=== PATIENT | female | born 1955 | race Caucasian/White ===

== ENCOUNTER 2017-12-17 02:57 | Observation (INO) | payer OTHER, SELFPAY ==
[2017-12-17] VITALS (32 sets, daily range): BP systolic 85–148; BP diastolic 43–95; PULSE 63–86; RESP 9–24; TEMP 36.2–37.1; O2SAT 90–99; BMI 24.8; BMI 25.0; BMI 25.1
--- NOTE | 2017-12-17 02:59 | ED.RN ---
NO OLD EKG'S IN MUSE
--- NOTE | 2017-12-17 03:02 | CT_ITS ---
STUDY: CTA CHEST REASON FOR EXAM: Female, 62 years old. Chest pain and pressure. Shortness of breath. Rule out dissection. RADIATION DOSAGE (If Supplied By Facility): CTDIvol = ( 9.86 ) mGy, DLP = ( 607.34 ) mGycm TECHNIQUE: The examination was performed with the intravenous administration of 75ml ml of Isovue 370 contrast material. Post-processing of the angiographic images was performed, with multiplanar reformation and 3D reconstruction. Individualized dose optimization techniques were used for this CT. COMPARISON: CTA abdomen done today. FINDINGS: Normal enhancement of the main pulmonary artery and right and left pulmonary arteries. Normal enhancement of the bilateral peripheral pulmonary arteries. There is no demonstrated pulmonary embolism. There are atherosclerotic calcifications of the thoracic aorta and visualized great vessels. There is mild aneurysmal dilatation of the ascending thoracic aorta with maximal diameter of 4.3 cm. There is no demonstrated aortic dissection. Normal heart and pericardium. There are coronary artery calcifications. There are visualized mediastinal lymph nodes, which are within normal size limits, and with normal morphology. Normal hilar regions. Normal visualized trachea. There is mural thickening of bronchial bronchial branches within the posterior basilar segment of the right lower lobe. There is also opacification of some small bronchial branches in that segment. The lungs are generally well expanded. There is mild atelectasis or fibrosis in the lung bases. Normal pleura. Normal chest wall structures. There are degenerative changes of thoracic spine. Abdominal findings were discussed in CT abdomen report. CT/CTA Chest W/WO Contrast IMPRESSION: No demonstrated pulmonary embolism or arterial dissection. Atherosclerosis. Mild residual dilatation of the ascending thoracic aorta with maximal diameter of 4.3 cm. Mural thickening and partial opacification of bronchial branches in the posterior basilar segment of the right lower lobe. This may represent an infectious or inflammatory bronchitis with retained secretions or mucous plugs. Previous aspiration would also be consideration. Mild fibrosis or atelectasis in the lung bases bilaterally. No demonstrated pulmonary consolidations. Electronically Signed: Celso Carpenter MD at 4:08 EDT , Service support ,
--- NOTE | 2017-12-17 03:02 | EKG12_ITS ---
Test Reason : CP Blood Pressure : / mmHG Vent. Rate : 078 BPM Atrial Rate : 078 BPM P-R Int : 172 ms QRS Dur : 082 ms QT Int : 362 ms P-R-T Axes : 072 055 067 degrees QTc Int : 412 ms Sinus arrhythmia Normal ECG Confirmed by FAUSTINO MONTILLA, IRINA ([id number]), editorial manager LIANE BERGER ([id number]) on 12/18/2017 1:17:19 PM Referred By: KJ Confirmed By:IRINA HARMON MD
--- NOTE | 2017-12-17 03:03 | CT_ITS ---
STUDY: CTA OF THE ABDOMINAL AORTA AND ABDOMINAL ARTERIES REASON FOR EXAM: Female, 62 years old. Chest pain and pressure. Shortness of breath. Rule out dissection. RADIATION DOSAGE (If Supplied By Facility): CTDIvol = ( 9.86 ) mGy, DLP = ( 607.34 ) mGycm TECHNIQUE: Axial CT angiography multi-detector data acquisition was obtained from the to the following intravenous administration of 75ml ml of Isovue 370 contrast. Axial images and MIP images were reconstructed from the axial data set. Post-processing of the angiographic images was performed, with multiplanar reformation and 3D reconstruction. Individualized dose optimization techniques were used for this CT. TECHNICAL QUALITY: Good COMPARISON: CTA chest.w Descriptors of Narrowing: None (0%) Mild (< 50%) Moderate (50-70%) Severe (70-90%) Subtotal/Total Occlusion (90-100%) Non-Evaluable (technically non-diagnostic FINDINGS: Abdominal aorta: There is atherosclerotic calcification and tortuosity of the abdominal aorta with no demonstrated narrowing. No demonstrated aneurysm or dissection. Celiac and superior mesenteric arteries: No demonstrated narrowing. Inferior mesenteric artery: No demonstrated narrowing. Right renal artery(arteries): (2 arteries) No demonstrated narrowing. Left renal artery(arteries): (2 arteries) No demonstrated narrowing. Right common iliac artery: No demonstrated narrowing. Proximal Right external iliac artery: No demonstrated narrowing. Proximal Right internal iliac artery: No demonstrated narrowing. Left common iliac artery: No demonstrated narrowing. Proximal Left external iliac artery: No demonstrated narrowing. Proximal Left internal iliac artery: No demonstrated narrowing. ABDOMINAL FINDINGS: The lower lung field findings were discussed since CTA chest report. Normal liver. Normal gallbladder and extrahepatic biliary system. Normal spleen. Normal pancreas. Normal bilateral adrenal glands. Normal right kidney. Normal left kidney. There is apparent mural thickening of the fundus and proximal body of the stomach which may be artifact of nondistention or may represent gastritis. Normal small intestine. Normal colon. There is non-visualization of the appendix. Normal inferior vena cava. Normal retroperitoneum. Normal urinary bladder. Normal abdominal wall. There are diffuse degenerative changes of the visualized lumbar spine. There is grade 1 spondylolisthesis at the L4-5 level, bases. CT/CTA Abdomen W/WO Contrast IMPRESSION: No evidence for aortic aneurysm or dissection. No evidence for hemodynamically significant arterial stenosis. Apparent prominent mural thickening of the stomach may be an artifact of under distention. Gastritis or other gastric pathology is not excluded. Electronically Signed: Celso Carpenter MD at 3:56 EDT , Service support ,
--- NOTE | 2017-12-17 03:05 | RAD_ITS ---
STUDY: X-RAY CHEST REASON FOR EXAM: Female, 62 years old. Chest pain. TECHNIQUE: Single AP portable view of the chest. COMPARISON: None. FINDINGS: The lungs are clear and expanded. There is no demonstrated pleural abnormality. Normal size heart. Normal mediastinum and amber. Normal visualized pulmonary arteries. Normal visualized aortic arch and descending thoracic aorta. Normal visualized thoracic spine. Normal visualized ribs, clavicles, and shoulders. There is no demonstrated abnormality of the visualized soft tissue structures of the upper abdomen. RAD/Chest 1 View (Portable) IMPRESSION: Normal x-ray examination of the chest. Electronically Signed: Celso Carpenter MD at 3:33 EDT , Service support ,
--- NOTE | 2017-12-17 03:07 | ED.DCSUM_ITS ---
- ER Visit Summary Date of Service: 12/17/17 Chief Complaint: Chest pain, shortness of breath History of Present Illness: The patient is a 62 F presents to the emergency department chest pain shortness of breath. Patient states symptoms began about 9:00 tonight. She states that she took her dogs outside. She began to have some substernal chest heaviness that radiated into her back. Over the past 6 hours, the pain is worsened. She feels like she cannot take a deep breath. She cannot get comfortable. She has never had pain like this before. Patient does have a history of hypertension hypercholesterolemia. She also has a history of smoking. She does admit to a family history of coronary vascular disease. She is not on anticoagulants. Physical Examination: Vital signs reviewed General: Well-nourished, well-developed Head: Normocephalic, atraumatic Eyes: Pupils equal and reactive, extraocular muscles intact Neck, supple, no lymphadenopathy Heart: Regular rate and rhythm Respiratory: No distress, clear bilaterally Abdomen: Soft, nontender, nondistended, no peritoneal signs Back: Nontender Extremities: Nontender, no edema, no cords Skin: Normal color no rash Neuro: Alert and oriented, no focal or lateralizing deficits Test Results: [] Emergency Department Course and Treatment: EKG was obtained on patient arrival. There is no evidence of acute ischemic change. Patient did have rather significant pain and went to her back. I was concerned for aortic dissection. Patient was sent for CTA of the chest which are reviewed immediately. There was no evidence of dissection. She was given morphine and nitro. She had marked improvement of her pain. Her EKG was repeated and there was no acute abnormalities. Patient's cardiac enzymes were within normal limits. She has had pain for 6 hours with a normal cardiac enzymes, which makes me more comfortable that she is not experiencing an acute myocardial infarction. However, given the patient's age and risk factors I do feel that she will benefit from cardiac rule out. Her pain is markedly improved. She has had 2 unremarkable EKGs. I do for this patient can safely be admitted to telemetry. She is discussed with the hospitalist will be admitted. Treatment Plan: [] Disposition: Admission Impression: 1. Chest pain This note was generated with [employer] dictation software. It may contain incorrect words, spelling, and punctuation that were not noted in review of the chart prior to signing ED Disposition - Plan for ED Patient: Chief Complaint: Chest Pain Referrals: Roberto Pabon MD [Primary Care Provider] -
[2017-12-17] MEDS: 0.9% Normal Saline 1,000 ML 1000 ML IV (03:08)
[2017-12-17] MEDS: Aspirin 81 MG TAB.CHEW 324 MG PO (03:08)
[2017-12-17] MEDS: Ondansetron 4 MG/2 ML Vial IV (03:09)
[2017-12-17] MEDS: Morphine 4 MG/ML Syringe IV ×2 (03:10→06:06)
[2017-12-17 03:14] LABS: Absolute Lymphocyte Count 1.52 X10^3/ul (0.83-4.51); Absolute Neutrophil Count 6.3 X10^3/uL (2.0-7.7); Basophil# 0.03 X10^3/uL; Basophil% 0.3 % (0-1); Eosinophils% 2.2 % (0-5); Hematocrit 43.9 % (37-47); Hemoglobin 15.1 g/dl (12.0-15.0); Lymphocyte # 1.52 X10^3/ul (4.0); Mean Corp Hgb Conc 34.4 g/gl (32-36); Mean Corpuscular Volume 90.1 fL (81-99); Mean Platelet Vol. 8.4 fl (6.2-12.0); Monocyte# 0.89 X10^3/uL; Neutrophil # 6.28 X10^3/uL (2.7-7.7); Neutrophil % 70.4 % (47-70); POSITIVE COUNT NO; POSITIVE DIFFERENTIAL NO; POSITIVE MORPHOLOGY NO; Platelet Count 278 K/mm3 (150-450); RBC Distribution Width CV 13.4 % (11.6-14.6); Red Blood Count 4.87 M/mm3 (4.2-5.4); White Blood Count 8.9 K/mm3 (4.4-11.0)
[2017-12-17 03:21] LABS: International Normalized Ratio 0.8; Prothrombin Time (Protime)PT. 11.4 SECONDS (11.7-14.9)
[2017-12-17 03:28] LABS: Anion Gap 9 (5-15); BUN 20 mg/dL (7-18); BUN/Creat Ratio 24.3 RATIO (10-20); Calcium,Total 9.8 mg/dL (8.5-10.1); Chloride 102 mmol/L (98-107); Creatinine, Serum 0.82 mg/dL (0.55-1.02); EST Glomerular Filtration Rate 75 mL/min (>60); Est Glom Filt Rate - Afr Amer 90 mL/min (>60); Estimated Creatinine Clearance 64.01 ml/min; Glucose 106 mg/dL (74-106); Potassium 4.5 mmol/L (3.5-5.1); Sodium Level 141 mmol/L (136-145)
[2017-12-17] MEDS: fentaNYL 100 MCG/2 ML Ampul 50 MCG IV (03:36)
--- NOTE | 2017-12-17 03:36 | EKG12_ITS ---
Test Reason : REPEAT Blood Pressure : / mmHG Vent. Rate : 080 BPM Atrial Rate : 080 BPM P-R Int : 168 ms QRS Dur : 086 ms QT Int : 382 ms P-R-T Axes : 063 044 061 degrees QTc Int : 440 ms Normal sinus rhythm Normal ECG Confirmed by FAUSTINO MONTILLA, IRINA ([id number]), supervising film or videotape editor LIANE BERGER ([id number]) on 12/18/2017 1:17:35 PM Referred By: KJ Confirmed By:IRINA HARMON MD
--- NOTE | 2017-12-17 04:36 | PCM.HP.STD ---
Problem List (1) Chest pain Status: Acute (2) HTN (hypertension) Status: Chronic (3) Hypothyroid Status: Acute History of Present Illness Date of Admission: 12/17/17 Chief Complaint: Chest pain The patient is a 62 year old female w/ h/o HTN and lipidemia admitted for chest pain. She had chest pain around 9:00 PM. Pain was worse when she walked her dogs. Pain is substernal and pressure like. Pain is also pleuritic. She has a hard time breathing. Nothing appeared to make it better or worse. She had a stress test 10-15 yrs ago. Pain is severe and episodic. He lives an active lifestyle. She has family h/o CAD. Past Medical History Past Medical History (Chronic Problems): Chronic Problems HTN (hypertension) (Chronic) Allergies No Known Allergies Allergy (Verified 12/17/17 03:14) Home Medications: Ambulatory Orders Medication Instructions Recorded Gabapentin [Neurontin] 900 mg PO TID 12/17/17 Levothyroxine Sodium [Synthroid] 137 mcg PO DAILY 12/17/17 Lisinopril [Zestril] 5 mg PO DAILY 12/17/17 Omeprazole [Omeprazole] 20 mg PO DAILY 12/17/17 Triamterene/Hydrochlorothiazid 1 tab PO DAILY 12/17/17 [Triamterene-Hctz 75-50 mg Tab] Verapamil HCl [Verelan Pm] 100 mg PO DAILY 12/17/17 Surgical History: no surgical history Psychiatric History: No pertinent psych hx Lives: Spouse/ Significant Other Smoking Status: Current every day smoker Alcohol: None Drugs: None Review of Systems Constitutional: Denies: Chills, Fever, Weight Change HEENT: Denies: Head Aches, Sinus Congestion, Sinus Drainage Cardiovascular: Denies: Chest Pain, Palpitations Respiratory: Denies: Cough, Shortness of breath at rest, Sputum production Gastrointestinal: Denies: Abdominal Pain, Nausea, Vomiting Genitourinary: Denies: Dysuria Musculoskeletal: Denies: Joint Pain, Joint Tenderness Skin: Denies: Rash, Wounds Neurological: Denies: Numbness, Tingling, Focal weakness Psychiatric: Denies: Anxiety, Depression, Homicidal Ideations, Suicidal Ideations Hematologic/ Lymphatic: Denies: Easy Bruising, Easy Bleeding VTE Information - Inpt Only VTE Present on Admission: No VTE Mechan Device Prophylaxis: SCD's VTE Pharm Prophylaxis ordered?: Yes Patient Problems: Active and Suspected Problems Chest pain (Acute) Hypothyroid (Acute) - Physical Exam General: Alert, Oriented x3, Cooperative HEENT: Atraumatic, PERRLA, EOMI, Normocephalic Neck: Supple, No JVD, Negative Carotid Bruits Lungs: Clear to auscultation, Normal air movement Cardiovascular: Regular rate, No murmurs Abdomen: Bowel Sounds Present, Soft, Non Tender Extremities: No edema, Capillary Refill Less than 3 Seconds Skin: No rashes, No breakdown Musculoskeletal: No Tenderness to Palpation of Joints or Extremities Neurological: Cranial nerves II-XII grossly intact Psych/Mental Status: Normal Affect, Appropriate Vital Signs Temp Pulse Resp BP Pulse Ox 98.5 F 70 17 102/75 97 12/17/17 02:58 12/17/17 04:20 12/17/17 04:20 12/17/17 04:20 12/17/17 04:20 Oxygen Flow Rate (L/min) 2 Oxygen Delivery Method Nasal Cannula Weight: 67.8 kg Body Mass Index (BMI) 24.8 Laboratory Tests Past 24 Hrs 12/17/17 12/17/17 12/17/17 03:04 03:04 03:04 WBC 8.9 RBC 4.87 Hgb 15.1 H Hct 43.9 MCV 90.1 MCH 31.0 MCHC 34.4 RDW 13.4 RDW Differential 44.0 H Plt Count 278 MPV 8.4 Immature Gran % (Auto) 0.100 Neut % (Auto) 70.4 H Lymph % (Auto) 17.0 L [place] % (Auto) 10.0 Eos % (Auto) 2.2 Baso % (Auto) 0.3 Absolute Neuts (auto) 6.3 Absolute Lymphs (auto) 1.52 Total Counted Not Reportable PT 11.4 L INR 0.8 Sodium 141 Potassium 4.5 Chloride 102 Carbon Dioxide 30.0 Anion Gap 9 BUN 20 H Creatinine 0.82 Estim Creat Clear Calc 64.01 Est GFR (MDRD) Af Amer 90 Est GFR (MDRD) Non-Af 75 BUN/Creatinine Ratio 24.3 H Glucose 106 Calcium 9.8 Troponin I < 0.015 Assessment/Plan All Active Problems Chest pain (Acute) Hypothyroid (Acute) a 62 year old female w/ h/o HTN and lipidemia admitted for chest pain. 1) Chest pain: Heart score 5 EKG is nondiagnostic. CTA is negative for PE / dissection. Initial trop negative. Will get ECHO and stress test. Will start coreg and ASA. Resume home meds. 2) HTN: SBP 120s. Resume home meds. Monitor. 3) Bronchitis: No cough. Supportive care. 4) Prophylaxis: SCD / Heparin
--- NOTE | 2017-12-17 05:52 | EKG12_ITS ---
Test Reason : CHEST PAIN Blood Pressure : / mmHG Vent. Rate : 062 BPM Atrial Rate : 062 BPM P-R Int : 184 ms QRS Dur : 084 ms QT Int : 402 ms P-R-T Axes : 069 059 066 degrees QTc Int : 408 ms Normal sinus rhythm Normal ECG Confirmed by FAUSTINO MONTILLA, IRINA ([id number]), newspaper photo editor LIANE BERGER ([id number]) on 12/18/2017 2:31:14 PM Referred By: MARIA ELENA Confirmed By:IRINA HARMON MD
--- NOTE | 2017-12-17 05:55 | ECHOD_ITS ---
Reason For Study: Chest Pain Procedure This was a 2D Doppler, Color Flow transthoracic echocardiogram. Exam performed portable in patient room. Left Ventricle Normal size and thickness. The estimated ejection fraction is 65 %. Stage 1 diastolic dysfunction. No regional wall motion abnormalities noted. Right Ventricle Normal size and thickness. Normal systolic function. Atria Normal left atrium. Normal right atrium. Normal atrial septum. Mitral Valve The mitral valve is structurally normal. No prolapse or stenosis seen. Trivial mitral valve insufficiency. Tricuspid Valve Normal tricuspid valve. Trivial tricuspid valve insufficiency. Right ventricular systolic pressure estimated to be 28 mmHg. Aortic Valve Normal aortic valve. Trisinus/trileaflet aortic valve. Pulmonic Valve Normal pulmonic valve. Great Vessels Normal aortic root. Normal arch. Normal inferior vena cava. Inferior vena cava collapse with sniff. Pericardium/Pleural No pericardial effusion. MMode/2D Measurements & Calculations LVIDd: 4.3 cm IVSd: 1.0 cm Ao root diam: 3.3 cm LVIDs: 2.6 cm LVPWd: 1.0 cm RVDd: 3.5 cm FS: 39.2 % LAV(MOD-bp): 36.8 ml EDV(MOD-sp4): 64.3 ml SV(MOD-sp4): 44.0 ml LAV(MOD-bp) Indexed: 21.6 ml/m2 ESV(MOD-sp4): 20.3 ml LAV(MOD-sp2): 46.5 ml EF(MOD-sp4): 68.5 % LAV(MOD-sp4): 28.3 ml LA A4 area: 12.5 cm2 RA A4 area: 10.5 cm2 Doppler Measurements & Calculations MV E max segundo: 79.6 cm/sec Lat Peak E' Segundo: 8.3 cm/sec Med Peak E' Segundo: 10.0 cm/sec MV A max segundo: 66.8 cm/sec E/E' lat: 9.6 E/E' med: 8.0 MV E/A: 1.2 Ao V2 max: 165.8 cm/sec LV V1 max: 128.0 cm/sec PA V2 max: 95.3 cm/sec Ao max P.0 mmHg LV V1 max P.5 mmHg Ao V2 mean: 120.0 cm/sec Ao mean P.2 mmHg Ao V2 VTI: 34.6 cm TR max segundo: 243.1 cm/sec TR max P.6 mmHg Interpretation Summary The estimated ejection fraction is 65 %. Stage 1 diastolic dysfunction. Trivial mitral valve insufficiency. Trivial tricuspid valve insufficiency. Right ventricular systolic pressure estimated to be 28 mmHg. There is no comparison study available. Ordering Physician: Estuardo Mcintyre Referring Physician: MD Roberto Pabon Performed By: Tiffany Menezes, RDCS, RVT
[2017-12-17] MEDS: Gabapentin 300 MG Capsule 900 MG PO ×3 (06:08→21:58)
[2017-12-17] MEDS: Levothyroxine 137 MCG Tablet PO (06:09)
[2017-12-17 06:41] LABS: Hematocrit 41.6 % (37-47); Hemoglobin 13.8 g/dl (12.0-15.0); Mean Corp Hgb Conc 33.2 g/gl (32-36); Mean Corpuscular Hgb 30.5 pg (27.0-32.0); Mean Corpuscular Volume 91.8 fL (81-99); Mean Platelet Vol. 8.5 fl (6.2-12.0); Platelet Count 209 K/mm3 (150-450); RBC Distribution Width CV 13.3 % (11.6-14.6); RBC Distribution Width SD 44.2 fl (35.1-43.9); Red Blood Count 4.53 M/mm3 (4.2-5.4); White Blood Count 7.7 K/mm3 (4.4-11.0)
[2017-12-17 06:42] LABS: Scan Indicated on CBC? Y/N YES- FLAGS NOTED
[2017-12-17] MEDS: TICAGRELOR 90 MG TABLET 180 MG PO (06:53)
[2017-12-17 06:56] LABS: AST(SGOT) 22 U/L (15-37); Alanine Aminotransfer ALT/SGPT 26 U/L (13-56); Albumin, Serum 3.4 g/dL (3.2-5.0); Alkaline Phosphatase 54 U/L (45-117); Anion Gap 8 (5-15); BUN 17 mg/dL (7-18); Calcium,Total 8.5 mg/dL (8.5-10.1); Chloride 106 mmol/L (98-107); Cholesterol 186 mg/dL (200); Creatinine, Serum 0.74 mg/dL (0.55-1.02); EST Glomerular Filtration Rate 85 mL/min (>60); Est Glom Filt Rate - Afr Amer 102 mL/min (>60); Estimated Creatinine Clearance 70.93 ml/min; Globulin 3.4 g/dL (2.2-4.2); Glucose 98 mg/dL (74-106); High Density Lipoprotein 90 mg/dL; Potassium 4.1 mmol/L (3.5-5.1); Protein, Total 6.8 g/dL (6.4-8.2); Sodium Level 142 mmol/L (136-145); Thyroid Stim Hormone (TSH) 1.51 uIU/mL (0.358-3.74); Triglycerides 60 mg/dL; Very Low Density Lipoprotein 12 mg/dL (5-40)
--- NOTE | 2017-12-17 07:00 | NURSING ---
to cath lab nurse on monitor, PRESALES CONSULTANT in attendance
[2017-12-17 07:08] LABS: D-Dimer Quantitative (DVT/PE) 0.37 FEU/ug/m (0.27-0.49)
[2017-12-17 08:37] LABS: BNP,B-Type NATRIURETIC PEPTIDE 20.4 pg/mL (0-100)
--- NOTE | 2017-12-17 08:38 | CL.D_ITS ---
Patient Name: RIGO TEMPLE Study Date: 12/17/2017 Performing: Daniel Ontiveros MD Ht: 65 inches 165 cm : 1955 Wt: 150.1 lbs 68 kg Age: 62 Gender: female BSA: 1.75 PROCEDURE(S) PERFORMED [id number] CLINICAL PROFILE AND INDICATIONS Indications: ACS <= 24 hrs, Worsening Angina, Suspected CAD, Pericardial Disease Heart Failure: None Stress/Imaging Stress/Image Study Performed: No Angina Classification Anginal Classification w/in 2 Weeks: CCS IV CAD Presentations: Unstable angina. Comorbidities/Risk Factors: Current/Recent Smoker (< 1year) Hypertension CONCLUSIONS Non obstructive coronary arteries Normal LV size, wall motion,and systolic function RECOMMENDATIONS Eval for pericarditis, d/c brilinta DESCRIPTION OF PROCEDURE The patient arrived to the procedure lab. The risks and benefits of the procedure as well as a full d escription of our services here and current unavailability of surgical backup were fully explained to the patient and/or their significant other prior to the catheterization. The Timeout was completed, verifying the correct patient and procedure. The patient's procedural site was prepped and draped in the usual fashion. Local anesthetic was given subcutaneously to right groin region with Lidocaine 2%. Using a modified Seldinger technique, arterial access was obtained via the right femoral artery, a 4 Fr sheath was inserted Left Coronary Artery selective angiography was performed in multiple views us ing a 4 Fr. JL5 catheter. Right Coronary Artery selective angiography was then performed in multiple views using a 4 Fr. 3DRC catheter. Left Ventriculography was performed in HAN projection using a 4 Fr . Pigtail catheter. LV to AO pullback pressures were then recorded.The arterial sheath was pulled and manual compression applied until hemostasis is achieved. CORONARY ANGIOGRAPHY DOMINANCE: Right Dominant LEFT HEART ASSESSMENT Left Ventricular Ejection Fraction: by LV Gram 65 % Normal LV wall motion Normal Left Ventricular systolic function LEFT MAIN: Angiographically normal LEFT ANTERIOR DECENDING ARTERY: Non-obstructive CIRCUMFLEX ARTERY: Non-obstructive RIGHT CORONARY ARTERY: No significant disease noted COMPLICATIONS No Complications PROCEDURE MEDICATIONS Oxygen: 2 L/min via nasal cannula Nitro glycerin 25mg / 250ml D5W @ 10 mcg/min IV continued from ICU. 12/17/2017 07:32:46 SUMMARY OF HEMODYNAMIC DATA Time AIR REST ECG 07:24:11 AO 140/90 (111) SA 07:45:04 LV 149/-15, 17 07:51:25 LV 137/-13, 15 07:51:32 LVp 134/-15, 13 07:51:36 AOp 145/81 (110) 07:51:41 Signed By Daniel Ontiveros MD On 12/17/2017 08:37:50 Daniel Ontiveros MD
--- NOTE | 2017-12-17 08:44 | PCM.CONS.C ---
Problem List (1) Chest pain Status: Acute (2) HTN (hypertension) Status: Chronic Reason for Consult Date of Consultation: 12/17/17 Reason for Consultation: Chest pain, hypertension, possible pericarditis History of Present Illness: The patient is a 62 year old F, current smoker, with hypertension, unknown cholesterol, no previous known cardiac disease. Patient was in normal health up until about 9 PM last night when she developed 10 out of 10 substernal chest pressure. When her pain did not improve she sought medical attention at [facility] ER at around 3 AM. Initial EKG showed normal sinus rhythm with what appeared to be subtle diffuse J-point elevation with MA depression. Patient was treated with IV nitroglycerin, morphine, and a CT scan was performed which demonstrated no aortic dissection, mild dilatation of the ascending aorta 4.3 cm, but there is no mention of possible pulmonary embolism. Patient's chest pain worsened this morning, after initial improvement with nitroglycerin and morphine, and she was brought emergently to the [facility] to rule out acute coronary syndrome. Her catheterization demonstrated nonobstructive coronary disease of her LAD, left circumflex and RCA with normal LV function. Initial d-dimer was negative. Sed rate and at bedtime CRP are pending. On further history the patient's pain appears to worsen markedly with laying down flat, and minimal improvement with sitting forward. She denies any associated shortness of breath, radiation of her pain, or previous fever or chills, upper respiratory tract infection. [] Past Medical History Allergies/Adverse Reactions: Allergies No Known Allergies Allergy (Verified 12/17/17 03:14) Home Medications: Ambulatory Orders Medication Instructions Recorded Gabapentin [Neurontin] 900 mg PO TID 12/17/17 Levothyroxine Sodium [Synthroid] 137 mcg PO DAILY 12/17/17 Lisinopril [Zestril] 5 mg PO DAILY 12/17/17 Omeprazole [Omeprazole] 20 mg PO DAILY 12/17/17 Triamterene/Hydrochlorothiazid 1 tab PO DAILY 12/17/17 [Triamterene-Hctz 75-50 mg Tab] Verapamil HCl [Verelan Pm] 100 mg PO DAILY 12/17/17 Past Medical History (Chronic Problems): Chronic Problems HTN (hypertension) (Chronic) Surgical History: no surgical history Psychiatric History: No pertinent psych hx Lives: Spouse/ Significant Other Smoking Status: Current every day smoker Alcohol: None Drugs: None Review of Systems - Review of Systems General: Denies: Fever, Night Sweats, Fatigue Cardiovascular: Reports: Chest Discomfort, Chest Discomfort at Rest. Denies: Shortness of Breath, Orthopnea, PND, Peripheral Edema, Palpitations, Lightheadedness, Dizziness, Near Syncope, Syncope Respiratory: Denies: Cough, Sputum Production, Hemoptysis Gastrointestinal: Denies: Hematemesis, Hematochezia, Melena Genitourinary: Denies: Dysuria, Hematuria Skin: Denies: Rash Subjectve: Patient complaining of severe crushing chest pain laying down flat, otherwise heme and apically stable. Objective: Vital Signs Temp Pulse Resp BP Pulse Ox 98.7 F 82 24 H 121/91 H 96 12/17/17 06:00 12/17/17 07:00 12/17/17 07:00 12/17/17 07:00 12/17/17 07:00 Oxygen Flow Rate (L/min) 2 Oxygen Delivery Method Nasal Cannula Weight: 150 lb 9.211 oz Body Mass Index (BMI) 25.0 Intake and Output for Last 24 Hours 12/15/17 12/16/17 12/17/17 23:59 23:59 23:59 Intake Total 1020 / 1020 Balance 1020 / 1020 General: Awake, Alert, Oriented x 3 HEENT: PERRL, EOMI, Sclera Non Icteric Neck: Supple, Good ROM, No Lymph Node Enlargement Lungs: Clear to auscultation Cardiovascular: Regular Rhythm, Normal S1, Normal S2, No Murmurs, No Rubs, No Gallops Vascular: No Carotid Bruits, Normal Femoral Pulses, Normal Radial Pulses, Normal Dorsalis Pedal Pulse, Normal Posterior Tibial Pulses Abdomen: Bowel Sounds Present, Soft, Non Tender, No HSM, No Organomegaly Extremities: No Cyanosis, No Clubbing, No edema Neurological: No Focal Motor or Sensory Deficit 12/17/17 06:20: B-Natriuretic Peptide 20.4 12/17/17 06:20: WBC 7.7, RBC 4.53, Hgb 13.8, Hct 41.6, MCV 91.8, MCH 30.5, MCHC 33.2, RDW 13.3, RDW Differential 44.2 H, Plt Count 209, MPV 8.5 07/23/18 06:20: D-Dimer Quant (PE/DVT) 0.37 12/17/17 06:20: Sodium 142, Potassium 4.1, Chloride 106, Carbon Dioxide 28.0, Anion Gap 8, BUN 17, Creatinine 0.74, Est GFR (MDRD) Af Amer 102, Est GFR (MDRD) Non-Af 85, BUN/Creatinine Ratio 23.0 H, Glucose 98, Calcium 8.5, Total Bilirubin 0.40, Triglycerides 60, Cholesterol 186, LDL Cholesterol 84, VLDL Cholesterol 12, HDL Cholesterol 90 12/17/17 06:20: Troponin I < 0.015 Rhythm: EKG: Normal sinus rhythm with diffuse subtle J-point elevation inferiorly and laterally, with associated MA depression inferiorly. ECHO: Pending Stress Test: Cardiac Cath: Nonobstructive coronary disease, normal LV function. PCI: CT Surgery: Holter monitor: EPS: PPM: CXR: Chest CT Scan: Assessment/Plan 1. Chest pain: Patient underwent an urgent left her catheterization this morning which demonstrated minimal nonobstructive coronary disease and normal LV function. Her signs and symptoms appear to be acute pericarditis, the source of which is unknown at this time. Her d-dimer is negative so it is a low probability for pulmonary embolism. She is saturating fine on low-dose oxygen. I recommend discontinuation of her Brilinta, continue baby aspirin for her minimal nonobstructive disease, obtain a 2D echo with Doppler as well as a at bedtime CRP and a sed rate. Patient was given IV Toradol in the [facility], we will initiate ibuprofen 600 mg every 8 hours. Patient also has a history of reflux disease but this symptomatology appears to be different from her previous reflux. 2. Hyperlipidemia: Continue Lipitor therapy for her nonobstructive coronary disease. Her LDL should be less than 70. 3. Tobacco cessation: I had a long and thorough discussion regarding the patient's tobacco use and strongly recommended discontinuation of all tobacco products. 4. Discussed with Dr. Lay. Thank you very much for the opportunity to participate in the cardiac care of your patient. Consultation time took place between 730 and 8 AM. Code Visit Inpatient E&M: 02592 Init Hosp L2
--- NOTE | 2017-12-17 08:50 | CON.PCM_ITS ---
Problem List (1) Chest pain Status: Acute (2) HTN (hypertension) Status: Chronic Reason for Consult Date of Consultation: 12/17/17 Reason for Consultation: Chest pain, hypertension, possible pericarditis History of Present Illness: The patient is a 62 year old F, current smoker, with hypertension, unknown cholesterol, no previous known cardiac disease. Patient was in normal health up until about 9 PM last night when she developed 10 out of 10 substernal chest pressure. When her pain did not improve she sought medical attention at [facility] ER at around 3 AM. Initial EKG showed normal sinus rhythm with what appeared to be subtle diffuse J-point elevation with OK depression. Patient was treated with IV nitroglycerin, morphine, and a CT scan was performed which demonstrated no aortic dissection, mild dilatation of the ascending aorta 4.3 cm, but there is no mention of possible pulmonary embolism. Patient's chest pain worsened this morning, after initial improvement with nitroglycerin and morphine, and she was brought emergently to the [facility] to rule out acute coronary syndrome. Her catheterization demonstrated nonobstructive coronary disease of her LAD, left circumflex and RCA with normal LV function. Initial d-dimer was negative. Sed rate and at bedtime CRP are pending. On further history the patient's pain appears to worsen markedly with laying down flat, and minimal improvement with sitting forward. She denies any associated shortness of breath, radiation of her pain, or previous fever or chills, upper respiratory tract infection. [] Past Medical History Allergies/Adverse Reactions: Allergies No Known Allergies Allergy (Verified 12/17/17 03:14) Home Medications: Ambulatory Orders Medication Instructions Recorded Gabapentin [Neurontin] 900 mg PO TID 12/17/17 Levothyroxine Sodium [Synthroid] 137 mcg PO DAILY 12/17/17 Lisinopril [Zestril] 5 mg PO DAILY 12/17/17 Omeprazole [Omeprazole] 20 mg PO DAILY 12/17/17 Triamterene/Hydrochlorothiazid 1 tab PO DAILY 12/17/17 [Triamterene-Hctz 75-50 mg Tab] Verapamil HCl [Verelan Pm] 100 mg PO DAILY 12/17/17 Past Medical History (Chronic Problems): Chronic Problems HTN (hypertension) (Chronic) Surgical History: no surgical history Psychiatric History: No pertinent psych hx Lives: Spouse/ Significant Other Smoking Status: Current every day smoker Alcohol: None Drugs: None Review of Systems - Review of Systems General: Denies: Fever, Night Sweats, Fatigue Cardiovascular: Reports: Chest Discomfort, Chest Discomfort at Rest. Denies: Shortness of Breath, Orthopnea, PND, Peripheral Edema, Palpitations, Lightheadedness, Dizziness, Near Syncope, Syncope Respiratory: Denies: Cough, Sputum Production, Hemoptysis Gastrointestinal: Denies: Hematemesis, Hematochezia, Melena Genitourinary: Denies: Dysuria, Hematuria Skin: Denies: Rash Subjectve: Patient complaining of severe crushing chest pain laying down flat, otherwise heme and apically stable. Objective: Vital Signs Temp Pulse Resp BP Pulse Ox 98.7 F 82 24 H 121/91 H 96 12/17/17 06:00 12/17/17 07:00 12/17/17 07:00 12/17/17 07:00 12/17/17 07:00 Oxygen Flow Rate (L/min) 2 Oxygen Delivery Method Nasal Cannula Weight: 150 lb 9.211 oz Body Mass Index (BMI) 25.0 Intake and Output for Last 24 Hours 12/15/17 12/16/17 12/17/17 23:59 23:59 23:59 Intake Total 1020 / 1020 Balance 1020 / 1020 General: Awake, Alert, Oriented x 3 HEENT: PERRL, EOMI, Sclera Non Icteric Neck: Supple, Good ROM, No Lymph Node Enlargement Lungs: Clear to auscultation Cardiovascular: Regular Rhythm, Normal S1, Normal S2, No Murmurs, No Rubs, No Gallops Vascular: No Carotid Bruits, Normal Femoral Pulses, Normal Radial Pulses, Normal Dorsalis Pedal Pulse, Normal Posterior Tibial Pulses Abdomen: Bowel Sounds Present, Soft, Non Tender, No HSM, No Organomegaly Extremities: No Cyanosis, No Clubbing, No edema Neurological: No Focal Motor or Sensory Deficit 12/17/17 06:20: B-Natriuretic Peptide 20.4 12/17/17 06:20: WBC 7.7, RBC 4.53, Hgb 13.8, Hct 41.6, MCV 91.8, MCH 30.5, MCHC 33.2, RDW 13.3, RDW Differential 44.2 H, Plt Count 209, MPV 8.5 07/23/18 06:20: D-Dimer Quant (PE/DVT) 0.37 12/17/17 06:20: Sodium 142, Potassium 4.1, Chloride 106, Carbon Dioxide 28.0, Anion Gap 8, BUN 17, Creatinine 0.74, Est GFR (MDRD) Af Amer 102, Est GFR (MDRD ) Non-Af 85, BUN/Creatinine Ratio 23.0 H, Glucose 98, Calcium 8.5, Total Bilirubin 0.40, Triglycerides 60, Cholesterol 186, LDL Cholesterol 84, VLDL Cholesterol 12, HDL Cholesterol 90 12/17/17 06:20: Troponin I < 0.015 Rhythm: EKG: Normal sinus rhythm with diffuse subtle J-point elevation inferiorly and laterally, with associated OK depression inferiorly. ECHO: Pending Stress Test: Cardiac Cath: Nonobstructive coronary disease, normal LV function. PCI: CT Surgery: Holter monitor: EPS: PPM: CXR: Chest CT Scan: Assessment/Plan 1. Chest pain: Patient underwent an urgent left her catheterization this morning which demonstrated minimal nonobstructive coronary disease and normal LV function. Her signs and symptoms appear to be acute pericarditis, the source of which is unknown at this time. Her d-dimer is negative so it is a low probability for pulmonary embolism. She is saturating fine on low-dose oxygen. I recommend discontinuation of her Brilinta, continue baby aspirin for her minimal nonobstructive disease, obtain a 2D echo with Doppler as well as a at bedtime CRP and a sed rate. Patient was given IV Toradol in the [facility], we will initiate ibuprofen 600 mg every 8 hours. Patient also has a history of reflux disease but this symptomatology appears to be different from her previous reflux. 2. Hyperlipidemia: Continue Lipitor therapy for her nonobstructive coronary disease. Her LDL should be less than 70. 3. Tobacco cessation: I had a long and thorough discussion regarding the patient's tobacco use and strongly recommended discontinuation of all tobacco products. 4. Discussed with Dr. Lay. Thank you very much for the opportunity to participate in the cardiac care of your patient. Consultation time took place between 730 and 8 AM. Code Visit Inpatient E&M: 32169 Init Hosp L2
[2017-12-17] MEDS: Ketorolac 30 MG/ML Syringe IV (09:30)
[2017-12-17] MEDS: Ibuprofen 600 MG Tablet PO ×2 (11:07→21:57)
--- NOTE | 2017-12-17 13:24 | PCM.PN.HOSP ---
Patient Problems: Active and Suspected Problems Chest pain (Acute) Hypothyroid (Acute) Subjective: Patient was seen and examined post cardiac cath. She is drowsy. Denies any chest pain. Discussed with Dr. Ontiveros, findings showed clean coronaries. Vitals/I&O's: Vital Signs Temp Pulse Resp BP Pulse Ox 97.6 F L 75 16 96/43 L 95 12/17/17 12:00 12/17/17 12:00 12/17/17 12:00 12/17/17 12:00 12/17/17 12:00 Oxygen Flow Rate (L/min) 2 Oxygen Delivery Method Room Air Weight: 68.3 kg Body Mass Index (BMI) 25.0 Intake and Output for Last 24 Hours 12/15/17 12/16/17 12/17/17 23:59 23:59 23:59 Intake Total 1830 / 1830 Output Total 200 / 200 Balance 1630 / 1630 General: Alert, Oriented x3, Cooperative, No apparent distress HEENT: Atraumatic, PERRLA, EOMI, Normocephalic Oral: Moist Mucosa Neck: Supple Lungs: Clear to auscultation, Normal air movement Cardiovascular: Regular rate, Regular Rhythm, Normal S1, Normal S2, No murmurs Abdomen: Bowel Sounds Present, Soft, Non Tender, Non-Distended, No Hepato-splenomegaly Extremities: No edema Skin: No rashes Musculoskeletal: No Tenderness to Palpation of Joints or Extremities Lymphatic: No Cervical, Supraclavicular, or Inguinal Adenopathy Neurological: Cranial nerves II-XII grossly intact, Neuro grossly intact Psych/Mental Status: Normal Affect, Appropriate Laboratory Results 12/17/17 06:20: B-Natriuretic Peptide 20.4 12/17/17 06:20: WBC 7.7, RBC 4.53, Hgb 13.8, Hct 41.6, MCV 91.8, MCH 30.5, MCHC 33.2, RDW 13.3, RDW Differential 44.2 H, Plt Count 209, MPV 8.5 12/17/17 06:20: D-Dimer Quant (PE/DVT) 0.37 12/17/17 06:20: Sodium 142, Potassium 4.1, Chloride 106, Carbon Dioxide 28.0, Anion Gap 8, BUN 17, Creatinine 0.74, Estim Creat Clear Calc 70.93, Est GFR (MDRD) Af Amer 102, Est GFR (MDRD) Non-Af 85, BUN/Creatinine Ratio 23.0 H, Glucose 98, Calcium 8.5, Total Bilirubin 0.40, AST 22, ALT 26, Alkaline Phosphatase 54, Total Protein 6.8, Albumin 3.4, Globulin 3.4, Albumin/Globulin Ratio 1.0, Triglycerides 60, Cholesterol 186, LDL Cholesterol 84, VLDL Cholesterol 12, HDL Cholesterol 90, TSH 1.51 12/17/17 06:20: Troponin I < 0.015 Current Medications Aspirin (Ecotrin) 81 mg PO DAILY@0800 [facility] Atorvastatin Calcium (Lipitor) 20 mg PO QHS [facility] Carvedilol (Coreg) 3.125 mg PO BID [facility] Gabapentin (Neurontin) 900 mg PO TID [facility] Last Admin: 12/17/17 06:08 Dose: 900 mg Heparin Sodium (Beef Lung) (Heparin 500 Unit/5 Ml (100/Ml)) 500 unit IV UD PRN PRN Reason: HEPARIN FLUSH Ibuprofen (Motrin) 600 mg PO Q8 [facility] Last Admin: 12/17/17 11:07 Dose: 600 mg Labetalol HCl (Trandate) 5 mg IV X1 PRN PRN Reason: SBP > 160 prior to sheath pull Levothyroxine Sodium (Synthroid) 137 mcg PO DAILY@0600 [facility] Last Admin: 12/17/17 06:09 Dose: 137 mcg Lisinopril (Zestril) 5 mg PO DAILY [facility] Morphine Sulfate () 2 - 4 mg IV Q4H PRN PRN PRN Reason: SEVERE PAIN (6-10/10) Last Admin: 12/17/17 06:06 Dose: 4 mg Morphine Sulfate () 2 - 4 mg IV Q4H PRN PRN PRN Reason: SEVERE PAIN (6-10/10) Non-Formulary Medication (Verapamil Hcl [Verelan Pm]) 100 mg PO DAILY [facility] Pantoprazole Sodium (Protonix) 20 mg PO DAILY [facility] Sodium Chloride () 5 - 30 ml IV UD PRN PRN Reason: SALINE FLUSH Triamterene/HCTZ (Maxzide) 1 tablet PO DAILY [facility] Medical Necessity - Tobacco Use Smoking Status: Current every day smoker Assessment/Plan All Active Problems Chest pain (Acute) Hypothyroid (Acute) 1. Chest pain, atypical, status post left-sided cardiac cath, minimal nonobstructive coronary disease with normal LV function, cardiology consulted, thinks it could be acute pericarditis, started on ibuprofen, will continue to monitor, continue on baby aspirin, carvedilol, lisinopril, triamterene/HCTZ 2. GERD, on PPI 3. Hyperlipidemia, on statin 4. Nicotine dependence, patient encouraged to stop smoking 5. Hypothyroidism, on levothyroxine 6. Hypertension, slightly hypotensive, will monitor blood pressures, on carvedilol, lisinopril, triamterene/HCTZ, will start to wean off some of the blood pressure pills 7. DVT prophylaxis with heparin subcu when appropriate per cardiology Code Visit Inpatient E&M: 54255 Subs Hosp L2
--- NOTE | 2017-12-17 13:28 | PN_ITS ---
Patient Problems: Active and Suspected Problems Chest pain (Acute) Hypothyroid (Acute) Subjective: Patient was seen and examined post cardiac cath. She is drowsy. Denies any chest pain. Discussed with Dr. Ontiveros, findings showed clean coronaries. Vitals/I&O's: Vital Signs Temp Pulse Resp BP Pulse Ox 97.6 F L 75 16 96/43 L 95 12/17/17 12:00 12/17/17 12:00 12/17/17 12:00 12/17/17 12:00 12/17/17 12:00 Oxygen Flow Rate (L/min) 2 Oxygen Delivery Method Room Air Weight: 68.3 kg Body Mass Index (BMI) 25.0 Intake and Output for Last 24 Hours 12/15/17 12/16/17 12/17/17 23:59 23:59 23:59 Intake Total 1830 / 1830 Output Total 200 / 200 Balance 1630 / 1630 General: Alert, Oriented x3, Cooperative, No apparent distress HEENT: Atraumatic, PERRLA, EOMI, Normocephalic Oral: Moist Mucosa Neck: Supple Lungs: Clear to auscultation, Normal air movement Cardiovascular: Regular rate, Regular Rhythm, Normal S1, Normal S2, No murmurs Abdomen: Bowel Sounds Present, Soft, Non Tender, Non-Distended, No Hepato- splenomegaly Extremities: No edema Skin: No rashes Musculoskeletal: No Tenderness to Palpation of Joints or Extremities Lymphatic: No Cervical, Supraclavicular, or Inguinal Adenopathy Neurological: Cranial nerves II-XII grossly intact, Neuro grossly intact Psych/Mental Status: Normal Affect, Appropriate Laboratory Results 12/17/17 06:20: B-Natriuretic Peptide 20.4 12/17/17 06:20: WBC 7.7, RBC 4.53, Hgb 13.8, Hct 41.6, MCV 91.8, MCH 30.5, MCHC 33.2, RDW 13.3, RDW Differential 44.2 H, Plt Count 209, MPV 8.5 12/17/17 06:20: D-Dimer Quant (PE/DVT) 0.37 12/17/17 06:20: Sodium 142, Potassium 4.1, Chloride 106, Carbon Dioxide 28.0, Anion Gap 8, BUN 17, Creatinine 0.74, Estim Creat Clear Calc 70.93, Est GFR ( MDRD) Af Amer 102, Est GFR (MDRD) Non-Af 85, BUN/Creatinine Ratio 23.0 H, Glucose 98, Calcium 8.5, Total Bilirubin 0.40, AST 22, ALT 26, Alkaline Phosphatase 54, Total Protein 6.8, Albumin 3.4, Globulin 3.4, Albumin/Globulin Ratio 1.0, Triglycerides 60, Cholesterol 186, LDL Cholesterol 84, VLDL Cholesterol 12, HDL Cholesterol 90, TSH 1.51 12/17/17 06:20: Troponin I < 0.015 Current Medications Aspirin (Ecotrin) 81 mg PO DAILY@0800 [facility] Atorvastatin Calcium (Lipitor) 20 mg PO QHS [facility] Carvedilol (Coreg) 3.125 mg PO BID [facility] Gabapentin (Neurontin) 900 mg PO TID [facility] Last Admin: 12/17/17 06:08 Dose: 900 mg Heparin Sodium (Beef Lung) (Heparin 500 Unit/5 Ml (100/Ml)) 500 unit IV UD PRN PRN Reason: HEPARIN FLUSH Ibuprofen (Motrin) 600 mg PO Q8 [facility] Last Admin: 12/17/17 11:07 Dose: 600 mg Labetalol HCl (Trandate) 5 mg IV X1 PRN PRN Reason: SBP > 160 prior to sheath pull Levothyroxine Sodium (Synthroid) 137 mcg PO DAILY@0600 [facility] Last Admin: 12/17/17 06:09 Dose: 137 mcg Lisinopril (Zestril) 5 mg PO DAILY [facility] Morphine Sulfate () 2 - 4 mg IV Q4H PRN PRN PRN Reason: SEVERE PAIN (6-10/10) Last Admin: 12/17/17 06:06 Dose: 4 mg Morphine Sulfate () 2 - 4 mg IV Q4H PRN PRN PRN Reason: SEVERE PAIN (6-10/10) Non-Formulary Medication (Verapamil Hcl [Verelan Pm]) 100 mg PO DAILY [facility] Pantoprazole Sodium (Protonix) 20 mg PO DAILY [facility] Sodium Chloride () 5 - 30 ml IV UD PRN PRN Reason: SALINE FLUSH Triamterene/HCTZ (Maxzide) 1 tablet PO DAILY [facility] Medical Necessity - Tobacco Use Smoking Status: Current every day smoker Assessment/Plan All Active Problems Chest pain (Acute) Hypothyroid (Acute) 1. Chest pain, atypical, status post left-sided cardiac cath, minimal nonobstructive coronary disease with normal LV function, cardiology consulted, thinks it could be acute pericarditis, started on ibuprofen, will continue to monitor, continue on baby aspirin, carvedilol, lisinopril, triamterene/HCTZ 2. GERD, on PPI 3. Hyperlipidemia, on statin 4. Nicotine dependence, patient encouraged to stop smoking 5. Hypothyroidism, on levothyroxine 6. Hypertension, slightly hypotensive, will monitor blood pressures, on carvedilol, lisinopril, triamterene/HCTZ, will start to wean off some of the blood pressure pills 7. DVT prophylaxis with heparin subcu when appropriate per cardiology Code Visit Inpatient E&M: 74051 Subs Hosp L2
[2017-12-17] MEDS: Carvedilol 3.125 MG TABLET PO ×2 (14:59→21:59)
[2017-12-17] MEDS: Pantoprazole Sodium 20 MG Tablet PO (14:59)
[2017-12-17] MEDS: Triamterene 75MG/Hctz 50MG Tablet 1 TABLET PO (14:59)
[2017-12-17] MEDS: Aspirin E.C. 81 MG Tablet PO (14:59)
[2017-12-17] MEDS: Acetaminophen 500 MG Tablet 1000 MG PO (17:04)
[2017-12-17] MEDS: Atorvastatin Calcium 20 MG Tablet PO (21:58)
[2017-12-17] MEDS: 0.9% NaCl Peripheral Flush Adult/Peds IV (21:59)
[2017-12-18 03:00] VITALS: BP 115/66; PULSE 56; RESP 17; TEMP 36.7; O2SAT 96
[2017-12-18 03:31] VITALS: PULSE 62
[2017-12-18] MEDS: Gabapentin 300 MG Capsule 900 MG PO (05:11)
[2017-12-18] MEDS: Levothyroxine 137 MCG Tablet PO (05:11)
[2017-12-18] MEDS: Ibuprofen 600 MG Tablet PO (05:11)
--- NOTE | 2017-12-18 07:14 | PN_ITS ---
Patient Problems: Active and Suspected Problems Chest pain (Acute) Hypothyroid (Acute) Subjective: Child was seen and examined. Pain is improved. Had Tylenol alternating with ibuprofen. This has helped a lot with the pain and she did not require any further doses last night. No acute events overnight. Denies fever or chills or shortness of breath or palpitations or dizziness. Vitals/I&O's: Vital Signs Temp Pulse Resp BP Pulse Ox 98.1 F 62 17 115/66 96 12/18/17 03:00 12/18/17 03:31 12/18/17 03:00 12/18/17 03:00 12/18/17 03:00 Oxygen Flow Rate (L/min) 2 Oxygen Delivery Method Room Air Weight: 68.3 kg Body Mass Index (BMI) 25.0 Intake and Output for Last 24 Hours 12/16/17 12/17/17 12/18/17 23:59 23:59 23:59 Intake Total 2115 / 2115 Output Total 1725 / 1725 Balance 390 / 390 General: Alert, Oriented x3, Cooperative, No apparent distress HEENT: Atraumatic, PERRLA, EOMI, Normocephalic Oral: Moist Mucosa Neck: Supple Lungs: Clear to auscultation, Normal air movement Cardiovascular: Regular rate, Regular Rhythm, Normal S1, Normal S2, No murmurs, - - No pericardial rub. Abdomen: Bowel Sounds Present, Soft, Non Tender, Non-Distended, No Hepato- splenomegaly Extremities: No edema Skin: No rashes, No breakdown Musculoskeletal: No Tenderness to Palpation of Joints or Extremities Lymphatic: No Cervical, Supraclavicular, or Inguinal Adenopathy Neurological: Cranial nerves II-XII grossly intact Psych/Mental Status: Normal Affect, Appropriate Laboratory Results 12/17/17 06:20: B-Natriuretic Peptide 20.4 Current Medications Acetaminophen (Tylenol) 1,000 mg PO Q8H PRN PRN PRN Reason: PAIN Last Admin: 12/17/17 17:04 Dose: 1,000 mg Aspirin (Ecotrin) 81 mg PO DAILY@0800 [facility] Last Admin: 12/17/17 14:59 Dose: 81 mg Atorvastatin Calcium (Lipitor) 20 mg PO QHS [facility] Last Admin: 12/17/17 21:58 Dose: 20 mg Carvedilol (Coreg) 3.125 mg PO BID [facility] Last Admin: 12/17/17 21:59 Dose: 3.125 mg Gabapentin (Neurontin) 900 mg PO TID [facility] Last Admin: 12/18/17 05:11 Dose: 900 mg Heparin Sodium (Beef Lung) (Heparin 500 Unit/5 Ml (100/Ml)) 500 unit IV UD PRN PRN Reason: HEPARIN FLUSH Ibuprofen (Motrin) 600 mg PO Q8 [facility] Last Admin: 12/18/17 05:11 Dose: 600 mg Labetalol HCl (Trandate) 5 mg IV X1 PRN PRN Reason: SBP > 160 prior to sheath pull Levothyroxine Sodium (Synthroid) 137 mcg PO DAILY@0600 [facility] Last Admin: 12/18/17 05:11 Dose: 137 mcg Lisinopril (Zestril) 5 mg PO DAILY [facility] Last Admin: 12/17/17 15:00 Dose: Not Given Morphine Sulfate () 2 - 4 mg IV Q4H PRN PRN PRN Reason: SEVERE PAIN (6-10/10) Last Admin: 12/17/17 06:06 Dose: 4 mg Morphine Sulfate () 2 - 4 mg IV Q4H PRN PRN PRN Reason: SEVERE PAIN (6-10/10) Pantoprazole Sodium (Protonix) 20 mg PO DAILY [facility] Last Admin: 12/17/17 14:59 Dose: 20 mg Sodium Chloride () 5 - 30 ml IV UD PRN PRN Reason: SALINE FLUSH Last Admin: 12/17/17 21:59 Dose: 10 ml Triamterene/HCTZ (Maxzide) 1 tablet PO DAILY [facility] Last Admin: 12/17/17 14:59 Dose: 1 tablet Verapamil HCl (Verelan Pm) 100 mg PO DAILY [facility] Last Admin: 12/17/17 10:43 Dose: Not Given Medical Necessity - Tobacco Use Smoking Status: Current every day smoker Assessment/Plan All Active Problems Chest pain (Acute) Hypothyroid (Acute) 1. Chest pain, likely secondary to acute pericarditis, status post cardiac cath 12/17/2017 that was negative, will continue scheduled ibuprofen 600mg tid, add colchicine 0.6mg bid. CRP, BMP pending 2. GERD, on PPI 3. Hyperlipidemia, on statin 4. Nicotine dependence, patient encouraged to stop smoking 5. Hypothyroidism, on levothyroxine 6. Hypertension, on carvedilol, lisinopril, triamterene/HCTZ 7. DVT prophylaxis with heparin subcu when appropriate per cardiology Code Visit Inpatient E&M: 14449 Subs Hosp L2
[2017-12-18 07:22] VITALS: O2SAT 96
[2017-12-18 07:35] VITALS: PULSE 56
--- NOTE | 2017-12-18 07:49 | PCM.DC ---
- Discharge Diagnoses Current Active Problems: Current Active and Chronic Problems Chest pain (Acute) HTN (hypertension) (Chronic) Hypothyroid (Acute) Reason(s) for Visit for Discharge Instructions: Chest pain You will use the following diet at home:: Cardiac Your liquids should be the consistency of: Regular/Thin Discharge Activity: Return to Normal Activity Additional Instructions: Continue to take the scheduled ibuprofen for 2 weeks. Continue to eat a heart healthy diet. Avoid strenous activities. Your pantoprazole has been increased to twice a day whilst you are on the ibuprofen Allergies/Adverse Reactions: Allergies No Known Allergies Allergy (Verified 12/17/17 03:14) Medications to take at Discharge Gabapentin [Neurontin] 900 mg PO TID 12/17/17 Levothyroxine Sodium [Synthroid] 137 mcg PO DAILY 12/17/17 Lisinopril [Zestril] 5 mg PO DAILY 12/17/17 Omeprazole 20 mg PO DAILY 12/17/17 Triamterene/Hydrochlorothiazid [Triamterene-Hctz 75-50 mg Tab] 1 tab PO DAILY 12/17/17 Verapamil HCl [Verelan Pm] 100 mg PO DAILY 12/17/17 Aspirin E.C. [Ecotrin] 81 mg PO DAILY@0800 #30 tab 12/18/17 Atorvastatin Calcium [Lipitor] 20 mg PO QHS #30 tab 12/18/17 Carvedilol [Coreg (Beta Rambo)] 3.125 mg PO BID #60 tab 12/18/17 Ibuprofen 600 mg PO TID #60 tab 12/18/17 The following prescriptions were given: Aspirin E.C. [Ecotrin] 81 mg PO DAILY@0800 #30 tab Atorvastatin Calcium [Lipitor] 20 mg PO QHS #30 tab Carvedilol [Coreg (Beta Rambo)] 3.125 mg PO BID #60 tab Ibuprofen 600 mg PO TID #60 tab Primary Care Physician: Roberto Pabon MD [Primary Care Provider] - Please follow up with your Primary Care Physician in: within 1-2 weeks Test Results: Test results from this visit will be discussed in further detail at your follow-up appointment, if applicable. Please Follow Up With: Daniel Ontiveros MD When: within 2 weeks Proposed Discharge Date: 12/18/17
--- NOTE | 2017-12-18 07:50 | PCM.DC.SUM ---
Discharge Date and Diagnosis Date of Admission: 12/17/17 Date of Discharge: 12/18/17 - Primary Discharge Diagnosis Active and Suspected Problems Chest pain (Acute) Acute pericarditis - Secondary Discharge Diagnosis Chronic Problems HTN (hypertension) (Chronic) Hypothyroidism Hospital Course and Treatment Imaging Results: Clinical Impression(s) from Imaging Studies Chest CTA 12/17/17 03:02 IMPRESSION: No demonstrated pulmonary embolism or arterial dissection. Atherosclerosis. Mild residual dilatation of the ascending thoracic aorta with maximal diameter of 4.3 cm. Mural thickening and partial opacification of bronchial branches in the posterior basilar segment of the right lower lobe. This may represent an infectious or inflammatory bronchitis with retained secretions or mucous plugs. Previous aspiration would also be consideration. Mild fibrosis or atelectasis in the lung bases bilaterally. No demonstrated pulmonary consolidations. Electronically Signed: Celso Carpenter MD at 4:08 EDT , Service support , Abdomen CTA 12/17/17 03:03 IMPRESSION: No evidence for aortic aneurysm or dissection. No evidence for hemodynamically significant arterial stenosis. Apparent prominent mural thickening of the stomach may be an artifact of under distention. Gastritis or other gastric pathology is not excluded. Electronically Signed: Celso Carpenter MD at 3:56 EDT , Service support , Chest X-Ray 12/17/17 03:05 IMPRESSION: Normal x-ray examination of the chest. Electronically Signed: Celso Carpenter MD at 3:33 EDT , Service support , Cardiology - Dr. Ontiveros Operations: None Procedures: Cardiac catheterization, Transthoracic echo Summary of Care Provided: The patient is a 62 year old F, smoker, past medical history of hypertension, hypothyroidism, hyperlipidemia comes in with complaints of 6 hour long chest pain that happened the night of admission, worse with exertion, substernal, described also has pleuritic. Last stress test was 10-15 years ago. Patient's vitals in the ED was stable. She had a CT of the chest that showed no dissection. She had an EKG that showed no acute abnormalities. Patient's cardiac enzymes are within normal. She was admitted to telemetry. Cardiology was put on consult. Patient underwent cardiac cath that showed clean coronaries. She was subsequently managed as acute pericarditis with scheduled ibuprofen and Tylenol. She improved remarkably. She was discharged on 2 week scheduled ibuprofen per cardiology. She was asked advised to quit smoking. Will follow-up with cardiology in 2 weeks in the office. Discharge Diet: Low fat/ Low Cholesterol, 2000 mg Sodium Diet Discharge Activity: Return to Normal Activity Home Medications: Medications to take at Discharge Gabapentin [Neurontin] 900 mg PO TID 12/17/17 Levothyroxine Sodium [Synthroid] 137 mcg PO DAILY 12/17/17 Lisinopril [Zestril] 5 mg PO DAILY 12/17/17 Omeprazole 20 mg PO DAILY 12/17/17 Triamterene/Hydrochlorothiazid [Triamterene-Hctz 75-50 mg Tab] 1 tab PO DAILY 12/17/17 Verapamil HCl [Verelan Pm] 100 mg PO DAILY 12/17/17 Aspirin E.C. [Ecotrin] 81 mg PO DAILY@0800 #30 tab 12/18/17 Atorvastatin Calcium [Lipitor] 20 mg PO QHS #30 tab 12/18/17 Carvedilol [Coreg (Beta Rambo)] 3.125 mg PO BID #60 tab 12/18/17 Ibuprofen 600 mg PO TID #60 tab 12/18/17 Following Prescrptions Were Given to Patient: Aspirin E.C. [Ecotrin] 81 mg PO DAILY@0800 #30 tab Atorvastatin Calcium [Lipitor] 20 mg PO QHS #30 tab Carvedilol [Coreg (Beta Rambo)] 3.125 mg PO BID #60 tab Ibuprofen 600 mg PO TID #60 tab Primary Care Physician: Roberto Pabon MD [Primary Care Provider] - Please follow up with your Primary Care Physician in: within 2 weeks Please Follow Up With: Daniel Ontiveros MD When: within 2 weeks Disposition: Home Minutes spent on discharge:: 35 Patient Condition:: Stable Medical Necessity - Tobacco Use Smoking Status: Current every day smoker Tobacco Use: Cigarettes Meaningful Use Info Meaningful Use Diagnoses (Choose all that apply): None applicable Code Visit Inpatient E&M: 95552 Disch Hosp
[2017-12-18] MEDS: Pantoprazole Sodium 20 MG Tablet PO (08:20)
[2017-12-18] MEDS: Lisinopril 5 MG Tablet PO (08:20)
[2017-12-18] MEDS: Carvedilol 3.125 MG TABLET PO (08:21)
[2017-12-18] MEDS: Aspirin E.C. 81 MG Tablet PO (08:21)
[2017-12-18] MEDS: Triamterene 75MG/Hctz 50MG Tablet 1 TABLET PO (08:22)
[2017-12-18 08:51] LABS: Erythrocyte Sedimentation Rate 31 mm/hr (0-30)
[2017-12-18 08:53] LABS: Anion Gap 9 (5-15); BUN 15 mg/dL (7-18); BUN/Creat Ratio 18.3 RATIO (10-20); Calcium,Total 9.1 mg/dL (8.5-10.1); Chloride 108 mmol/L (98-107); Creatinine, Serum 0.82 mg/dL (0.55-1.02); EST Glomerular Filtration Rate 75 mL/min (>60); Est Glom Filt Rate - Afr Amer 91 mL/min (>60); Estimated Creatinine Clearance 64.01 ml/min; Glucose 140 mg/dL (74-106); Potassium 4.3 mmol/L (3.5-5.1); Sodium Level 142 mmol/L (136-145)
--- NOTE | 2017-12-18 09:31 | PN.CARD_ITS ---
Subjectve: Patient feeling much better this morning, no further chest pain except for mild pleuritic type chest pain with deep inspiration. Much improved with ibuprofen. Sed rate still pending. Telemetry negative. Objective: Vital Signs Temp Pulse Resp BP Pulse Ox 98.1 F 56 L 17 115/66 96 12/18/17 03:00 12/18/17 07:35 12/18/17 03:00 12/18/17 03:00 12/18/17 07:22 Oxygen Flow Rate (L/min) 2 Oxygen Delivery Method Room Air Weight: 150 lb 9.211 oz Body Mass Index (BMI) 25.0 Intake and Output for Last 24 Hours 12/16/17 12/17/17 12/18/17 23:59 23:59 23:59 Intake Total 2115 / 2115 Output Total 1725 / 1725 Balance 390 / 390 General: Awake, Alert, Oriented x 3 HEENT: PERRL, EOMI, Sclera Non Icteric Neck: Supple, Good ROM, No Lymph Node Enlargement Lungs: Clear to auscultation Cardiovascular: Regular Rhythm, Normal S1, Normal S2, No Murmurs, No Rubs, No Gallops Vascular: No Carotid Bruits, Normal Femoral Pulses, Normal Radial Pulses, Normal Dorsalis Pedal Pulse, Normal Posterior Tibial Pulses Abdomen: Bowel Sounds Present, Soft, Non Tender, No HSM, No Organomegaly Extremities: No Cyanosis, No Clubbing, No edema Neurological: No Focal Motor or Sensory Deficit 12/18/17 08:15: Sodium 142, Potassium 4.3, Chloride 108 H, Carbon Dioxide 25.0, Anion Gap 9, BUN 15, Creatinine 0.82, Est GFR (MDRD) Af Amer 91, Est GFR (MDRD) Non-Af 75, BUN/Creatinine Ratio 18.3, Glucose 140 H, Calcium 9.1 Rhythm: Telemetry negative. EKG: ECHO: Normal LV size and function. Stress Test: Cardiac Cath: Minimal nonobstructive coronary disease, normal LV function. PCI: CT Surgery: Holter monitor: EPS: PPM: CXR: Chest CT Scan: Medical Necessity - Tobacco Use Smoking Status: Current every day smoker Assessment/Plan 1. Chest pain: Patient underwent an urgent left her catheterization this morning which demonstrated minimal nonobstructive coronary disease and normal LV function. Her signs and symptoms appear to be acute pericarditis, the source of which is unknown at this time. Her d-dimer is negative so it is a low probability for pulmonary embolism. She is saturating fine on low-dose oxygen. Patient symptoms appear to be pleuritic in nature, and she is tolerating ibuprofen well. Rather than give her colchicine for for pericarditis pleuritis , which may cause diarrhea, she appeared to do well with ibuprofen. If this fails we can always switch to colchicine. Patient may be discharged home today, and follow-up with me going forward. Continue baby aspirin. 2. Hyperlipidemia: Continue Lipitor therapy for her nonobstructive coronary disease. Her LDL should be less than 70. 3. Tobacco cessation: I had a long and thorough discussion regarding the patient's tobacco use and strongly recommended discontinuation of all tobacco products. 4. Discussed with Dr. Lay. Thank you very much for the opportunity to participate in the cardiac care of your patient. Patient may be discharged home and follow-up with me going forward. Code Visit Inpatient E&M: 03812 Subs Hosp L2
[2017-12-18 10:28] VITALS: BP 108/66; PULSE 74; RESP 16; TEMP 36.9; O2SAT 94
== END 2017-12-18 10:30 | disposition home or self-care (01) ==
LOC: ED 03:15 → ICU 05:15
PROVIDERS: Internal Medicine Cardiovascular Disease; Admitting Provider Internal Medicine; Emergency Provider Emergency Medicine; Family Provider Family Medicine; PCP Family Medicine; Visit Provider Internal Medicine
DX: R07.89 Other chest pain (principal); I10 Essential (primary) hypertension; Z79.899 Other long term (current) drug therapy; E78.5 Hyperlipidemia, unspecified; E03.9 Hypothyroidism, unspecified; K21.9 Gastro-esophageal reflux disease without esophagitis; R06.02 Shortness of breath; I30.9 Acute pericarditis, unspecified; F17.210 Nicotine dependence, cigarettes, uncomplicated
CPT/HCPCS: 71045; 71275; 74175; 80048; 80053; 80061; 83880; 84443; 84484; 85025; 85027; 85379; 85610; 85652; 86140; 93005; 93306; 93458; 96361; 96365; 96366; 96375; 96376; 99218; 99283; 99406; J7030; J7040; Q9967; A4216; C1769; C1894; G0378; J2405; J2785

== ENCOUNTER → 2017-12-21 10:42 | Outpatient (CLI) | payer OTHER, SELFPAY ==
[2017-12-21 12:07] LABS: Anion Gap 9 (5-15); BUN 23 mg/dL (7-18); Calcium,Total 9.5 mg/dL (8.5-10.1); Chloride 104 mmol/L (98-107); EST Glomerular Filtration Rate 60 mL/min (>60); Est Glom Filt Rate - Afr Amer 72 mL/min (>60); Glucose 84 mg/dL (74-106); Potassium 4.4 mmol/L (3.5-5.1); Sodium Level 139 mmol/L (136-145)
== END ==
PROVIDERS: Family Provider Family Medicine; PCP Family Medicine; Visit Provider Internal Medicine
DX: I31.9 Disease of pericardium, unspecified (principal); Z95.5 Presence of coronary angioplasty implant and graft
CPT/HCPCS: 36415; 80048

== ENCOUNTER → 2018-01-14 20:00 | Outpatient (CLI) | payer OTHER, SELFPAY | PROVIDERS: Family Provider Family Medicine; PCP Family Medicine; Visit Provider Family Medicine | DX: G47.33 Obstructive sleep apnea (adult) (pediatric) (principal) | CPT/HCPCS: 95810 ==

== ENCOUNTER 2022-10-21 02:12 | Emergency (ER) | payer MEDICARE, OTHER, SELFPAY ==
[2022-10-21 02:13] VITALS: BP 148/85; PULSE 80; RESP 17; TEMP 35.9; O2SAT 97; BMI 23.4
--- NOTE | 2022-10-21 02:41 | EX.ED.DYSGE1 ---
HPI History of Present Illness Chief Complaint: Abscess Informant: patient and spouse/S.O. Narrative Narrative: Patient is a 67-year-old female with history of hypertension hyperlipidemia and CAD. She states she has been having some right upper dental pain for the past few days which has been mild in nature. She denies any recent trauma or fevers chills difficulty breathing or swallowing. She states she awoke this morning with increased pain and noticed right-sided facial swelling and secondary to his high concern for infection and therefore comes in for evaluation [facility] Medical History (Updated 10/22/22 @ 23:[address] Jimmy Foster, DO) Acute pericarditis Chest pain Essential hypertension Hypothyroid Pure hypercholesterolemia Home Medications levothyroxine 137 mcg tablet 137 mcg PO DAILY 12/17/17 [History Last Taken 12/16/17 06:00] lisinopril 5 mg tablet 5 mg PO DAILY hypertension 12/17/17 [History Last Taken 12/16/17 07:00] omeprazole 20 mg capsule,delayed release 20 mg PO DAILY GERD 12/17/17 [History Last Taken 12/16/17 07:00] triamterene 75 mg-hydrochlorothiazide 50 mg tablet 1 tab PO DAILY hypertension 12/17/17 [History Last Taken 12/16/17 07:00] verapamil 100 mg capsule 24hr pellet CT,ext.release 100 mg PO DAILY heart 12/17/17 [History Last Taken 12/16/17 18:00] aspirin 81 mg tablet,delayed release 81 mg PO DAILY@0800 #30 tabs 12/18/17 [Rx Last Taken Unknown] calcium carbonate 600 mg-vitamin D3 10 mcg (400 unit) chewable tablet (Calcium 600 with Vitamin D3) 1 tab PO QDAY 12/28/17 [History Last Taken Unknown] coenzyme D25-cvvnlla E 100 mg-100 unit capsule 1 cap PO QDAY 12/28/17 [History Last Taken Unknown] fluticasone propionate 50 mcg/actuation nasal spray,suspension (Allergy Relief (fluticasone)) 2 spray intranasal QDAY 12/28/17 [History Last Taken Unknown] inositol 500 mg tablet 500 mg PO QDAY 12/28/17 [History Last Taken Unknown] milk thistle 150 mg capsule 150 mg PO DAILY 07/12/18 [History Last Taken Unknown] clindamycin HCl 300 mg capsule (Cleocin HCl) 300 mg PO 4X/DAY 10 days #40 CAPSULES 10/21/22 [Rx Last Taken Unknown] oxycodone-acetaminophen 5 mg-325 mg tablet (Percocet) 1 tab PO Q6H PRN pain 3 days #12 tabs 10/21/22 [Rx Last Taken Unknown] Allergy/AdvReac Type Severity Reaction Status Date / Time atorvastatin [From Lipitor] AdvReac Severe Myalgias, Verified 10/21/22 02:16 balance problems, fatigue Surgical History History of section History of hand surgery History of left heart catheterization (12/17/17) Hx of appendectomy Social History (Updated 11/03/19 @ 16:10 by Yanet GONGORA, PA) Smoking Status: Current every day smoker tobacco type: cigarettes alcohol intake: current details: couple beers a day substance use type: does not use ROS ROS ED Constitutional Constitutional ED: Denies chills or fever(s) ENT ENT ED: Reports other Details: Positive dental pain ; Denies sore throat Cardiovascular Cardiovascular: Denies chest pain Respiratory/Chest Respiratory/Chest: Denies cough or dyspnea Gastrointestinal Gastrointestinal: Denies abdominal pain, diarrhea, nausea or vomiting Genitourinary Genitourinary ED: Denies dysuria Musculoskeletal Musculoskeletal: Denies myalgias or neck pain Integumentary Denies rash Neurologic Neurologic: Denies headache(s) Hematologic/Lymphatic Hematologic/Lymphatic: Denies easy bleeding or easy bruising EXAM Physical Exam Const Vital Signs: 10/21/22 02:13 Temperature 96.6 F L Temperature Source Temporal Pulse Rate 80 Respiratory Rate 17 Blood Pressure 148/85 H Blood Pressure Mean 106 Pulse Ox 97 Oxygen Delivery Method Room Air Positive well nourished and well developed General Appearance ED: well developed HEENT Reports moist mucous membranes HEENT Narrative: Patient has dental caries present with out obvious dental abscess noted. There is no oral lesions no airway edema or compromise no tongue or lip swelling. Patient does have soft tissue swelling along the anterior aspect of the right cheek tracking down from the zygomatic arch to the mandible. The area is soft and fluctuant without induration or overlying erythema warmth or streaking. Eyes PERRL and EOMs intact bilaterally Neck supple Neck Narrative: Positive anterior cervical lymphadenopathy present. No brawny edema in the submental space to suggest Al's angina Resp normal respiratory effort and clear to auscultation bilaterally Cardio regular rate and regular rhythm Extremity normal to inspection Neuro oriented x3 and CN's II-XII intact bilaterally Sensorium / Orientation: alert Psych mental status grossly normal Skin no rashes or lesions noted Skin Narrative: Soft tissue swelling to the right cheek as documented above otherwise normal MDM MDM MDM Narrative Medical decision making narrative: Patient presented to the ER afebrile and in no acute respiratory distress. She had no report of trauma or signs of injury. On exam she does have dental caries which could lead to a dental infection and there is diffuse soft tissue swelling consistent with this. I do not palpate an obvious abscess. She does not have gingival changes to suggest ANUG. There is no brawny edema in the submental space to suggest Al's angina. We discussed possible blood work and CT scan with IV contrast of the face to look for possible drainable abscess formation. Patient states that she does not want this obtained as she does not have difficulty breathing or swallowing or signs of systemic infection. We discussed a possible dental block for pain control; she also states she does not want an injection at this time. Therefore as patient has dental infection based on exam with developing abscess as well by exam she replaced on antibiotics and strongly encouraged to follow-up with a dentist to discuss need for incision and drainage. History & Record Review Discussion w/independent historian: Patient and Significant other Discharge Plan Triage Chief Complaint: Abscess ED Provider: Jimmy Foster Dx/Rx/DC Orders Clinical Impression: Dental abscess, Essential hypertension, Hypothyroid Instructions: Dental Abscess Prescriptions: New clindamycin HCl [Cleocin HCl] 300 mg capsule 300 mg PO 4X/DAY 10 Days Qty: 40 0RF oxycodone-acetaminophen [Percocet] 5-325 mg tablet 1 tab PO Q6H PRN (Reason: pain) 3 Days Qty: 12 0RF No Action coenzyme [id number] E 100 mg-100 unit capsule 100-100 mg-unit capsule 1 cap PO QDAY calcium carbonate-vitamin D3 [Calcium 600 with Vitamin D3] 600 mg(1,500mg) -400 unit tablet,chewable 1 tab PO QDAY fluticasone propionate [Allergy Relief (fluticasone)] 50 mcg/actuation spray,suspension 2 spray INTRANASAL QDAY inositol 500 mg tablet 500 mg PO QDAY milk thistle 150 mg capsule 150 mg PO DAILY levothyroxine 137 MCG tablet 137 mcg PO DAILY Label Comments: omeprazole 20 MG capsule,delayed release(DR/EC) 20 mg PO DAILY Label Comments: verapamil 100 MG capsule, [address] 100 mg PO DAILY lisinopril 5 MG tablet 5 mg PO DAILY Label Comments: triamterene-hydrochlorothiazid 75 MG-5 tablet 1 tab PO DAILY Label Comments: aspirin 81 MG tablet 81 mg PO DAILY@0800 Qty: 30 0RF Primary Care Provider: Roberto Pabon Referrals: Roberto Pabon MD [Primary Care Provider] - Activity Restrictions/Additional Instructions: Please follow-up with your dentist to discuss need for panoramic x-ray and possible incision and drainage of your dental infection. If you develop difficulty breathing or swallowing or swelling underneath the chin please return to the ER for repeat evaluation. Disposition Disposition: Home, Self Care Discharge Date/Time: 10/21/22 02:58
[2022-10-21] MEDS: oxyCODONE 5 MG Tablet 10 MG PO (02:53)
[2022-10-21] MEDS: Clindamycin HCl 150 MG Capsule 300 MG PO (02:53)
== END 2022-10-21 02:58 | disposition home or self-care (01) ==
PROVIDERS: Emergency Provider Emergency Medicine; PCP Family Medicine; Visit Provider Emergency Medicine
DX: K04.7 Periapical abscess without sinus (principal); F17.210 Nicotine dependence, cigarettes, uncomplicated; E03.9 Hypothyroidism, unspecified; I25.10 Atherosclerotic heart disease of native coronary artery without angina pectoris; I10 Essential (primary) hypertension; E78.00 Pure hypercholesterolemia, unspecified; Z79.82 Long term (current) use of aspirin; Z79.899 Other long term (current) drug therapy
CPT/HCPCS: 99283

== ENCOUNTER 2024-10-29 22:35 | Emergency (ER) | payer MEDICARE, OTHER, SELFPAY ==
[2024-10-29 22:36] VITALS: BP 173/122; PULSE 122; RESP 30; TEMP 36.1; O2SAT 100
--- NOTE | 2024-10-29 22:39 | EKG12_ITS ---
Test Reason : REPEAT Blood Pressure : */* mmHG Vent. Rate : 76 BPM Atrial Rate : 76 BPM P-R Int : 202 ms QRS Dur : 90 ms QT Int : 386 ms P-R-T Axes : 28 27 43 degrees QTcB Int : 434 ms Normal sinus rhythm Normal ECG Confirmed by DANIEL MONTILLA, KAROLYN ([id number]), associate editor MAGDA BILLINGS ([id number]) on 11/03/2024 6:24:15 AM Referred By: [place]A Confirmed By: KAROLYN SANCHEZ MD
[2024-10-29 22:43] VITALS: BP 146/94; PULSE 78; RESP 20; O2SAT 94
[2024-10-29 23:09] VITALS: BMI 24.8
--- NOTE | 2024-10-29 23:11 | RAD_ITS ---
PROCEDURE: CHEST 1 VIEW (PORTABLE) 10/29/2024 REASON FOR EXAM: CHEST PAIN TECHNIQUE: Frontal view of the chest. COMPARISON: None. FINDINGS: The heart is normal in size. The mediastinum is normal contour. The lungs are clear. No acute osseous abnormalities. RAD/Chest 1 View (Portable) IMPRESSION: No acute cardiopulmonary abnormalities. Reading Location: [place] [id number]
[2024-10-29 23:15] VITALS: BP 140/99; PULSE 77; RESP 20; O2SAT 98
[2024-10-29 23:30] VITALS: BP 136/119; PULSE 77; RESP 19; O2SAT 96
--- NOTE | 2024-10-29 23:34 | CT_ITS ---
PROCEDURE: CTA CHST, ABD, PEL W AND/OR WO 10/29/2024 REASON FOR EXAM: CHEST PAIN WITH KNOWN ANEURYSM / ? DISSECTION TECHNIQUE: CTA imaging of the chest, abdomen and pelvis with intravenous contrast. Multiplanar and multisequence images were obtained. CONTRAST: 100 mL Isovue 370 One or more dose reduction techniques were used (e.g., Automated exposure control, adjustment of the mA and/or kV according to patient size, use of iterative reconstruction technique). RADIATION DOSE SUMMARY: CTDlvol: 40.3 mGy DLP: 627 mGycm COMPARISON: CTA chest, abdomen, and pelvis 12/17/2017 FINDINGS: Heart: Normal size. Mild coronary calcification. Pulmonary Vessels: Unremarkable Arch Vessels: Unremarkable Thoracic Aorta: Atherosclerotic plaques. Ascending thoracic aorta measures up to 4.1 cm in diameter, unchanged. No dissection. Abdominal Aorta: Moderate mixed calcified and soft plaque. No abdominal aortic aneurysm. No dissection. Mesenteric Arteries: Unremarkable Renal Arteries: Incidental note of 2 renal arteries bilaterally. Iliac Arteries: Scattered atherosclerotic plaque. No aneurysm or significant stenosis. Other Findings: Trace mucous plugging in the distal airways of the right lower lobe. No focal consolidation or pleural effusion. A prominent duodenal diverticulum is unchanged. Otherwise the abdominal and pelvic contents are unremarkable. CT/CTA Chst, Abd, Pel W and/or WO IMPRESSION: 1. No evidence of aortic dissection. 2. Ascending thoracic aorta measures 4.1 cm in diameter, similar to the exam i n 2017. 3. Trace mucous plugging in the distal airways of the right lower lobe. 4. Prominent duodenal diverticulum, unchanged. Reading Location: [place]
[2024-10-29] MEDS: Morphine 4 MG/ML Syringe IV (23:43)
[2024-10-29] MEDS: Ondansetron 4 MG/2 ML Vial IV (23:43)
[2024-10-29] MEDS: 0.9% Normal Saline (1000mL) 1,000 ML 999 ML IV (23:43)
[2024-10-30] VITALS (10 sets, daily range): BP systolic 104–128; BP diastolic 70–82; PULSE 66–78; RESP 11–21; TEMP 36.9; O2SAT 94–100
[2024-10-30 00:09] LABS: International Normalized Ratio 0.9; Prothrombin Time (Protime)PT. 11.9 SECONDS (11.7-14.9)
[2024-10-30] MEDS: HYDROmorphone 1 MG/ML Syringe IV (00:44)
[2024-10-30 00:46] LABS: Anion Gap 12 (5-15); BUN 16 mg/dL (4-19); BUN/Creat Ratio 13.7 RATIO (10-20); Carbon Dioxide 20.9 mmol/L (21.0-32.0); Chloride 107 mmol/L (98-108); Creatinine, Serum 1.15 mg/dL (0.70-1.20); EST Glomerular Filtration Rate 52 (>60); Estimated Creatinine Clearance 41.55 ml/min (50-250); Glucose 90 mg/dL (70-99); Potassium 4.4 mmol/L (3.3-5.1); Sodium Level 139 mmol/L (133-145); Troponin T High Sensitivity 7 ng/L (<=14)
[2024-10-30] MEDS: Pantoprazole Sodium 40 MG in 0.9% Normal Saline (100mL MB+) 100 ML 330 MG IV (00:51)
[2024-10-30 00:57] LABS: Basophil# 0.05 X10^3/uL; Basophil% 0.5 % (0-1); Eosinophils% 1.1 % (0-5); Hemoglobin 12.2 g/dL (12.0-15.0); Lymphocyte % 14.3 % (19-41); Mean Corp Hgb Conc 33.9 g/dL (32-36); Mean Corpuscular Hgb 32.7 pg (27.0-32.0); Mean Corpuscular Volume 96.5 fL (81-99); Mean Platelet Vol. 8.5 fl (6.2-12.0); Monocyte# 0.64 X10^3/uL; NRBC Flagged by Analyzer 0 % (0-5); Neutrophil # 6.97 X10^3/uL (2.7-7.7); Neutrophil % 76.7 % (47-70); Platelet Count 201 K/mm3 (150-450); RBC Distribution Width CV 12.4 % (11.6-14.6); RBC Distribution Width SD 43.9 fl (35.1-43.9); Red Blood Count 3.73 M/mm3 (4.2-5.4); White Blood Count 9.1 K/mm3 (4.4-11.0)
[2024-10-30 00:59] LABS: AST(SGOT) 32 U/L (<=31); Alanine Aminotransfer ALT/SGPT 13 U/L (<=34); Albumin, Serum 3.5 g/dL (3.4-4.8); Alkaline Phosphatase 40 U/L (35-104); Bilirubin, Direct < 0.08 mg/dL (0.00-0.30); Globulin 2.1 g/dL (2.2-4.2); Lipase 51 U/L (13-75); Magnesium 1.4 mg/dL (1.5-2.2); Protein, Total 5.6 g/dL (5.9-8.4); Total Bilirubin < 0.15 mg/dL (0.00-1.30)
--- NOTE | 2024-10-30 01:06 | EKG12_ITS ---
Test Reason : CP Blood Pressure : */* mmHG Vent. Rate : 80 BPM Atrial Rate : * BPM P-R Int : * ms QRS Dur : 72 ms QT Int : 388 ms P-R-T Axes : * 63 69 degrees QTcB Int : 447 ms Accelerated Junctional rhythm Abnormal ECG Confirmed by DANIEL MONTILLA, KAROLYN ([id number]), legal editor MAGDA BILLINGS ([id number]) on 11/03/2024 6:24:50 AM Referred By: [place]ANTHA Confirmed By: KAROLYN SANCHEZ MD
--- OUTSIDE RECORDS SUMMARY | 2024-10-30 02:08 | XMS RPT_ITS | CCD ---
Author Organization [facility] CliniSyin Care Team Providers Care Staff Air Tactical Officer Name Role Phone Alda Pabon MD Primary Care Provider Alda Pabon Primary Care Unavailable Jimmy Foster Attending Unavailable Alda Pabon MD Primary Care Provider Alda Pabon MD Primary Care Provider Tannhof GLASSWARE SELECTOR.FLEET OPERATIONS MANAGER, Debi Unavailable Sudheer GLASSWARE SELECTOR.FLEET OPERATIONS MANAGER, Jerrell Unavailable Tannhof GLASSWARE SELECTOR.FLEET OPERATIONS MANAGER, Debi Unavailable Unavail able Lacie BUSINESS OPERATIONS DIRECTOR, Tiffany Unavailable Tannhof GLASSWARE SELECTOR.FLEET OPERATIONS MANAGER, Debi Unavailable Gama MONTILLA, Roxana Unavailable DEMETRIUS MOON Referring Unavailable ALDA PABON Primary Care Unavailable DEMETRIUS MOON Referring Unavailable ALDA PABON Primary Care Unavailable DEMETRIUS MOON Referring Unavailable ALDA PABON Primary Care Unavailable DEMETRIUS MOON Referring Unavailable ALDA PABON Primary Care Unavailable DEMETRIUS MOON Attending Unavailable ALDA PABON Primary Care Unavailable ARIEL FINE Attending Unavailable ALDA PABON Referring Unavailable ELDERPASQUALECKALDA Primary Care Unavailable JERRELL WEBSTER Attending Unavailable ALDA PABON Primary Care Unavailable KAYLEIGH DOMINGUEZ Attending Unavailable JERRELL WEBSTER Referring Unavailable ALDA PABON Primary Care Unavailable ELDERALDA AVILA Primary Care Unavailable ALDA PABON Attending Unavailable ALDA PABON Primary Care Unavailable KAYLEIGH DOMINGUEZ Referring Unavailable ALDA PABON Primary Care Unavailable DEMETRIUS MOON Attending Unavailable DEMETRIUS MOON Referring Unavailable ALDA PABON Primary Care Unavailable ALDA PABON Primary Care Unavailable ALDA PABON Referring Unavailable ALDA PABON Primary Care Unavailable ALDA PABON Attending Unavailable ALDA PABON Primary Care Unavailable ROXANA MALLOY Attending Unavailable DEMETRIUS OMON Referring Unavailable ALDA PABON Primary Care Unavailable ALDA PABON Primary Care Unavailable ROXANA MALLOY Attending Unavailable ALDA PABON Primary Care Unavailable ALDA PABON Referring Unavailable ALDA PABON Primary Care Unavailable Allergies Allergy Classification Reported Allergen(s) Allergy Type Date of Onset Reaction(s) Facility (20 sources) atorvastatin; Translations: [ATORVASTATIN] Drug Allergy 02-13-2019 Myalgia [facility] Work Phone: (1 source) atorvastatin Drug Allergy 10-21-2022 [facility] Repository Medications Current Medications Medication Drug Class(es) Dates Sig (Normalized) Sig (Original) acetaminophen 325 mg / oxyCODONE hydrochloride 5 mg oral tablet (1 source) Opioid Agonist Start: 10-21-2022 take 1 tablet by mouth every six hours Oxycodone-Acetami nophen (Percocet) 5-325 mg tablet Active 1 TABLET PO EVERY 6 HOURS 12 October 21, 2022 Start: 10-21-2022 take 1 tablet by dario th every six hours Oxycodone-Acetaminophen (Percocet) 5-325 mg tablet Active 1 TABLET PO EVERY 6 HOURS 12 October 21, 2022 aspirin 81 mg chewable tablet (20 sources) Platelet Aggregation Inhibitor, Nonsteroidal Anti-inflammatory Drug Start: 12-19-2017 take 1 tablet by mouth once daily aspirin 81 mg chewable tablet Take 1 tablet by mouth once daily. 12/19/2017 Active Start: 12-18-2017 take 81 mg by mouth once daily Aspirin Active 81 MG PO DAILY@0800 30 December 18, 2017 12:00am Comment on above: Take 1 tablet by dario th once daily. calcium carbonate 1500 mg / cholecalciferol 800 unt chewable tablet (20 sources) Vitamin D Start: 12-28-2017 take 1 tablet by mouth once daily Calcium Carbonate-Vitamin D3 (Calcium 600 With Vitamin D3) 600 mg(1,500mg) -400 unit tablet,chewable Active 1 TABLET PO daily December 28, 2017 12:00am Start: 09-29-2010 take 1 tablet by dario once daily Calcium-Cholecalciferol, D3, (CALCIUM 60 0 + D) 600-125 mg-unit ORAL Tab Take 1 tablet by mouth once daily. 0 09/29/2010 Active Start: 09-29-2010 take 1 tablet by dario twice daily Calcium-Cholecalciferol, D3, (CALCIUM 60 0 + D) 600-125 mg-unit ORAL Tab Take 1 tablet by mouth twice daily. 0 09/29/2010 Active Comment on above: Take 1 tablet by dario twice daily. cholecalciferol 0.05 mg oral capsule (20 sources) Vitamin D take 1 capsule by mouth once daily Cholecalciferol, Vitamin D3, (VITAMIN D-3) 50 mcg (2,000 unit) cap Take 1 capsule by mouth once daily. Active Comment on above: Take by mouth once d aily. clindamycin 300 mg oral capsule (1 source) Lincosamide Antibacterial Start: 10-22-19 23 take 1 capsule by mouth four times daily Clindamycin Hcl (Cleocin Hcl) 300 mg capsule Active 300 MG PO 4 TIMES DAILY 40 October 21, 2022 12:00am coenzyme [id number] E 100 mg-100 unit capsule (1 source) Start: 12-29-19 18 take 1 capsule by mouth once daily coenzyme [id number] E 100 mg-100 unit capsule Active 1 CAP PO daily December 28, 2017 12:00am fluticasone propionate 0.05 mg/actuat metered dose nasal spray (20 sources) Corticosteroid Start: 08-04-19 22 End: 11-30-19 24 take 2 spray(s) by mouth once daily fluticasone (FLONASE) 50 mcg/actuation nasal spray USE 2 SPRAYS IN EACH NOSTRIL ONCE DAILY (RINSE MOUTH AFTER USE) 48 g 3 11/30/2023 Active Start: 12-28-2017 Fluticasone Pr opionate (Allergy Relief (Fluticasone)) 50 mcg/actuation spray,suspension Active 2 SPRAY INTRANASAL daily December 28, 2017 12:00am Comment on above: USE 2 SPRAYS IN EACH NOSTRIL ONCE DAILY (RINSE MOUTH AFTER USE) hydroCHLOROthiazide 50 mg / triamterene 75 mg oral tablet (20 sources) Potassium-sparing Diuretic, Thiazide Diuretic Start: End: take 1 tablet by mouth once daily triamterene-hydro CHLOROthiazide (MAXZIDE) 75-50 mg per tablet Indications: Essential hypertension, benign Take 1 tablet by mouth once daily. 90 tablet 3 02/06/2024 Active Start: 12-17-2017 take 1 tablet by dario th once daily Triamterene-Hydrochlorothiazid Active 1 TABLET PO DAILY December 17, 2017 12:00am Comment on above: Take 1 tablet by dario th once daily. ibuprofen 800 mg oral tablet (20 sources) Nonsteroidal Anti-inflammatory Drug Start: 03-13-2023 ibuprofen (MOTRIN) 800 mg tablet Indications: Chronic low back pain, unspecified back pain laterality, unspecified whether sciatica present Take one(1) tablet every eight(8) hours as needed for pain. 270 tablet 1 03/13/2023 Active Start: 12-31-2017 End: 09-14-2023 take 1 tablet by mouth every eight hours as needed ibuprofen (MOTRIN) 600 mg tablet Take 1 tablet by mouth every 8 hours as needed for Pain. 90 tablet 0 12/31/2017 09/14/2023 Discontinued Start: 12-18-2017 End: 07-12-2018 take 600 mg by mouth three times daily Ibuprofen Discontinued 600 MG PO THREE TIMES A DAY 60 December 18, 2017 12:00am July 12, 2018 2:37pm Comment on above: Take 1 tablet by dario th every 8 hours as needed for Pain. Take one(1) tablet e very eight(8) hours as needed for pain. inositol 500 mg oral tablet (20 sources) Start: 03-27-20 take 1 tablet by mouth once daily Inositol 500 mg tab Take 1 tablet by mouth once daily. 0 03/27/2017 Active Comment on above: Take 1 tablet by dario th once daily. levothyroxine sodium 0.15 mg oral tablet (20 sources) l-Thyroxine Start: 08-16-19 End: 02-05-20 24 take 1 tablet by mouth once daily for thyroid dysfunction levothyroxine (SYNTHROID) 150 mcg tablet Indications: Hypothyroidism, unspecified type Take 1 tablet by mouth once daily. Take on empty stomach. For thyroid 90 tablet 3 02/06/2024 Active Start: 04-05-2021 End: 08-15-2022 take 1 tablet by mouth once daily for thyroid dysfunction levothyroxine (SYNTHROID) 175 mcg tablet Indications: Hypothyroidism, unspecified type Take 1 tablet by mouth once daily. Take on empty stomach. For Thyroid. 90 tablet 3 02/15/2022 08/15/2022 Discontinued (Dosage adjustment) Start: 12-17-2017 take 137 ug by mouth once meron y Levothyroxine Active 137 MCG PO DAILY December 17, 2017 12:00am Comment on above: Take 1 tablet by dario th once daily. Take on empty stomach. For Thyroid. Take 1 tablet by dario once daily. Take on empty stomach. For thyroid lisinopril 5 mg oral tablet (1 source) Angiotensin Converting Enzyme Inhibitor Start: 12-17-2017 take 5 mg by mouth once daily Lisinopril Active 5 MG PO DAILY December 17, 2017 12:00am Milk Thistle (20 sources) Start: 07-12-2018 take 150 mg by mouth once daily Milk Thistle Active 150 MG PO DAILY July 12, 2018 1:00am take 1 tablet by mouth once meron y MILK THISTLE ORAL Indications: Encounter for screening for human papillomavirus (HPV) , Pap smear for cervical cancer screening Take 1 tablet by mouth once daily. Active MILK THISTLE ORA L Indications: Encounter for screening for human papillomavirus (HPV) , Pap smear for cervical cancer screening Take by mouth once daily. Active MILK THISTLE ORA L Indications: Encounter for screening for human papillomavirus (HPV) , Pap smear for cervical cancer screening Take by mouth once daily. 0 Active Comment on above: Take by mouth once d aily. multivitamin ORAL tablet (20 sources) Start: 011 take 1 tablet by mouth once daily multivitamin ORAL tablet Take 1 tablet by mouth once daily. 0 09/29/2010 Active Comment on above: Take 1 tablet by dario once daily. omeprazole 20 mg delayed release oral capsule (20 sources) Proton Pump Inhibitor Start: 018 End: 024 take 1 capsule by mouth once daily omeprazole (PRILOSEC) 20 mg capsule Indications: Gastroesophageal reflux disease, unspecified whether esophagitis present Take 1 capsule by mouth once daily. 90 capsule 3 02/06/2024 Active Comment on above: Take 1 capsule by mo [facility] once daily. 24 hr propranolol hydrochloride 60 mg extended release oral capsule (10 sources) beta-Adrenergic Rambo Start: 025 take 1 capsule by mouth once daily propranolol ER (INDERAL LA) 60 mg 24 hr capsule Indications: Tremor Take 1 capsule by mouth once daily. 30 capsule 2 09/18/2024 Active RSVPreF3 antigen-AS01E, PF, (AREXVY) injection (1 source) Start: End: inject 0.5 mL by intramuscular injection once RSVPreF3 antigen-AS01E, PF, (AREXVY) injection Indications: Need for vaccination Inject 0.5 mL intramuscularly one time only for 1 dose. 1 Each 03/20/2024 03/20/2024 Active UBIDECARENONE (CO Q-10 ORAL) (20 sources) take 1 tablet by mouth once daily UBIDECARENONE (CO Q-10 ORAL) Take 1 tablet by mouth once daily. Active UBIDECARENONE (C O Q-10 ORAL) Take by mouth. Active UBIDECARENONE (C O Q-10 ORAL) Take by mouth. 0 Active Comment on above: Take by mouth. 24 hr verapamil hydrochloride 100 mg extended release oral capsule (20 sources) Calcium Channel Rambo Start: 12-17-2017 End: 02-05-2024 take 1 capsule by mouth once daily Verapamil HCl 100 mg 24 hr capsule Indications: Essential hypertension, benign Take 1 capsule by mouth once daily. 90 capsule 3 02/06/2024 Active Comment on above: Take 1 capsule by [facility] once daily. Completed/Discontinued Medications Medication Drug Class(es) Dates Sig (Normalized) Sig (Original) atorvastatin 20 mg oral tablet (2 sources) HMG-CoA Reductase Inhibitor Start: 12-18-2017 End: 02-13-2019 take 20 mg by mouth at bedtime Atorvastatin Discontinued 20 MG PO AT BEDTIME 90 January 02, 2018 4:21pm February 13, 2019 1:32pm carvedilol 3.125 mg oral tablet (2 sources) alpha-Adrenergic Rambo, beta-Adrenergic Rambo Start: 12-18-2017 End: 11-03-2019 take 3.125 mg by mouth twice daily Carvedilol Discontinued 3.125 MG PO TWICE A DAY 180 January 02, 2018 4:21pm November 03, 2019 1:19pm CPAP (6 sources) Start: 02-28-2018 End: 08-15-2022 CPAP Indications: SAMMY (obstructive sleep apnea) Initiate Auto PAP @ 5-20 cm of water with humidification. Mask (per patient preference) optional chin strap (if indicated) , filters, tubing, humidifier and lifetime supplies. 1 Device 0 02/28/2018 08/15/2022 Discontinued Start: 02-28-2018 CPAP Indicatio ns: SAMMY (obstructive sleep apnea) Initiate Auto PAP @ 5-20 cm of water with humidification. Mask (per patient preference) optional chin strap (if indicated) , filters, tubing, humidifier and lifetime supplies. 1 Device 0 02/28/2018 Active Comment on above: Initiate Auto PAP @ 5-20 cm of water with humidification. Mask (per patient preference) optional chin strap (if indicated) , filters, tubing, humidifier and lifetime supplies. gabapentin 300 mg oral capsule (2 sources) Anti-epileptic Agent Start: 9 End: 0 take 900 mg by mouth twice daily Gabapentin Discontinued 900 MG PO TWICE A DAY February 13, 2019 1:33pm November 03, 2019 1:19pm Start: 12-17-2017 End: 02-13-2019 take 900 mg by mouth three times daily Gabapentin Discontinued 900 MG PO THREE TIMES A DAY December 17, 2017 12:00am February 13, 2019 1:34pm potassium gluconate 2.5 meq oral tablet (1 source) Start: 12-28-2017 End: 11-03-2019 take 99 mg by mouth once daily Potassium Discontinued 99 MG PO daily December 28, 2017 12:00am November 03, 2019 1:18pm Problems Active Problems Problem Classification Problem Date Documented Date Episodic/Chronic Aortic; peripheral; and visceral artery aneurysms (20 sources) Ectasia of thoracic aorta; Translations: [Thoracic aortic ectasia] Onset: 04-25-2023 2023 Chronic Coronary atherosclerosis and other heart disease (20 sources) Calcification of coronary artery; Translations: [Atherosclerotic heart disease of [place] coronary artery without angina pectoris] Onset: 04-25-2023 2023 Chronic Disorders of lipid metabolism (20 sources) Hyperlipidemia; Translations: [Hyperlipidemia, unspecified] Onset: 06-02-2008 07-02-2015 Chronic Disorders of teeth and jaw (2 sources) Dental abscess; Translations: [Periapical abscess without sinus] Onset: 10-26-2022 10-21-2022 Episodic Esophageal disorders (20 sources) Gastroesophageal reflux disease; Translations: [Gastro-esophageal reflux disease without esophagitis] Onset: 02-26-2007 02-26-2007 Chronic Essential hypertension (20 sources) Benign essential hypertension; Translations: [Essential (primary) hypertension] Onset: 02-26-2007 02-26-2007 Chronic Heart valve disorders (20 sources) Rheumatic mitral valve disease, unspecified; Translations: [Mitral valve disorders] Onset: 02-26-2007 02-26-2007 Chronic Immunizations and screening for infectious disease (4 sources) Vaccination needed; Translations: [Encounter for immunization] Episodic Non-Hodgkin`s lymphoma (8 sources) Non-Hodgkin's lymphoma of skin; Translations: [Unspecified B-cell lymphoma, extranodal and solid organ sites] Onset: 09-10-2024 09-10-2024 Chronic Nonspecific chest pain (1 source) Chest pain; Translations: [Chest pain, unspecified] 11-03-2019 Episodic Osteoarthritis (20 sources) Osteoarthrosis of the carpometacarpal joint of the thumb; Translations: [Osteoarthritis of first carpometacarpal joint, unspecified] Onset: 05-18-2011 05-18-2011 Chronic Other and unspecified benign neoplasm (1 source) Dysplastic nevus of skin; Translations: [Melanocytic nevi, unspecified] 09-14-2023 Episodic Other connective tissue disease (1 source) Pain in leg, unspecified; Translations: [Pain of lower extremity, unspecified laterality] Onset: 09-18-2024 Episodic Other eye disorders (1 source) Subconjunctival hemorrhage of left eye; Translations: [Conjunctival hemorrhage, left eye] 11-30-2023 Episodic Other lower respiratory disease (1 source) Multiple nodules of lung; Translations: [Other nonspecific abnormal finding of lung field] 06-16-2024 Episodic Other nervous system disorders (1 source) Other chronic pain; Translations: [Chronic low back pain, unspecified back pain laterality, unspecified whether sciatica present] Onset: 09-18-2024 Chronic Other nervous system disorders (1 source) Tremor; Translations: [Tremor, unspecified] 10-12-2024 Episodic Other nervous system disorders (1 source) Tremor, unspecified; Translations: [Tremor] Onset: 09-18-2024 Episodic Other non-traumatic joint disorders (1 source) Shoulder pain; Translations: [Pain in right shoulder] Episodic Other screening for suspected conditions (not mental disorders or infectious disease) (15 sources) Mammography abnormal; Translations: [Other abnormal and inconclusive findings on diagnostic imaging of breast] Onset: 11-19-2023 Episodic Peripheral and visceral atherosclerosis (20 sources) Atherosclerosis of aorta; Translations: [Atherosclerosis of aorta] Onset: 04-25-2023 04-25-2023 Chronic Residual codes; unclassified (20 sources) Obstructive sleep apnea syndrome; Translations: [Obstructive sleep apnea (adult) (pediatric)] Onset: 12-11-2018 12-11-2018 Chronic Residual codes; unclassified (1 source) Obstructive sleep apnea (adult) (pediatric); Translations: [SAMMY (obstructive sleep apnea)] Onset: 12-11-2018 Chronic Screening and history of mental health and substance abuse codes (2 sources) Encounter for screening for depression; Translations: [Encounter for screening examination for other mental health and behavioral disorders] Onset: 09-18-2024 Episodic Thyroid disorders (20 sources) Hypothyroidism; Translations: [Hypothyroidism, unspecified] Onset: 02-26-2007 07-02-2015 Chronic Unclassified (1 source) Chronic low back pain, unspecified back pain laterality, unspecified whether sciatica present; Translations: [Chronic low back pain, unspecified back pain laterality, unspecified whether sciatica present] Onset: 09-18-2024 Unclassified (1 source) Headaches; Translations: [Headaches] Onset: 09-18-2024 Past or Other Problems Problem Classification Problem Date Documented Date Episodic/Chronic Other acquired deformities (20 sources) Spondylolisthesis; Translations: [Spondylolisthesis, site unspecified] Onset: 02-21-2010 02-21-2010 Episodic Other aftercare (1 source) Other skilled nursing (current) drug therapy; Translations: [Encounter for long-term (current) use of other medications] Onset: 07-18-2024 Episodic Other and unspecified benign neoplasm (15 sources) Melanocytic nevus of face; Translations: [Melanocytic nevi of unspecified part of face] Onset: 02-22-2013 02-22-2013 Episodic Other and unspecified benign neoplasm (20 sources) Dermal cellular nevus ; Translations: [Melanocytic nevi, unspecified] Onset: 02-22-2013 02-22-2013 Episodic Other and unspecified benign neoplasm (20 sources) Melanocytic nevus of skin ; Translations: [Melanocytic nevi of scalp and neck] Onset: 02-22-2013 02-22-2013 Episodic Other and unspecified benign neoplasm (20 sources) Junctional melanocytic nevus of skin; Translations: [Melanocytic nevi of scalp and neck] Onset: 02-22-2013 02-22-2013 Episodic Other and unspecified benign neoplasm (20 sources) Benign neoplasm of skin of back; Translations: [Melanocytic nevi of trunk] Onset: 02-22-2013 02-22-2013 Episodic Other and unspecified benign neoplasm (20 sources) Melanocytic nevi of unspecified part of face; Translations: [Benign neoplasm of skin of other and unspecified parts of face] Onset: 02-22-2013 02-22-2013 Episodic Other connective tissue disease (20 sources) Plantar fascial fibromatosis; Translations: [Plantar fascial fibromatosis] Onset: 03-29-2006 03-29-2006 Episodic Other connective tissue disease (20 sources) Synovial cyst of knee; Translations: [Synovial cyst of popliteal space [Gold], unspecified knee] Onset: 10-25-2007 10-25-2007 Episodic Other connective tissue disease (19 sources) Synovial cyst of popliteal space [Gold], unspecified knee; Translations: [Synovial cyst of popliteal space] Onset: 10-25-2007 12-06-2023 Episodic Other eye disorders (1 source) Conjunctival hemorrhage, left eye; Translations: [Subconjunctival bleed, left] Onset: 11-30-2023 Episodic Other skin disorders (20 sources) Solar lentigo; Translations: [Other melanin hyperpigmentation] Onset: 02-22-2013 02-22-2013 Episodic Other skin disorders (20 sources) Seborrheic keratosis; Translations: [Other seborrheic keratosis] Onset: 02-22-2013 02-22-2013 Episodic Jocelin-; endo-; and myocarditis; cardiomyopathy (except that caused by tuberculosis or sexually transmitted disease) (20 sources) Acute pericarditis; Translations: [Acute pericarditis, unspecified] Onset: 12-28-2017 10-03-2018 Episodic Residual codes; unclassified (20 sources) Tobacco user; Translations: [Tobacco use] Onset: 10-02-2013 10-02-2013 Episodic Residual codes; unclassified (1 source) History of cardiac catheterization; Translations: [Other specified postprocedural states] Onset: 12-17-2017 07-10-2018 Episodic Residual codes; unclassified (2 sources) Tobacco use; Translations: [Tobacco abuse] Onset: 10-02-2013 Episodic Spondylosis; intervertebral disc disorders; other back problems (20 sources) Spinal stenosis of lumbar region; Translations: [Spinal stenosis, lumbar region without neurogenic claudication] Onset: 02-21-2010 02-21-2010 Episodic Results Test Name Value Interpretation Reference Range Facility [facility] 10-28-2024 CNNURSE Nurse Visit (RADTWS) -------- CHELLEMCKENZIE Siddiqui ([id number]) 1955 F Date Time Provider Department 10/28/24 11:00 AM [facility] During your visit today, we recorded the following information about you: Yolanda Brannno RN 10/28/2024 3:16 PM Signed Radiation Therapy - Patient Education Note PATIENT NAME: Mckenzie Hayden PATIENT October 28, 2024 [facility] FACILITY/LOCATION: [place] READINESS TO LEARN Cognitive Ability: Alert and oriented Motivation to learn: Interested Family Support: Unable to assess - Family not present Instruction provide to: Patient Patient learns best by: Individual Instruction Written Instruction - Hand-outs Verbal Instruction Factors effecting learning: None Physical limitations effecting learning: None LEARNING RESPONSE Diagnosis: Pt simulated today for radiation therapy to skin.left shoulder Education Topic/Teaching Points: Radiation therapy, Side effects, and OTV: Method of instruction: Teach Back skin care Individual instruction Written instruction/Handouts Verbal instruction Patient /Family response: Patient verbalized understanding of radiation treatments, side effects, OTV, and transportation. Follow-up plan: Complete - No need for follow-up Contact information given. Supplemental material: Informational handouts on Fatigue and Skin changes. Referral (recommendation): None, Pt denied need for social work, van service, and ethnographer. 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 - triamterene-hydroCHLOROt hiazide (MAXZIDE) 75-50 mg per tablet Take 1 tablet by mouth once daily. - Verapamil HCl 100 mg 24 hr capsule Take 1 capsule by mouth once daily. - omeprazole (PRILOSEC) 20 mg capsule Take 1 capsule by mouth once daily. - levothyroxine (SYNTHROID) 150 mcg tablet Take 1 tablet by mouth once daily. Take on empty stomach. For thyroid - fluticasone (FLONASE) 50 mcg/actuation nasal spray USE 2 SPRAYS IN EACH NOSTRIL ONCE DAILY (RINSE MOUTH AFTER USE) - ibuprofen (MOTRIN) 800 mg tablet Take one(1) tablet every eight(8) hours as needed for pain. - Cholecalciferol, Vitamin D3, (VITAMIN D-3) 50 mcg (2,000 unit) cap Take 1 capsule by mouth once daily. - aspirin 81 mg chewable tablet Take 1 tablet by mouth once daily. - Inositol 500 mg tab Take 1 tablet by mouth once daily. - MILK THISTLE ORAL Take 1 tablet by mouth once daily. - UBIDECARENONE (CO Q-10 ORAL) Take 1 tablet by mouth once daily. - multivitamin ORAL tablet Take 1 tablet by mouth once daily. - Calcium-Cholecalciferol, D3, (CALCIUM 600 + D) 600-125 mg-unit ORAL Tab Take 1 tablet by mouth once daily. Problem List As Of Date 10/28/2024 Noted Resolved PLANTAR FIBROMATOSIS [M72.2] 03/29/2006 ESOPHAGEAL REFLUX [K21.9] 02/26/2007 BENIGN HYPERTENSION [I10] 02/26/2007 Hypothyroidism [E03.9] 02/26/2007 MITRAL VALVE DISORDER [I05.9] 02/26/2007 POPLITEAL SYNOVIAL CYST [M71.20] 10/25/2007 Hyperlipidemia [E78.5] 06/02/2008 Spinal Stenosis, Lumbar [M48.061] 02/21/2010 Spondylisthesis [M43.10] 02/21/2010 CMC arthritis, thumb, degenerative [M18.9] 05/18/2011 Melanocytic nevi of face [D22.30] 02/22/2013 Intradermal melanocytic nevus [D22.9] 02/22/2013 Melanocytic nevi of scalp and neck [D22.4] 02/22/2013 Junctional nevus of neck [D22.4] 02/22/2013 Lentiginous junctional nevus of back [D22.5] 02/22/2013 Solar lentigo [L81.4] 02/22/2013 Other seborrheic keratosis [L82.1] 02/22/2013 Tobacco abuse [Z72.0] 10/02/2013 Acute pericarditis [I30.9] 12/28/2017 SAMMY (obstructive sleep apnea) [G47.33] 12/11/2018 Aortic ectasia, 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] 04/25/2023 Thoracic aorta atherosclerosis (HCC) [I70.0] 04/25/2023 Coronary artery calcification seen on CAT scan *04/25/2023 Encounter Status:Closed by YOLANDA BRANNON on 10/28/24 [facility] CNOVon 10-22-2024 CNOV Office Visit (RADTWS ) -------- MCKENZIE HAYDEN ([id number]) 1955 F Date Time Provider Department 10/22/24 10:30 AM ROXANA MALLOY During your visit today, we recorded the following information about you: Temperature Pulse Blood pressure Weight 96.8 degrees 56/minute 133/88 68.3 kg Lita Byrne RN 10/24/2024 1:00 PM Signed Radiation Therapy - Nursing Note (Consult) PATIENT NAME: Mckenzie Hayden PATIENT October 22, 2024 [facility] FACILITY/LOCATION: [place] Chief Complaint: Consult for Lt. Shoulder Cutaneous B cell Lymph. Reason for visit: Consult. Referring physician: Internal provider Dr. Moon Subjective Data: N/a Additional Data Do you want to see a Electronic Security Specialist? No Are you interested in information about fertility? No Status: History of tubal ligatin Stress Scale: On a scale of 0 to 10, what number best describes how much distress you have experienced in the past week?(0 being no distress and 10 being extreme distress) 1 Social work notified: Pt denied need to see social insurance specialist at this time. SIGNED by: MAR Sorensen Daesung, MD 10/24/2024 1:00 PM Signed Radiation Oncology - New Patient/Consult Note PATIENT NAME: Mckenzie Hayden PATIENT REQUESTING PROVIDER: Dr. 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 HPI: 69 year old female who presents with above diagnosis, for an opinion regarding the role of radiation therapy in the management of the patient's disease. Final recommendations will be communicated back to the requesting physician by way of the shared medical record, or letter to requesting physician via US mail. 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 She noted a left upper shoulder skin lesion enlarging over a few months. It was a pearly telangiectatic papule and a differential favoring a basal cell carcinoma. Shave biopsy on 06/16/24 showed dermal lymphoid infiltrate with kappa predominant plasma cells. Punch biopsy on 08/13/24 showed a B-cell lymphoproliferative disorder most consistent with primary cutaneous marginal zone lymphoproliferative disorder. PET/CT scan on 10/09/24 was negative. She denies any fever or any significant weight loss. She has had hot flashes since her menopause. ALLERGIES Allergen Reactions Atorvastatin Myalgia Current Outpatient Medications on File Prior to Visit Medication Sig propranolol ER (INDERAL LA) 60 mg 24 hr capsule Take 1 capsule by mouth once daily. triamterene-hydroCHLOROt hiazide (MAXZIDE) 75-50 mg per tablet Take 1 tablet by mouth once daily. Verapamil HCl 100 mg 24 hr capsule Take 1 capsule by mouth once daily. omeprazole (PRILOSEC) 20 mg capsule Take 1 capsule by mouth once daily. levothyroxine (SYNTHROID) 150 mcg tablet Take 1 tablet by mouth once daily. Take on empty stomach. For thyroid fluticasone (FLONASE) 50 mcg/actuation nasal spray USE 2 SPRAYS IN EACH NOSTRIL ONCE DAILY (RINSE MOUTH AFTER USE) ibuprofen (MOTRIN) 800 mg tablet Take one(1) tablet every eight(8) hours as needed for pain. Cholecalciferol, Vitamin D3, (VITAMIN D-3) 50 mcg (2,000 unit) cap Take 1 capsule by mouth once daily. aspirin 81 mg chewable tablet Take 1 tablet by mouth once daily. Inositol 500 mg tab Take 1 tablet by mouth once daily. MILK THISTLE ORAL Take 1 tablet by mouth once daily. UBIDECARENONE (CO Q-10 ORAL) Take 1 tablet by mouth once daily. multivitamin ORAL tablet Take 1 tablet by mouth once daily. Calcium-Cholecalciferol, D3, (CALCIUM 600 + D) 600-125 mg-unit ORAL Tab Take 1 tablet by mouth once daily. No current facility-administered medications on file prior to visit. PAST MEDICAL HISTORY Diagnosis Date Arteriosclerosis Cutaneous skin tags 02/22/2013 Esophageal reflux Gastroesophageal reflux Essential hypertension, benign Iron deficiency anemia, unspecified Anemia, iron def. Mitral valve disorders(424.0) MVP Mitral valve disorders(424.0) 02/26/2007 Pain in limb 03/29/2006 PMH - PAST MEDICAL HISTORY OF heel spurs Unspecified hypothyroidism Viral warts, unspecified 02/22/2013 Prior radiation therapy, collagen vascular disease, or inflammatory bowel disease: No Any implanted or external electric devices? No status: Post-menopausal. PAST SURGICAL HISTORY Procedure Laterality Date APPENDECTOMY 1970 DELIVERY ONLY 1982 , low cervical COLONOSCOPY FLX DX W/COLLJ SPEC WHEN PFRMD 2005 Colonoscopy LIG/TRNSXJ FLP TUBE ABDL/VAG APPR UNI/BI 1986 Tubal ligation NEUROPLASTY AND/TRANSPOS MEDIAN NRV CARPAL TUNNE 1978 Carpal tunnel decomp, bilateral PAST SURGICAL HISTORY OF 10/2003 tendon repair right hand PUNCH BIOPSY SKIN 07/29/2024 left shoulder TR TDN RESTORE [facility] FUNJ RINGANDSM FNGR (more content not included)... Normal [facility] CNOVSPon 10-22-2024 CNOVSP Visit (SP) Office (HEMAWS) -------- MCKENZIE HAYDEN ([id number]) 1955 F Date Time Provider Department 10/22/24 9:00 AM DEMETRIUS MOON During your visit today, we recorded the following information about you: Temperature Pulse Blood pressure Weight 96.8 degrees 56/minute 133/88 68.3 kg Demetrius Moon MD 10/22/2024 9:16 AM Signed (Elements copied from my note dated September 10, 2024, have been reviewed and updated where appropriate, and all reflect current assessment and medical decision making from today's encounter, October 22, 2024) HISTORY OF PRESENT ILLNESS: Mckenzie Mathis Chelle is a 69 year old female with history of cutaneous squamous cell carcinoma, had 2 SCC left leg and left arm, skin check revealed left shoulder lesion, looked different from other spots, 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 Discussed typical presentation, work up and treatment for cutaneous marginal B evelyn lymphoma. Reviewed CT chest in May 2024 no lymphadenopathy was seen. CBC normal, no evidence of lymphocytosis. Here to review PET, this was negative for systemic involvement. 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 She'll see Dr Malloy, subsequently planning to follow up with dermatology. Written and verbal health teaching given to patient, patient verbalizes understanding and agrees with treatment plan. PAST MEDICAL HISTORY Diagnosis Date Arteriosclerosis Cutaneous skin tags 02/22/2013 Esophageal reflux Gastroesophageal reflux Essential hypertension, benign Iron deficiency anemia, unspecified Anemia, iron def. Mitral valve disorders(424.0) MVP Mitral valve disorders(424.0) 02/26/2007 Pain in limb 03/29/2006 PMH - PAST MEDICAL HISTORY OF heel spurs Unspecified hypothyroidism Viral warts, unspecified 02/22/2013 PAST SURGICAL HISTORY Procedure Laterality Date APPENDECTOMY 1970 DELIVERY ONLY 1982 , low cervical COLONOSCOPY FLX DX W/COLLJ SPEC WHEN PFRMD 2005 Colonoscopy LIG/TRNSXJ FLP TUBE ABDL/VAG APPR UNI/BI 1986 Tubal ligation NEUROPLASTY AND/TRANSPOS MEDIAN NRV CARPAL TUNNE 1979 Carpal tunnel decomp, bilateral PAST SURGICAL HISTORY OF 10/2003 tendon repair right hand PUNCH BIOPSY SKIN 07/29/2024 left shoulder TR TDN RESTORE INTRNSC FUNCJ RINGANDSM FNGR 2004 right hand at base of thymb FAMILY HISTORY Problem Relation Age of Onset other (renal disease) Mother Heart Father Hypertension Father Heart Attack Sister Heart Brother Alzheimer's Disease Maternal Grandmother Heart Attack Maternal Grandfather Heart Paternal Grandfather Social History Tobacco Use Smoking status: Every Day Current packs/day: 1.00 Average packs/day: 1 pack/day for 53.4 years (53.4 ttl pk-yrs) Types: Cigarettes Start date: 1971 Smokeless tobacco: Never Tobacco comments: Cut way back, 7-8 cigs per day Vaping Use Vaping status: Never Used Substance Use Topics Alcohol use: Yes Comment: Occasionally Drug use: No ALLERGIES: ALLERGIES Allergen Reactions Atorvastatin Myalgia CURRENT OUTPATIENT MEDICATIONS: propranolol ER (INDERAL LA) 60 mg 24 hr capsule Take 1 capsule by mouth once daily. triamterene-hydroCHLOROt hiazide (MAXZIDE) 75-50 mg per tablet Take 1 tablet by mouth once daily. Verapamil HCl 100 mg 24 hr capsule Take 1 capsule by mouth once daily. omeprazole (PRILOSEC) 20 mg capsule Take 1 capsule by mouth once daily. levothyroxine (SYNTHROID) 150 mcg tablet Take 1 tablet by mouth once daily. Take on empty stomach. For thyroid fluticasone (FLONASE) 50 mcg/actuation nasal spray USE 2 SPRAYS IN EACH NOSTRIL ONCE DAILY (RINSE MOUTH AFTER USE) ibuprofen (MOTRIN) 800 mg tablet Take one(1) tablet every eight(8) hours as needed for pain. Cholecalciferol, Vitamin D3, (VITAMIN D-3) 50 mcg (2,000 unit) cap Take 1 capsule by mouth once daily. aspirin 81 mg chewable tablet Take 1 tablet by mouth once daily. Inositol 500 mg tab Take 1 tablet by mouth once daily. MILK THISTLE ORAL Take 1 tablet by mouth once daily. UBIDECARENONE (CO Q-10 ORAL) Take 1 tablet by mouth once daily. multivitamin ORAL tablet Take 1 tablet by mouth once daily. Calcium-Cholecalciferol, D3, (CALCIUM 600 + D) 600-125 mg-unit ORAL Tab Take 1 tablet by mouth once daily. REVIEW OF SYSTEMS: GENERAL: No fever, night sweats, weight loss or malaise. All other reviewed and negative other than HPI. PHYSICAL EXAMINATION: VITAL SIGNS: BP 133/88 Pulse 56 Temp (Src) 96.8 (Temporal) Wt 150 lb 8 oz (68.3kg) SpO2 99% LMP 06/08/2008 GENERAL APPEARANCE: Well appearing, in no acute distress, alert and oriented x3, well-hydrated, well nourished. LEFT SHOULDER: Biopsy site clean. I spent a total of 30 minutes on the date of the service which included preparing to see the patient, [id number] pat (more content not included)... Normal [facility] 10-22-2024 VANESSAN Telephone (BANDAR) -------- MCKENZIE HAYDEN ([id number]) 1955 F Date Time Provider Department 10/22/24 DEMETRIUS MOON During your visit today, we recorded the following information about you: Layla Cuevas 10/22/2024 3:49 PM Signed David Guzmán called requesting last office visit/labs to be faxed to them at [phone] Aurora Rodriguez LPN 10/22/2024 3:53 PM Signed Last OV note faxed as requested. No labs from this office. Aurora Rodriguez LPN Allergies As of Date: 10/22/2024 Noted Allergy Reaction ATORVASTATIN 02/13/2019 17 - Myalgia Date Reviewed: 10/22/2024 Reviewed by: Lita Byrne RN - Fully Assessed Reason for Visit: Electronic Communication [890] Prescriptions as of 10/22/2024 - propranolol ER (INDERAL LA) 60 mg 24 hr capsule Take 1 capsule by mouth once daily. - triamterene-hydroCHLOROt hiazide (MAXZIDE) 75-50 mg per tablet Take 1 tablet by mouth once daily. - Verapamil HCl 100 mg 24 hr capsule Take 1 capsule by mouth once daily. - omeprazole (PRILOSEC) 20 mg capsule Take 1 capsule by mouth once daily. - levothyroxine (SYNTHROID) 150 mcg tablet Take 1 tablet by mouth once daily. Take on empty stomach. For thyroid - fluticasone (FLONASE) 50 mcg/actuation nasal spray USE 2 SPRAYS IN EACH NOSTRIL ONCE DAILY (RINSE MOUTH AFTER USE) - ibuprofen (MOTRIN) 800 mg tablet Take one(1) tablet every eight(8) hours as needed for pain. - Cholecalciferol, Vitamin D3, (VITAMIN D-3) 50 mcg (2,000 unit) cap Take 1 capsule by mouth once daily. - aspirin 81 mg chewable tablet Take 1 tablet by mouth once daily. - Inositol 500 mg tab Take 1 tablet by mouth once daily. - MILK THISTLE ORAL Take 1 tablet by mouth once daily. - UBIDECARENONE (CO Q-10 ORAL) Take 1 tablet by mouth once daily. - multivitamin ORAL tablet Take 1 tablet by mouth once daily. - Calcium-Cholecalciferol, D3, (CALCIUM 600 + D) 600-125 mg-unit ORAL Tab Take 1 tablet by mouth once daily. Problem List As Of Date 10/22/2024 Noted Resolved PLANTAR FIBROMATOSIS [M72.2] 03/29/2006 ESOPHAGEAL REFLUX [K21.9] 02/26/2007 BENIGN HYPERTENSION [I10] 02/26/2007 Hypothyroidism [E03.9] 02/26/2007 MITRAL VALVE DISORDER [I05.9] 02/26/2007 POPLITEAL SYNOVIAL CYST [M71.20] 10/25/2007 Hyperlipidemia [E78.5] 06/02/2008 Spinal Stenosis, Lumbar [M48.061] 02/21/2010 Spondylisthesis [M43.10] 02/21/2010 CMC arthritis, thumb, degenerative [M18.9] 05/18/2011 Melanocytic nevi of face [D22.30] 02/22/2013 Intradermal melanocytic nevus [D22.9] 02/22/2013 Melanocytic nevi of scalp and neck [D22.4] 02/22/2013 Junctional nevus of neck [D22.4] 02/22/2013 Lentiginous junctional nevus of back [D22.5] 02/22/2013 Solar lentigo [L81.4] 02/22/2013 Other seborrheic keratosis [L82.1] 02/22/2013 Tobacco abuse [Z72.0] 10/02/2013 Acute pericarditis [I30.9] 12/28/2017 SAMMY (obstructive sleep apnea) [G47.33] 12/11/2018 Aortic ectasia, 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, [address] [place] [address], [facility] The Accu-Chek Inform II glucose meter has not been approved for testing on patients receiving intensive medical intervention or therapy and results from this point of care glucose test should not be used for patient management decisions in these cases. Inaccurate results may also occur from other interfering factors, such as N-acetylcysteine (blood concentrations of greater than 5mg/dL), galactose, extremes of hematocrit (<10 or >65), or high doses of ascorbic acid (vitamin C) greater than 3mg/dL. Consider alternate testing mechanisms (e.g. core lab, blood gas instrument) in the above situations. Interpretation and review of laboratory results Abnormal [facility] NM PET/CT WHOLE BODY SUBQon 10-08-2024 NM PET/CT WHOLE BODY SUBQ * * *Final Report* * * DATE OF EXAM: Oct 08 2024 2:24PM [facility] 0064 - NM PET/CT WHOLE BODY SUBQ / PROCEDURE REASON: B-CELL LYMPHOMA * * * * Physician Interpretation * * * * EXAMINATION: BODY FDG PET-CT CLINICAL HISTORY: History of cutaneous squamous cell carcinoma with LEFT shoulder lesion biopsy yielding marginal B-cell lymphoma. Staging exam. EXAM CATEGORY: Initial treatment strategy. TECHNIQUE: Radiopharmaceutical was administered intravenously followed by PET imaging from the eyes to thighs. Free breathing, low dose CT of the same body region was acquired without IV contrast for attenuation correction and anatomic localization. Unenhanced imaging is limited for the evaluation of some pathology and the acquired CT was not designed to produce diagnostic CT scan quality. Physiologic/non-patholog ic uptake in some body regions could confound or obscure some pathology. * CT Dose-Length Product (DLP): 527 mGy*cm * CT Dose Reduction Employed: Yes * Blood glucose: 102 mg/dL * Injection site: Right Forearm-Antecubital * Injected activity: 7.2 mCi * Uptake Time: 60 minutes * Radiopharmaceutical: D33-Nsvqjkmukqguvgdjdq (FDG) COMPARISON: No previous FDG PET/CT available CORRELATION: CT 06/05/2023 RESULT: REFERENCES: FDG uptake is used as a surrogate marker for glucose metabolism. All reported standardized uptake values represent maximum SUV (SUVmax) per body weight, unless otherwise specified. SUV reference values, as follows: * Blood Pool (Descending Aorta): SUVmax 2.4 * Background Liver: SUVmax 2.9; SUVmean 2.3 Localizer Images: No additional findings. HEAD AND NECK: Head: No radiotracer avid intracranial lesion within the constraints of physiologic cortical and deep dinh activity. No mass effect in the intracranial compartment. Aerodigestive Tract: No focal radiotracer avid lesion. Fairly symmetric likely physiologic uptake in the oral cavity, pharynx, and larynx. Lymph Nodes: No radiotracer avid lymphadenopathy. Neck Soft Tissues: No radiotracer avid thyroid nodule. CHEST: Lungs and Pleura: No radiotracer avid mass, nodule, or consolidation. No pleural effusion. Note, PET is often not sensitive for lung nodules smaller than 8 mm. Lymph Nodes: No radiotracer avid lymphadenopathy. Mediastinum: No radiotracer avid mass. Cardiovascular: Blood pool activity. No pericardial effusion. Normal heart size. Coronary artery calcifications. Similar ascending aortic dilation (4.4 cm). Chest Wall: No radiotracer avid soft tissue lesion. ABDOMEN AND PELVIS: Hepatobiliary: No radiotracer avid lesion. No measurable mass. Spleen: No radiotracer avid lesion. No splenomegaly. Pancreas: No radiotracer avid lesion. Adrenals: No radiotracer avid nodule. Urinary Tract: Physiologic radiotracer excretion in the renal collecting systems and urinary bladder. No hydronephrosis. GI Tract and Peritoneum: Segmentally increased bowel uptake is likely physiologic or secondary to medication effects (e.g. metformin), but does degrade peritoneal assessment. No focal radiotracer avid lesion. No dilated bowel or ascites. Lymph Nodes: No radiotracer avid lymphadenopathy. Vasculature: Blood pool activity. Vascular calcifications without an abdominal aortic aneurysm. Pelvic Organs: No radiotracer avid lesion. MUSCULOSKELETAL: Limitations: Aspects of both arms not included in qumge-ww-bpbs cannot be assessed for anatomic pathology. Bones: No radiotracer avid lesion. No lytic or sclerotic lesion. Degenerative changes, some with typical low radiotracer uptake. Osteopenia. Soft Tissues: No radiotracer avid lesion including the LEFT shoulder. Areas of likely physiologic musculature uptake including the hands and feet. IMPRESSION PRIMARY DISEASE SITE: * No discrete metabolically active skin lesion. ABRAN DISEASE: * No metabolically active lymphadenopathy. METASTATIC DISEASE: * No metabolically active distant extranodal metastases. * No splenomegaly. Financial Planning Advisor: LINDA Transcribe Date/Time: Oct 09 2024 10:16A Dictated by : YOSHI VASQUEZ DO This examination was interpreted and the report reviewed and electronically signed by: YOSHI VASQUEZ DO on Oct 09 2024 10:31AM EST [id number] [facility] CNPAlysha 09-30-2024 VANESSAN Telephone (BANDAR) -------- MCKENZIE HAYDEN ([id number]) 1955 F Date Time Provider Department 09/30/24 DEMETRIUS MOON During your visit today, we recorded the following information about you: Martha Carroll 09/30/2024 11:42 AM Signed Patient called stating she showed up for her pet scan and was told she had to reschedule her Pet Scan due to not receiving the diet instructions for the test on my chart. Rescheduled Pet Scan for 10/08. OV with Dr. Moon and Dr. Malloy need rescheduled and is requesting same day appointments due to the drive. Dr. Moon only has new patient appointments available when Dr. Malloy is available. Please advise Andrzej Cassidy RN 09/30/2024 12:00 PM Signed Please use one of the BUSINESS OPERATIONS DIRECTOR slots on 10/22/24, if that works. MAR Gonzalez Angela 09/30/2024 12:18 PM Signed Spoke with patient and scheduled with both Dr's on 10/22 Layla Whalen 10/06/2024 10:39 AM Signed Please enter new Pet Scan orders. Received call from [facility] stating patient had rescheduled and order disappeared. Patient is scheduled for 10/09. Order needs to be entered prior to that date. Aurora Rodriguez LPN 10/06/2024 10:47 AM Signed Addended by: AURORA RODRIGUEZ on: 10/06/2024 10:47 AM Modules accepted: Orders Anna Bunch 10/06/2024 1:38 PM Signed New orders placed. B HECTOR Bunch.FLEET OPERATIONS MANAGER Anna Bunch 10/06/2024 1:38 PM Signed Addended by: ANNA BUNCH on: 10/06/2024 01:38 PM Modules accepted: Orders Allergies As of Date: 09/30/2024 Noted Allergy Reaction ATORVASTATIN 02/13/2019 17 - Myalgia Date Reviewed: 09/18/2024 Reviewed by: Yashira Nuno MA - Fully Assessed Reason for Visit: Patient Update [1234] Primary Visit Diagnosis: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] Order(s):NM PET/CT WHOLE BODY INITIAL [[id number]] Order #: [id number] FUTURE Prescriptions as of 10/06/2024 - propranolol ER (INDERAL LA) 60 mg 24 hr capsule Take 1 capsule by mouth once daily. - triamterene-hydroCHLOROt hiazide (MAXZIDE) 75-50 mg per tablet Take 1 tablet by mouth once daily. - Verapamil HCl 100 mg 24 hr capsule Take 1 capsule by mouth once daily. - omeprazole (PRILOSEC) 20 mg capsule Take 1 capsule by mouth once daily. - levothyroxine (SYNTHROID) 150 mcg tablet Take 1 tablet by mouth once daily. Take on empty stomach. For thyroid - fluticasone (FLONASE) 50 mcg/actuation nasal spray USE 2 SPRAYS IN EACH NOSTRIL ONCE DAILY (RINSE MOUTH AFTER USE) - ibuprofen (MOTRIN) 800 mg tablet Take one(1) tablet every eight(8) hours as needed for pain. - Cholecalciferol, Vitamin D3, (VITAMIN D-3) 50 mcg (2,000 unit) cap Take 1 capsule by mouth once daily. - aspirin 81 mg chewable tablet Take 1 tablet by mouth once daily. - Inositol 500 mg tab Take 1 tablet by mouth once daily. - MILK THISTLE ORAL Take 1 tablet by mouth once daily. - UBIDECARENONE (CO Q-10 ORAL) Take 1 tablet by mouth once daily. - multivitamin ORAL tablet Take 1 tablet by mouth once daily. - Calcium-Cholecalciferol, D3, (CALCIUM 600 + D) 600-125 mg-unit ORAL Tab Take 1 tablet by mouth twice daily. Problem List As Of Date 09/30/2024 Noted Resolved PLANTAR FIBROMATOSIS [M72.2] 03/29/2006 ESOPHAGEAL REFLUX [K21.9] 02/26/2007 BENIGN HYPERTENSION [I10] 02/26/2007 Hypothyroidism [E03.9] 02/26/2007 MITRAL VALVE DISORDER [I05.9] 02/26/2007 POPLITEAL SYNOVIAL CYST [M71.20] 10/25/2007 Hyperlipidemia [E78.5] 06/02/2008 Spinal Stenosis, Lumbar [M48.061] 02/21/2010 Spondylisthesis [M43.10] 02/21/2010 CMC arthritis, thumb, degenerative [M18.9] 05/18/2011 Melanocytic nevi of face [D22.30] 02/22/2013 Intradermal melanocytic nevus [D22.9] 02/22/2013 Melanocytic nevi of scalp and neck [D22.4] 02/22/2013 Junctional nevus of neck [D22.4] 02/22/2013 Lentiginous junctional nevus of back [D22.5] 02/22/2013 Solar lentigo [L81.4] 02/22/2013 Other seborrheic keratosis [L82.1] 02/22/2013 Tobacco abuse [Z72.0] 10/02/2013 Acute pericarditis [I30.9] 12/28/2017 SAMMY (obstructive sleep apnea) [G47.33] 12/11/2018 Aortic ectasia, 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] 04/25/2023 Thoracic aorta atherosclerosis (HCC) [I70.0] 04/25/2023 Coronary artery calcification seen on CAT scan *04/25/2023 Encounter Status:Closed by MARTHA CARROLL on 09/30/24 Normal [facility] GLUCOSE, BLOOD (POC)on 09-30 Glucose [Mass/Vol] 100 mg/dL Abnormal 74 - 99 mg/dL [facility] Comment on above: Location:[address], [address] The Accu-Chek Inform II glucose meter has not been approved for testing on patients receiving intensive medical intervention or therapy and results from this point of care glucose test should not be used for patient management decisions in these cases. Inaccurate results may also occur from other interfering factors, such as N-acetylcysteine (blood concentrations of greater than 5mg/dL), galactose, extremes of hematocrit (<10 or >65), or high doses of ascorbic acid (vitamin C) greater than 3mg/dL. Consider alternate testing mechanisms (e.g. core lab, blood gas instrument) in the above situations. Interpretation and review of laboratory results Abnormal [facility] CNOVon 09-18-2024 CNOV Office Visit (FAMPWS ) -------- MCKENZIE [id number]) 1955 F Date Time Provider Department 09/18/24 11:00 AM ALDA PABON During your visit today, we recorded the following information about you: Pulse Respiration Blood pressure Weight 64/minute 16/minute 120/84 68.2 kg Alda Pabon MD 09/18/2024 11:56 AM Signed Chief Complaint Patient presents with: F/U 6 Month HPI Mckenzie Hayden is a 69 year old female who presents here today for 6 month follow up. Here today for her routine follow up. Busy picking up sticks and doing yard work. Cut back to 7-8 cigarettes a day, trying to quit. No bowel, Gi, or urinary issues. GERD: Sx controlled with Prilosec 20 mg daily. Thyroid: Taking Synthroid 150 mcg daily. Feels she's stable on this dosage and denies any missed dosages. HTN: Checks BP at home with readings ranging from 120-130/80's. A 1 noted irregular heartbeat on monitor with BP 102/78. Pt denies feeling anything at this time. No chest pains, dizziness, or SOB. Is on Verapamil 100 mg daily and Maxzide 75-50 mg daily. Follows with Cardio, Dr. Fine, has appt in October. 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 Pain: lower back; uses Ibuprofen 800 mg as needed. Has had issues with her legs ever since being put on the Lipitor. Headaches: occ; will use Ibuprofen 800 mg prn. Lipid: Taking CoQ 10 daily, watching diet kind of. Exercising on treadmill, fast walk 3-4 miles a day x 5 days per week. States she can't run anymore due to her legs. Doesn't really like fruits, but drinks OJ. Legs - Notes intermittent stabbing pain in leg and weakness in ankles. Has been seen by Neurology in the past for this. Tremor - Asking about starting medication for tremor in b/l hands, head. States if she gets anxious it becomes much worse. Has seen Neuro in the past but not for this issue. Has occasional head bobbing. SAMMY - Has a CPAP, but no longer using it. States she tried using it for two years but it was uncomfortable she gave up on it. Tracks sleep on her FitBit Torie. Following with Hem/Onc for B-Cell lymphoma. HM - Depression/Anxiety screening completed, negative. Past medical history, appointments, medications, allergies reviewed. Previous Medical History PAST MEDICAL HISTORY Diagnosis Date Arteriosclerosis Cutaneous skin tags 02/22/2013 Esophageal reflux Gastroesophageal reflux Essential hypertension, benign Iron deficiency anemia, unspecified Anemia, iron def. Mitral valve disorders(424.0) MVP Mitral valve disorders(424.0) 02/26/2007 Pain in limb 03/29/2006 PMH - PAST MEDICAL HISTORY OF heel spurs Unspecified hypothyroidism Viral warts, unspecified 02/22/2013 Previous Surgical History PAST SURGICAL HISTORY Procedure Laterality Date APPENDECTOMY 1970 DELIVERY ONLY 1982 , low cervical COLONOSCOPY FLX DX W/COLLJ SPEC WHEN PFRMD 2005 Colonoscopy LIG/TRNSXJ FLP TUBE ABDL/VAG APPR UNI/BI 1986 Tubal ligation NEUROPLASTY AND/TRANSPOS MEDIAN NRV CARPAL TUNNE 1979 Carpal tunnel decomp, bilateral PAST SURGICAL HISTORY OF 10/2003 tendon repair right hand PUNCH BIOPSY SKIN 07/29/2024 left shoulder TR TDN RESTORE INTRNSC FUNCJ RINGANDSM FNGR 2004 right hand at base of thymb Family History FAMILY HISTORY Problem Relation Age of Onset other (renal disease) Mother Heart Father Hypertension Father Heart Attack Sister Heart Brother Alzheimer's Disease Maternal Grandmother Heart Attack Maternal Grandfather Heart Paternal Grandfather Patient Allergies ALLERGIES Allergen Reactions Atorvastatin Myalgia Current Medications Current Outpatient Medications on File Prior to Visit Medication Sig triamterene-hydroCHLOROt hiazide (MAXZIDE) 75-50 mg per tablet Take 1 tablet by mouth once daily. Verapamil HCl 100 mg 24 hr capsule Take 1 capsule by mouth once daily. omeprazole (PRILOSEC) 20 mg capsule Take 1 capsule by mouth once daily. levothyroxine (SYNTHROID) 150 mcg tablet Take 1 tablet by mouth once daily. Take on empty stomach. For thyroid fluticasone (FLONASE) 50 mcg/actuation nasal spray USE 2 SPRAYS IN EACH NOSTRIL ONCE DAILY (RINSE MOUTH AFTER USE) ibuprofen (MOTRIN) 800 mg tablet Take one(1) tablet every eight(8) hours as needed for pain. Cholecalciferol, Vitamin D3, (VITAMIN D-3) 50 mcg (2,000 unit) cap Take by mouth once daily. aspirin 81 mg chewable tablet Take 1 tablet by mouth once daily. Inositol 500 mg tab Take 1 tablet by mouth once daily. MILK THISTLE ORAL Take by mouth once daily. UBIDECARENONE (CO Q-10 ORAL) Take by mouth. multivitamin ORAL tablet Take 1 tablet by mouth once daily. Calcium-Cholecalciferol, D3, (CALCIUM 600 + D) 600-125 mg-unit ORAL Tab Take 1 tablet by mouth twice daily. No current facility-administered medications on file prior to visit. Social History Social Histor (more content not included)... Normal [facility] CNOVSPon 09-10-2024 CNOVSP Visit (SP) Office (HEMAWS) -------- MCKENZIE HAYDEN ([id number]) 1955 F Date Time Provider Department 09/10/24 9:00 AM DEMETRIUS MOON During your visit today, we recorded the following information about you: Temperature Pulse Blood pressure Weight 97.4 degrees 66/minute 141/94 68 kg Height 1.64 m Demetrius Moon MD 09/10/2024 10:20 AM Signed HISTORY OF PRESENT ILLNESS: Mckenzie Hayden is a 69 year old female with history of cutaneous squamous cell carcinoma, had 2 SCC left leg and left arm, skin check revealed left shoulder lesion, looked different from other spots, 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 Discussed typical presentation, work up and treatment for cutaneous marginal B evelyn lymphoma. Reviewed CT chest in May 2024 no lymphadenopathy was seen. CBC normal, no evidence of lymphocytosis. 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 See me and Dr Malloy after staging PET for anticipated IFRT. No need for marrow biopsy given normal cbc. Written and verbal health teaching given to patient, patient verbalizes understanding and agrees with treatment plan. PAST MEDICAL HISTORY Diagnosis Date Arteriosclerosis Cutaneous skin tags 02/22/2013 Esophageal reflux Gastroesophageal reflux Essential hypertension, benign Iron deficiency anemia, unspecified Anemia, iron def. Mitral valve disorders(424.0) MVP Mitral valve disorders(424.0) 02/26/2007 Pain in limb 03/29/2006 PMH - PAST MEDICAL HISTORY OF heel spurs Unspecified hypothyroidism Viral warts, unspecified 02/22/2013 PAST SURGICAL HISTORY Procedure Laterality Date APPENDECTOMY 1970 DELIVERY ONLY 1982 , low cervical COLONOSCOPY FLX DX W/COLLJ SPEC WHEN PFRMD 2005 Colonoscopy LIG/TRNSXJ FLP TUBE ABDL/VAG APPR UNI/BI 1987 Tubal ligation NEUROPLASTY AND/TRANSPOS MEDIAN NRV CARPAL TUNNE 1979 Carpal tunnel decomp, bilateral PAST SURGICAL HISTORY OF 10/2003 tendon repair right hand PUNCH BIOPSY SKIN 07/29/2024 left shoulder TR TDN RESTORE INTRNSC FUNCJ RINGANDSM FNGR 2005 right hand at base of thymb FAMILY HISTORY Problem Relation Age of Onset other (renal disease) Mother Heart Father Hypertension Father Heart Attack Sister Heart Brother Alzheimer's Disease Maternal Grandmother Heart Attack Maternal Grandfather Heart Paternal Grandfather Social History Tobacco Use Smoking status: Every Day Current packs/day: 1.00 Average packs/day: 1 pack/day for 53.3 years (53.3 ttl pk-yrs) Types: Cigarettes Start date: 1971 Smokeless tobacco: Never Tobacco comments: Cut way back, 7-8 cigs per day Vaping Use Vaping status: Never Used Substance Use Topics Alcohol use: Yes Comment: Occasionally Drug use: No ALLERGIES: ALLERGIES Allergen Reactions Atorvastatin Myalgia CURRENT OUTPATIENT MEDICATIONS: triamterene-hydroCHLOROt hiazide (MAXZIDE) 75-50 mg per tablet Take 1 tablet by mouth once daily. Verapamil HCl 100 mg 24 hr capsule Take 1 capsule by mouth once daily. omeprazole (PRILOSEC) 20 mg capsule Take 1 capsule by mouth once daily. levothyroxine (SYNTHROID) 150 mcg tablet Take 1 tablet by mouth once daily. Take on empty stomach. For thyroid fluticasone (FLONASE) 50 mcg/actuation nasal spray USE 2 SPRAYS IN EACH NOSTRIL ONCE DAILY (RINSE MOUTH AFTER USE) ibuprofen (MOTRIN) 800 mg tablet Take one(1) tablet every eight(8) hours as needed for pain. Cholecalciferol, Vitamin D3, (VITAMIN D-3) 50 mcg (2,000 unit) cap Take 1 capsule by mouth once daily. aspirin 81 mg chewable tablet Take 1 tablet by mouth once daily. Inositol 500 mg tab Take 1 tablet by mouth once daily. MILK THISTLE ORAL Take 1 tablet by mouth once daily. UBIDECARENONE (CO Q-10 ORAL) Take 1 tablet by mouth once daily. multivitamin ORAL tablet Take 1 tablet by mouth once daily. Calcium-Cholecalciferol, D3, (CALCIUM 600 + D) 600-125 mg-unit ORAL Tab Take 1 tablet by mouth twice daily. REVIEW OF SYSTEMS: GENERAL: No fever, night sweats, weight loss or malaise. All other reviewed and negative other than HPI. PHYSICAL EXAMINATION: VITAL SIGNS: BP 141/94 Pulse 66 Temp (Src) 97.4 (Temporal) Ht 5' 4.567 (1.64m) Wt 150 lb (68.0kg) SpO2 98% LMP 06/08/2008 BMI 25.30 kg/(m2). GENERAL APPEARANCE: Well appearing, in no acute distress, alert and oriented x3, well-hydrated, well nourished. LEFT SHOULDER: Biopsy site clean. I spent a total of 45 minutes on the date of the service which included preparing to see the patient, [id number] patient care, completing clinical documentation, obtaining and/or reviewing separately obtained history, counseling and educating the patient/family/caregiver , ordering medications, tests, or procedures, independently interpreting results (not separately reported), and communica (more content not included)... Normal [facility] 09-10-2024 [facility] Telephone (BANDAR) -------- MCKENZIE HAYDEN ([id number]) 1955 F Date Time Provider Department 09/10/24 ANDRZEJ ABBASI During your visit today, we recorded the following information about you: Andrzej Abbasi RN 09/10/2024 11:56 AM Signed Please move follow up OV's with Dr. Moon and Dr. Malloy from 10/22/24 to 10/03/24. Please call patient with new date/times. MAR Gonzalez Brandy 09/10/2024 12:10 PM Signed Patient's appointments have been moved to 11/03/24 as requested below Mandy Leonard RN 09/15/2024 2:56 PM Signed The follow up for Dr Moon and consult with Dr Malloy were supposed to be scheduled for 10/03/24 please contact pt and reschedule appointments from 11/03/24 to 10/03/24 per Danni's note below.Thanks. Taniya [facility] 09/15/2024 3:23 PM Signed Patient's appointments have been moved to the correct date of 10/03/24 Patient has been contacted and confirmed this date and times change Serena Pimentel [facility] 09/16/2024 8:20 AM Signed Advised by clinical to move appointments for Dr. Malloy and Dr. Moon out 5-7 days from Pet Scan. Patient requested her original date of 10/22 and see both providers same day. Patient seemed frustated stating she informed the preschool paraprofessional previously that the Pet scan results would not be back in time for 10/03 appointment. Andrzej Abbasi, MAR 09/16/2024 2:33 PM Signed Spoke with patient and explained that Dr. Moon would like to see her on 10/03/24. We will check results that morning and if the PET scan is not resulted, we will call her and reschedule at that time. She is agreeable to this. PSS: Please move follow up OV's with Dr. Moon and Dr. Malloy from 10/22/24 to 10/03/24. Dr. Moon at 850am and Dr. Malloy at 930am. No need to call patient. MAR Gonzalez Naomi 09/16/2024 2:55 PM Signed These have been scheduled as directed. Sara Castillo Allergies As of Date: 09/10/2024 Noted Allergy Reaction ATORVASTATIN 02/13/2019 17 - Myalgia Date Reviewed: 09/10/2024 Reviewed by: Hemal Garcia MA - Fully Assessed Reason for Visit: Future Appointment [256] Prescriptions as of 09/16/2024 - triamterene-hydroCHLOROt hiazide (MAXZIDE) 75-50 mg per tablet Take 1 tablet by mouth once daily. - Verapamil HCl 100 mg 24 hr capsule Take 1 capsule by mouth once daily. - omeprazole (PRILOSEC) 20 mg capsule Take 1 capsule by mouth once daily. - levothyroxine (SYNTHROID) 150 mcg tablet Take 1 tablet by mouth once daily. Take on empty stomach. For thyroid - fluticasone (FLONASE) 50 mcg/actuation nasal spray USE 2 SPRAYS IN EACH NOSTRIL ONCE DAILY (RINSE MOUTH AFTER USE) - ibuprofen (MOTRIN) 800 mg tablet Take one(1) tablet every eight(8) hours as needed for pain. - Cholecalciferol, Vitamin D3, (VITAMIN D-3) 50 mcg (2,000 unit) cap Take 1 capsule by mouth once daily. - aspirin 81 mg chewable tablet Take 1 tablet by mouth once daily. - Inositol 500 mg tab Take 1 tablet by mouth once daily. - MILK THISTLE ORAL Take 1 tablet by mouth once daily. - UBIDECARENONE (CO Q-10 ORAL) Take 1 tablet by mouth once daily. - multivitamin ORAL tablet Take 1 tablet by mouth once daily. - Calcium-Cholecalciferol, D3, (CALCIUM 600 + D) 600-125 mg-unit ORAL Tab Take 1 tablet by mouth twice daily. 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] 10/25/2007 Hyperlipidemia [E78.5] 06/02/2008 Spinal Stenosis, Lumbar [M48.061] 02/21/2010 Spondylisthesis [M43.10] 02/21/2010 [facility] arthritis, thumb, degenerative [M18.9] 05/18/2011 Melanocytic nevi of face [D22.30] 02/22/2013 Intradermal melanocytic nevus [D22.9] 02/22/2013 Melanocytic nevi of scalp and neck [D22.4] 02/22/2013 Junctional nevus of neck [D22.4] 02/22/2013 Lentiginous junctional nevus of back [D22.5] 02/22/2013 Solar lentigo [L81.4] 02/22/2013 Other seborrheic keratosis [L82.1] 02/22/2013 Tobacco abuse [Z72.0] 10/02/2013 Acute pericarditis [I30.9] 12/28/2017 SAMMY (obstructive sleep apnea) [G47.33] 12/11/2018 Aortic ectasia, 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] 04/25/2023 Thoracic aorta atherosclerosis (HCC) [I70.0] 04/25/2023 Coronary artery calcification seen on CAT scan *04/25/2023 Encounter Status:Closed by SERENA DUMONT on 09/10/24 Normal [facility] CBC W Auto Differential pane l (Bld)on 09-05-2024 Basophils (Bld) [#/Vol] 0.06 10*3/uL Normal <0.11 [facility] Comment on above: Order Comment: Speci men Type: FORMALIN-FIXED PARAFFIN-EMBEDDED TISSUE SPECIMEN Ordering Facility: [facility] Address: DEPARTMENT OF PATHOLOGY, [place] [address] Performed By: #### B CBMDO #### CLARITY ILLUMINA LIMS CLIA [id number] [address] [place] [address] [place] Basophils/100 WBC (Bld) 1.3 % Normal [facility] Comment on above: Order Comment: Speci men Type: FORMALIN-FIXED PARAFFIN-EMBEDDED TISSUE SPECIMEN Ordering Facility: [facility] Address: DEPARTMENT OF PATHOLOGY, [place] [address] Performed By: #### B CBMDO #### CLARITY ILLUMINA LIMS CLIA [id number] [address] [place] [address] [place] Differential cell count method Nom (Bld) Auto Normal [facility] Comment on above: Order Comment: Speci men Type: FORMALIN-FIXED PARAFFIN-EMBEDDED TISSUE SPECIMEN Ordering Facility: [facility] Address: DEPARTMENT OF PATHOLOGY, [place] [address] Performed By: #### B CBMDO #### CLARITY ILLUMINA LIMS CLIA [id number] [address] [place] [address] [place] Eosinophils (Bld) [#/Vol] 0.14 10*3/uL Normal <0.46 [facility] Comment on above: Order Comment: Speci men Type: FORMALIN-FIXED PARAFFIN-EMBEDDED TISSUE SPECIMEN Ordering Facility: [facility] Address: DEPARTMENT OF PATHOLOGY, [place] [address] Performed By: #### B CBMDO #### CLARITY ILLUMINA LIMS CLIA [id number] [address] [place] [address] [place] Eosinophils/100 WBC (Bld) 3.1 % Normal [facility] Comment on above: Order Comment: Speci men Type: FORMALIN-FIXED PARAFFIN-EMBEDDED TISSUE SPECIMEN Ordering Facility: [facility] Address: [place] [address] Performed By: #### B CBMDO #### CLARITY ILLUMINA LIMS CLIA [id number] [address] [place] [address] [place] Erythrocyte distribution width (RBC) [Ratio] 11.6 % Normal 11.5-15.0 [facility] Comment on above: Order Comment: Speci men Type: FORMALIN-FIXED PARAFFIN-EMBEDDED TISSUE SPECIMEN Ordering Facility: [facility] Address: [place] [address] Performed By: #### B CBMDO #### CLARITY ILLUMINA LIMS CLIA [id number] [address] [place] [address] [place] Hematocrit (Bld) [Volume fraction] 45.1 % Normal 36.0-46.0 [facility] Comment on above: Order Comment: Speci men Type: FORMALIN-FIXED PARAFFIN-EMBEDDED TISSUE SPECIMEN Ordering Facility: [facility] Address: [place] [address] Performed By: #### B CBMDO #### CLARITY ILLUMINA LIMS CLIA [id number] [address] [place] [address] [place] Hemoglobin (Bld) [Mass/Vol] 15.3 g/dL Normal 11.5-15.5 [facility] Comment on above: Order Comment: Speci men Type: FORMALIN-FIXED PARAFFIN-EMBEDDED TISSUE SPECIMEN Ordering Facility: [facility] Address: [place] [address] Performed By: #### B CBMDO #### CLARITY ILLUMINA LIMS CLIA [id number] [address] [place] [address] [place] Immature granulocytes (Bld) [#/Vol] 10*3/uL Normal <0.10 [facility] Comment on above: Order Comment: Speci men Type: FORMALIN-FIXED PARAFFIN-EMBEDDED TISSUE SPECIMEN Ordering Facility: [facility] Address: [place] [address] Performed By: #### B CBMDO #### CLARITY ILLUMINA LIMS CLIA [id number] [address] [place] [address] [place] Immature granulocytes/100 WBC (Bld) 0.4 % Normal [facility] Comment on above: Order Comment: Speci men Type: FORMALIN-FIXED PARAFFIN-EMBEDDED TISSUE SPECIMEN Ordering Facility: [facility] Address: [place] [address] Performed By: #### B CBMDO #### CLARITY ILLUMINA LIMS CLIA [id number] [address] [place] [address] [place] Lymphocytes (Bld) [#/Vol] 1.56 10*3/uL Normal 1.00-4.00 [facility] Comment on above: Order Comment: Speci men Type: FORMALIN-FIXED PARAFFIN-EMBEDDED TISSUE SPECIMEN Ordering Facility: [facility] Address: [place] [address] Performed By: #### B CBMDO #### CLARITY ILLUMINA LIMS CLIA [id number] [address] [place] [address] [place] Lymphocytes/100 WBC (Bld) 34.1 % Normal [facility] Comment on above: Order Comment: Speci men Type: FORMALIN-FIXED PARAFFIN-EMBEDDED TISSUE SPECIMEN Ordering Facility: [facility] Address: DEPARTMENT OF PATHOLOGY, [place] [id number] Performed By: #### B CBMDO #### CLARITY ILLUMINA LIMS CLIA [id number] [address] [place] [address] [place] MCH (RBC) [Entitic mass] 32.1 pg Normal 26.0-34.0 [facility] Comment on above: Order Comment: Speci men Type: FORMALIN-FIXED PARAFFIN-EMBEDDED TISSUE SPECIMEN Ordering Facility: [facility] Address: [place] [address] Performed By: #### B CBMDO #### CLARITY ILLUMINA LIMS CLIA [id number] [address] [place] [address] [place] MCHC (RBC) [Mass/Vol] 33.9 g/dL Normal 30.5-36.0 [facility] Comment on above: Order Comment: Speci men Type: FORMALIN-FIXED PARAFFIN-EMBEDDED TISSUE SPECIMEN Ordering Facility: [facility] Address: [place] [address] Performed By: #### B CBMDO #### CLARITY ILLUMINA LIMS CLIA [id number] [address] [place] [address] [place] MCV (RBC) [Entitic vol] 94.7 fL Normal 80.0-100.0 [facility] Comment on above: Order Comment: Speci men Type: FORMALIN-FIXED PARAFFIN-EMBEDDED TISSUE SPECIMEN Ordering Facility: [facility] Address: DEPARTMENT OF PATHOLOGY, [place] [address] Performed By: #### B CBMDO #### CLARITY ILLUMINA LIMS CLIA [id number] [address] [place] [address] [place] Monocytes (Bld) [#/Vol] 0.40 10*3/uL Normal <0.87 [facility] Comment on above: Order Comment: Speci men Type: FORMALIN-FIXED PARAFFIN-EMBEDDED TISSUE SPECIMEN Ordering Facility: [facility] Address: [place] [address] Performed By: #### B CBMDO #### CLARITY ILLUMINA LIMS CLIA [id number] [address] [place] [address] [place] Monocytes/100 WBC (Bld) 8.7 % Normal [facility] Comment on above: Order Comment: Speci men Type: FORMALIN-FIXED PARAFFIN-EMBEDDED TISSUE SPECIMEN Ordering Facility: [facility] Address: [place] [address] Performed By: #### B CBMDO #### CLARITY ILLUMINA LIMS CLIA [id number] [address] [place] [address] [place] Neutrophils (Bld) [#/Vol] 2.40 10*3/uL Normal 1.45-7.50 [facility] Comment on above: Order Comment: Speci men Type: FORMALIN-FIXED PARAFFIN-EMBEDDED TISSUE SPECIMEN Ordering Facility: [facility] Address: [place] [address] Performed By: #### B CBMDO #### CLARITY ILLUMINA LIMS CLIA [id number] [address] [place] [address] [place] Neutrophils/100 WBC (Bld) 52.4 % Normal [facility] Comment on above: Order Comment: Speci men Type: FORMALIN-FIXED PARAFFIN-EMBEDDED TISSUE SPECIMEN Ordering Facility: [facility] Address: DEPARTMENT OF PATHOLOGY, [place] [address] Performed By: #### B CBMDO #### CLARITY ILLUMINA LIMS CLIA [id number] [address] [place] [address] [place] Nucleated RBC (Bld) [#/Vol] 10*3/uL Normal <0.01 [facility] Comment on above: Order Comment: Speci men Type: FORMALIN-FIXED PARAFFIN-EMBEDDED TISSUE SPECIMEN Ordering Facility: [facility] Address: [place] [address] Performed By: #### B CBMDO #### CLARITY ILLUMINA LIMS CLIA [id number] [address] [place] [address] [place] Nucleated RBC/100 WBC (Bld) [Ratio] 0.0 /100 WBC Normal [facility] Comment on above: Order Comment: Speci men Type: FORMALIN-FIXED PARAFFIN-EMBEDDED TISSUE SPECIMEN Ordering Facility: [facility] Address: DEPARTMENT OF PATHOLOGY, [place], [place] Performed By: #### B CBMDO #### CLARITY ILLUMINA LIMS CLIA [id number] [address] [place] [address] [place] Platelet mean volume (Bld) [Entitic vol] 8.5 fL Low 9.0-12.7 [facility] Comment on above: Order Comment: Speci men Type: FORMALIN-FIXED PARAFFIN-EMBEDDED TISSUE SPECIMEN Ordering Facility: [facility] Address[facility] [place] Performed By: #### B CBMDO #### CLARITY ILLUMINA LIMS CLIA [id number] [address] [place] [address] [place] Platelets (Bld) [#/Vol] 249 10*3/uL Normal 150-400 [facility] Comment on above: Order Comment: Speci men Type: FORMALIN-FIXED PARAFFIN-EMBEDDED TISSUE SPECIMEN Ordering Facility: [facility] Address: [facility] [place] Performed By: #### B CBMDO #### CLARITY ILLUMINA LIMS CLIA [id number] [address] [place] [address] [place] RBC (Bld) [#/Vol] 4.76 10*6/uL Normal 3.90-5.20 [facility] Comment on above: Order Comment: Speci men Type: FORMALIN-FIXED PARAFFIN-EMBEDDED TISSUE SPECIMEN Ordering Facility: [facility] Address: [facility] [place] Performed By: #### B CBMDO #### CLARITY ILLUMINA LIMS CLIA [id number] [address] [place], [place] [id number] [place] WBC (Bld) [#/Vol] 4.58 10*3/uL Normal 3.70-11.00 [facility] Comment on above: Order Comment: Speci men Type: FORMALIN-FIXED PARAFFIN-EMBEDDED TISSUE SPECIMEN Ordering Facility: [facility] Address: DEPARTMENT OF PATHOLOGY, [place] [address] Performed By: #### B CBMDO #### CLARITY ILLUMINA LIMS CLIA [id number] [address] [facility] [id number] [id number] [place] Comprehensive metabolic 2000 panelon 09-05-2024 Albumin [Mass/Vol] 4.6 g/dL Normal 3.9-4.9 [facility] Comment on above: Order Comment: Speci men Type: BLOOD SPECIMEN Ordering Facility: [facility] Address: [address] [place] [address] Performed By: #### 2 4323-8 #### [facility] CLIA [id number] [address] [place] [address] [place] ALP [Catalytic activity/Vol] 53 U/L Normal 34-123 [facility] Comment on above: Order Comment: Speci men Type: BLOOD SPECIMEN Ordering Facility: [facility] Address: [address] [place] [address] Performed By: #### 2 4323-8 #### [facility] CLIA [id number] [address] [place] [address] [place] ALT [Catalytic activity/Vol] 16 U/L Normal 7-38 [facility] Comment on above: Order Comment: Speci men Type: BLOOD SPECIMEN Ordering Facility: [facility] Address: [address] [place] [address] Performed By: #### 2 4323-8 #### [facility] EASTIA [id number] [address] [place] [address] [place] Anion gap [Moles/Vol] 9 mmol/L Normal 8-15 [facility] Comment on above: Order Comment: Speci men Type: BLOOD SPECIMEN Ordering Facility: [facility] Address: [address] [place] [address] Performed By: #### 2 4323-8 #### [facility] CLIA [id number] [address] [place] [address] [place] AST [Catalytic activity/Vol] 24 U/L Normal 13-35 [facility] Comment on above: Order Comment: Speci men Type: BLOOD SPECIMEN Ordering Facility: [facility] Address: [address] [place] [address] Performed By: #### 2 4323-8 #### [facility] CLIA [id number] [address] [place] [address] [place] Bilirubin [Mass/Vol] 0.4 mg/dL Normal 0.2-1.3 [facility] Comment on above: Order Comment: Speci men Type: BLOOD SPECIMEN Ordering Facility: [facility] Address: [address] [place] [address] Performed By: #### 2 4323-8 #### [facility] CLIA [id number] [address] [place] [address] [place] Calcium [Mass/Vol] 10.3 mg/dL High 8.5-10.2 [facility] Comment on above: Order Comment: Speci men Type: BLOOD SPECIMEN Ordering Facility: [facility] Address: [address] [place] [address] Performed By: #### 2 4323-8 #### [facility] CLIA [id number] [address] [place] [address] [place] Chloride [Moles/Vol] 104 mmol/L Normal 98-107 [facility] Comment on above: Order Comment: Speci men Type: BLOOD SPECIMEN Ordering Facility: [facility] Address: [address] [place] [address] Performed By: #### 2 4323-8 #### [facility] CLIA [id number] [address] [place] [address] [place] CO2 [Moles/Vol] 29 mmol/L Normal 22-30 [facility] Comment on above: Order Comment: Speci men Type: BLOOD SPECIMEN Ordering Facility: [facility] Address: [address] [place] [address] Performed By: #### 2 4323-8 #### [facility] EAST[facility] [id number] [address] [place] [address] [place] Creatinine [Mass/Vol] 0.85 mg/dL Normal 0.58-0.96 [facility] Comment on above: Order Comment: Rika hopkins Type: BLOOD SPECIMEN Ordering Facility: [facility] Address: [address] [place] [address] Performed By: #### 2 4323-8 #### [facility] [id number] [address] [place] [address] [place] Creatinine and Glomerular filtration rate.predicted panel (S/P/Bld) 74 mL/min/1.73m??? Normal >=60 [facility] Comment on above: Order Comment: Rika hopkins Type: BLOOD SPECIMEN Ordering Facility: [facility] Address: [address] [place] [address] Result Comment: Poly mated Glomerular Filtration Rate (eGFR) is calculated using the 2020 CKD-EPI creatinine equation. This equation utilizes serum creatinine, sex, and age as parameters. The creatinine assay has traceable calibration to isotope dilution-mass spectrometry. Refer to KDIGO guidelines for clinical interpretation. In patients with unstable renal function, e.g. those with acute kidney injury, the eGFR may not accurately reflect actual GFR. Performed By: #### 2 4323-8 #### [facility] E[facility] [id number] [address] [place] [address] [place] Glucose [Mass/Vol] 94 mg/dL Normal 74-99 [facility] Comment on above: Order Comment: Rika hopkins Type: BLOOD SPECIMEN Ordering Facility: [facility] Address: [address] [place] [address] Result Comment: The [place] Diabetes Association (ADA) provides guidance for cutoff values for fasting glucose and random glucose. The ADA defines fasting as no caloric intake for at least 8 hours. Fasting plasma glucose results between 100 to 125 mg/dL indicate increased risk for diabetes (prediabetes). Fasting plasma glucose results greater than or equal to 126 mg/dL meet the criteria for diagnosis of diabetes. In the absence of unequivocal hyperglycemia, results should be confirmed by repeat testing. In a patient with classic symptoms of hyperglycemia or hyperglycemic crisis, random plasma glucose results greater than or equal to 200 mg/dL meet the criteria for diagnosis of diabetes. Reference: Standards of Medical Care in Diabetes 2016, [place] Diabetes Association. Diabetes Care. 2016.39(Suppl 1). Performed By: #### 2 4323-8 #### [facility] CLIA [id number] [address] [place] [address] [place] Potassium [Moles/Vol] 4.1 mmol/L Normal 3.7-5.1 [facility] Comment on above: Order Comment: Speci men Type: BLOOD SPECIMEN Ordering Facility: [facility] Address: [address] [place] [address] Performed By: #### 2 4323-8 #### [facility] E[facility] [id number] [address] [place] [address] [place] Protein [Mass/Vol] 7.2 g/dL Normal 6.3-8.0 [facility] Comment on above: Order Comment: Speci men Type: BLOOD SPECIMEN Ordering Facility: [facility] Address: [address] [place] [address] Performed By: #### 2 4323-8 #### [facility] [id number] [address] [place] [address] [place] Sodium [Moles/Vol] 142 mmol/L Normal 136-144 [facility] Comment on above: Order Comment: Speci men Type: BLOOD SPECIMEN Ordering Facility: [facility] Address: [address] [place] [address] Performed By: #### 2 4323-8 #### [facility] [id number] [address] [place] [address] [place] Urea nitrogen [Mass/Vol] 20 mg/dL Normal 7-21 [facility] Comment on above: Order Comment: Speci men Type: BLOOD SPECIMEN Ordering Facility: [facility] Address: [address] [place] [address] Performed By: #### 2 4323-8 #### [facility] CLIA [id number] [address] [place] [address] [place] Lipid 1996 panelon 5 Cholesterol [Mass/Vol] 247 mg/dL High <200 [facility] Comment on above: Order Comment: Speci men Type: FORMALIN-FIXED PARAFFIN-EMBEDDED TISSUE SPECIMEN Ordering Facility: [facility] Address: [place] [address] Result Comment: <200 mg/dL, Desirable 200-239 mg/dL, Borderline high >239 mg/dL, High Performed By: #### B CBMDO #### [facility] CLIA [id number] [address] [place] [address] [place] Cholesterol in HDL [Mass/Vol] 105 mg/dL Normal >39 [facility] Comment on above: Order Comment: Speci men Type: FORMALIN-FIXED PARAFFIN-EMBEDDED TISSUE SPECIMEN Ordering Facility: [facility] Address: [place] [address] Result Comment: 40-5 9 mg/dL, Acceptable >59 mg/dL, High: Negative risk factor for coronary heart disease <40 mg/dL, Low: Positive risk factor for coronary heart disease Performed By: #### B CBMDO #### [facility] CLIA [id number] [address] [place] [address] [place] Cholesterol in LDL [Mass/Vol] 130 mg/dL High <100 [facility] Comment on above: Order Comment: Speci men Type: FORMALIN-FIXED PARAFFIN-EMBEDDED TISSUE SPECIMEN Ordering Facility: [facility] Address: DEPARTMENT OF PATHOLOGY, [place] [address] Result Comment: <100 mg/dL, Optimal 100-129 mg/dL, Near optimal/above optimal 130-159 mg/dL, Borderline high 160-189 mg/dL, High >189 mg/dL, Very high Secondary prevention optimal LDL Cholesterol levels are recommended to be < 70 mg/dL Performed By: #### B CBMDO #### [facility] CLIA [id number] [facility] [address] Cholesterol in LDL/Cholesterol in HDL [Mass ratio] 1.24 {ratio} Normal <2.54 [facility] Comment on above: Order Comment: Speci men Type: FORMALIN-FIXED PARAFFIN-EMBEDDED TISSUE SPECIMEN Ordering Facility: [facility] Address: DEPARTMENT OF PATHOLOGY, [place] [address] Result Comment: Brenden martin: 1. National Cholesterol Education Program ATP III Guideline At-A-Glance Quick Desk Reference: National Heart, Lung, and Blood Volborg. National Institutes of Health. 2001: NIH Publication No. 01-3305. 2. An International Atherosclerosis Society position paper: global recommendations for the management of dyslipidemia: executive summary, Atherosclerosis. 2014: 232(2):410-413. Performed By: #### B CBMDO #### [facility] CLIA [id number] [address] [place] [address] [place] Cholesterol in VLDL [Mass/Vol] 12 mg/dL Normal <30 [facility] Comment on above: Order Comment: Speci men Type: FORMALIN-FIXED PARAFFIN-EMBEDDED TISSUE SPECIMEN Ordering Facility: [facility] Address: DEPARTMENT OF PATHOLOGY, [place] [address] Performed By: #### B CBMDO #### [facility] CLIA [id number] [address] [place] [address] [place] Cholesterol non HDL [Mass/Vol] 142 mg/dL High <130 [facility] Comment on above: Order Comment: Speci men Type: FORMALIN-FIXED PARAFFIN-EMBEDDED TISSUE SPECIMEN Ordering Facility: [facility] Address: DEPARTMENT OF PATHOLOGY, [place] [address] Result Comment: <130 mg/dL, Optimal 130-159 mg/dL, Near optimal/above optimal 160-189 mg/dL, Borderline high 190-219 mg/dL, High >219 mg/dL, Very high Secondary prevention optimal non HDL Cholesterol levels are recommended to be <100 mg/dL Performed By: #### B CBMDO #### [facility] CLIA [id number] [facility] [address] [place] Cholesterol.total/Ch olesterol in HDL [Mass ratio] 2.35 {ratio} Normal <5.10 [facility] Comment on above: Order Comment: Speci men Type: FORMALIN-FIXED PARAFFIN-EMBEDDED TISSUE SPECIMEN Ordering Facility: [facility] Address: DEPARTMENT OF PATHOLOGY, [place] [address] Performed By: #### B CBMDO #### [facility] CLIA [id number] [address] [place] [address] [place] OF [facility] FASTING TIME 12 hrs Normal [facility] Comment on above: Order Comment: Speci men Type: FORMALIN-FIXED PARAFFIN-EMBEDDED TISSUE SPECIMEN Ordering Facility: [facility] Address: DEPARTMENT OF PATHOLOGY, [place] [address] Performed By: #### B CBMDO #### [facility] CLIA [id number] [address] [place] [address] Triglyceride [Mass/Vol] 60 mg/dL Normal <150 [facility] Comment on above: Order Comment: Speci men Type: FORMALIN-FIXED PARAFFIN-EMBEDDED TISSUE SPECIMEN Ordering Facility: [facility] Address: DEPARTMENT OF PATHOLOGY, [place] [address] Result Comment: <150 mg/dL, Normal 150-199 mg/dL, Borderline high 200-499 mg/dL, High >499 mg/dL, Very high Performed By: #### B CBMDO #### [facility] CLIA [id number] [address] [place] [address] [place] TSH SerPl-aCncon 09-05-2024 TSH Qn 1.050 m[IU]/L Normal 0.270-4.200 [facility] Comment on above: Order Comment: Speci men Type: FORMALIN-FIXED PARAFFIN-EMBEDDED TISSUE SPECIMEN Ordering Facility: [facility] Address: [place] [address] Performed By: #### B CBMDO #### [facility] CLIA [id number] [address] [place] [address] [place] B-CELL CLONALITY BIOMED2 [facility] 08-13-2024 B-CELL CLONALITY BIOMED2 OTHER Normal [facility] Comment on above: Order Comment: Speci men Type: FORMALIN-FIXED PARAFFIN-EMBEDDED TISSUE SPECIMEN Ordering Facility: [facility] Address: DEPARTMENT OF PATHOLOGY, [place] [address] Result Comment: [facility] Accession Number: [id number] Case #: [id number] Block #: A1 ([id number]) Sample Description: Left Lateral Shoulder Sample Type: FFPET DNA Quality: GOOD (>=300 bp) Results: IGH FR1: Non-clonal IGH FR2: Abnormal peak (285 bp) in a polyclonal background IGH FR3: Clonal (149 bp) IGH DH1-6-J: Non-clonal IGK V-J: Abnormal peak (148 bp) IGK V-Kde: Clonal (282 bp) Interpretation: POSITIVE for a clonal rearrangement (See comment). Comment: A clonal rearrangement is detected by PCR in one or more primer sets targeting the immunoglobulin heavy chain (IGH) and immunoglobulin light chain kappa (IGK) loci. This result is consistent with the presence of a monoclonal B-cell population. Methodology: DNA was isolated from the specimen and subjected to PCR amplification using a fluorescently labeled primers targeting the immunoglobulin heavy chain (IGH) and immunoglobulin light chain kappa (IGK) loci ([employer], [place], [place]). Fluorescently labeled PCR products were analyzed by capillary gel electrophoresis. An additional PCR reaction directed at housekeeping genes was performed as a control for each sample to ensure adequate DNA quality. Limitations: 1) PCR may not detect all clonal rearrangements detectable by Southern blot analysis. 2) The sensitivity of the assay is affected by the intensity of the polyclonal background. The assay detects a clonal population of approximately 5% in a background of tonsil DNA. 3) Monoclonality is not equivalent to malignancy. Results of this test should be interpreted in the context of the clinical, histological, flow cytometric, and/or immunophenotypic information. 4) Detection of monoclonality with this assay usually indicates a monoclonal B-cell population; however, lineage assignment is not entirely reliable since some T-cell lymphomas and acute myeloid leukemias may have rearranged immunoglobulin genes. Disclaimer: This test was developed and its performance characteristics determined by [facility]'s Pathology and Laboratory Medicine Department. It has not been cleared or approved by the FDA. [facility] Pathology and Laboratory Medicine Department is regulated under CLIA as certified to perform high-complexity testing. This test is used for clinical purposes. It should not be regarded as investigational or for research. Testing and interpretation performed at [facility], [address] [place] [address]. CLIA Number: [id number] As reviewed by Leilani Tse MD Performed By: #### B CBMDO #### [facility] CLIA [id number] [address] [place] [address] [place] SURGICAL PATHOLOGY REFERENCE LAB CONSULTon 08-13-2024 AP DISCLAIMER Normal [facility] Comment on above: Order Comment: Speci men Type: FORMALIN-FIXED PARAFFIN-EMBEDDED TISSUE SPECIMENOrdering Facility: [facility] Address: DEPARTMENT OF PATHOLOGY, [place] [address] Result Comment: Irma bright Developed Test (LDT) Disclaimer: Performance characteristics of immunohistochemical, immunofluorescent, and chromogenic in-situ hybridization tests have been determined by the performing laboratory within [facility] ([facility], [facility], [facility], [facility], [facility], [facility], or [facility]) in a manner consistent with CLIA requirements. One or more of these tests may not have been cleared or approved by the FDA. [facility] is regulated under CLIA as qualified to perform high-complexity testing. These tests are used for clinical purposes. These should not be regarded as investigational or for research. Positive and negative controls stain appropriately. Performed By: #### L [id number] ####[facility] [id number] [address] OF [place] CASE REPORT Normal [facility] Comment on above: Order Comment: Speci men Type: FORMALIN-FIXED PARAFFIN-EMBEDDED TISSUE SPECIMENOrdering Facility: [facility] Address: DEPARTMENT OF PATHOLOGY, [place] [address] Result Comment: [facility] Pathology Report Case: [id number] Authorizing Provider: Darline Soliman MD Collected: 08/13/2024 11:00 AM Ordering Location: [facility] Main Received: 08/13/2024 10:58 AM [facility] Pathologist: Saurav Reid MD Specimen: Block(s) and/or Slide(s), 1 SLIDE & 1 BLOCK [id number]; 1 Performed By: #### L [id number] ####[facility] LAB[facility]IA [id number] [place] [address] [place] CLINICAL HISTORY CONSULT [facility]QUESTED [facility] Comment on above: Order Comment: Speci men Type: FORMALIN-FIXED PARAFFIN-EMBEDDED TISSUE SPECIMENOrdering Facility: [facility] Address: DEPARTMENT OF PATHOLOGY, [place] [address] Performed By: #### L [id number] ####[facility] LAB[facility] [id number] [address] STATES OF [place] DIAGNOSIS COMMENT Normal [facility] Comment on above: Order Comment: Speci men Type: FORMALIN-FIXED PARAFFIN-EMBEDDED TISSUE SPECIMENOrdering Facility: [facility] Address: DEPARTMENT OF PATHOLOGY, [place] [address] Result Comment: Than k you for consulting me on this punch biopsy specimen from the left lateral shoulder of a 69-year-old patient. I previously reviewed a shave biopsy from this site showing a dermal lymphoid infiltrate with kappa predominant plasma cells ([facility] ). Histologic sections show a basketweave stratum corneum overlying a largely unremarkable epidermis. In the superficial dermis, there is a scar characterized by horizontally-oriented fibrosis with vertically-oriented small vessels. Within the dermis, there is a moderately dense perivascular and periadnexal lymphoid infiltrate consisting mostly of small, mature lymphocytes with admixed histiocytes and occasional plasma cells. In order to further evaluate the infiltrate, immunohistochemical staining is performed at the [facility] with appropriate controls. Stains for CD3 and CD20 show slight B-cell predominance in the infiltrate. CD5 staining appears restricted to T cells, and a CD10 stain is largely negative. A BCL2 stain highlights the T cells as well as a subset of the B cells. A CD21 stain highlights occasional follicular dendritic meshworks, and there is focal associated increased BCL6 staining. A cyclin D1 stain is largely negative. In order to further characterize the process, PCR studies for clonal B cell gene rearrangements were also performed at the [facility]. The molecular testing was positive for a clonal rearrangement (see separate report). 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 Correlation with clinical and, if indicated, laboratory and radiological findings is recommended to exclude involvement by a systemic lymphoproliferative process. If confirmed to be limited to the skin, primary cutaneous marginal zone lymphoproliferative disorder is typically indolent. Clinical correlation is recommended. Thank you for sending this case in consultation. Please call the Dermatopathology Consultation Service at [phone] with questions or if additional follow-up information becomes available regarding this patient. This case was reviewed in conjunction with the Dermatopathology Fellow, Dr. Mihai Kwok. Performed By: #### L [id number] ####[facility] [id number] [address] FINAL DIAGNOSIS Normal [facility] Comment on above: Order Comment: Speci men Type: FORMALIN-FIXED PARAFFIN-EMBEDDED TISSUE SPECIMENOrdering Facility: [facility] Address: DEPARTMENT OF PATHOLOGY, [place] [address] Result Comment: A. 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 XU/CORINNA 08/22/2024 at 1538 EDT Performed By: #### L [id number] ####[facility] [id number] [address] FINAL PERFORMING LAB Normal [facility] Comment on above: Order Comment: Speci men Type: FORMALIN-FIXED PARAFFIN-EMBEDDED TISSUE SPECIMENOrdering Facility: [facility] Address: DEPARTMENT OF PATHOLOGY, [place] [address] Result Comment: Diag nostic interpretation performed at: [facility], [address] [facility], [place] [address] CLIA# [id number] Finished Cloth Examiner: Phuc Arita MD Performed By: #### L [id number] ####[facility] [id number] [place] [address] [place] CBC W Auto Differential pane l (Bld)on 07-18-2024 Basophils (Bld) [#/Vol] 0.06 10*3/uL Normal <0.11 [facility] Comment on above: Order Comment: Speci men Type: FORMALIN-FIXED PARAFFIN-EMBEDDED TISSUE SPECIMEN Ordering Facility: [facility] Address: DEPARTMENT OF PATHOLOGY, [place] [address] Performed By: #### B CBMDO #### [facility] CLIA [id number] [address] [place] [address] [place] Basophils/100 WBC (Bld) 1.0 % Normal [facility] Comment on above: Order Comment: Speci men Type: FORMALIN-FIXED PARAFFIN-EMBEDDED TISSUE SPECIMEN Ordering Facility: [facility] Address: [place] [address] Performed By: #### B CBMDO #### [facility] CLIA [id number] [address] [place] [address] [place] Differential cell count method Nom (Bld) Auto Normal [facility] Comment on above: Order Comment: Speci men Type: FORMALIN-FIXED PARAFFIN-EMBEDDED TISSUE SPECIMEN Ordering Facility: [facility] Address: [place] [address] Performed By: #### B CBMDO #### [facility] CLIA [id number] [address] [place] [address] [place] Eosinophils (Bld) [#/Vol] 0.17 10*3/uL Normal <0.46 [facility] Comment on above: Order Comment: Speci men Type: FORMALIN-FIXED PARAFFIN-EMBEDDED TISSUE SPECIMEN Ordering Facility: [facility] Address: [place] [address] Performed By: #### B CBMDO #### [facility] CLIA [id number] [address] [place] [address] [place] Eosinophils/100 WBC (Bld) 2.8 % Normal [facility] [facility] Comment on above: Order Comment: Speci men Type: FORMALIN-FIXED PARAFFIN-EMBEDDED TISSUE SPECIMEN Ordering Facility: [facility] Address: DEPARTMENT OF PATHOLOGY, [place] [address] Performed By: #### B CBMDO #### CLARITY ILLUMINA LIMS CLIA [id number] [address] [place] [address] [place] Erythrocyte distribution width (RBC) [Ratio] 11.9 % Normal 11.5-15.0 [facility] Comment on above: Order Comment: Speci men Type: FORMALIN-FIXED PARAFFIN-EMBEDDED TISSUE SPECIMEN Ordering Facility: [facility] Address: DEPARTMENT OF PATHOLOGY, [place] [address] Performed By: #### B CBMDO #### CLARITY ILLUMINA LIMS CLIA [id number] [address] [place] [address] [place] Hematocrit (Bld) [Volume fraction] 43.4 % Normal 36.0-46.0 [facility] Comment on above: Order Comment: Speci men Type: FORMALIN-FIXED PARAFFIN-EMBEDDED TISSUE SPECIMEN Ordering Facility: [facility] Address: [place] [address] Performed By: #### B CBMDO #### CLARITY ILLUMINA LIMS CLIA [id number] [address] [place] [address] [place] Hemoglobin (Bld) [Mass/Vol] 14.5 g/dL Normal 11.5-15.5 [facility] Comment on above: Order Comment: Speci men Type: FORMALIN-FIXED PARAFFIN-EMBEDDED TISSUE SPECIMEN Ordering Facility: [facility] Address: DEPARTMENT OF PATHOLOGY, [place] [address] Performed By: #### B CBMDO #### CLARITY ILLUMINA LIMS CLIA [id number] [address] [place] [address] [place] Immature granulocytes (Bld) [#/Vol] 10*3/uL Normal <0.10 [facility] Comment on above: Order Comment: Speci men Type: FORMALIN-FIXED PARAFFIN-EMBEDDED TISSUE SPECIMEN Ordering Facility: [facility] Address: DEPARTMENT OF PATHOLOGY, [place] [address] Performed By: #### B CBMDO #### CLARITY ILLUMINA LIMS CLIA [id number] [address] [place] Immature granulocytes/100 WBC (Bld) 0.3 % Normal [facility] Comment on above: Order Comment: Speci men Type: FORMALIN-FIXED PARAFFIN-EMBEDDED TISSUE SPECIMEN Ordering Facility: [facility] Address: DEPARTMENT OF PATHOLOGY, [place] [address] Performed By: #### B CBMDO #### CLARITY ILLUMINA LIMS CLIA [id number] [facility] [place] [address] [place] Lymphocytes (Bld) [#/Vol] 1.84 10*3/uL Normal 1.00-4.00 [facility] Comment on above: Order Comment: Speci men Type: FORMALIN-FIXED PARAFFIN-EMBEDDED TISSUE SPECIMEN Ordering Facility: [facility] Address: DEPARTMENT OF PATHOLOGY, [place] [address] Performed By: #### B CBMDO #### CLARITY ILLUMINA LIMS CLIA [id number] [address] [place] [address] [place] Lymphocytes/100 WBC (Bld) 30.2 % Normal [facility] Comment on above: Order Comment: Speci men Type: FORMALIN-FIXED PARAFFIN-EMBEDDED TISSUE SPECIMEN Ordering Facility: [facility] Address: [place] [address] Performed By: #### B CBMDO #### CLARITY ILLUMINA LIMS CLIA [id number] [address] [place] [address] [place] MCH (RBC) [Entitic mass] 32.4 pg Normal 26.0-34.0 [facility] Comment on above: Order Comment: Speci men Type: FORMALIN-FIXED PARAFFIN-EMBEDDED TISSUE SPECIMEN Ordering Facility: [facility] Address: [place] [id number] Performed By: #### B CBMDO #### CLARITY ILLUMINA LIMS CLIA [id number] [address] [place] [address] [place] MCHC (RBC) [Mass/Vol] 33.4 g/dL Normal 30.5-36.0 [facility] Comment on above: Order Comment: Speci men Type: FORMALIN-FIXED PARAFFIN-EMBEDDED TISSUE SPECIMEN Ordering Facility: [facility] Address: [place] [address] Performed By: #### B CBMDO #### CLARITY ILLUMINA LIMS CLIA [id number] [address] [place] [address] [place] MCV (RBC) [Entitic vol] 96.9 fL Normal 80.0-100.0 [facility] Comment on above: Order Comment: Speci men Type: FORMALIN-FIXED PARAFFIN-EMBEDDED TISSUE SPECIMEN Ordering Facility: [facility] Address: [place] [address] Performed By: #### B CBMDO #### CLARITY ILLUMINA LIMS CLIA [id number] [address] [place] [address] [place] Monocytes (Bld) [#/Vol] 0.55 10*3/uL Normal <0.87 [facility] Comment on above: Order Comment: Speci men Type: FORMALIN-FIXED PARAFFIN-EMBEDDED TISSUE SPECIMEN Ordering Facility: [facility] Address: [place] [address] Performed By: #### B CBMDO #### CLARITY ILLUMINA LIMS CLIA [id number] [address] [place] [address] [place] Monocytes/100 WBC (Bld) 9.0 % Normal [facility] Comment on above: Order Comment: Speci men Type: FORMALIN-FIXED PARAFFIN-EMBEDDED TISSUE SPECIMEN Ordering Facility: [facility] Address: [place] [address] Performed By: #### B CBMDO #### CLARITY ILLUMINA LIMS CLIA [id number] [address] [place] [address] [place] Neutrophils (Bld) [#/Vol] 3.46 10*3/uL Normal 1.45-7.50 [facility] Comment on above: Order Comment: Speci men Type: FORMALIN-FIXED PARAFFIN-EMBEDDED TISSUE SPECIMEN Ordering Facility: [facility] Address: DEPARTMENT OF PATHOLOGY, [place] [address] Performed By: #### B CBMDO #### CLARITY ILLUMINA LIMS CLIA [id number] [address] [place] [address] [place] Neutrophils/100 WBC (Bld) 56.7 % Normal [facility] Comment on above: Order Comment: Speci men Type: FORMALIN-FIXED PARAFFIN-EMBEDDED TISSUE SPECIMEN Ordering Facility: [facility] Address: [place] [id number] Performed By: #### B CBMDO #### CLARITY ILLUMINA LIMS CLIA [id number] [address] [place] [address] [place] Nucleated RBC (Bld) [#/Vol] 10*3/uL Normal <0.01 [facility] Comment on above: Order Comment: Speci men Type: FORMALIN-FIXED PARAFFIN-EMBEDDED TISSUE SPECIMEN Ordering Facility: [facility] Address: [place] [address] Performed By: #### B CBMDO #### CLARITY ILLUMINA LIMS CLIA [id number] [address] [place] [address] [place] Nucleated RBC/100 WBC (Bld) [Ratio] 0.0 /100 WBC Normal [facility] Comment on above: Order Comment: Speci men Type: FORMALIN-FIXED PARAFFIN-EMBEDDED TISSUE SPECIMEN Ordering Facility: [facility] Address: [place] [address] Performed By: #### B CBMDO #### CLARITY ILLUMINA LIMS CLIA [id number] [address] [place] [address] [place] Platelet mean volume (Bld) [Entitic vol] 9.3 fL Normal 9.0-12.7 [facility] Comment on above: Order Comment: Speci men Type: FORMALIN-FIXED PARAFFIN-EMBEDDED TISSUE SPECIMEN Ordering Facility: [facility] Address: [place] [address] Performed By: #### B CBMDO #### CLARITY ILLUMINA LIMS CLIA [id number] [address] [place] [address] [place] Platelets (Bld) [#/Vol] 280 10*3/uL Normal 150-400 [facility] Comment on above: Order Comment: Speci men Type: FORMALIN-FIXED PARAFFIN-EMBEDDED TISSUE SPECIMEN Ordering Facility: [facility] Address: [place] [address] Performed By: #### B CBMDO #### CLARITY ILLUMINA LIMS CLIA [id number] [address] [place] [address] [place] RBC (Bld) [#/Vol] 4.48 10*6/uL Normal 3.90-5.20 [facility] Comment on above: Order Comment: Speci men Type: FORMALIN-FIXED PARAFFIN-EMBEDDED TISSUE SPECIMEN Ordering Facility: [facility] Address: [place] [address] Performed By: #### B CBMDO #### CLARITY ILLUMINA LIMS CLIA [id number] [address] [place] [address] [place] WBC (Bld) [#/Vol] 6.10 10*3/uL Normal 3.70-11.00 [facility] Comment on above: Order Comment: Speci men Type: FORMALIN-FIXED PARAFFIN-EMBEDDED TISSUE SPECIMEN Ordering Facility: [facility] Address: [place] [address] Performed By: #### B CBMDO #### CLARITY ILLUMINA LIMS CLIA [id number] [address] [place] [address] [place] CNOVon 06-16-2024 CNOV Office Visit (PULMWS ) -------- MCKENZIE HAYDEN ([id number]) 1955 F Date Time Provider Department 06/16/24 9:00 AM KAYLEIGH DOMINGUEZ PULMWS During your visit today, we recorded the following information about you: Pulse Blood pressure Weight 79/minute 130/92 65.9 kg Angelica KayleighKEISHA 06/16/2024 10:11 AM Signed LUNG SCREENING ANNUAL VISIT PRIMARY CARE PHYSICIAN: Alda Pabon MD PULMONARY PROVIDER: None Results will be communicated via letter or electronic record if applicable. Visit Delivery: In Person Patient Visit Type: established Current or Ex-smoker? [Current Exam Type: annual LDCT Number of Pack Years: 53 Current smoker (=0) The patient's smoking history is similar to prior year shared decision visit. The reason for the discrepancy is NA Chief Complaint: Established patient in lung cancer screening program here for annual follow-up. Impression / Recommendations Mckenzie Hayden presents for annual lung cancer screening annual exam and nodule evaluation. Plan: Indeterminate pulmonary nodules: Previously identified nodules appear stable and no new nodules of concern were seen on the exam. Low dose CT Scan to be repeated in one year. Plan subject to change pending final radiology report and recommendations. Nature of the lung nodule(s) and the options for further evaluation discussed in detail with patient. Mckenzie Hayden expressed understanding and is in agreement with plan. 2. Encounter for screening for malignant neoplasm of respiratory organs I have determined that the patient is eligible for continued low dose CT screening based on age, absence of signs or symptoms of lung cancer, smoking history and total pack years. The patient was counseled on the importance of adherence to annual LDCT lung cancer screening, impact of comorbidities and ability or willingness to undergo diagnosis and treatment. The patient understands and feels comfortable with it: Yes. 3. Nicotine Dependence The patient was counseled on the importance of smoking cessation if current smoker and, if appropriate, offered additional tobacco cessation counseling services - Smoking Cessation Counseling. SMOKING CESSATION COUNSELING Smoking cessation methods including Behavior Modification were discussed with the patient and assistance offered. The medical conditions adversely affected by cigarette use include:COPD, Emphysema, and Lung Cancer. Counseled on benefits of quitting smoking, recommended cessation or reduction to prevent development and/or progression of emphysema. The patient is currently not ready to quit. I personally spent 3 minutes in counseling. The time spent in smoking cessation counseling is exclusive of any other counseling during this visit. 4. Emphysema: Mild-moderate structural emphysema noted on LDCT Lung Screening. Recommended smoking cessation. Can consider functional testing as needed. Patient seems to have good functional capacity at this time. She monitors her pulse ox with her fit bit. Usually 95% or greater. I spent a total of 30 minutes on the date of the service which included preparing to see the patient, cctq-ga-[id number] patient care, completing clinical documentation, performing a medically appropriate examination, counseling and educating the patient/family/caregiver , ordering medications, tests, or procedures, communicating with other HCPs (not separately reported), independently interpreting results (not separately reported), communicating results to the patient/family/caregiver , and care coordination (not separately reported). Kayleigh Dominguez APRN.[facility] June 16, 2024 9:11 AM -------- History of Present Illness: Mckenzie Hayden is a 69 year old female who is presenting today for annual lung cancer screening LDCT and nodule surveillance/management. Patient has multiple nodules found on previous lung cancer screening LDCT. Last LDCT was performed on 04/11/2023 and was LUNG RADS Category 2. Previous potentially significant incidental findings on imaging: None. Patient is a current smoker with a 53 pack year history. Patient is currently still smoking <1/2 PPD cigarettes daily. Patient will continue to be eligible for lung cancer screening until age 77. The patient does not have any symptoms or signs of lung cancer. Patient denies SOB with their daily activity. For exercise they treadmill 5 days a week, tolerates the activity well. No wheezing or dyspnea. Patient denies feeling of chest tightness/congestion in the chest. Patient does not have a new or concerning cough, and denies hemoptysis. Patient does not have a chronic daily cough. Denies regular or recent fevers/chills. Patient does not have any significant unintention (more content not included)... Normal [facility] CT Chest for screening WO co ntraston 06-16-2024 IMPRESSION: LungRADS category: 2 LungRADS modifier: Significant other (S), coronary artery calcification, moderate or severe LungRADS 0 reason: n/a Recommendations: Continue annual screening with LDCT in 12 months. Other actionable findings: === Reference: [employer]. Lung CT Screening Reporting and Data System (Lung-RADS). Available at: http://www.acr.org/Quali ty-Safety/Resources/Lung RADS Financial Planning Advisor: LINDA Transcribe Date/Time: Jun 16 2024 9:13A Dictated by : IGNACIO WANG MD This examination was interpreted and the report reviewed and electronically signed by: IGNACIO WANG MD on Jun 16 2024 9:18AM [facility] DIVISION OF RADIOLOGY * * *Final Report* * * DATE OF EXAM: Jun 16 2024 8:45AM [facility] 0562 - CT LUNG SCREEN [facility] / PROCEDURE REASON: multiple diagnoses * * * * Physician Interpretation * * * * EXAMINATION: CHEST CT WITHOUT CONTRAST (LOW-DOSE CT LUNG CANCER SCREENING PROTOCOL) CLINICAL HISTORY: Lung cancer LDCT screening ? absence of signs or symptoms of lung cancer. Nicotine dependence (cigarettes). Subsequent (annual) Technique: Spiral CT acquisition of the chest from the thoracic inlet to the upper abdomen without contrast. MQ: [id number]_6 Patient characteristics: * Bnyx-vb-Amhuk: 1955; Age at exam: 69 years * Gender: Female * Lung Disease: Asymptomatic (no signs or symptoms of lung disease) * Number of Pack Years: 53 (based on information available from prior exam. Current inflammation is unavailable in [facility] at the time of this dictation). 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 Yes, 6 or more nodules If No, go to IMPRESSION. If yes, proceed with characterization of the FIVE largest nodules. Nodule 1: This Perifissural nodule is located in the Right Upper Lobe on slice number 169 with an average diameter of 4.7 mm (5.1 mm x 4.2 mm). Nodule 2: This Solid nodule is located in the Left Lower Lobe on slice number 209 with an average diameter of 3.6 mm (4.6 mm x 2.6 mm). Nodule 3: This Solid nodule is located in the Left Upper Lobe on slice number 31 with an average diameter of 3.6 mm (4.6 mm x 2.6 mm). Nodule 4: This Perifissural nodule is located in the Left Upper Lobe on slice number 153 with an average diameter of 3.3 mm (4.6 mm x 2.0 mm). Nodule 5: This Solid nodule is located in the Right Lower Lobe on slice number 78 with an average diameter of 2.9 mm (3.8 mm x 1.9 mm). If this is an ANNUAL LDCT for LCS, please ensure nodule number is the same as in the prior evaluation. Other lung nodule comments: None Other findings: The central airways are patent without evidence of endobronchial lesion. No acute focal lung consolidation is seen. Biapical scarring is likely postinflammatory. There is no pleural effusion or pneumothorax. No enlarged supraclavicular, axillary, mediastinal or hilar lymph nodes are seen. The ascending aorta is ectatic measuring 4.4 cm in diameter. Atherosclerotic calcifications are seen in the aorta. The main pulmonary artery is normal in course and caliber. The heart size is normal. There is no pericardial effusion. The thyroid gland is not well-visualized and may be atrophic or absent. The esophagus is nondilated. The soft tissues of the chest wall are unremarkable. Atherosclerotic calcifications are seen in the abdominal aorta. No destructive bone lesion is seen. Degenerative changes are seen in the thoracic spine. Emphysema: None, Coronary Artery Calcifications: Circumflex Moderate; Left Anterior Descending Moderate; Right Coronary Mild Incidental coronary calcium as automatically processed and calculated using AI: Total Coronary Calcium Score = [100+] Agatston Units Percentile Rank (age and gender matched relative to reference population): [75th-100th] percentile* [* [email or web address]-[email or web address] rg/calcium/input.aspx] Localizer images: No additional findings. DIVISION OF RADIOLOGY Provider, [facility] - 06/16/2024 * * *Final Report* * * DATE OF EXAM: Jun 16 2024 8:45AM [facility] 0562 - CT LUNG SCREEN [facility] / PROCEDURE REASON: multiple diagnoses * * * * Physician Interpretation * * * * EXAMINATION: CHEST CT WITHOUT CONTRAST (LOW-DOSE CT LUNG CANCER SCREENING PROTOCOL) CLINICAL HISTORY: Lung cancer LDCT screening ? absence of signs or symptoms of lung cancer. Nicotine dependence (cigarettes). Subsequent (annual) Technique: Spiral CT acquisition of the chest from the thoracic inlet to the upper abdomen without contrast. MQ: CTLCS_6 Patient characteristics: * Idmy-pj-Eoice: 1955; Age at exam: 69 years * Gender: Female * Lung Disease: Asymptomatic (no signs or symptoms of lung disease) * Number of Pack Years: 53 (based on information available from prior exam. Current inflammation is unavailable in [facility] at the time of this dictation). * Current smoker (=0) or Number of Years since Quit: 0 * Ordering provider and NPI: KAYLEIGH DOMINGUEZ [id number] * Interpreting radiologist and NPI: Jana [id number] Exam acquisition parameters: * Exam Date: 06/16/2024 8:45 AM * Site: [facility] * * CT System Gas Station Attendant: [employer] * CT System Model: Sensation * Tube Current-Time (mA-sec): 18 * Peak Voltage (kV): 120V * Scan Time (sec): 11.83 * Scan Volume (z-length, cm): -31.65 * Pitch: 0.75 * Slice Thickness (mm): 1.5 * CT Dose-Length Product: 71 mGy*cm * CT Dose Index: 1.43mGy * CT Dose Reduction Method: Automated exposure control(AEC) and iterative recon COMPARISON: CT chest dated 04/11/2023 RESULT: Are nodules present? Yes, 6 or more nodules If No, go to IMPRESSION. If yes, proceed with characterization of the FIVE largest nodules. Nodule 1: This Perifissural nodule is located in the Right Upper Lobe on slice number 169 with an average diameter of 4.7 mm (5.1 mm x 4.2 mm). Nodule 2: This Solid nodule is located in the Left Lower Lobe on slice number 209 with an average diameter of 3.6 mm (4.6 mm x 2.6 mm). Nodule 3: This Solid nodule is located in the Left Upper Lobe on slice number 31 with an average diameter of 3.6 mm (4.6 mm x 2.6 mm). Nodule 4: This Perifissural nodule is located in the Left Upper Lobe on slice number 153 with an average diameter of 3.3 mm (4.6 mm x 2.0 mm). Nodule 5: This Solid nodule is located in the Right Lower Lobe on slice number 78 with an average diameter of 2.9 mm (3.8 mm x 1.9 mm). If this is an ANNUAL LDCT for LCS, please ensure nodule number is the same as in the prior evaluation. Other lung nodule comments: None Other findings: The central airways are patent without evidence of endobronchial lesion. No acute focal lung consolidation is seen. Biapical scarring is likely postinflammatory. There is no pleural effusion or pneumothorax. No enlarged supraclavicular, axillary, mediastinal or hilar lymph nodes are seen. The ascending aorta is ectatic measuring 4.4 cm in diameter. Atherosclerotic calcifications are seen in the aorta. The main pulmonary artery is normal in course and caliber. The heart size is normal. There is no pericardial effusion. The thyroid gland is not well-visualized and may be atrophic or absent. The esophagus is nondilated. The soft tissues of the chest wall are unremarkable. Atherosclerotic calcifications are seen in the abdominal aorta. No destructive bone lesion is seen. Degenerative changes are seen in the thoracic spine. Emphysema: None, Coronary Artery Calcifications: Circumflex Moderate; Left Anterior Descending Moderate; Right Coronary Mild Incidental coronary calcium as automatically processed and calculated using AI: Total Coronary Calcium Score = [100+] Agatston Units Percentile Rank (age and gender matched relative to reference population): [75th-100th] percentile* [* [email or web address].little-[email or web address] rg/calcium/input.aspx] Localizer images: No additional findings. IMPRESSION IMPRESSION: LungRADS category: 2 LungRADS modifier: Significant other (S), coronary artery calcification, moderate or severe LungRADS 0 reason: n/a Recommendations: Continue annual screening with LDCT in 12 months. Other actionable findings: === Reference: [employer]. Lung CT Screening Reporting and Data System (Lung-RADS). Available at: http://www.acr.org/Quali ty-Safety/Resources/Lung RADS Financial Planning Advisor: PSCB Transcribe Date/Time: Jun 16 2024 9:13A Dictated by : IGNACIO WANG MD This examination was interpreted and the report reviewed and electronically signed by: IGNACIO WANG MD on Jun 16 2024 9:18AM EST [facility] Radiology Study observation (narrative) [facility] CT Chest for screening WO co ntrastOrdered By: [facility] Provider on 06-16-20[address] [facility] [address] LUNG SCREEN WO IVCONon CT LUNG SCREEN WO IVCON * * *Final Report* * * DATE OF EXAM: Jun 16 2024 8:45AM [facility] 0562 - CT LUNG SCREEN WO IVCON / PROCEDURE REASON: multiple diagnoses * * * * Physician Interpretation * * * * EXAMINATION: CHEST CT WITHOUT CONTRAST (LOW-DOSE CT LUNG CANCER SCREENING PROTOCOL) CLINICAL HISTORY: Lung cancer LDCT screening ? absence of signs or symptoms of lung cancer. Nicotine dependence (cigarettes). Subsequent (annual) Technique: Spiral CT acquisition of the chest from the thoracic inlet to the upper abdomen without contrast. MQ: CTLCS_6 Patient characteristics: * Vhov-rd-Vblxl: 1955; Age at exam: 69 years * Gender: Female * Lung Disease: Asymptomatic (no signs or symptoms of lung disease) * Number of Pack Years: 53 (based on information available from prior exam. Current inflammation is unavailable in [facility] at the time of this dictation). * Current smoker (=0) or Number of Years since Quit: 0 * Ordering provider and NPI: KAYLEIGH DOMINGUEZ [id number] * Interpreting radiologist and NPI: Jana [id number] Exam acquisition parameters: * Exam Date: 06/16/2024 8:45 AM * Site: [facility] * * CT System Gas Station Attendant: [employer] * CT System Model: Sensation * Tube Current-Time (mA-sec): 18 * Peak Voltage (kV): 120V * Scan Time (sec): 11.83 * Scan Volume (z-length, cm): -31.65 * Pitch: 0.75 * Slice Thickness (mm): 1.5 * CT Dose-Length Product: 71 mGy*cm * CT Dose Index: 1.43mGy * CT Dose Reduction Method: Automated exposure control(AEC) and iterative recon COMPARISON: CT chest dated 04/11/2023 RESULT: Are nodules present? Yes, 6 or more nodules If No, go to IMPRESSION. If yes, proceed with characterization of the FIVE largest nodules. Nodule 1: This Perifissural nodule is located in the Right Upper Lobe on slice number 169 with an average diameter of 4.7 mm (5.1 mm x 4.2 mm). Nodule 2: This Solid nodule is located in the Left Lower Lobe on slice number 209 with an average diameter of 3.6 mm (4.6 mm x 2.6 mm). Nodule 3: This Solid nodule is located in the Left Upper Lobe on slice number 31 with an average diameter of 3.6 mm (4.6 mm x 2.6 mm). Nodule 4: This Perifissural nodule is located in the Left Upper Lobe on slice number 153 with an average diameter of 3.3 mm (4.6 mm x 2.0 mm). Nodule 5: This Solid nodule is located in the Right Lower Lobe on slice number 78 with an average diameter of 2.9 mm (3.8 mm x 1.9 mm). If this is an ANNUAL LDCT for LCS, please ensure nodule number is the same as in the prior evaluation. Other lung nodule comments: None Other findings: The central airways are patent without evidence of endobronchial lesion. No acute focal lung consolidation is seen. Biapical scarring is likely postinflammatory. There is no pleural effusion or pneumothorax. No enlarged supraclavicular, axillary, mediastinal or hilar lymph nodes are seen. The ascending aorta is ectatic measuring 4.4 cm in diameter. Atherosclerotic calcifications are seen in the aorta. The main pulmonary artery is normal in course and caliber. The heart size is normal. There is no pericardial effusion. The thyroid gland is not well-visualized and may be atrophic or absent. The esophagus is nondilated. The soft tissues of the chest wall are unremarkable. Atherosclerotic calcifications are seen in the abdominal aorta. No destructive bone lesion is seen. Degenerative changes are seen in the thoracic spine. Emphysema: None, Coronary Artery Calcifications: Circumflex Moderate; Left Anterior Descending Moderate; Right Coronary Mild Incidental coronary calcium as automatically processed and calculated using AI: Total Coronary Calcium Score = [100+] Agatston Units Percentile Rank (age and gender matched relative to reference population): [75th-100th] percentile* [* [email or web address]-[email or web address] rg/calcium/input.aspx] Localizer images: No additional findings. IMPRESSION: LungRADS category: 2 LungRADS modifier: Significant other (S), coronary artery calcification, moderate or severe LungRADS 0 reason: n/a Recommendations: Continue annual screening with LDCT in 12 months. Other actionable findings: === Reference: [employer]. Lung CT Screening Reporting and Data System (Lung-RADS). Available at: http://www.acr.org/Quali ty-Safety/Resources/Lung RADS Financial Planning Advisor: LINDA Transcribe Date/Time: Jun 16 2024 9:13A Dictated by : IGNACIO WANG MD This examination was interpreted and the report reviewed and electronically signed by: IGNACIO WANG MD on Jun 16 2024 9:18AM EST [id number] Normal [facility] SURGICAL PATHOLOGY REFERENCE LAB CONSULTon 06-16-2024 CASE REPORT Normal [facility] Comment on above: Order Comment: Speci men Type: FORMALIN-FIXED PARAFFIN-EMBEDDED TISSUE SPECIMEN Ordering Facility: [facility] Address: DEPARTMENT OF PATHOLOGY, [place] [address] Result Comment: Surg ical Pathology Report Case: [id number] Authorizing Provider: Jeny Sevilla MD Collected: 06/16/2024 03:29 PM Ordering Location: [facility] Main Received: 06/16/2024 03:28 PM [facility] Pathologist: Saurav Reid MD Specimen: Block(s) and/or Slide(s), 5 SLIDES & 1 BLOCK [id number]; 1 Performed By: #### B CBMDO #### CLARITY ILLUMINA LIMS CLIA [id number] [address] [place] [address] OF [facility] CLINICAL HISTORY [facility] on [facility]: Order Comment: Speci men Type: FORMALIN-FIXED PARAFFIN-EMBEDDED TISSUE SPECIMEN Ordering Facility: [facility] Address: DEPARTMENT OF PATHOLOGY, [place] [address] Performed By: #### B CBMDO #### CLARITY ILLUMINA LIMS CLIA [id number] [address] [place] [address] OF [facility] DIAGNOSIS COMMENT Normal [facility] Comment on above: Order Comment: Speci men Type: FORMALIN-FIXED PARAFFIN-EMBEDDED TISSUE SPECIMEN Ordering Facility: [facility] Address: DEPARTMENT OF PATHOLOGY, [place] [address] Result Comment: Than k you for sending in consultation this shave biopsy specimen from the left shoulder of a 69-year-old patient. The clinical description was of a pearly telangiectatic papule and a differential favoring a basal cell carcinoma. Histologic sections show nodular lymphoid aggregates in the superficial dermis on a background of significantly actinic damaged skin. The lymphoid aggregates are comprised of small lymphocytes with mature chromatin. Mitotic activity is inconspicuous. Plasma cells or eosinophils are not readily identified. The enclosed immunohistochemical stains performed at the outside institution were independently reviewed at the [facility]. The lymphoid infiltrate is comprised of relatively equal amounts of CD3 positive T cells and CD20 positive B cells. There are several CD30 positive cells in the area of CD20 positivity. CD56 is negative. To further evaluate this lesion, additional immunohistochemical stains performed on the provided block (1) at the [facility] and compared to appropriate controls. CD5 is mostly similar in distribution to the CD3. The majority of the B cells are negative for CD10 and BCL6. BCL2 is similar to CD20, but highlights the CD3 positive T-cells as well. CD21 highlights follicular dendritic cell meshworks. The Ki67 proliferative fraction overall is low (<10%). LEF1 is positive on a subset of the T cells and shows no definitive coexpression on the B cells. PD1 is positive in occasional T cells. A dual ultrasensitive stain for kappa and lambda by in situ hybridization (VIRGILIO) is positive in polytypic small B cells and kappa predominant plasma cells. Thank you for sharing this challenging case with us. The collective features are those of a dermal lymphoid infiltrate with kappa predominant plasma cells. The histologic differential diagnosis includes a reactive process versus a low-grade B-cell lymphoproliferative disorder, such as a primary cutaneous marginal zone lymphoproliferative disorder. Definitive classification however is not possible on this limited sample. If clinically indicated, large biopsy could be considered. B-cell clonality studies could also be considered on a larger sample. This case was reviewed with Dr. Shannon Currie of the Hematopathology Section who concurs with the diagnosis. Thank you for sending this case in consultation. Please call the Dermatopathology Consultation Service at [phone] with questions or if additional follow-up information becomes available regarding this patient. This case was reviewed in conjunction with the Dermatopathology Fellow, Dr. Nadeem Alonso. Laboratory Developed Test (LDT) Disclaimer: Performance characteristics of immunohistochemical, immunofluorescent and chromogenic in-situ hybridization tests have been determined by the performing laboratory within [facility]???s [facility]varado Pathology and Laboratory Medicine Department ([facility], [facility], [facility], [facility], [facility], [facility], or [facility]) in a manner consistent with CLIA requirements. One or more of these tests have not been cleared or approved by the FDA. [facility] is regulated under CLIA as qualified to perform high-complexity testing. These tests are used for clinical purposes. They should not be regarded as investigational or for research. Positive and negative controls stain appropriately. Performed By: #### B CBMDO #### CLARITY ILLUMINA LIMS CLIA [id number] [address] [place] [address] FINAL DIAGNOSIS Normal [facility] Comment on above: Order Comment: Speci men Type: FORMALIN-FIXED PARAFFIN-EMBEDDED TISSUE SPECIMEN Ordering Facility: [facility] Address: [place] [address] Result Comment: A. S kin, left lateral shoulder, shave biopsy: - Dermal lymphoid infiltrate with kappa predominant plasma cells, see comment. SDB/EK Performed By: #### B CBMDO #### CLARITY ILLUMINA LIMS CLIA [id number] [address] [place] [address] FINAL PERFORMING LAB Normal [facility] Comment on above: Order Comment: Speci men Type: FORMALIN-FIXED PARAFFIN-EMBEDDED TISSUE SPECIMEN Ordering Facility: [facility] Address: DEPARTMENT OF PATHOLOGY, [place] [address] Result Comment: Diag nostic interpretation performed at: [facility], [address] [place] [address] CLIA# [id number] Finished Cloth Examiner: Phuc Arita MD Performed By: #### B CBMDO #### CLARITY ILLUMINA LIMS CLIA [id number] [address] [place] [address] CNOVon 03-20-2024 CNOV Office Visit (FAMPWS ) -------- MCKENZIE HAYDEN ([id number]) 1955 F Date Time Provider Department 03/20/24 11:20 AM ALDA PABON During your visit today, we recorded the following information about you: Pulse Respiration Blood pressure Weight 76/minute 16/minute 120/78 65.5 kg Alda Pabon MD 03/20/2024 2:10 PM Signed Chief Complaint Patient presents with: 6 Month Exam Immunizations: Flu vaccination HPI Mckenzie Hayden is a 68 year old female who presents here today for 6 month follow up. Declined Covid vaccine. Cut back to 7-8 cigarettes a day, trying to quit. No bowel, Gi, or urinary issues. Did IFOBT test last Feb. GERD: Sx controlled with Prilosec 20 mg daily. Lipid: Taking CoQ 10 daily, watching diet and exercising on treadmill. She is not on any statins currently, didn't tolerate Lipitor. Not sure why her cholesterol keeps creeping up but she doesn't really watch her diet. She is not big on fruits and vegetables. HTN: Checks BP at home with readings running 130/80. No chest pains, dizziness, or SOB. Is on Verapamil 100 mg daily and Maxzide 75-50 mg daily. Follows with Cardio, Dr. Fine. 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 Thyroid: Taking Synthroid 150 mcg daily. No missed dosages. Pain: lower back; uses Ibuprofen 800 mg as needed. Has had issues with her legs ever since being put on the Lipitor. Headaches: occ; will use Ibuprofen 800 mg prn. Referred to [facility] last visit for Atypical nevus, stated she doesn't want to follow up with [facility] again as the spot on her leg has come back that they removed. She is going to establish with [facility]. Past medical history, appointments, medications, allergies reviewed. Previous Medical History PAST MEDICAL HISTORY Diagnosis Date Cutaneous skin tags 02/22/2013 Esophageal reflux Gastroesophageal reflux Essential hypertension, benign Iron deficiency anemia, unspecified Anemia, iron def. Mitral valve disorders(424.0) MVP Mitral valve disorders(424.0) 02/26/2007 Pain in limb 03/29/2006 PMH - PAST MEDICAL HISTORY OF heel spurs Unspecified hypothyroidism Viral warts, unspecified 02/22/2013 Previous Surgical History PAST SURGICAL HISTORY Procedure Laterality Date APPENDECTOMY 1970 DELIVERY ONLY 1982 , low cervical COLONOSCOPY FLX DX W/COLLJ SPEC WHEN PFRMD 2005 Colonoscopy LIG/TRNSXJ FLP TUBE ABDL/VAG APPR UNI/BI 1986 Tubal ligation NEUROPLASTY AND/TRANSPOS MEDIAN NRV CARPAL TUNNE 1978 Carpal tunnel decomp, bilateral PAST SURGICAL HISTORY OF 10/2003 tendon repair right hand TR TDN RESTORE INTRNSC FUNCJ RINGANDSM FNGR 2004 right hand at base of thymb Family History FAMILY HISTORY Problem Relation Age of Onset other (renal disease) Mother Heart Father Hypertension Father Heart Sister Alzheimer's Disease Maternal Grandmother Heart Paternal Grandfather Patient Allergies ALLERGIES Allergen Reactions Atorvastatin Myalgia Current Medications Current Outpatient Medications on File Prior to Visit Medication Sig triamterene-hydroCHLOROt hiazide (MAXZIDE) 75-50 mg per tablet Take 1 tablet by mouth once daily. Verapamil HCl 100 mg 24 hr capsule Take 1 capsule by mouth once daily. omeprazole (PRILOSEC) 20 mg capsule Take 1 capsule by mouth once daily. levothyroxine (SYNTHROID) 150 mcg tablet Take 1 tablet by mouth once daily. Take on empty stomach. For thyroid fluticasone (FLONASE) 50 mcg/actuation nasal spray USE 2 SPRAYS IN EACH NOSTRIL ONCE DAILY (RINSE MOUTH AFTER USE) ibuprofen (MOTRIN) 800 mg tablet Take one(1) tablet every eight(8) hours as needed for pain. Cholecalciferol, Vitamin D3, (VITAMIN D-3) 50 mcg (2,000 unit) cap Take by mouth once daily. aspirin 81 mg chewable tablet Take 1 tablet by mouth once daily. Inositol 500 mg tab Take 1 tablet by mouth once daily. MILK THISTLE ORAL Take by mouth once daily. UBIDECARENONE (CO Q-10 ORAL) Take by mouth. multivitamin ORAL tablet Take 1 tablet by mouth once daily. Calcium-Cholecalciferol, D3, (CALCIUM 600 + D) 600-125 mg-unit ORAL Tab Take 1 tablet by mouth twice daily. No current facility-administered medications on file prior to visit. Social History Social History Tobacco Use Smoking status: Every Day Current packs/day: 1.00 Average packs/day: 1 pack/day for 52.0 years (52.0 ttl pk-yrs) Types: Cigarettes Smokeless tobacco: Never Tobacco comments: Cut way back, 7-8 cigs per day Vaping Use Vaping status: Never Used Substance Use Topics Alcohol use: Yes Comment: Occasionally Drug use: No EXAM: BP 120/78 Pulse 76 Resp 16 Wt 65.5 kg (144 lb 6.4 oz) LMP 06/08/2008 BMI 24.03 kg/m? General Appearance: Well appearing, alert, in no acute distress, well-hydrated, well nourished.. Lungs: Lungs clear to auscultation. No wheezing, rhonch (more content not included)... Normal [facility] Comprehensive metabolic 2000 panelon 03-15-2024 Albumin [Mass/Vol] 4.6 g/dL Normal 3.9-4.9 [facility] Comment on above: Order Comment: Speci men Type: FORMALIN-FIXED PARAFFIN-EMBEDDED TISSUE SPECIMEN Ordering Facility: [facility] Address: DEPARTMENT OF PATHOLOGY, [place] [address] Performed By: #### B CBMDO #### CLARITY ILLUMINA LIMS CLIA [id number] [address] [place] [address] [place] ALP [Catalytic activity/Vol] 54 U/L Normal 34-123 [facility] Comment on above: Order Comment: Speci men Type: FORMALIN-FIXED PARAFFIN-EMBEDDED TISSUE SPECIMEN Ordering Facility: [facility] Address: DEPARTMENT OF PATHOLOGY, [place] [address] Performed By: #### B CBMDO #### CLARITY [facility] LIMS CLIA [id number] [facility] [place] [address] [place] ALT [Catalytic activity/Vol] 21 U/L Normal 7-38 [facility] Comment on above: Order Comment: Speci men Type: FORMALIN-FIXED PARAFFIN-EMBEDDED TISSUE SPECIMEN Ordering Facility: [facility] Address: DEPARTMENT OF PATHOLOGY, [place] [address] Performed By: #### B CBMDO #### CLARITY ILLUMINA LIMS CLIA [id number] [facility] [place] [address] [place] Anion gap [Moles/Vol] 11 mmol/L Normal 8-15 [facility] Comment on above: Order Comment: Speci men Type: FORMALIN-FIXED PARAFFIN-EMBEDDED TISSUE SPECIMEN Ordering Facility: [facility] Address: DEPARTMENT OF PATHOLOGY, [place] [address] Performed By: #### B CBMDO #### CLARITY ILLUMINA LIMS CLIA [id number] [address] [place] [address] [place] AST [Catalytic activity/Vol] 26 U/L Normal 13-35 [facility] Comment on above: Order Comment: Speci men Type: FORMALIN-FIXED PARAFFIN-EMBEDDED TISSUE SPECIMEN Ordering Facility: [facility] Address: [place] [address] Performed By: #### B CBMDO #### CLARITY ILLUMINA LIMS CLIA [id number] [address] [place] [address] [place] Bilirubin [Mass/Vol] 0.4 mg/dL Normal 0.2-1.3 [facility] Comment on above: Order Comment: Speci men Type: FORMALIN-FIXED PARAFFIN-EMBEDDED TISSUE SPECIMEN Ordering Facility: [facility] Address: [place] [address] Performed By: #### B CBMDO #### CLARITY ILLUMINA LIMS CLIA [id number] [address] [place] [address] [place] Calcium [Mass/Vol] 10.2 mg/dL Normal 8.5-10.2 [facility] Comment on above: Order Comment: Speci men Type: FORMALIN-FIXED PARAFFIN-EMBEDDED TISSUE SPECIMEN Ordering Facility: [facility] Address: DEPARTMENT OF PATHOLOGY, [place] [address] Performed By: #### B CBMDO #### CLARITY ILLUMINA LIMS CLIA [id number] [address] [place] [address] [place] Chloride [Moles/Vol] 104 mmol/L Normal 98-107 [facility] Comment on above: Order Comment: Speci men Type: FORMALIN-FIXED PARAFFIN-EMBEDDED TISSUE SPECIMEN Ordering Facility: [facility] Address: DEPARTMENT OF PATHOLOGY, [place] [address] Performed By: #### B CBMDO #### CLARITY ILLUMINA LIMS CLIA [id number] [address] [place] [address] [place] CO2 [Moles/Vol] 26 mmol/L Normal 22-30 [facility] Comment on above: Order Comment: Speci men Type: FORMALIN-FIXED PARAFFIN-EMBEDDED TISSUE SPECIMEN Ordering Facility: [facility] Address: [place] [address] Performed By: #### B CBMDO #### CLARITY ILLUMINA LIMS CLIA [id number] [address] [place] [address] [place] Creatinine [Mass/Vol] 0.84 mg/dL Normal 0.58-0.96 [facility] Comment on above: Order Comment: Speci men Type: FORMALIN-FIXED PARAFFIN-EMBEDDED TISSUE SPECIMEN Ordering Facility: [facility] Address: [place] [address] Performed By: #### B CBMDO #### CLARITY ILLUMINA LIMS CLIA [id number] [address] [place] [address] Creatinine and Glomerular filtration rate.predicted panel (S/P/Bld) 76 mL/min/1.73m??? Normal >=60 [facility] Comment on above: Order Comment: Speci men Type: FORMALIN-FIXED PARAFFIN-EMBEDDED TISSUE SPECIMEN Ordering Facility: [facility] Address: [place] [address] Result Comment: Poly mated Glomerular Filtration Rate (eGFR) is calculated using the 2020 CKD-EPI creatinine equation. This equation utilizes serum creatinine, sex, and age as parameters. The creatinine assay has traceable calibration to isotope dilution-mass spectrometry. Refer to KDIGO guidelines for clinical interpretation. In patients with unstable renal function, e.g. those with acute kidney injury, the eGFR may not accurately reflect actual GFR. Performed By: #### B CBMDO #### CLARITY ILLUMINA LIMS CLIA [id number] [address] [place] [address] [place] Glucose [Mass/Vol] 84 mg/dL Normal 74-99 [facility] Comment on above: Order Comment: Speci men Type: FORMALIN-FIXED PARAFFIN-EMBEDDED TISSUE SPECIMEN Ordering Facility: [facility] Address: [place] [id number] Result Comment: The [place] Diabetes Association (ADA) provides guidance for cutoff values for fasting glucose and random glucose. The ADA defines fasting as no caloric intake for at least 8 hours. Fasting plasma glucose results between 100 to 125 mg/dL indicate increased risk for diabetes (prediabetes). Fasting plasma glucose results greater than or equal to 126 mg/dL meet the criteria for diagnosis of diabetes. In the absence of unequivocal hyperglycemia, results should be confirmed by repeat testing. In a patient with classic symptoms of hyperglycemia or hyperglycemic crisis, random plasma glucose results greater than or equal to 200 mg/dL meet the criteria for diagnosis of diabetes. Reference: Standards of Medical Care in Diabetes 2016, [place] [employer]. Diabetes Care. 2016.39(Suppl 1). Performed By: #### B CBMDO #### CLARITY ILLUMINA LIMS CLIA [id number] [address] [place] [address] [place] Potassium [Moles/Vol] 4.7 mmol/L Normal 3.7-5.1 [facility] Comment on above: Order Comment: Speci men Type: FORMALIN-FIXED PARAFFIN-EMBEDDED TISSUE SPECIMEN Ordering Facility: [facility] Address: [place] [address] Performed By: #### B CBMDO #### CLARITY ILLUMINA LIMS CLIA [id number] [address] [place] [address] [place] Protein [Mass/Vol] 7.3 g/dL Normal 6.3-8.0 [facility] Comment on above: Order Comment: Speci men Type: FORMALIN-FIXED PARAFFIN-EMBEDDED TISSUE SPECIMEN Ordering Facility: [facility] Address: DEPARTMENT OF PATHOLOGY, [place] [id number] Performed By: #### B CBMDO #### CLARITY ILLUMINA LIMS CLIA [id number] [address] [place] [address] [place] Sodium [Moles/Vol] 141 mmol/L Normal 136-144 [facility] Comment on above: Order Comment: Speci men Type: FORMALIN-FIXED PARAFFIN-EMBEDDED TISSUE SPECIMEN Ordering Facility: [facility] Address: DEPARTMENT OF PATHOLOGY, [place] [id number] Performed By: #### B CBMDO #### CLARITY ILLUMINA LIMS CLIA [id number] [address] [place] [address] [place] Urea nitrogen [Mass/Vol] 23 mg/dL High 7-21 [facility] Comment on above: Order Comment: Speci men Type: FORMALIN-FIXED PARAFFIN-EMBEDDED TISSUE SPECIMEN Ordering Facility: [facility] Address: DEPARTMENT OF PATHOLOGY, [place] [address] Performed By: #### B CBMDO #### CLARITY ILLUMINA LIMS CLIA [id number] [address] [place] [address] [place] Lipid 1996 panelon 4 Cholesterol [Mass/Vol] 240 mg/dL High <200 [facility] Comment on above: Order Comment: Speci men Type: FORMALIN-FIXED PARAFFIN-EMBEDDED TISSUE SPECIMEN Ordering Facility: [facility] Address: [place] [address] Result Comment: <200 mg/dL, Desirable 200-239 mg/dL, Borderline high >239 mg/dL, High Performed By: #### B CBMDO #### CLARITY ILLUMINA LIMS CLIA [id number] [address] [place] [address] [place] Cholesterol in HDL [Mass/Vol] 107 mg/dL Normal >39 [facility] Comment on above: Order Comment: Speci men Type: FORMALIN-FIXED PARAFFIN-EMBEDDED TISSUE SPECIMEN Ordering Facility: [facility] Address: DEPARTMENT OF PATHOLOGY, [place] [address] Result Comment: 40-5 9 mg/dL, Acceptable >59 mg/dL, High: Negative risk factor for coronary heart disease <40 mg/dL, Low: Positive risk factor for coronary heart disease Performed By: #### B CBMDO #### CLARITY ILLUMINA LIMS CLIA [id number] [address] [place] [address] [place] Cholesterol in LDL [Mass/Vol] 124 mg/dL High <100 [facility] Comment on above: Order Comment: Speci men Type: FORMALIN-FIXED PARAFFIN-EMBEDDED TISSUE SPECIMEN Ordering Facility: [facility] Address: DEPARTMENT OF PATHOLOGY, [place] [address] Result Comment: <100 mg/dL, Optimal 100-129 mg/dL, Near optimal/above optimal 130-159 mg/dL, Borderline high 160-189 mg/dL, High >189 mg/dL, Very high Secondary prevention optimal LDL Cholesterol levels are recommended to be < 70 mg/dL Performed By: #### B CBMDO #### CLARITY ILLUMINA LIMS CLIA [id number] [facility] [place] [address] [place] Cholesterol in LDL/Cholesterol in HDL [Mass ratio] 1.16 {ratio} Normal <2.54 [facility] Comment on above: Order Comment: Speci men Type: FORMALIN-FIXED PARAFFIN-EMBEDDED TISSUE SPECIMEN Ordering Facility: [facility] Address: DEPARTMENT OF PATHOLOGY, [place] [address] Result Comment: Brenden martin: 1. National Cholesterol Education Program ATP III Guideline At-A-Glance Quick Desk Reference: National Heart, Lung, and Blood Volborg. National Institutes of Health. 2001: NIH Publication No. 01-3305. 2. An International Atherosclerosis Society position paper: global recommendations for the management of dyslipidemia: executive summary, Atherosclerosis. 2014: 232(2):410-413. Performed By: #### B CBMDO #### CLARITY ILLUMINA LIMS CLIA [id number] [address] [place] [address] [place] Cholesterol in VLDL [Mass/Vol] 9 mg/dL Normal <30 [facility] Comment on above: Order Comment: Speci men Type: FORMALIN-FIXED PARAFFIN-EMBEDDED TISSUE SPECIMEN Ordering Facility: [facility] Address: DEPARTMENT OF PATHOLOGY, [place] [address] Performed By: #### B CBMDO #### CLARITY ILLUMINA LIMS CLIA [id number] [facility] [place] [address] [place] Cholesterol non HDL [Mass/Vol] 133 mg/dL High <130 [facility] Comment on above: Order Comment: Speci men Type: FORMALIN-FIXED PARAFFIN-EMBEDDED TISSUE SPECIMEN Ordering Facility: [facility] Address: DEPARTMENT OF PATHOLOGY, [place] [address] Result Comment: <130 mg/dL, Optimal 130-159 mg/dL, Near optimal/above optimal 160-189 mg/dL, Borderline high 190-219 mg/dL, High >219 mg/dL, Very high Secondary prevention optimal non HDL Cholesterol levels are recommended to be <100 mg/dL Performed By: #### B CBMDO #### CLARITY ILLUMINA LIMS CLIA [id number] [address] [place] [address] [place] Cholesterol.total/Ch olesterol in HDL [Mass ratio] 2.24 {ratio} Normal <5.10 [facility] Comment on above: Order Comment: Speci men Type: FORMALIN-FIXED PARAFFIN-EMBEDDED TISSUE SPECIMEN Ordering Facility: [facility] Address: [place] [address] Performed By: #### B CBMDO #### CLARITY [facility] LIMS CLIA [id number] [address] [place] [address] [place] FASTING TIME 12 hrs Normal [facility] Comment on above: Order Comment: Speci men Type: FORMALIN-FIXED PARAFFIN-EMBEDDED TISSUE SPECIMEN Ordering Facility: [facility] Address: [place] [address] Performed By: #### B CBMDO #### CLARITY ILLUMINA LIMS CLIA [id number] [address] [place] [address] [place] Triglyceride [Mass/Vol] 47 mg/dL Normal <150 [facility] Comment on above: Order Comment: Speci men Type: FORMALIN-FIXED PARAFFIN-EMBEDDED TISSUE SPECIMEN Ordering Facility: [facility] Address: [place] [address] Result Comment: <150 mg/dL, Normal 150-199 mg/dL, Borderline high 200-499 mg/dL, High >499 mg/dL, Very high Performed By: #### B CBMDO #### CLARITY ILLUMINA LIMS CLIA [id number] [address] [place] [address] [place] TSH SerPl-aCncon 03-15-2024 TSH Qn 0.503 m[IU]/L Normal 0.270-4.200 [facility] Comment on above: Order Comment: Speci men Type: FORMALIN-FIXED PARAFFIN-EMBEDDED TISSUE SPECIMEN Ordering Facility: [facility] Address: DEPARTMENT OF PATHOLOGY, [place] [address] Performed By: #### B CBMDO #### CLARITY FLAKITO MENDOZA [id number] [address] [place], [place] [id number] [facility] CNCGeraldo 01-30-2024 CNCO HNO ID: [id number] Author: COORDINATOR, MAMMOGRAPHY, ? Service: ? Author Type: Physician Type: Letter Filed: 01/30/2024 07:59 Note Text: January 30, 2024 PID: [id number] Mckenzie Hayden [address] [place] [address] [place] [address] Dear Ms. Hayden, We are pleased to inform you that the results of your recent breast imaging exam on 01/29/2024 are normal. Breast tissue can be either dense or not dense. Dense tissue makes it harder to find breast cancer on a mammogram and also raises the risk of developing breast cancer. Your breast tissue is not dense. Talk to your healthcare provider about breast density, risks for breast cancer, and your individual situation. Early detection of cancer is very important. We also understand recommendations regarding breast cancer screening are controversial. Please discuss with your primary care provider which strategy is best for you and whether a mammogram is right for you. Your imaging studies and report will be kept on file at [facility] as part of your permanent medical record and are available for your continuing care. Thank you for allowing us to help in meeting your health care needs. Sincerely, Dr. Muhammad Interpreting Radiologist [facility] (Normal over 40) Normal [facility] SCREENINGon 01-29-2024 [facility] SCREENING * * *Final Report* * * DATE OF EXAM: Jan 29 2024 11:31AM [facility] 0581 - [facility] SCREENING / PROCEDURE REASON: Visit for screening mammogram * * * * Physician Interpretation * * * * RESULT: #[id number] - [facility] SCREENING BILATERAL DIGITAL SCREENING MAMMOGRAM WITH CAD: 01/29/2024 HISTORY: Visit For Screening Mammogram / Screening Mammogram-Patient reports NO symptoms. /priors available for comparison. RESULT: TECHNIQUE: The study was acquired using full field digital technology and interpreted from soft copy. Current study was also evaluated with a Computer Aided Detection (CAD). Comparison is made to exams dated: 01/23/2023 mammogram, 01/17/2022 mammogram, 12/30/2020 mammogram, and 12/18/2019 mammogram - [facility]. There are scattered areas of fibroglandular density. No significant masses, calcifications, or other findings are seen in either breast. There has been no significant interval change. IMPRESSION: NEGATIVE There is no mammographic evidence of malignancy. A 1 year screening mammogram is recommended. Christophe aparicio/devora:01/30/2024 07:59:34 Jewel Gauger(s): Margie Lopez RT(R)(M), [facility] letter sent: Normal over 40 Mammogram BI-RADS: Category 1: Negative Multiple national specialty organizations have released breast cancer screening guidelines for women at average risk for developing breast cancer - guidelines that are based on both evidence and opinion, yet differ on when to start and how often to screen for breast cancer. With representation from Breast Imaging, Internal Medicine, Women's Health, Family Medicine, and Medical/Surgical Oncology, the [facility] has carefully reviewed the data and reached the following consensus: 1) All women should engage in shared decision-making with their providers to decide when to start and how often to screen; 2) All women should have the opportunity to start screening mammography at age 40; 3) For women ages 45-55, we recommend annual screening mammograms; 4) For women ages 55 and over, we support both the transition from an annual to a biennial interval if this aligns more with patient's values and preferences, or continuation with annual screening; 5) All women should discuss with their providers when to stop screening mammograms. Financial Planning Advisor: Devora Transcribe Date/Time: Jan 29 2024 11:19A Dictated by: CHRISTOPHE MUHAMMAD MD This examination was interpreted and the report reviewed and electronically signed by: CHRISTOPHE MUHAMMAD MD on Jan 30 2024 7:59AM EST [id number] Normal [facility] CNOVon 11-30-2023 CNOV Office Visit (FAMPWS ) -------- MCKENZIE HAYDEN ([id number]) 1955 F Date Time Provider Department 11/30/23 7:40 AM JERRELL WEBSTER During your visit today, we recorded the following information about you: Pulse Respiration Blood pressure 64/minute 18/minute 130/84 Jerrell Webster APRN.CNP 11/30/2023 7:44 AM Signed Chief Complaint Patient presents with: Eye Problem HPI Mckenzie Hayden is a 68 year old female who presents here today for Above Complaints. Patient is here for eye problem. Location is left eye. Duration is approximately 1 day, started yesterday morning. Noticed after walking on the treadmill, redness of her left eye. She denies any blurry vision or double vision. Denies any eye pain. States that it feels different. Has been using dry eye solution. No history of eye surgery. She is on a daily 81 mg aspirin for CAD prevention. She has history of hypertension. Blood pressure at home has been consistently 130/80. Taking her medication as prescribed. Denies any trauma. Past medical history, appointments, medications, allergies reviewed. EXAM: BP 130/84 Pulse 64 Resp 18 LMP 06/08/2008 SpO2 98% General Appearance: Well appearing, alert, in no acute distress, well-hydrated, well nourished.. Head: Normocephalic, no masses, lesions, tenderness or abnormalities. Eyes: Left eye: Blood present in conjunctiva, spreading to lower area of the eye, all located on the lateral aspect. ASSESSMENT/PLAN: 1. Subconjunctival bleed, left - ICD9: 372.72, ICD10: H11.32 -Blood pressure is well-controlled. Warm compress and/or artificial tears for comfort. Stop aspirin for 1 week. Discussed that area will go through a healing process over the next few weeks including turning yellow/light green and then resolved. I discussed that if she were to get double vision, blurry vision, throbbing eye pain then she should call her eye doctor and if it is extreme then needs to go to the emergency room. She verbalized understanding. Jerrell Sudheer, GLASSWARE SELECTOR.FLEET OPERATIONS MANAGER This note was partly generated using [employer] voice recognition dictation and may contain some misspelled or inaccurate words missed on review. Allergies As of Date: 11/30/2023 Noted Allergy Reaction ATORVASTATIN 02/13/2019 17 - Myalgia Date Reviewed: 11/29/2023 Reviewed by: Janelle Mccauley RN - Fully Assessed Reason for Visit: Eye Problem [43] Primary Visit Diagnosis:Subconjunctiva l bleed, left [H11.32] Order(s):fluticasone (FLONASE) 50 mcg/actuation nasal sprayUSE 2 SPRAYS IN EACH NOSTRIL ONCE DAILY (RINSE MOUTH AFTER USE)Disp: 48 gRfl: 3 Prescriptions as of 11/30/2023 - fluticasone (FLONASE) 50 mcg/actuation nasal spray USE 2 SPRAYS IN EACH NOSTRIL ONCE DAILY (RINSE MOUTH AFTER USE) - triamterene-hydroCHLOROt hiazide (MAXZIDE) 75-50 mg per tablet Take 1 tablet by mouth once daily. - Verapamil HCl 100 mg 24 hr capsule Take 1 capsule by mouth once daily. - omeprazole (PRILOSEC) 20 mg capsule Take 1 capsule by mouth once daily. - ibuprofen (MOTRIN) 800 mg tablet Take one(1) tablet every eight(8) hours as needed for pain. - levothyroxine (SYNTHROID) 150 mcg tablet Take 1 tablet by mouth once daily. Take on empty stomach. For thyroid - Cholecalciferol, Vitamin D3, (VITAMIN D-3) 50 mcg (2,000 unit) cap Take by mouth once daily. - aspirin 81 mg chewable tablet Take 1 tablet by mouth once daily. - Inositol 500 mg tab Take 1 tablet by mouth once daily. - MILK THISTLE ORAL Take by mouth once daily. - UBIDECARENONE (CO Q-10 ORAL) Take by mouth. - multivitamin ORAL tablet Take 1 tablet by mouth once daily. - Calcium-Cholecalciferol, D3, (CALCIUM 600 + D) 600-125 mg-unit ORAL Tab Take 1 tablet by mouth twice daily. 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.9] 05/18/2011 Melanocytic nevi of face [D22.30] 02/22/2013 Intradermal melanocytic nevus [D22.9] 02/22/2013 Melanocytic nevi of scalp and neck [D22.4] 02/22/2013 Junctional nevus of neck [D22.4] 02/22/2013 Lentiginous junctional nevus of back [D22.5] 02/22/2013 Solar lentigo [L81.4] 02/22/2013 Other seborrheic keratosis [L82.1] 02/22/2013 Tobacco abuse [Z72.0] 10/02/2013 Acute pericarditis [I30.9] 12/28/2017 SAMMY (obstructive sleep apnea) [G47.33] 12/11/2018 Aortic ectasia, 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 Normal [facility] CNOVon 11-19-2023 CNOV Office Visit (CAWSTR ) -------- MCKENZIE HAYDEN ([id number]) 1955 F Date Time Provider Department 11/19/23 10:40 AM ARIEL FINE CAWSTR During your visit today, we recorded the following information about you: Pulse Blood pressure Weight Height 77/minute 136/85 65.7 kg 1.651 m Ariel Fine MD 11/19/2023 11:59 AM Signed Ariel Fine MD Interventional Cardiology [address] [place] [address] [phone] Chief Complaint Patient presents with: New Patient HISTORY OF PRESENT ILLNESS: Ms. Hayden is a 68 year old female seen in my office today for assessment management of abnormal CT scan patient had longstanding history of hypertensive heart disease she is on medical therapy well-controlled chronic tobacco abuse recently she had a CAT scan of the lungs to screen for any cancer she had multiple nodules which is being followed with in addition to her CT of the lungs ascending aorta was dilated maximum diameter is 4.4 at the level of the pulmonary arteries with coronary calcification patient denies any chest pain or shortness of breath no signs or symptoms of congestive heart failure she had prior history of mitral valve prolapse which was reviewed with no mitral regurgitation Cardiac Risk Factors age (male over 45, female over 55), hypertension, family history of CAD PAST MEDICAL HISTORY Diagnosis Date Cutaneous skin tags 02/22/2013 Esophageal reflux Gastroesophageal reflux Essential hypertension, benign Iron deficiency anemia, unspecified Anemia, iron def. Mitral valve disorders(424.0) MVP Mitral valve disorders(424.0) 02/26/2007 Pain in limb 03/29/2006 PMH - PAST MEDICAL HISTORY OF heel spurs Unspecified hypothyroidism Viral warts, unspecified 02/22/2013 PAST SURGICAL HISTORY Procedure Laterality Date APPENDECTOMY 1970 DELIVERY ONLY 1982 , low cervical COLONOSCOPY FLX DX W/COLLJ SPEC WHEN PFRMD 2005 Colonoscopy LIG/TRNSXJ FLP TUBE ABDL/VAG APPR UNI/BI 1987 Tubal ligation NEUROPLASTY AND/TRANSPOS MEDIAN NRV CARPAL TUNNE 1979 Carpal tunnel decomp, bilateral PAST SURGICAL HISTORY OF 10/2003 tendon repair right hand TR TDN RESTORE INTRNSC FUNCJ RINGANDSM FNGR 2005 right hand at base of thymb FAMILY HISTORY Problem Relation Age of Onset other (renal disease) Mother Heart Father Hypertension Father Heart Sister Alzheimer's Disease Maternal Grandmother Heart Paternal Grandfather Social History Tobacco Use Smoking status: Every Day Packs/day: 1.00 Years: 52.00 Additional pack years: 0.00 Total pack years: 52.00 Types: Cigarettes Smokeless tobacco: Never Tobacco comments: Cut way back, 7-8 cigs per day Vaping Use Vaping Use: Never used Substance Use Topics Alcohol use: Yes Comment: Occasionally Drug use: No ALLERGIES Allergen Reactions Atorvastatin Myalgia Medications: Current Outpatient Medications Medication Sig Dispense Refill triamterene-hydroCHLOROt hiazide (MAXZIDE) 75-50 mg per tablet Take 1 tablet by mouth once daily. 90 tablet 3 Verapamil HCl 100 mg 24 hr capsule Take 1 capsule by mouth once daily. 90 capsule 3 omeprazole (PRILOSEC) 20 mg capsule Take 1 capsule by mouth once daily. 90 capsule 3 ibuprofen (MOTRIN) 800 mg tablet Take one(1) tablet every eight(8) hours as needed for pain. 270 tablet 1 levothyroxine (SYNTHROID) 150 mcg tablet Take 1 tablet by mouth once daily. Take on empty stomach. For thyroid 90 tablet 3 fluticasone (FLONASE) 50 mcg/actuation nasal spray USE 2 SPRAYS IN EACH NOSTRIL ONCE DAILY (RINSE MOUTH AFTER USE) 48 g 3 Cholecalciferol, Vitamin D3, (VITAMIN D-3) 50 mcg (2,000 unit) cap Take by mouth once daily. aspirin 81 mg chewable tablet Take 1 tablet by mouth once daily. Inositol 500 mg tab Take 1 tablet by mouth once daily. 0 MILK THISTLE ORAL Take by mouth once daily. UBIDECARENONE (CO Q-10 ORAL) Take by mouth. multivitamin ORAL tablet Take 1 tablet by mouth once daily. 0 Calcium-Cholecalciferol, D3, (CALCIUM 600 + D) 600-125 mg-unit ORAL Tab Take 1 tablet by mouth twice daily. 0 No current facility-administered medications for this visit. Review of Systems Constitutional: Negative for chills, diaphoresis, fever, malaise/fatigue and weight loss. HENT: Negative for congestion, ear discharge, ear pain, hearing loss, nosebleeds, sinus pain, sore throat and tinnitus. Eyes: Negative for blurred vision, double vision, photophobia, pain, discharge and redness. Respiratory: Negative for cough, hemoptysis, sputum production, shortness of breath, wheezing and stridor. Cardiovascular: Negative for chest pain, palpitations, orthopnea, claudication, leg swelling and PND. Gastrointestinal: Negative for abdominal pain, blood in stool, constipation, diarrhea, heartburn, melena, nausea and vomiting. Genitourinary: Negative for dysuria, flan (more content not included)... Normal [facility] ECG COMPLETEon 11-19-2023 ECG COMPLETE Ventricular Rate : 7 3 BPM Atrial Rate : 73 BPM P-R Interval : 182 ms QRS Duration : 76 ms Q-T Interval : 398 ms QTC Calculation(Bazett) : 438 ms Calculated P Esmond : 56 degrees Calculated R Esmond : 52 degrees Calculated T Esmond : 65 degrees NORMAL SINUS RHYTHM NORMAL ECG Confirmed by MD BEARDEN GREGORY () on 11/20/2023 1:15:08 PM NAME : MCKENZIE HAYDEN PID : [id number] : 1955 Gender : Female Race : ORD : [id number] Procedure Date : Nov 19 2023 10:38:41 Edit Date : Nov 20 2023 13:15:13 Diagnosis: NORMAL SINUS RHYTHM NORMAL ECG Confirmed by MD BEARDEN GREGORY () on 11/20/2023 1:15:08 PM Test Reason : Location : 136 : [facility] Overread By : MD BEARDEN GREGORY Edited By : MD BEARDEN GREGORY Referred By : ALDA PABON Acquired by : Mani bardales [facility] Emergency Department Summary on 10-21-2022 Emergency Department Summary [facility] Medical Records Department [address] [place] [address] Emergency Department Summary 10/21/22 MR#: [id number] Acct: [id number] Name: MCKENZIE HAYDEN Rep #: [id number] : 1955 67 From: Jimmy Foster DO PCP: Dr. Alda Pabon MD Status:DEP ER Location: ED HPI History of Present Illness Chief Complaint: Abscess Informant: patient and spouse/S.O. Narrative Narrative: Patient is a 67-year-old female with history of hypertension hyperlipidemia and CAD. She states she has been having some right upper dental pain for the past few days which has been mild in nature. She denies any recent trauma or fevers chills difficulty breathing or swallowing. She states she awoke this morning with increased pain and noticed right-sided facial swelling and secondary to his high concern for infection and therefore comes in for evaluation [facility] Medical History (Updated 10/22/22 @ 23:[address] Jimmy Foster, DO) Acute pericarditis Chest pain Essential hypertension Hypothyroid Pure hypercholesterolemia Home Medications levothyroxine 137 mcg tablet 137 mcg PO DAILY 12/17/17 [History Last Taken 12/16/17 06:00] lisinopril 5 mg tablet 5 mg PO DAILY hypertension 12/17/17 [History Last Taken 12/16/17 07:00] omeprazole 20 mg capsule,delayed release 20 mg PO DAILY GERD 12/17/17 [History Last Taken 12/16/17 07:00] triamterene 75 mg-hydrochlorothiazide 50 mg tablet 1 tab PO DAILY hypertension 12/17/17 [History Last Taken 12/16/17 07:00] verapamil 100 mg capsule 24hr pellet CT,ext.release 100 mg PO DAILY heart 12/17/17 [History Last Taken 12/16/17 18:00] aspirin 81 mg tablet,delayed release 81 mg PO DAILY@0800 #30 tabs 12/18/17 [Rx Last Taken Unknown] calcium carbonate 600 mg-vitamin D3 10 mcg (400 unit) chewable tablet (Calcium 600 with Vitamin D3) 1 tab PO QDAY 12/28/17 [History Last Taken Unknown] coenzyme M90-vcblnmg E 100 mg-100 unit capsule 1 cap PO QDAY 12/28/17 [History Last Taken Unknown] fluticasone propionate 50 mcg/actuation nasal spray,suspension (Allergy Relief (fluticasone)) 2 spray intranasal QDAY 12/28/17 [History Last Taken Unknown] inositol 500 mg tablet 500 mg PO QDAY 12/28/17 [History Last Taken Unknown] milk thistle 150 mg capsule 150 mg PO DAILY 07/12/18 [History Last Taken Unknown] clindamycin HCl 300 mg capsule (Cleocin HCl) 300 mg PO 4X/DAY 10 days #40 CAPSULES 10/21/22 [Rx Last Taken Unknown] oxycodone-acetaminophen 5 mg-325 mg tablet (Percocet) 1 tab PO Q6H PRN pain 3 days #12 tabs 10/21/22 [Rx Last Taken Unknown] Allergy/AdvReac Type Severity Reaction Status Date / Time atorvastatin [From Lipitor] AdvReac Severe Myalgias, Verified 10/21/22 02:16 balance problems, fatigue Surgical History History of section History of hand surgery History of left heart catheterization (12/17/17) Hx of appendectomy Social History (Updated 11/03/19 @ 16:10 by Yanet Feliz PA, PA) Smoking Status: Current every day smoker tobacco type: cigarettes alcohol intake: current details: couple beers a day substance use type: does not use ROS ROS ED Constitutional Constitutional ED: Denies chills or fever(s) ENT ENT ED: Reports other Details: Positive dental pain ; Denies sore throat Cardiovascular Cardiovascular: Denies chest pain Respiratory/Chest Respiratory/Chest: Denies cough or dyspnea Gastrointestinal Gastrointestinal: Denies abdominal pain, diarrhea, nausea or vomiting Genitourinary Genitourinary ED: Denies dysuria Musculoskeletal Musculoskeletal: Denies myalgias or neck pain Integumentary Denies rash Neurologic Neurologic: Denies headache(s) Hematologic/Lymphatic Hematologic/Lymphatic: Denies easy bleeding or easy bruising EXAM Physical Exam Const Vital Signs: 10/21/22 02:13 Temperature 96.6 F L Temperature Source Temporal Pulse Rate 80 Respiratory Rate 17 Blood Pressure 148/85 H Blood Pressure Mean 106 Pulse Ox 97 Oxygen Delivery Method Room Air Positive well nourished and well developed General Appearance ED: well developed HEENT Reports moist mucous membranes HEENT Narrative: Patient has dental caries present with out obvious dental abscess noted. There is no oral lesions no airway edema or compromise no tongue or lip swelling. Patient does have soft tissue swelling along the anterior aspect of the right cheek tracking down from the zygomatic arch to the mandible. The area is soft and fluctuant without induration or overlying erythema warmth or streaking. Eyes PERRL and EOMs intact bilaterally Neck supple Neck Narrative: Positive anterior cervical lymphadenopathy present. No brawny edema in the submental space to suggest Al's angina Resp normal respiratory effort and clear to ausculta (more content not included)... Normal [facility] ENRIQUE DIAG W DONY RTon 022 [facility] US BREAST LTD LTon 2 [facility] XR SHOULDER GENERAL 3V OR MO RE AP/TRUE AP/OTHER RIGHTon 02-15-2022 [facility] Vital Signs Date Time Vital Sign Value Performing Clinician Facility 10-22-2024 09:11-0400 Body mass index (BMI) [Ratio] 25.39 kg/m2 Roxana Malloy MD Work Phone: [facility] 10-22-2024 09:11-0400 Body temperature 96.8 [degF] Roxana Malloy MD Work Phone: [facility] 10-22-2024 09:11-0400 Body weight 68.3 kg Roxana Malloy MD Work Phone: [facility] 10-22-2024 09:11-0400 Diastolic blood pressure 88 mm[Hg] Roxana Malloy MD Work Phone: [facility] 10-22-2024 09:11-0400 Heart rate 56 /min Roxana Malloy MD Work Phone: [facility] 10-22-2024 09:11-0400 SaO2% (BldA) [Mass fraction] 99 % Roxana Malloy MD Work Phone: [facility] 10-22-2024 09:11-0400 Systolic blood pressure 133 mm[Hg] Roxana Malloy MD Work Phone: [facility] 10-22-2024 08:50-0400 Body mass index (BMI) [Ratio] 25.38 kg/m2 Demetrius Moon MD Work Phone: [facility] 10-22-2024 08:50-0400 Body temperature 96.8 [degF] Demetrius Moon MD Work Phone: [facility] 10-22-2024 08:50-0400 Body weight 68.27 kg Demetrius Moon MD Work Phone: [facility] 10-22-2024 08:50-0400 Diastolic blood pressure 88 mm[Hg] Demetrius Moon MD Work Phone: [facility] 10-22-2024 08:50-0400 Heart rate 56 /min Demetrius Moon MD Work Phone: [facility] 10-22-2024 08:50-0400 SaO2% (BldA) [Mass fraction] 99 % Demetrius Moon MD Work Phone: [facility] 10-22-2024 08:50-0400 Systolic blood pressure 133 mm[Hg] Demetrius Moon MD Work Phone: [facility] 09-10-2024 09:03-0400 Body height 164 cm Demetrius Moon MD Work Phone: [facility] 09-10-2024 09:03-0400 Body mass index (BMI) [Ratio] 25.3 kg/m2 Demetrius Moon MD Work Phone: [facility] 09-10-2024 09:03-0400 Body temperature 97.39 [degF] Demetrius Moon MD Work Phone: [facility] 09-10-2024 09:03-0400 Body weight 68.04 kg Demetrius Moon MD Work Phone: [facility] 09-10-2024 09:03-0400 Diastolic blood pressure 94 mm[Hg] Demetrius Moon MD Work Phone: [facility] 09-10-2024 09:03-0400 Heart rate 66 /min Demetrius Moon MD Work Phone: [facility] 09-10-2024 09:03-0400 SaO2% (BldA) [Mass fraction] 98 % Demetrius Moon MD Work Phone: [facility] 09-10-2024 09:03-0400 Systolic blood pressure 141 mm[Hg] Demetrius Moon MD Work Phone: [facility] 06-16-2024 09:04-0500 Body mass index (BMI) [Ratio] 24.16 kg/m2 Kayleigh Dominguez APRN.FLEET OPERATIONS MANAGER Work Phone: [facility] 06-16-2024 09:04-0500 Body weight 65.86 kg Kayleigh Dominguez APRN.FLEET OPERATIONS MANAGER Work Phone: [facility] 06-16-2024 09:04-0500 Diastolic blood pressure 92 mm[Hg] Kayleigh Dominguez APRN.FLEET OPERATIONS MANAGER Work Phone: [facility] 06-16-2024 09:04-0500 Heart rate 79 /min Kayleigh Dominguez GLASSWARE SELECTOR.FLEET OPERATIONS MANAGER Work Phone: [facility] 06-16-2024 09:04-0500 SaO2% (BldA) [Mass fraction] 98 % Kayleigh Dominguez GLASSWARE SELECTOR.FLEET OPERATIONS MANAGER Work Phone: [facility] 06-16-2024 09:04-0500 Systolic blood pressure 130 mm[Hg] Kayleigh Dominguez GLASSWARE SELECTOR.FLEET OPERATIONS MANAGER Work Phone: [facility] 03-20-2024 11:20-0400 Body mass index (BMI) [Ratio] 24.03 kg/m2 Alda Pabon MD Work Phone: [facility] 03-20-2024 11:20-0400 Body weight 65.5 kg Alda Pabon MD Work Phone: [facility] 03-20-2024 11:20-0400 Diastolic blood pressure 78 mm[Hg] Alda Pabon MD Work Phone: [facility] 03-20-2024 11:20-0400 Heart rate 76 /min Alda Pabon MD Work Phone: [facility] 03-20-2024 11:20-0400 Respiratory rate 16 /min Alda Pabon MD Work Phone: [facility] 03-20-2024 11:20-0400 Systolic blood pressure 120 mm[Hg] Alda Pabon MD Work Phone: [facility] 11-30-2023 07:34-0400 Diastolic blood pressure 84 mm[Hg] Jerrell Sudheer GLASSWARE SELECTOR.FLEET OPERATIONS MANAGER Work Phone: [facility] 11-30-2023 07:34-0400 Heart rate 64 /min Jerrell Sudheer GLASSWARE SELECTOR.FLEET OPERATIONS MANAGER Work Phone: [facility] 11-30-2023 07:34-0400 Respiratory rate 18 /min Jerrell Sudheer GLASSWARE SELECTOR.FLEET OPERATIONS MANAGER Work Phone: [facility] 11-30-2023 07:34-0400 SaO2% (BldA) [Mass fraction] 98 % Jerrell Webster GLASSWARE SELECTOR.FLEET OPERATIONS MANAGER Work Phone: [facility] 11-30-2023 07:34-0400 Systolic blood pressure 130 mm[Hg] Jerrell Webster APRN.FLEET OPERATIONS MANAGER Work Phone: [facility] 11-19-2023 10:36-0400 Body height 165.1 cm Ariel Fine MD Work Phone: [facility] 11-19-2023 10:36-0400 Body mass index (BMI) [Ratio] 24.1 kg/m2 Ariel Fine MD Work Phone: [facility] 11-19-2023 10:36-0400 Body weight 65.68 kg Ariel Fine MD Work Phone: [facility] 11-19-2023 10:36-0400 Diastolic blood pressure 85 mm[Hg] Ariel Fine MD Work Phone: [facility] 11-19-2023 10:36-0400 Heart rate 77 /min Ariel Fine MD Work Phone: [facility] 11-19-2023 10:36-0400 SaO2% (BldA) [Mass fraction] 98 % Ariel Fine MD Work Phone: [facility] 11-19-2023 10:36-0400 Systolic blood pressure 136 mm[Hg] Ariel Fine MD Work Phone: [facility] 09-14-2023 11:01-0400 Body weight 65.5 kg Alda Pabon MD Work Phone: [facility] 09-14-2023 11:01-0400 Diastolic blood pressure 80 mm[Hg] Alda Pabon MD Work Phone: [facility] 09-14-2023 11:01-0400 Heart rate 68 /min Alda Pabon MD Work Phone: [facility] 09-14-2023 11:01-0400 Respiratory rate 16 /min Alda Pabon MD Work Phone: [facility] 09-14-2023 11:01-0400 Systolic blood pressure 118 mm[Hg] Alda Pabon MD Work Phone: [facility] 03-27-2023 11:08-0400 Body weight 61.69 kg Kayleigh Maybrook GLASSWARE SELECTOR.FLEET OPERATIONS MANAGER Work Phone: [facility] 03-27-2023 11:08-0400 Diastolic blood pressure 82 mm[Hg] Kayleigh Maybrook GLASSWARE SELECTOR.FLEET OPERATIONS MANAGER Work Phone: [facility] 03-27-2023 11:08-0400 Heart rate 66 /min Kayleigh Maybrook GLASSWARE SELECTOR.FLEET OPERATIONS MANAGER Work Phone: [facility] 03-27-2023 11:08-0400 Respiratory rate 14 /min Kayleigh Maybrook GLASSWARE SELECTOR.FLEET OPERATIONS MANAGER Work Phone: [facility] 03-27-2023 11:08-0400 SaO2% (BldA) [Mass fraction] 97 % Kayleigh Maybrook GLASSWARE SELECTOR.FLEET OPERATIONS MANAGER Work Phone: [facility] 03-27-2023 11:08-0400 Systolic blood pressure 134 mm[Hg] Kayleigh Maybrook GLASSWARE SELECTOR.FLEET OPERATIONS MANAGER Work Phone: [facility] 03-13-2023 13:22-0400 Diastolic blood pressure 82 mm[Hg] Jerrell Sudheer GLASSWARE SELECTOR.FLEET OPERATIONS MANAGER Work Phone: [facility] 03-13-2023 13:22-0400 Systolic blood pressure 134 mm[Hg] Jerrell Sudheer GLASSWARE SELECTOR.FLEET OPERATIONS MANAGER Work Phone: [facility] 03-13-2023 13:12-0400 Body weight 61.96 kg Jerrell Sudheer GLASSWARE SELECTOR.FLEET OPERATIONS MANAGER Work Phone: [facility] 03-13-2023 13:12-0400 Heart rate 68 /min Jerrell Sudheer GLASSWARE SELECTOR.FLEET OPERATIONS MANAGER Work Phone: [facility] 03-13-2023 13:12-0400 Respiratory rate 16 /min Jerrell Webster GLASSWARE SELECTOR.FLEET OPERATIONS MANAGER Work Phone: [facility] 03-13-2023 13:12-0400 SaO2% (BldA) [Mass fraction] 97 % Jerrell Webster GLASSWARE SELECTOR.FLEET OPERATIONS MANAGER Work Phone: [facility] 10-21-2022 02:13-0400 Body height 165.1 cm [facility] 10-21-2022 02:13-0400 Body mass index (BMI) [Ratio] 23.4 kg/m2 [facility] 10-21-2022 02:13-0400 Body temperature 96.6 [degF] [facility] 10-21-2022 02:13-0400 Body weight 64 kg [facility] 10-21-2022 02:13-0400 Diastolic blood pressure 85 mm[Hg] [facility] 10-21-2022 02:13-0400 Heart rate 80 /min [facility] 10-21-2022 02:13-0400 Respiratory rate 17 /min [facility] 10-21-2022 02:13-0400 SaO2% (BldA) [Mass fraction] 97 % [facility] 10-21-2022 02:13-0400 Systolic blood pressure 148 mm[Hg] [facility] 08-15-2022 11:46-0400 Body weight 61.6 kg Alda Pabon MD Work Phone: [facility] 08-15-2022 11:46-0400 Diastolic blood pressure 74 mm[Hg] Alda Pabon MD Work Phone: [facility] 08-15-2022 11:46-0400 Heart rate 88 /min Alda Pabon MD Work Phone: [facility] 08-15-2022 11:46-0400 Respiratory rate 16 /min Alda Pabon MD Work Phone: [facility] 08-15-2022 11:46-0400 Systolic blood pressure 128 mm[Hg] Alda Pabon MD Work Phone: [facility] 02-15-2022 12:43-0400 Body weight 60.15 kg Alda Pabon MD Work Phone: [facility] 02-15-2022 12:43-0400 Diastolic blood pressure 78 mm[Hg] Alda Pabon MD Work Phone: [facility] 02-15-2022 12:43-0400 Heart rate 72 /min Alda Pabon MD Work Phone: [facility] 02-15-2022 12:43-0400 Respiratory rate 16 /min Alda Pabon MD Work Phone: [facility] 02-15-2022 12:43-0400 Systolic blood pressure 130 mm[Hg] Alda Pabon MD Work Phone: [facility] Encounters Encounter Date Encounter Type Care Provider Facility Start: 10-28-2024 End: 10-28-2024 ambulatory ALDA PABON Facility:[facility] Start: 10-22-2024 End: 10-22-2024 Telephone encounter Demetrius Moon MD Work Phone: Hematology/Oncology Comment on above: Electronic Communica tion Start: 10-22-2024 End: 10-22-2024 Patient encounter procedure Demetrius Moon MD Work Phone: Hematology/Oncology Comment on above: Cutaneous B-cell lym phoma (HCC) Start: 10-22-2024 End: 10-22-2024 ambulatory Demetrius Moon MD Work Phone: Hematology/Oncology Comment on above: Cutaneous B-cell lym phoma (HCC) (Primary Dx) Start: 10-12-2024 End: 10-13-2024 Refill Alda Pabon MD Work Phone: [facility] Comment on above: Med Change Request Start: 10-08-2024 End: 10-08-2024 Patient encounter procedure Cordell Rivers RT(R) Nuclear Medicine Start: 10-08-2024 End: 10-08-2024 ambulatory Cordell Rivers RT(R) Nuclear Medicine Comment on above: Radiology [place] Start: 10-08-2024 End: 10-08-2024 Subsequent hospital visit by physician [facility] Work Phone: Nuclear Medicine Start: 09-30-2024 End: 09-30-2024 Telephone encounter Demetrius Moon MD Work Phone: Hematology/Oncology Comment on above: Patient Update Start: 09-30-2024 ambulatory DEMETRIUS MOON Facil [facility] Start: 09-30-2024 End: 09-30-2024 Subsequent hospital visit by physician [facility] Start: 09-18-2024 End: 09-18-2024 ambulatory [facility] Facility:[facility] Start: 09-10-2024 End: 09-10-2024 Telephone encounter Andrzej Abbasi RN Work Phone: Hematology/Oncology Comment on above: Future Appointment Start: 09-10-2024 End: 09-10-2024 Patient encounter procedure Demetrius Moon MD Work Phone: Hematology/Oncology Start: 09-10-2024 End: 09-10-2024 ambulatory Demetrius Moon MD Work Phone: Hematology/Oncology Comment on above: Cutaneous B-cell lym phoma (HCC) (Primary Dx) Start: 09-05-2024 End: 09-05-2024 ambulatory [facility] Facility:[facility] Start: 07-18-2024 End: 07-18-2024 ambulatory [facility] Facility:[facility] Start: 06-16-2024 End: 06-16-2024 Patient encounter procedure Kayleigh Dominguez APRN.FLEET OPERATIONS MANAGER Work Phone: Pulmonary Medicine Comment on above: Multiple lung nodule s (Primary Dx); Encounter for screening for lung cancer; Tobacco use current Start: 06-16-2024 End: 06-16-2024 ambulatory KAYLEIGH DOMINGUEZ Facility:[facility] Start: 06-16-2024 End: 06-16-2024 Subsequent hospital visit by physician [facility] ([facility]) Work Phone: Cat Scan Comment on above: Encounter for screen ing for lung cancer [Z12.2] Start: 06-06-2024 End: 06-06-2024 Orders Only Kayleigh Dominguez APRN.CNP Work Phone: [facility] Pulmonary Comment on above: Encounter for screen ing for lung cancer (Primary Dx); Tobacco use current Start: 03-20-2024 End: 03-20-2024 ambulatory [facility] Facility:[facility] Start: 03-20-2024 End: 03-20-2024 Patient encounter procedure Alda Pabon MD Work Phone: [facility] [place] Comment on above: Essential hypertensi on, benign (Primary Dx); Gastroesophageal reflux disease, unspecified whether esophagitis present; Hypothyroidism, unspecified type; Hyperlipidemia, unspecified hyperlipidemia type; Spinal stenosis of lumbar region, unspecified whether neurogenic claudication present; Tobacco abuse; Screening for colon cancer; Need for influenza vaccination; Need for vaccination Start: 03-15-2024 End: 03-15-2024 ambulatory [facility] Facility:[facility] Start: 02-05-2024 End: 02-06-2024 Refill Jerrell Webster APRN.CNP Work Phone: [facility] Comment on above: Refill Request Start: 01-30-2024 End: 01-31-2024 Documentation procedure Mammography Coordinator [facility] Department Start: 01-30-2024 End: 01-31-2024 Letter encounter Mammography Coordinator [facility] Department Start: 01-29-2024 End: 01-29-2024 ambulatory [facility] Facility:[facility] Start: 01-29-2024 End: 01-29-2024 Subsequent hospital visit by physician Screen Mammo [facility] Mammogram Comment on above: Visit for screening mammogram [Z12.31] Start: 11-30-2023 End: 11-30-2023 ambulatory JERRELL WEBSTER Facility:[facility] Start: 11-30-2023 End: 11-30-2023 Office outpatient visit 15 minutes Jerrell Webster APRN.CNP Work Phone: [facility] [place] Comment on above: Subconjunctival blee d, left (Primary Dx) Start: 11-29-2023 ambulatory Janelle Mccauley RN NURSE [facility] Comment on above: Eye Complaint Start: 11-19-2023 End: 11-19-2023 ambulatory ARIEL FINE Facility:[facility] Start: 11-19-2023 End: 11-19-2023 Patient encounter procedure Ariel Fine MD Work Phone: Cardiology Comment on above: Coronary artery calc ification seen on CAT scan (Primary Dx); Aortic ectasia, thoracic (HCC); Essential hypertension, benign; Acute viral pericarditis Start: 09-14-2023 End: 09-14-2023 Patient encounter procedure Alda Pabon MD Work Phone: [facility] [place] Comment on above: Essential hypertensi on, benign (Primary Dx); Hyperlipidemia, unspecified hyperlipidemia type; Hypothyroidism, unspecified type; Gastroesophageal reflux disease, unspecified whether esophagitis present; Chronic low back pain, unspecified back pain laterality, unspecified whether sciatica present; Atypical nevus; Tobacco abuse; Aortic ectasia, thoracic (HCC) Start: 07-24-2023 Telephone encounter Ariel Fine MD Work Phone: [facility] Cardiology [place] Comment on above: Results Start: 2023 Telephone encounter Kayeligh morgan GLASSWARE SELECTOR.FLEET OPERATIONS MANAGER Work Phone: Pulmonary Medicine Comment on above: Results Start: 04-23-2023 Telephone encounter Kayleigh morgan GLASSWARE SELECTOR.FLEET OPERATIONS MANAGER Work Phone: [facility] Pulmonary Comment on above: Results Orders Start: 04-11-2023 End: 04-11-2023 Subsequent hospital visit by physician [facility] Work Phone: Cat Scan Comment on above: Tobacco use current [Z72.0] Start: 03-27-2023 End: 03-27-2023 Patient encounter procedure Kayleigh Dominguez APRN.FLEET OPERATIONS MANAGER Work Phone: Pulmonary Medicine Comment on above: Encounter for screen ing for lung cancer (Primary Dx); Tobacco use current Start: 03-13-2023 End: 03-13-2023 Office outpatient visit 25 minutes Jerrell Webster KEISHA Work Phone: [facility] [place] Comment on above: Essential hypertensi on, benign (Primary Dx); Hyperlipidemia, unspecified hyperlipidemia type; Hypothyroidism, unspecified type; Gastroesophageal reflux disease, unspecified whether esophagitis present; Chronic low back pain, unspecified back pain laterality, unspecified whether sciatica present; Encounter for immunization; Screening for colon cancer; Encounter for screening for lung cancer Start: 01-24-2023 Documentation procedure Mammog loree Coordinator [facility] Start: 01-24-2023 Letter encounter Mammography Coordinator [facility] Department Start: 12-21-2022 Telephone encounter Alda jane MD Work Phone: [facility] [place] Comment on above: Mammogram order Start: 10-21-2022 End: 10-21-2022 Emergency department patient visit Alda Pabon Facility:[facility] Start: 10-21-2022 End: 10-21-2022 Emergency department patient visit [facility] Start: 08-18-2022 Telephone encounter Alda jane MD Work Phone: [facility] [place] Comment on above: reschedule appt 02/20 Start: 08-15-2022 End: 08-15-2022 Patient encounter procedure Alda Pabon MD Work Phone: [facility] [place] Comment on above: Essential hypertensi on, benign (Primary Dx); Need for vaccination; Hyperlipidemia, unspecified hyperlipidemia type; Tobacco abuse; SAMMY (obstructive sleep apnea); Gastroesophageal reflux disease, unspecified whether esophagitis present; Hypothyroidism, unspecified type Start: 02-15-2022 End: 02-15-2022 Subsequent hospital visit by physician [facility] Work Phone: Radiology Comment on above: Abnormal mammogram [ R92.8] Start: 02-15-2022 End: 02-15-2022 Patient encounter procedure Alda Pabon MD Work Phone: [facility] [place] Comment on above: Essential hypertensi on, benign (Primary Dx); Hypothyroidism, unspecified type; Screening for colon cancer; Hyperlipidemia, unspecified hyperlipidemia type; Tobacco abuse; SAMMY (obstructive sleep apnea); Gastroesophageal reflux disease, unspecified whether esophagitis present; Acute pain of right shoulder Start: 01-17-2022 Documentation procedure Mammog loree Coordinator [facility] Start: 01-17-2022 Letter encounter Mammography Coordinator [facility] Department Start: 01-17-2022 Telephone encounter Cari alfredo GLASSWARE SELECTOR.FLEET OPERATIONS MANAGER Work Phone: OB/Gynecology Comment on above: Orders Procedures Date Procedure Procedure Detail Performing Clinician Start: 10-08-2024 Gluc bld gluc mntr d ev cleared fda spec home use [facility] Provider Start: 09-30-2024 Gluc bld gluc mntr d ev cleared fda spec home use [facility] Provider Start: 09-18-2024 Adult depression scr eening assessment Demetrius Moon MD Work Phone: Start: 09-05-2024 Lipid 1996 panel - S wisam or Plasma Demetrius Moon MD Work Phone: Start: 06-16-2024 CT LUNG SCREEN WO MALKA Dominguez GLASSWARE SELECTOR.FLEET OPERATIONS MANAGER Work Phone: Start: 03-15-2024 Lipid 1996 panel - S wisam or Plasma Alda Pabon MD Work Phone: Start: 11-19-2023 Ecg routine ecg w/le ast 12 lds i&r only [facility] Provider Start: 09-14-2023 Adult depression scr eening assessment Screen [facility] Start: 09-08-2023 Lipid 1995 panel - S wisam or Plasma Alda Pabon MD Work Phone: Start: 03-13-2023 INFLUENZA VACCINE, P RSV FREE, AGE 65+ YR, HIGH DOSE, QUADRIVALENT (FLUZONE HIGH-DOSE) Jerrell Webster GLASSWARE SELECTOR.FLEET OPERATIONS MANAGER Work Phone: Start: 01-23-2023 Mammography Mammograph y Coordinator Start: 08-10-2022 Lipid 1995 panel - S wisam or Plasma Jerrell Webster GLASSWARE SELECTOR.FLEET OPERATIONS MANAGER Work Phone: Start: 02-15-2022 Us breast uni real t rainer with image limited Cari Andujar GLASSWARE SELECTOR.FLEET OPERATIONS MANAGER Work Phone: Start: 02-15-2022 ENRIQUE LUCYG W DONY RT Jeffery Andujar GLASSWARE SELECTOR.VANESSA Work Phone: Start: 01-17-2022 Mammography Cari Moore sayda GLASSWARE SELECTOR.VANESSA Work Phone: Start: 08-03-2021 Adult depression scr eening assessment Cari Lof GLASSWARE SELECTOR.VANESSA Work Phone: Plan of Treatment Date Care Activity Detail Author Start: 2030 RSV Vaccine (1 - 1-d ose 75+ series) RSV Vaccine (1 - 1-dose 75+ series) [facility] Start: 09-05-2029 Lipid panel Lipid Screening [facility] Start: 03-15-2029 Lipid panel Lipid Screening [facility] Start: 09-07-2028 Lipid panel Lipid Screening [facility] Start: 06-11-2028 Urine microalbumin profile [facility] Start: 09-06-2027 Diabetes Screening Diabetes Screenin [facility] Start: 08-11-2027 Lipid 1996 panel - Serum or Plasma Lipid Screening [facility] Start: 08-11-2027 Lipid panel Lipid Screening [facility] Start: 08-11-2027 LIPID SCREEN LIPID SCREEN [facility] Start: 03-25-2027 Screening for malign ant neoplasm of colon [facility] Start: 03-15-2027 Diabetes Screening Diabetes Screenin g [facility] Start: 09-07-2026 Diabetes Screening Diabetes Screenin [facility] Start: 07-28-2026 LIPID SCREEN LIPID SCREEN [facility] Start: 09-18-2025 Annual PCP Team Window [employer] Door Installer matteo Disease Visit Annual PCP Team Chronic Disease Visit [facility] Start: 09-18-2025 Anxiety Screening Anxiety Screening [facility] Start: 09-18-2025 Depression Screening Depression Scre ening [facility] Start: 09-05-2025 Hepatitis B surface antibody level LDL Cholesterol [facility] Start: 08-10-2025 DIABETES SCREEN DIABETES SCREEN [facility] Start: 08-10-2025 Diabetes Screening Diabetes Screenin g [facility] Start: 06-22-2025 End: 06-22-2025 Patient encounter procedure Cat Scan Comment on above: 1 yr LDCT 1 yr LCS Start: 06-16-2025 Screening for malign ant neoplasm of lung Lung Cancer Screening [facility] Start: 03-20-2025 Annual PCP Team Window And Door Installer matteo Disease Visit Annual PCP Team Chronic Disease Visit [facility] Start: 03-20-2025 BP Controlled (<130/80) BP Controlle d (<130/80) [facility] Start: 03-20-2025 Covid-19 Vaccine () Covid-19 Vaccine () [facility] Comment on above: Postponed from 01/26 (Declined at this time) Start: 03-15-2025 Hepatitis B surface antibody level LDL Cholesterol [facility] Start: 01-28-2025 Screening for malign ant neoplasm of breast Mammogram Screening [facility] Start: 11-29-2024 Annual PCP Team Window And Door Installer matteo Disease Visit Annual PCP Team Chronic Disease Visit [facility] Start: 11-20-2024 End: 11-20-2024 Patient encounter procedure 11/20/2024 10:40 AM EDT Office Visit Family [facility] [place] [address] [place] [address] Alda Pabon MD [address] [place] [id number] 2 mo f/u [facility] Comment on above: 2 mo f/u [facility] Start: 11-17-2024 End: 11-17-2024 Patient encounter procedure Cardiology Comment on above: 1 YEAR FOLLOW UP Start: 11-03-2024 End: 11-03-2024 Patient encounter procedure 11/03/2024 10:30 AM EDT Office Visit Radiation Oncology [address] [place] [id number] Roxana Malloy MD [address] [place] [id number] 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] Radiation Oncology Comment on above: Cutaneous B-cell lym phoma (HCC) [C85.19] Start: 11-03-2024 End: 11-03-2024 ambulatory 11/03/2024 9:40 AM EDT Visit (SP) Office Hematology/Oncology [address] [place] [address] Demetrius Moon MD [address] [place] [address] OV/PET 5/6* Hematology/Oncology Comment on above: OV/PET 5/6* Start: 10-30-2024 End: 10-30-2024 Patient encounter procedure 10/30/2024 11:30 AM EDT Appointment Radiation Oncology [address] [place] [address] Roxana Malloy MD [address] [place] [address] Electron Radiation Oncology Comment on above: Electron Start: 10-28-2024 End: 10-28-2024 Nursing evaluation of patient and report 10/28/2024 11:00 AM EDT Nurse Visit Radiation Oncology [address] [place] [address] Wstr, Nurse Radt [facility] [address] [place] [address] left shoulder Radiation Oncology Comment on above: left shoulder Start: 10-28-2024 End: 10-28-2024 Patient encounter procedure 10/28/2024 10:15 AM EDT Office Visit Radiation Oncology [address] [place] [address] Roxana Malloy MD [address] [place] [address] Electron SIM on table Left Shoulder Radiation Oncology Comment on above: Electron SIM on tabl e Left Shoulder Start: 10-22-2024 End: 10-22-2024 Patient encounter procedure 10/22/2024 10:30 AM EDT Office Visit Radiation Oncology [address] [place] [address] Roxana Malloy MD [address] [place] [address] 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]/CHECK ON PET REPORT/NOTIFY PT/SEES DR Dianna LOTT Radiation Oncology Comment on above: Cutaneous B-cell lym phoma (HCC) [C85.19]/CHECK ON PET REPORT/NOTIFY PT/SEES DR Dianna LOTT Start: 10-22-2024 End: 10-22-2024 ambulatory 10/22/2024 9:00 AM EDT Visit (SP) Office Hematology/Oncology [address] [place] [address] Demetrius Moon MD [address] [place] [address] OV/PET 10/08 *ok per nurse for new pt appt Hematology/Oncology Comment on above: OV/PET 10/08 *ok per nurse for new pt appt Start: 10-08-2024 End: 10-08-2024 Patient encounter procedure Nuclear Medicine Comment on above: Cutaneous B-cell lym phoma (HCC) [C85.19] Start: 09-30-2024 End: 09-30-2024 Patient encounter procedure Mobile PET CT Comment on above: Cutaneous B-cell lym phoma (HCC) [C85.19] Start: 09-18-2024 End: 12-18-2024 CBC W Auto Differential panel - Blood COMPLETE BLOOD COUNT AND DIFFERENTIAL Lab Routine Essential hypertension, benign Hyperlipidemia, unspecified hyperlipidemia type Tobacco abuse Expected: 09/18/2024 (Approximate), Expires: 12/18/2024 [facility] Comment on above: Expected: 09/18/2024 (Approximate), Expires: 12/18/2024 Start: 09-18-2024 End: 12-18-2024 Comprehensive metabolic 2000 panel - Serum or Plasma COMPREHENSIVE METABOLIC PANEL Lab Routine Hyperlipidemia, unspecified hyperlipidemia type Expected: 09/18/2024 (Approximate), Expires: 12/18/2024 [facility] Comment on above: Expected: 09/18/2024 (Approximate), Expires: 12/18/2024 Start: 09-18-2024 End: 12-18-2024 Lipid 1996 panel - Serum or Plasma LIPID PANEL BASIC Lab Routine Hyperlipidemia, unspecified hyperlipidemia type Expected: 09/18/2024 (Approximate), Expires: 12/18/2024 [facility] Work Phone: Comment on above: Expected: 09/18/2024 (Approximate), Expires: 12/18/2024 Start: 09-18-2024 End: 12-18-2024 Thyrotropin [Units/volume] in Serum or Plasma THYROID STIMULATING HORMONE Lab Routine Hypothyroidism, unspecified type Expected: 09/18/2024 (Approximate), Expires: 12/18/2024 [facility] Comment on above: Expected: 09/18/2024 (Approximate), Expires: 12/18/2024 Start: 09-18-2024 End: 09-18-2024 Patient encounter procedure 09/18/2024 11:00 AM EDT Office Visit Family [facility] [place] [address] [place] [address] Alda Pabon MD [address] [place] [address] 6 month follow up Family [facility] Comment on above: 6 month follow up Start: 09-13-2024 Annual PCP Team Window And Door Installer matteo Disease Visit Annual PCP Team Chronic Disease Visit [facility] Start: 09-13-2024 Anxiety Screening Anxiety Screening [facility] Start: 09-13-2024 Covid-19 Vaccine () Covid-19 Vaccine () [facility] Comment on above: Postponed from 01/26 (Declined at this time) Start: 09-13-2024 Depression Screening Depression Scre ening [facility] Start: 09-13-2024 RSV Vaccine (1 - 1-d ose 60+ series) RSV Vaccine (1 - 1-dose 60+ series) [facility] Comment on above: Postponed from 04/24 (Declined at this time) Start: 09-07-2024 Hepatitis B surface antibody level LDL Cholesterol [facility] Start: 07-28-2024 DIABETES SCREEN DIABETES SCREEN [facility] Start: 06-16-2024 End: 06-16-2024 Patient encounter procedure Cat Scan Comment on above: LCS Encounter for screen ing for lung cancer [Z12.2] Start: 05-28-2024 Advance Directive Discussion Advance Directive Discussion [facility] Start: 04-11-2024 Influenza vaccination Lung Cancer Sc reening [facility] Start: 04-11-2024 Screening for malign ant neoplasm of lung Lung Cancer Screening [facility] Start: 03-26-2024 Colorectal Cancer Screening Colorectal Cancer Screening [facility] Start: 03-26-2024 Fecal Occult Blood Fecal Occult Bloo d [facility] Start: 03-26-2024 Screening for malign ant neoplasm of colon [facility] Start: 03-20-2024 End: 03-20-2024 Patient encounter procedure 03/20/2024 11:20 AM EDT Office Visit [facility] [address] [facility] [place] [id number] Alda Pabon MD [address] [place] [id number] 6 mo f/u [facility] Comment on above: 6 mo f/u Start: 03-15-2024 End: 06-14-2024 Comprehensive metabolic 2000 panel - Serum or Plasma COMPREHENSIVE METABOLIC PANEL Lab Routine Essential hypertension, benign Hyperlipidemia, unspecified hyperlipidemia type Expected: 03/15/2024 (Approximate), Expires: 06/14/2024 [facility] Work Phone: Comment on above: Expected: 03/15/2024 (Approximate), Expires: 06/14/2024 Start: 03-15-2024 End: 06-14-2024 Lipid 1996 panel - Serum or Plasma LIPID PANEL BASIC Lab Routine Essential hypertension, benign Hyperlipidemia, unspecified hyperlipidemia type Expected: 03/15/2024 (Approximate), Expires: 06/14/2024 [facility] Work Phone: Comment on above: Expected: 03/15/2024 (Approximate), Expires: 06/14/2024 Start: 03-15-2024 End: 06-14-2024 Thyrotropin [Units/volume] in Serum or Plasma THYROID STIMULATING HORMONE Lab Routine Hypothyroidism, unspecified type Expected: 03/15/2024 (Approximate), Expires: 06/14/2024 [facility] Work Phone: Comment on above: Expected: 03/15/2024 (Approximate), Expires: 06/14/2024 Start: 03-13-2024 Annual PCP Team Window And Door Installer matteo Disease Visit Annual PCP Team Chronic Disease Visit [facility] Start: 01-29-2024 End: 01-29-2024 Patient encounter procedure 01/29/2024 11:30 AM EDT Appointment Mammogram [address] [place] [address] screening mammogram Mammogram Comment on above: screening mammogram Start: 01-27-2024 Covid-19 Vaccine () Covid-19 Vaccine () [facility] Start: 01-27-2024 Influenza vaccination Influenza Vacc ine (#1) [facility] Start: 01-24-2024 Mammography [facility] Start: 01-24-2024 Screening for malign ant neoplasm of breast Mammogram Screening [facility] Start: 11-30-2023 End: 11-30-2023 Patient encounter procedure 11/30/2023 7:40 AM EDT Office Visit [facility] [address] [place], [place] [id number] Jerrell Webster, GLASSWARE SELECTOR.FLEET OPERATIONS MANAGER [address] [place], [place] [phone] PER NOC SEEN WITHIN 24 HOURS BLEEDING INSIDE OF EYE [facility] [place] Comment on above: PER NOC SEEN WITHIN 24 HOURS BLEEDING INSIDE OF EYE Start: 09-12-2023 End: 12-12-2023 Comprehensive metabolic 2000 panel - Serum or Plasma COMP METABOLIC PANEL Lab Routine Essential hypertension, benign Hyperlipidemia, unspecified hyperlipidemia type Hypothyroidism, unspecified type Expected: 09/12/2023 (Approximate), Expires: 12/12/2023 [facility] Work Phone: Comment on above: Expected: 09/12/2023 (Approximate), Expires: 12/12/2023 Start: 09-12-2023 End: 12-12-2023 Lipid 1996 panel - Serum or Plasma LIPID PANEL BASIC Lab Routine Hyperlipidemia, unspecified hyperlipidemia type Expected: 09/12/2023 (Approximate), Expires: 12/12/2023 [facility] Work Phone: Comment on above: Expected: 09/12/2023 (Approximate), Expires: 12/12/2023 Start: 09-12-2023 End: 12-12-2023 Thyrotropin [Units/volume] in Serum or Plasma TSH BLD Lab Routine Hypothyroidism, unspecified type Expected: 09/12/2023 (Approximate), Expires: 12/12/2023 [facility] Work Phone: Comment on above: Expected: 09/12/2023 (Approximate), Expires: 12/12/2023 Start: 08-16-2023 ANNUAL PCP TEAM BOTTOM FINISHER MATTEO DISEASE VISIT ANNUAL PCP TEAM CHRONIC DISEASE VISIT [facility] Start: 08-16-2023 BP CONTROLLED (<130/80) BP CONTROLLE D (<130/80) [facility] Start: 08-11-2023 Hepatitis B surface antibody level LDL Cholesterol [facility] Start: 05-28-2023 Advance Directive Discussion Advance Directive Discussion [facility] Start: 05-28-2023 Depression Assessment Depression Ass essment [facility] Start: 03-28-2023 COLORECTAL CANCER SCREENING COLORECTAL CANCER SCREENING [facility] Start: 03-28-2023 FECAL OCCULT BLOOD FECAL OCCULT BLOO D [facility] Start: 02-15-2023 ANNUAL PCP TEAM BOTTOM FINISHER MATTEO DISEASE VISIT ANNUAL PCP TEAM CHRONIC DISEASE VISIT [facility] Start: 02-15-2023 End: 04-17-2023 Thyrotropin [Units/volume] in Serum or Plasma TSH BLD Lab Routine Hypothyroidism, unspecified type Expected: 02/15/2023 (Approximate), Expires: 04/17/2023 [facility] Work Phone: Comment on above: Expected: 02/15/2023 (Approximate), Expires: 04/17/2023 Start: 01-26-2023 Covid-19 Vaccine () Covid-19 Vaccine () [facility] Start: 01-26-2023 Influenza vaccination C [facility] Start: 01-17-2023 Mammography MAMMOGRAM [facility] Start: 08-15-2022 End: 10-15-2022 Comprehensive metabolic 2000 panel - Serum or Plasma COMP METABOLIC PANEL Lab Routine Hyperlipidemia, unspecified hyperlipidemia type Expected: 08/15/2022 (Approximate), Expires: 10/15/2022 [facility] Work Phone: Comment on above: Expected: 08/15/2022 (Approximate), Expires: 10/15/2022 Start: 08-15-2022 End: 10-15-2022 Lipid 1996 panel - Serum or Plasma LIPID PANEL BASIC Lab Routine Hyperlipidemia, unspecified hyperlipidemia type Expected: 08/15/2022 (Approximate), Expires: 10/15/2022 [facility] Work Phone: Comment on above: Expected: 08/15/2022 (Approximate), Expires: 10/15/2022 Start: 08-15-2022 End: 10-15-2022 Thyrotropin [Units/volume] in Serum or Plasma TSH BLD Lab Routine Hypothyroidism, unspecified type Expected: 08/15/2022 (Approximate), Expires: 10/15/2022 [facility] Work Phone: Comment on above: Expected: 08/15/2022 (Approximate), Expires: 10/15/2022 Start: 08-03-2022 Adult depression screening assessment DEPRESSION SCREENING [facility] Start: 08-03-2022 ANNUAL PCP TEAM BOTTOM FINISHER MATTEO DISEASE VISIT ANNUAL PCP TEAM CHRONIC DISEASE VISIT [facility] Start: 08-03-2022 PNEUMOCOCCAL: 65+ (2 - PCV) PNEUMOCOCCAL: 65+ (2 - PCV) [facility] Start: 05-28-2022 ADVANCE DIRECTIVE DISCUSSION ADVANCE DIRECTIVE DISCUSSION [facility] Start: 02-08-2022 COLORECTAL CANCER SCREENING COLORECTAL CANCER SCREENING [facility] Start: 02-08-2022 FECAL OCCULT BLOOD FECAL OCCULT BLOO D [facility] Start: 02-02-2022 HEPATITIS C SCREENING HEPATITIS C [facility] Comment on above: Postponed from 04/24 (Declined at this time) Start: 01-26-2022 Influenza vaccination INFLUENZA (#1) [facility] Start: 08-17-2021 COVID-19 VACCINE (4 - Booster for Moderna series) COVID-19 VACCINE (4 - Booster for Moderna series) [facility] Start: 06-14-2021 COVID-19 VACCINE (4 - Booster for Moderna series) COVID-19 VACCINE (4 - Booster for Moderna series) [facility] Start: 06-14-2021 COVID-19 VACCINE (4 - Moderna series) COVID-19 VACCINE (4 - Moderna series) [facility] Start: 2015 RSV Vaccine (1 - 1-d ose 60+ series) RSV Vaccine (1 - 1-dose 60+ series) [facility] Start: 2005 Influenza vaccination LUNG CANCER [facility] Start: 2000 COLOGUARD (FIT-DNA) COLOGUARD (FIT-D NA) [facility] Start: 2000 Colonoscopy COLONOSCOPY [facility] Start: [address] COLONOGRAPHY [facility] Start: 2000 Screening for malign ant neoplasm of colon [facility] Start: 2000 SIGMOIDOSCOPY SIGMOIDOSCOPY [facility] Start: 1973 BP CONTROLLED (<130/80) BP CONTROLLE D (<130/80) [facility] Start: 1973 HEPATITIS C SCREENING HEPATITIS C [facility] COLOGUARD COLOGUARD Lab Ro utine Screening for colon cancer Ordered: 03/20/2024 [facility] Comment on above: Ordered: 03/20/2024 End: 07-06-2025 CT Chest for screening WO contrast CT LUNG SCREEN WO IVCON Radiology Routine Encounter for screening for lung cancer Tobacco use current 1 Occurrences starting 06/06/2024 until 07/06/2025 [facility] Work Phone: Comment on above: 1 Occurrences starti ng 06/06/2024 until 07/06/2025 End: 07-16-2025 CT Chest for screening WO contrast CT LUNG SCREEN WO IVCON Radiology Routine Encounter for screening for lung cancer Tobacco use current 1 Occurrences starting 06/16/2024 until 07/16/2025 [facility] Work Phone: Comment on above: 1 Occurrences starti ng 06/16/2024 until 07/16/2025 End: 04-25-2024 CT LUNG SCREEN WO IVCON CT LUNG SCREEN WO IVCON Radiology Routine Tobacco use current 1 Occurrences starting 03/27/2023 until 04/25/2024 [facility] Work Phone: Comment on above: 1 Occurrences starti ng 03/27/2023 until 04/25/2024 CT LUNG SCREEN WO IVCON CT LUNG SCREEN WO IVCON Radiology Routine Tobacco use current 04/11/2023 1:43 PM EST [facility] Work Phone: End: 05-22-2024 CT LUNG SCREEN WO IVCON CT LUNG SCREEN WO IVCON Radiology Routine Tobacco use current 1 Occurrences starting 04/23/2023 until 05/22/2024 [facility] Work Phone: Comment on above: 1 Occurrences starti ng 04/23/2023 until 05/22/2024 End: 02-16-2023 Diagnostic mammography computer-aided detcj bi ENRIQUE DIAGNOSTIC BILAT Radiology Routine Abnormal mammogram 1 Occurrences starting 01/17/2022 until 02/16/2023 [facility] Work Phone: Comment on above: 1 Occurrences starti ng 01/17/2022 until 02/16/2023 ECG COMPLETE ECG COMPLETE ECG Routine Ordered: 11/13/2023 [facility] Work Phone: Comment on above: Ordered: 11/13/2023 ECG COMPLETE ECG COMPLETE ECG 11/19/2023 10:38 AM EDT [facility] Hemoglobin.gastroint est inal.lower [Presence] in Stool by Immunoassay FECAL OCCULT BLOOD TEST Lab Routine Screening for colon cancer Ordered: 02/15/2022 [facility] Work Phone: Comment on above: Ordered: 02/15/2022 Hemoglobin.gastroint est inal.lower [Presence] in Stool by Immunoassay FECAL OCCULT BLOOD TEST Lab Routine Screening for colon cancer Ordered: 03/13/2023 [facility] Work Phone: Comment on above: Ordered: 03/13/2023 End: 01-20-2024 ENRIQUE SCREENING ENRIQUE SCREENING Radiology Routine Encounter for screening mammogram for breast cancer 1 Occurrences starting 12/22/2022 until 01/20/2024 [facility] Work Phone: Comment on above: 1 Occurrences starti ng 12/22/2022 until 01/20/2024 MG Breast Screening ENRIQUE SCREENIN G Radiology Routine Visit for screening mammogram 01/29/2024 11:31 AM EDT [facility] Work Phone: Patient Education Dental Abscess [facility] Work Phone: Patient referral [facility] Work Phone: End: 10-10-2025 PET+CT Whole body Bone W [id number] IV NM PET/CT WHOLE BODY INITIAL Radiology Routine Cutaneous B-cell lymphoma (HCC) 1 Occurrences starting 09/10/2024 until 10/10/2025 [facility] Work Phone: Comment on above: 1 Occurrences starti ng 09/10/2024 until 10/10/2025 End: 02-16-2023 Us breast uni real time with image limited [facility] Work Phone: Comment on above: 1 Occurrences starti ng 01/17/2022 until 02/16/2023 End: 02-15-2022 Us breast uni real time with image limited US BREAST LTD RT Radiology Routine Abnormal mammogram 1 Occurrences starting 02/15/2022 until 02/15/2022 [facility] Work Phone: Comment on above: 1 Occurrences starti ng 02/15/2022 until 02/15/2022 [facility] Immunizations Immunization Date Immunization Notes Care Provider [facility] 03-25-2024 respiratory syncytia l virus (RSV) vaccine, adjuvanted (AREXVY) Kayleigh Dominguez GLASSWARE SELECTOR.FLEET OPERATIONS MANAGER Work Phone: [facility] 03-20-2024 influenza, high dose seasonal, preservative-free Alda Pabon MD Work Phone: [facility] 03-13-2023 influenza (HD-IIV4) vaccine, age 65+ yr, high dose, quadrivalent, PF (FLUZONE HIGH-DOSE) Jerrell Webster APRN.FLEET OPERATIONS MANAGER Work Phone: [facility] 03-13-2023 influenza virus vaccine, unspecified formulation Jerrell Webster APRN.FLEET OPERATIONS MANAGER Work Phone: [facility] 08-15-2022 pneumococcal (PCV20) vaccine, 20 valent (PREVNAR 20) Alda Pabon MD Work Phone: [facility] 08-15-2022 pneumococcal Conjuga te, unspecified formulation Alda Pabon MD Work Phone: [facility] Work Phone: 02-05-2022 influenza (aIIV4) vaccine, age 65+ yr, quadrivalent, PF (FLUAD QUAD) Alda Pabon MD Work Phone: [facility] 02-05-2022 influenza, high dose seasonal, preservative-free Alda Pabon MD Work Phone: [facility] 08-03-2021 pneumococcal polysaccharide vaccine, 23 valent Cari Con GLASSWARE SELECTOR.FLEET OPERATIONS MANAGER Work Phone: [facility] 02-02-2021 influenza, high-dose , quadrivalent vaccine (FLUZONE HIGH DOSE QUADRIVALENT) Cari Con GLASSWARE SELECTOR.FLEET OPERATIONS MANAGER Work Phone: [facility] 09-09-2020 COVID-19 vaccine, fu ll dose (MODERNA) Cari Con GLASSWARE SELECTOR.FLEET OPERATIONS MANAGER Work Phone: [facility] 08-12-2020 COVID-19 vaccine, fu ll dose (MODERNA) Cari [place] GLASSWARE SELECTOR.FLEET OPERATIONS MANAGER Work Phone: [facility] 05-06-2020 zoster vaccine recombinant Cari Con GLASSWARE SELECTOR.FLEET OPERATIONS MANAGER Work Phone: [facility] 02-12-2020 influenza, injectabl e, quadrivalent, contains preservative Cari Con GLASSWARE SELECTOR.FLEET OPERATIONS MANAGER Work Phone: [facility] Work Phone: 02-12-2020 zoster vaccine recombinant Cari [place] GLASSWARE SELECTOR.FLEET OPERATIONS MANAGER Work Phone: [facility] Work Phone: 03-12-2019 influenza, injectabl e, quadrivalent, contains preservative Cari [place] GLASSWARE SELECTOR.FLEET OPERATIONS MANAGER Work Phone: [facility] 06-11-2018 tetanus toxoid, redu bibi diphtheria toxoid, and acellular pertussis vaccine, adsorbed Cari Con GLASSWARE SELECTOR.FLEET OPERATIONS MANAGER Work Phone: [facility] 02-28-2018 influenza, injectabl e, quadrivalent, contains preservative Cari [place] GLASSWARE SELECTOR.FLEET OPERATIONS MANAGER Work Phone: [facility] 03-27-2017 influenza, injectabl e, quadrivalent, contains preservative Acri Con GLASSWARE SELECTOR.FLEET OPERATIONS MANAGER Work Phone: [facility] 03-25-2016 influenza, injectabl e, quadrivalent, preservative free Alda Pabon MD Work Phone: [facility] 03-29-2015 influenza, seasonal, injectable Cari Con GLASSWARE SELECTOR.FLEET OPERATIONS MANAGER Work Phone: [facility] Work Phone: 01-26-2015 tetanus toxoid, redu bibi diphtheria toxoid, and acellular pertussis vaccine, adsorbed Alda Pabon MD Work Phone: [facility] 02-23-2014 influenza, seasonal, injectable Cari Con GLASSWARE SELECTOR.FLEET OPERATIONS MANAGER Work Phone: [facility] 03-07-2011 influenza virus vaccine, unspecified formulation Cari Con GLASSWARE SELECTOR.FLEET OPERATIONS MANAGER Work Phone: [facility] 03-12-2009 influenza virus vaccine, unspecified formulation Cari [place] GLASSWARE SELECTOR.FLEET OPERATIONS MANAGER Work Phone: [facility] 03-27-2008 influenza virus vaccine, unspecified formulation Cari [place] GLASSWARE SELECTOR.FLEET OPERATIONS MANAGER Work Phone: [facility] 03-27-2008 tetanus toxoid, redu bibi diphtheria toxoid, and acellular pertussis vaccine, adsorbed Cari [place] GLASSWARE SELECTOR.FLEET OPERATIONS MANAGER Work Phone: [facility] Payers Date Payer Category Payer Government (not [facility] or Medicaid) [facility] [id number] 2022 [facility] ( and others) [id number] 2022 Self-pay [id number] 2020 Medicare [id number] 2020 Medicare [id number] 2020 Unknown [id number] Unknown [id number] Social History Date Type Detail Facility Start: 05-28-1971 End: 06-16-2024 Tobacco smoking status KSIS Smokes tobacco daily [facility] Work Phone: Start: 05-28-1971 History of tobacco use Cigarette Smoker [facility] Work Phone: Start: 04-26-2011 End: 03-13-2023 Cigarettes smoked current (pack per day) - Reported 1 [facility] Start: 04-26-2011 End: 06-16-2024 Tobacco use and exposure Smokeless tobacco non-user [facility] Work Phone: Start: 08-03-2021 End: 10-22-2024 Alcohol intake Current drinker of alcohol (finding) [facility] Start: 07-31-2021 End: 08-08-2022 History SDOH Alcohol Frequency 5 [facility] Start: 07-31-2021 End: 08-08-2022 History SDOH Alcohol Std Drinks 1 [facility] Start: 09-20-2016 History SDOH Alcohol Comment Occasionally [facility] Start: 07-31-2021 End: 08-08-2022 History SDOH Social Connections Phone 2 [facility] Start: 07-31-2021 End: 08-08-2022 History SDOH Social Connections Living 3 [facility] Start: 07-31-2021 History SDOH Physical Activity MPS 6 [facility] Start: 06-04-2019 End: 08-08-2022 Education 12 [facility] Start: 1955 Sex Assigned At Not on file [facility] Start: 12-10-2021 End: 02-15-2022 Exposure to SARS-CoV-2 (event) Not sure [facility] Work Phone: Start: 08-08-2022 History SDOH Alcohol Frequency 4 [facility] Start: 08-08-2022 History SDOH Social Connections Get Together 98 [facility] Start: 10-21-2022 Tobacco smoking status NHIS Unknown if ever smoked [facility] Start: 12-17-2017 None [facility] Start: 12-17-2017 Spouse/ Significant Other [facility] Start: 12-18-2017 Cigarettes [facility] Start: 1955 Sex Assigned At Female [facility] Start: 08-08-2022 End: 03-13-2023 Social connection and isolation panel [facility] How often do you get together with friends or relatives? Patient refused [facility] Do you belong to any clubs or organizations such as roman catholic groups, unions, fraternal or athletic groups, or school groups? Yes [facility] Are you now , , , , never or living with a partner? [facility] How often to you hav e a drink containing alcohol? 2-3 time sa week [facility] How many standard dr inks containing alcohol do you have on a typical day? 1 or 2 [facility] How often do you hav e 6 or more drinks on 1 occasion? Never [facility] Do you feel stress - tense, restless, nervous, or anxious, or unable to sleep at night because your mind is troubled all the time - these days [OSQ] Not at all [facility] (I/We) worried wheth er (my/our) food would run out before (I/we) got money to buy more. Never true [facility] In the past 12 month s, was there a time when you were not able to pay the mortgage or rent on time? No [facility] How often to you hav e a drink containing alcohol? 4 or more times a week [facility] Start: 09-14-[address] back, 7-8 cigs per day [facility] Functional Status Date Assessment Result Facility 09-03-2014 Are you deaf, or do you have serious difficulty hearing No 09/03/2014 10:30 AM Viji Frazier LPN No [facility] 09-03-2014 Are you blind, or do you have serious difficulty seeing, even when wearing glasses No 09/03/2014 10:30 AM Viji Frazier LPN No [facility] 09-03-2014 Do you have serious difficulty walking or climbing stairs No 09/03/2014 10:30 AM Viji Frazier LPN No [facility] 09-03-2014 Do you have difficul ty dressing or bathing No 09/03/2014 10:30 AM Viji Frazier LPN No [facility] 09-03-2014 Because of a physica l, mental, or emotional condition, do you have difficulty doing errands alone such as visiting a physician's office or shopping No 09/03/2014 10:30 AM Viji Frazier LPN No [facility] Mental Status Date Assessment Result Facility 09-03-2014 Because of a physica l, mental, or emotional condition, do you have serious difficulty concentrating, remembering, or making decisions No 09/03/2014 10:30 AM Viji Frazier LPN No [facility] Clinical Notes 01-17-2022 to 10-28-2024 Telephone Encounter - Aurora Rodriguez LPN - 10/22/2024 3:53 PM EDTTelephone Encounter - Aurora Rodriguez LPN - 10/22/2024 3:53 PM Roxana Gloria MD - 10/22/2024 9:30 AM EDTPatient Instructions Note Date & Type Note Facility 10-28-2024 Note HNO ID: [id number] Author: YOLANDA BRANNON RN Service: ? Author Type: Registered Nurse Type: Progress Notes Filed: 10/28/2024 15:16 Note Text: Radiation Therapy - Patient Education Note PATIENT NAME: Mckenzie Hayden PATIENT October 28, 2024 [facility] FACILITY/LOCATION: [place] READINESS TO LEARN Cognitive Ability: Alert and oriented Motivation to learn: Interested Family Support: Unable to assess - Family not present Instruction provide to: Patient Patient learns best by: Individual Instruction Written Instruction - Hand-outs Verbal Instruction Factors effecting learning: None Physical limitations effecting learning: None LEARNING RESPONSE Diagnosis: Pt simulated today for radiation therapy to skin.left shoulder Education Topic/Teaching Points: Radiation therapy, Side effects, and OTV: Method of instruction: Teach Back skin care Individual instruction Written instruction/Handouts Verbal instruction Patient /Family response: Patient verbalized understanding of radiation treatments, side effects, OTV, and transportation. Follow-up plan: Complete - No need for follow-up Contact information given. Supplemental material: Informational handouts on Fatigue and Skin changes. Referral (recommendation): None, Pt denied need for social work, van service, and ethnographer. Patient has an Onbody or Implanted device: No Signed by: Yolanda Brannon RN [facility] 10-28-2024 Note HNO ID: [id number] Author: YOLANDA BRANNON RN Service: ? Author Type: Registered Nurse Type: Progress Notes Filed: 10/28/2024 11:13 Note Text: Radiation Therapy - Patient Education Note PATIENT NAME: Mckenzie Hayden PATIENT October 28, 2024 [facility] FACILITY/LOCATION: [place] READINESS TO LEARN Cognitive Ability: Alert and oriented Motivation to learn: Interested Family Support: Unable to assess - Family not present Instruction provide to: Patient Patient learns best by: Individual Instruction Written Instruction - Hand-outs Verbal Instruction Factors effecting learning: None Physical limitations effecting learning: None LEARNING RESPONSE Diagnosis: Pt simulated today for radiation therapy to skin.Left shoulder Education Topic/Teaching Points: Radiation therapy, Side effects, and OTV: Method of instruction: Teach Back skin care Individual instruction Written instruction/Handouts Verbal instruction Patient /Family response: Patient verbalized understanding of radiation treatments, side effects, OTV, and transportation. Follow-up plan: Complete - No need for follow-up Supplemental material: Informational handouts on Fatigue and Skin changes. Referral (recommendation): None, Pt denied need for social work, van service, and ethnographer. Patient has an Onbody or Implanted device: No Signed by: Yolanda Brannon RN [facility] 10-28-2024 Note Education (AMY) MCKENZIE HAYDEN ([id number]) 1955 F Date Time Provider Department 10/28/24 ROXANA MALLOY Reason for Visit: Patient Education [91] Primary Visit Diagnosis: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] During your visit today, we recorded the following information about you: Allergies As of Date: 10/28/2024 Noted Allergy Reaction ATORVASTATIN 02/13/2019 17 - Myalgia Date Reviewed: 10/22/2024 Reviewed by: Lita Byrne RN - Fully Assessed Prescriptions as of 10/28/2024 - propranolol ER (INDERAL LA) 60 mg 24 hr capsule Take 1 capsule by mouth once daily. - triamterene-hydroCHLOROthiazide (MAXZIDE) 75-50 mg per tablet Take 1 tablet by mouth once daily. - Verapamil HCl 100 mg 24 hr capsule Take 1 capsule by mouth once daily. - omeprazole (PRILOSEC) 20 mg capsule Take 1 capsule by mouth once daily. - levothyroxine (SYNTHROID) 150 mcg tablet Take 1 tablet by mouth once daily. Take on empty stomach. For thyroid - fluticasone (FLONASE) 50 mcg/actuation nasal spray USE 2 SPRAYS IN EACH NOSTRIL ONCE DAILY (RINSE MOUTH AFTER USE) - ibuprofen (MOTRIN) 800 mg tablet Take one(1) tablet every eight(8) hours as needed for pain. - Cholecalciferol, Vitamin D3, (VITAMIN D-3) 50 mcg (2,000 unit) cap Take 1 capsule by mouth once daily. - aspirin 81 mg chewable tablet Take 1 tablet by mouth once daily. - Inositol 500 mg tab Take 1 tablet by mouth once daily. - MILK THISTLE ORAL Take 1 tablet by mouth once daily. - UBIDECARENONE (CO Q-10 ORAL) Take 1 tablet by mouth once daily. - multivitamin ORAL tablet Take 1 tablet by mouth once daily. - Calcium-Cholecalciferol, D3, (CALCIUM 600 + D) 600-125 mg-unit ORAL Tab Take 1 tablet by mouth once daily. Encounter Status:Closed by YOLANDA BRANNON on 10/28/24 [facility] 10-22-2024 Telephone encounter Note Last OV note faxed as requested. No labs from this office. Aurora Rodriguez LPN [facility] 10-22-2024 Miscellaneous Notes Last OV note faxed as requested. No labs from this office. Aurora Rodriguez LPN David Guzmán called requesting last office visit/labs to be faxed to them at [phone] documented in this encounter [facility] 10-22-2024 Telephone encounter Note David Guzmán called requesting last office visit/labs to be faxed to them at [phone] [facility] Work Phone: 10-22-2024 Note HNO ID: [id number] Author: ROXANA MALLOY MD Service: ? Author Type: Physician Type: Progress Notes Filed: 10/24/2024 13:00 Note Text: Radiation Oncology - New Patient/Consult Note PATIENT NAME: Mckenzie Hayden PATIENT REQUESTING PROVIDER: Dr. 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 HPI: 69 year old female who presents with above diagnosis, for an opinion regarding the role of radiation therapy in the management of the patient's disease. Final recommendations will be communicated back to the requesting physician by way of the shared medical record, or letter to requesting physician via US mail. 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 She noted a left upper shoulder skin lesion enlarging over a few months. It was a pearly telangiectatic papule and a differential favoring a basal cell carcinoma. Shave biopsy on 06/16/24 showed dermal lymphoid infiltrate with kappa predominant plasma cells. Punch biopsy on 08/13/24 showed a B-cell lymphoproliferative disorder most consistent with primary cutaneous marginal zone lymphoproliferative disorder. PET/CT scan on 10/09/24 was negative. She denies any fever or any significant weight loss. She has had hot flashes since her menopause. ALLERGIES Allergen Reactions Atorvastatin Myalgia Current Outpatient Medications on File Prior to Visit Medication Sig propranolol ER (INDERAL LA) 60 mg 24 hr capsule Take 1 capsule by mouth once daily. triamterene-hydroCHLOROthiazide (MAXZIDE) 75-50 mg per tablet Take 1 tablet by mouth once daily. Verapamil HCl 100 mg 24 hr capsule Take 1 capsule by mouth once daily. omeprazole (PRILOSEC) 20 mg capsule Take 1 capsule by mouth once daily. levothyroxine (SYNTHROID) 150 mcg tablet Take 1 tablet by mouth once daily. Take on empty stomach. For thyroid fluticasone (FLONASE) 50 mcg/actuation nasal spray USE 2 SPRAYS IN EACH NOSTRIL ONCE DAILY (RINSE MOUTH AFTER USE) ibuprofen (MOTRIN) 800 mg tablet Take one(1) tablet every eight(8) hours as needed for pain. Cholecalciferol, Vitamin D3, (VITAMIN D-3) 50 mcg (2,000 unit) cap Take 1 capsule by mouth once daily. aspirin 81 mg chewable tablet Take 1 tablet by mouth once daily. Inositol 500 mg tab Take 1 tablet by mouth once daily. MILK THISTLE ORAL Take 1 tablet by mouth once daily. UBIDECARENONE (CO Q-10 ORAL) Take 1 tablet by mouth once daily. multivitamin ORAL tablet Take 1 tablet by mouth once daily. Calcium-Cholecalciferol, D3, (CALCIUM 600 + D) 600-125 mg-unit ORAL Tab Take 1 tablet by mouth once daily. No current facility-administered medications on file prior to visit. PAST MEDICAL HISTORY Diagnosis Date Arteriosclerosis Cutaneous skin tags 02/22/2013 Esophageal reflux Gastroesophageal reflux Essential hypertension, benign Iron deficiency anemia, unspecified Anemia, iron def. Mitral valve disorders(424.0) MVP Mitral valve disorders(424.0) 02/26/2007 Pain in limb 03/29/2006 PMH - PAST MEDICAL HISTORY OF heel spurs Unspecified hypothyroidism Viral warts, unspecified 02/22/2013 Prior radiation therapy, collagen vascular disease, or inflammatory bowel disease: No Any implanted or external electric devices? No status: Post-menopausal. PAST SURGICAL HISTORY Procedure Laterality Date APPENDECTOMY 1970 DELIVERY ONLY 1982 , low cervical COLONOSCOPY FLX DX W/COLLJ SPEC WHEN PFRMD 2005 Colonoscopy LIG/TRNSXJ FLP TUBE ABDL/VAG APPR UNI/BI 1987 Tubal ligation NEUROPLASTY AND/TRANSPOS MEDIAN NRV CARPAL TUNNE 1979 Carpal tunnel decomp, bilateral PAST SURGICAL HISTORY OF 10/2003 tendon repair right hand PUNCH BIOPSY SKIN 07/29/2024 left shoulder TR TDN RESTORE INTRNSC FUNCJ RINGANDSM FNGR 2005 right hand at base of thymb FAMILY HISTORY Problem Relation Age of Onset other (renal disease) Mother Heart Father Hypertension Father Heart Attack Sister Heart Brother Alzheimer's Disease Maternal Grandmother Heart Attack Maternal Grandfather Heart Paternal Grandfather Social History Tobacco Use Smoking status: Every Day Current packs/day: 1.00 Average packs/day: 1 pack/day for 53.4 years (53.4 ttl pk-yrs) Types: Cigarettes Start date: 1971 Smokeless tobacco: Never Tobacco comments: Cut way back, 7-8 cigs per day Vaping Use Vaping status: Never Used Substance Use Topics Alcohol use: Yes Comment: Occasionally Drug use: No COMPLETE REVIEW OF SYSTEMS: GENERAL: feeling well without fatigue, no recent change in weight HEENT: denies KENNY, change in hearing or vision, no other ENT complaints NECK: denies swelling or pain in neck RESPIRATORY: no cough, no wheezing or shortness of breath CARDIOVASCULAR: no chest pain, no palpitations GI: normal appetite, tolerating PO well, BMs normal, and no abdominal pain : urination (more content not included)... [facility] 10-22-2024 History of Present illness Narrative Radiation Oncology - New Patient/Consult Note PATIENT NAME: Mckenzie Hayden PATIENT REQUESTING PROVIDER: Dr. 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 HPI: 69 year old female who presents with above diagnosis, for an opinion regarding the role of radiation therapy in the management of the patient's disease. Final recommendations will be communicated back to the requesting physician by way of the shared medical record, or letter to requesting physician via [place] mail. 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 She noted a left upper shoulder skin lesion enlarging over a few months. It was a pearly telangiectatic papule and a differential favoring a basal cell carcinoma. Shave biopsy on 06/16/24 showed dermal lymphoid infiltrate with kappa predominant plasma cells. Punch biopsy on 08/13/24 showed a B-cell lymphoproliferative disorder most consistent with primary cutaneous marginal zone lymphoproliferative disorder. PET/CT scan on 10/09/24 was negative. She denies any fever or any significant weight loss. She has had hot flashes since her menopause. ALLERGIES Allergen Reactions Atorvastatin Myalgia Current Outpatient Medications on File Prior to Visit Medication Sig propranolol ER (INDERAL LA) 60 mg 24 hr capsule Take 1 capsule by mouth once daily. triamterene-hydroCHLOROthiazide (MAXZIDE) 75-50 mg per tablet Take 1 tablet by mouth once daily. Verapamil HCl 100 mg 24 hr capsule Take 1 capsule by mouth once daily. omeprazole (PRILOSEC) 20 mg capsule Take 1 capsule by mouth once daily. levothyroxine (SYNTHROID) 150 mcg tablet Take 1 tablet by mouth once daily. Take on empty stomach. For thyroid fluticasone (FLONASE) 50 mcg/actuation nasal spray USE 2 SPRAYS IN EACH NOSTRIL ONCE DAILY (RINSE MOUTH AFTER USE) ibuprofen (MOTRIN) 800 mg tablet Take one(1) tablet every eight(8) hours as needed for pain. Cholecalciferol, Vitamin D3, (VITAMIN D-3) 50 mcg (2,000 unit) cap Take 1 capsule by mouth once daily. aspirin 81 mg chewable tablet Take 1 tablet by mouth once daily. Inositol 500 mg tab Take 1 tablet by mouth once daily. MILK THISTLE ORAL Take 1 tablet by mouth once daily. UBIDECARENONE (CO Q-10 ORAL) Take 1 tablet by mouth once daily. multivitamin ORAL tablet Take 1 tablet by mouth once daily. Calcium-Cholecalciferol, D3, (CALCIUM 600 + D) 600-125 mg-unit ORAL Tab Take 1 tablet by mouth once daily. No current facility-administered medications on file prior to visit. PAST MEDICAL HISTORY Diagnosis Date Arteriosclerosis Cutaneous skin tags 02/22/2013 Esophageal reflux Gastroesophageal reflux Essential hypertension, benign Iron deficiency anemia, unspecified Anemia, iron def. Mitral valve disorders(424.0) MVP Mitral valve disorders(424.0) 02/26/2007 Pain in limb 03/29/2006 PMH - PAST MEDICAL HISTORY OF heel spurs Unspecified hypothyroidism Viral warts, unspecified 02/22/2013 Prior radiation therapy, collagen vascular disease, or inflammatory bowel disease: No Any implanted or external electric devices? No status: Post-menopausal. PAST SURGICAL HISTORY Procedure Laterality Date APPENDECTOMY 1970 DELIVERY ONLY 1982 , low cervical COLONOSCOPY FLX DX W/COLLJ SPEC WHEN PFRMD 2005 Colonoscopy LIG/TRNSXJ FLP TUBE ABDL/VAG APPR UNI/BI 1987 Tubal ligation NEUROPLASTY &/TRANSPOS MEDIAN NRV CARPAL TUNNE 1979 Carpal tunnel decomp, bilateral PAST SURGICAL HISTORY OF 10/2003 tendon repair right hand PUNCH BIOPSY SKIN 07/29/2024 left shoulder TR TDN RESTORE INTRNSC FUNCJ RING&SM FNGR 2005 right hand at base of thymb FAMILY HISTORY Problem Relation Age of Onset other (renal disease) Mother Heart Father Hypertension Father Heart Attack Sister Heart Brother Alzheimer's Disease Maternal Grandmother Heart Attack Maternal Grandfather Heart Paternal Grandfather Social History Tobacco Use Smoking status: Every Day Current packs/day: 1.00 Average packs/day: 1 pack/day for 53.4 years (53.4 ttl pk-yrs) Types: Cigarettes Start date: 1971 Smokeless tobacco: Never Tobacco comments: Cut way back, 7-8 cigs per day Vaping Use Vaping status: Never Used Substance Use Topics Alcohol use: Yes Comment: Occasionally Drug use: No COMPLETE REVIEW OF SYSTEMS: GENERAL: feeling well without fatigue, no recent change in weight HEENT: denies KENNY, change in hearing or vision, no other ENT complaints NECK: denies swelling or pain in neck RESPIRATORY: no cough, no wheezing or shortness of breath CARDIOVASCULAR: no chest pain, no palpitations GI: normal appetite, tolerating PO well, BMs normal, and no abdominal pain : urination is normal MUSCULOSKELETAL: denies any painful or swollen joints, no muscle aches SKIN: see HPI. HEMATOLOGY/LYMPHOLOGY: negative for prolonged bleeding, no swollen lymph nodes NEURO: no numbness or paresthesias and no weakness of the extremities PHYSICAL EXAM: VS: BP 133/88 Pulse (!) 56 Temp 36 C (96.8 F) (Temporal) Wt 68.3 kg (150 lb 9.2 oz) LMP 06/08/2008 SpO2 99% BMI 25.39 kg/m KPS: 100 General Appearance: Alert and oriented. No acute distress. HEENT: NCAT. Sclera anicteric. EOMI. Neck: Normal ROM. Chest: No respiratory distress. Musculoskeletal: Normal ROM in extremities. Neuro: Speech fluent. Gait normal. No focal deficits. Hematologic: No signs of active bleeding. Skin: A 2 cm pearly skin lesion over the left shoulder. RADIOLOGY/LABORATORY DATA: see HPI ASSESSMENT AND PLAN: 69 year old woman with stage I primary cutaneous marginal zone B-cell lymphoma of the left shoulder. PET/CT scan was negative. I recommend ISRT. I explained the rationale, benefits, alternative management options and potential complications of radiation treatment to the patient and she understands and agrees to proceed. It was explained and understood that other personnel such as radiation therapists, agricultural scientist, and physicists will participate in planning and delivery of radiation treatment. Permanent tattoo steve will be placed to aid with positioning for daily treatment and the patient consented. Patient will have a simulation procedure within a week. Thank you very much for allowing us to participate in her care. Signed by: Roxana Malloy MD cc: Alda Pabon [address] [place] [address] Demetrius Moon [address] [facility] [address] Radiation Therapy - Nursing Note (Consult) PATIENT NAME: Mckenzie Hayden PATIENT October 22, 2024 [facility] FACILITY/LOCATION: [place] Chief Complaint: Consult for Lt. Shoulder Cutaneous B cell Lymph. Reason for visit: Consult. Referring physician: Internal provider Dr. Moon Subjective Data: N/a Additional Data Do you want to see a Electronic Security Specialist? No Are you interested in information about fertility? No Status: History of tubal ligatin Stress Scale: On a scale of 0 to 10, what number best describes how much distress you have experienced in the past week?(0 being no distress and 10 being extreme distress) 1 Social work notified: Pt denied need to see social insurance specialist at this time. SIGNED by: Lita Byrne RN documented in this encounter [facility] 10-22-2024 Note HNO ID: [id number] Author: LITA BYRNE RN Service: ? Author Type: Registered Nurse Type: Progress Notes Filed: 10/24/2024 13:00 Note Text: Radiation Therapy - Nursing Note (Consult) PATIENT NAME: Mckenzie Hayden PATIENT October 22, 2024 [facility] FACILITY/LOCATION: [place] Chief Complaint: Consult for Lt. Shoulder Cutaneous B cell Lymph. Reason for visit: Consult. Referring physician: Internal provider Dr. Moon Subjective Data: N/a Additional Data Do you want to see a Electronic Security Specialist? No Are you interested in information about fertility? No Status: History of tubal ligatin Stress Scale: On a scale of 0 to 10, what number best describes how much distress you have experienced in the past week?(0 being no distress and 10 being extreme distress) 1 Social work notified: Pt denied need to see social insurance specialist at this time. SIGNED by: Lita Byrne RN [facility] 10-22-2024 Note HNO ID: [id number] Author: DEMETRIUS MOON MD Service: ? 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 Discussed typical presentation, work up and treatment for cutaneous marginal B evelyn lymphoma. Reviewed CT chest in May 2024 no lymphadenopathy was seen. CBC normal, no evidence of lymphocytosis. Here to review PET, this was negative for systemic involvement. 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 She'll see Dr Malloy, subsequently planning to follow up with dermatology. Written and verbal health teaching given to patient, patient verbalizes understanding and agrees with treatment plan. PAST MEDICAL HISTORY Diagnosis Date Arteriosclerosis Cutaneous skin tags 02/22/2013 Esophageal reflux Gastroesophageal reflux Essential hypertension, benign Iron deficiency anemia, unspecified Anemia, iron def. Mitral valve disorders(424.0) MVP Mitral valve disorders(424.0) 02/26/2007 Pain in limb 03/29/2006 PMH - PAST MEDICAL HISTORY OF heel spurs Unspecified hypothyroidism Viral warts, unspecified 02/22/2013 PAST SURGICAL HISTORY Procedure Laterality Date APPENDECTOMY 1970 DELIVERY ONLY 1982 , low cervical COLONOSCOPY FLX DX W/COLLJ SPEC WHEN PFRMD 2005 Colonoscopy LIG/TRNSXJ FLP TUBE ABDL/VAG APPR UNI/BI 1987 Tubal ligation NEUROPLASTY AND/TRANSPOS MEDIAN NRV CARPAL TUNNE 1979 Carpal tunnel decomp, bilateral PAST SURGICAL HISTORY OF 10/2003 tendon repair right hand PUNCH BIOPSY SKIN 07/29/2024 left shoulder TR TDN RESTORE INTRNSC FUNCJ RINGANDSM FNGR 2004 right hand at base of thymb FAMILY HISTORY Problem Relation Age of Onset other (renal disease) Mother Heart Father Hypertension Father Heart Attack Sister Heart Brother Alzheimer's Disease Maternal Grandmother Heart Attack Maternal Grandfather Heart Paternal Grandfather Social History Tobacco Use Smoking status: Every Day Current packs/day: 1.00 Average packs/day: 1 pack/day for 53.4 years (53.4 ttl pk-yrs) Types: Cigarettes Start date: 1971 Smokeless tobacco: Never Tobacco comments: Cut way back, 7-8 cigs per day Vaping Use Vaping status: Never Used Substance Use Topics Alcohol use: Yes Comment: Occasionally Drug use: No ALLERGIES: ALLERGIES Allergen Reactions Atorvastatin Myalgia CURRENT OUTPATIENT MEDICATIONS: propranolol ER (INDERAL LA) 60 mg 24 hr capsule Take 1 capsule by mouth once daily. triamterene-hydroCHLOROthiazide (MAXZIDE) 75-50 mg per tablet Take 1 tablet by mouth once daily. Verapamil HCl 100 mg 24 hr capsule Take 1 capsule by mouth once daily. omeprazole (PRILOSEC) 20 mg capsule Take 1 capsule by mouth once daily. levothyroxine (SYNTHROID) 150 mcg tablet Take 1 tablet by mouth once daily. Take on empty stomach. For thyroid fluticasone (FLONASE) 50 mcg/actuation nasal spray USE 2 SPRAYS IN EACH NOSTRIL ONCE DAILY (RINSE MOUTH AFTER USE) ibuprofen (MOTRIN) 800 mg tablet Take one(1) tablet every eight(8) hours as needed for pain. Cholecalciferol, Vitamin D3, (VITAMIN D-3) 50 mcg (2,000 unit) cap Take 1 capsule by mouth once daily. aspirin 81 mg chewable tablet Take 1 tablet by mouth once daily. Inositol 500 mg tab Take 1 tablet by mouth once daily. MILK THISTLE ORAL Take 1 tablet by mouth once daily. UBIDECARENONE (CO Q-10 ORAL) Take 1 tablet by mouth once daily. multivitamin ORAL tablet Take 1 tablet by mouth once daily. Calcium-Cholecalciferol, D3, (CALCIUM 600 + D) 600-125 mg-unit ORAL Tab Take 1 tablet by mouth once daily. REVIEW OF SYSTEMS: GENERAL: No fever, night sweats, weight loss or malaise. All other reviewed and negative other than HPI. PHYSICAL EXAMINATION: VITAL SIGNS: BP 133/88 Pulse 56 Temp (Src) 96.8 (Temporal) Wt 150 lb 8 oz (68.3kg) SpO2 99% LMP 06/08/2008 GENERAL APPEARANCE: Well appearing, in no acute distress, alert and oriented x3, well-hydrated, well nourished. LEFT SHOULDER: Biopsy site clean. I spent a total of 30 minutes on the date of the service which included preparing to see the patient, [id number] patient care, completing clinical documentation, obtaining and/or reviewing separately obtained history, counseling and educating the patient/family/caregiver, ordering medications, tests, or procedures, independently interpreting results (not separately reported), and communic (more content not included)... [facility] 10-22-2024 History of Present illness Narrative (Elements copied from my note dated September 10, 2024, have been reviewed and updated where appropriate, and all reflect current assessment and medical decision making from today's encounter, October 22, 2024) HISTORY OF PRESENT ILLNESS: Mckenzie Hayden is a 69 year old female with history of cutaneous squamous cell carcinoma, had 2 SCC left leg and left arm, skin check revealed left shoulder lesion, looked different from other spots, 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 Discussed typical presentation, work up and treatment for cutaneous marginal B evelyn lymphoma. Reviewed CT chest in May 2024 no lymphadenopathy was seen. CBC normal, no evidence of lymphocytosis. Here to review PET, this was negative for systemic involvement. 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 She'll see Dr Malloy, subsequently planning to follow up with dermatology. Written and verbal health teaching given to patient, patient verbalizes understanding and agrees with treatment plan. PAST MEDICAL HISTORY Diagnosis Date Arteriosclerosis Cutaneous skin tags 02/22/2013 Esophageal reflux Gastroesophageal reflux Essential hypertension, benign Iron deficiency anemia, unspecified Anemia, iron def. Mitral valve disorders(424.0) MVP Mitral valve disorders(424.0) 02/26/2007 Pain in limb 03/29/2006 PMH - PAST MEDICAL HISTORY OF heel spurs Unspecified hypothyroidism Viral warts, unspecified 02/22/2013 PAST SURGICAL HISTORY Procedure Laterality Date APPENDECTOMY 1970 DELIVERY ONLY 1982 , low cervical COLONOSCOPY FLX DX W/COLLJ SPEC WHEN PFRMD 2005 Colonoscopy LIG/TRNSXJ FLP TUBE ABDL/VAG APPR UNI/BI 1987 Tubal ligation NEUROPLASTY &/TRANSPOS MEDIAN NRV CARPAL TUNNE 1979 Carpal tunnel decomp, bilateral PAST SURGICAL HISTORY OF 10/2003 tendon repair right hand PUNCH BIOPSY SKIN 07/29/2024 left shoulder TR TDN RESTORE INTRNSC FUNCJ RING&SM FNGR 2005 right hand at base of thymb FAMILY HISTORY Problem Relation Age of Onset other (renal disease) Mother Heart Father Hypertension Father Heart Attack Sister Heart Brother Alzheimer's Disease Maternal Grandmother Heart Attack Maternal Grandfather Heart Paternal Grandfather Social History Tobacco Use Smoking status: Every Day Current packs/day: 1.00 Average packs/day: 1 pack/day for 53.4 years (53.4 ttl pk-yrs) Types: Cigarettes Start date: 1971 Smokeless tobacco: Never Tobacco comments: Cut way back, 7-8 cigs per day Vaping Use Vaping status: Never Used Substance Use Topics Alcohol use: Yes Comment: Occasionally Drug use: No ALLERGIES: ALLERGIES Allergen Reactions Atorvastatin Myalgia CURRENT OUTPATIENT MEDICATIONS: propranolol ER (INDERAL LA) 60 mg 24 hr capsule Take 1 capsule by mouth once daily. triamterene-hydroCHLOROthiazide (MAXZIDE) 75-50 mg per tablet Take 1 tablet by mouth once daily. Verapamil HCl 100 mg 24 hr capsule Take 1 capsule by mouth once daily. omeprazole (PRILOSEC) 20 mg capsule Take 1 capsule by mouth once daily. levothyroxine (SYNTHROID) 150 mcg tablet Take 1 tablet by mouth once daily. Take on empty stomach. For thyroid fluticasone (FLONASE) 50 mcg/actuation nasal spray USE 2 SPRAYS IN EACH NOSTRIL ONCE DAILY (RINSE MOUTH AFTER USE) ibuprofen (MOTRIN) 800 mg tablet Take one(1) tablet every eight(8) hours as needed for pain. Cholecalciferol, Vitamin D3, (VITAMIN D-3) 50 mcg (2,000 unit) cap Take 1 capsule by mouth once daily. aspirin 81 mg chewable tablet Take 1 tablet by mouth once daily. Inositol 500 mg tab Take 1 tablet by mouth once daily. MILK THISTLE ORAL Take 1 tablet by mouth once daily. UBIDECARENONE (CO Q-10 ORAL) Take 1 tablet by mouth once daily. multivitamin ORAL tablet Take 1 tablet by mouth once daily. Calcium-Cholecalciferol, D3, (CALCIUM 600 + D) 600-125 mg-unit ORAL Tab Take 1 tablet by mouth once daily. REVIEW OF SYSTEMS: GENERAL: No fever, night sweats, weight loss or malaise. All other reviewed and negative other than HPI. PHYSICAL EXAMINATION: VITAL SIGNS: BP 133/88 Pulse 56 Temp (Src) 96.8 (Temporal) Wt 150 lb 8 oz (68.3kg) SpO2 99% LMP 06/08/2008 GENERAL APPEARANCE: Well appearing, in no acute distress, alert and oriented x3, well-hydrated, well nourished. LEFT SHOULDER: Biopsy site clean. I spent a total of 30 minutes on the date of the service which included preparing to see the patient, [id number] patient care, completing clinical documentation, obtaining and/or reviewing separately obtained history, counseling and educating the patient/family/caregiver, ordering medications, tests, or procedures, independently interpreting results (not separately reported), and communicating results to the patient/family/caregiver. Review of PET. Electronically Signed: Demetrius Moon MD October 22, 2024 documented in this encounter [facility] 10-08-2024 Note HNO ID: [id number] Author: CORDELL RIVERS RT(R) Service: ? Author Type: Grief Counsellor Type: Progress Notes Filed: 10/08/2024 12:56 Note Text: RADIOLOGY SERVICE PROGRESS NOTE SERVICE DATE: 10/08/2024 SERVICE TIME: 12:55 PM PATIENT IDENTITY VERIFICATION COMPLETED USING TWO (2) STANDARD IDENTIFIERS: Name and Date of confirmed by patient verbally FALL SCREENING: Has the patient had 2 falls in the last year or 1 fall with injury or currently using an Ambulatory Assistive Device (Walker, Cane, Wheelchair, Crutches, etc.)? No PATIENT GENDER DATA: .female ALLERGIES: NA MEDICATIONS REVIEWED: Not applicable PATIENT RELEVANT IMPLANT DATA REVIEWED: Not Applicable PATIENT PRESENTS WITH AN IMPLANTABLE OR ATTACHED GRAIN WEIGHER: NA CREATININE: Creatinine Date Value Ref Range Status 09/05/2024 0.85 0.58 - 0.96 mg/dL Final 03/15/2024 0.84 0.58 - 0.96 mg/dL Final 09/08/2023 0.74 0.58 - 0.96 mg/dL Final Estimated Glomerular Filtration Rate Date Value Ref Range Status 09/05/2024 74 >=60 mL/min/1.73m? Final Comment: Estimated Glomerular Filtration Rate (eGFR) is calculated using the 2020 CKD-EPI creatinine equation. This equation utilizes serum creatinine, sex, and age as parameters. The creatinine assay has traceable calibration to isotope dilution-mass spectrometry. Refer to KDIGO guidelines for clinical interpretation. In patients with unstable renal function, e.g. those with acute kidney injury, the eGFR may not accurately reflect actual GFR. eGFR- Date Value Ref Range Status 07/19/2020 >60 Final P.O.C.T. RESULTS: N/A October 08, [address] PERFORMED: No IV SITE: Ambulatory: A peripheral IV was started in the Right antecubital site with a Angio cath: 22 gauge. POST EXAM PIV STATUS: Discontinued PROCEDURE TYPE: NM INJECT: PET/CT BODY SCAN. 7.2 mCi F18 FDG. Administered By: ONOFRE . No other medications given.. ADMINISTRATION TIME: 1245 PATIENT DISCHARGED TO: Ambulatory patient, left [place] department area. Is this a therapy: No A Diagnostic radioactive procedure has taken place, with no further precautions necessary other than routine body substance precautions. More information regarding radiation safety can be found using this link: [email or web address] 20Diagnostic%20Nuclear%20Medicine% 20Procedures.[email or web address] SIGNATURE: RT Christian(R) PATIENT NAME: Mckenzie Hayden DATE: October 08, 2024 TIME: 12:55 PM PAGER/CONTACT #: [facility] 10-08-2024 History of Present illness Narrative RADIOLOGY SERVICE PROGRESS NOTE SERVICE DATE: 10/08/2024 SERVICE TIME: 12:55 PM PATIENT IDENTITY VERIFICATION COMPLETED USING TWO (2) STANDARD IDENTIFIERS: Name and Date of confirmed by patient verbally FALL SCREENING: Has the patient had 2 falls in the last year or 1 fall with injury or currently using an Ambulatory Assistive Device (Walker, Cane, Wheelchair, Crutches, etc.)? No PATIENT GENDER DATA: .female ALLERGIES: NA MEDICATIONS REVIEWED: Not applicable PATIENT RELEVANT IMPLANT DATA REVIEWED: Not Applicable PATIENT PRESENTS WITH AN IMPLANTABLE OR ATTACHED GRAIN WEIGHER: NA CREATININE: Creatinine Date Value Ref Range Status 09/05/2024 0.85 0.58 - 0.96 mg/dL Final 03/15/2024 0.84 0.58 - 0.96 mg/dL Final 09/08/2023 0.74 0.58 - 0.96 mg/dL Final Estimated Glomerular Filtration Rate Date Value Ref Range Status 09/05/2024 74 >=60 mL/min/1.73m Final Comment: Estimated Glomerular Filtration Rate (eGFR) is calculated using the 2020 CKD-EPI creatinine equation. This equation utilizes serum creatinine, sex, and age as parameters. The creatinine assay has traceable calibration to isotope dilution-mass spectrometry. Refer to KDIGO guidelines for clinical interpretation. In patients with unstable renal function, e.g. those with acute kidney injury, the eGFR may not accurately reflect actual GFR. eGFR- Date Value Ref Range Status 07/19/2020 >60 Final P.O.C.T. RESULTS: N/A October 08, [address] PERFORMED: No IV SITE: Ambulatory: A peripheral IV was started in the Right antecubital site with a Angio cath: 22 gauge. POST EXAM PIV STATUS: Discontinued PROCEDURE TYPE: NM INJECT: PET/CT BODY SCAN. 7.2 mCi F18 FDG. Administered By: CJG . No other medications given.. ADMINISTRATION TIME: 1245 PATIENT DISCHARGED TO: Ambulatory patient, left [place] department area. Is this a therapy: No A Diagnostic radioactive procedure has taken place, with no further precautions necessary other than routine body substance precautions. More information regarding radiation safety can be found using this link: [email or web address] %[email or web address] SIGNATURE: RT Christian(Alejandra) PATIENT NAME: Mckenzie Hayden DATE: October 08, 2024 TIME: 12:55 PM PAGER/CONTACT #: documented in this encounter [facility] 09-30-2024 Telephone encounter Note Spoke with patient and scheduled with both Dr's on 10/22 Martha Carroll [facility] 09-30-2024 Miscellaneous Notes Spoke with patient and scheduled with both DrHannys on 10/22 Martha Carroll Please use one of the BUSINESS OPERATIONS DIRECTOR slots on 10/22/24, if that works. Danni Abbasi RN Patient called stating she showed up for her pet scan and was told she had to reschedule her Pet Scan due to not receiving the diet instructions for the test on my chart. Rescheduled Pet Scan for 10/08. OV with Dr. Moon and Dr. Malloy need rescheduled and is requesting same day appointments due to the drive. Dr. Moon only has new patient appointments available when Dr. Malloy is available. Please advise Martha Carroll documented in this encounter [facility] 09-30-2024 Telephone encounter Note Please use one of the BUSINESS OPERATIONS DIRECTOR slots on 10/22/24, if that works. Danni Abbasi, MAR [facility] Work Phone: 09-30-2024 Telephone encounter Note Patient called stating she showed up for her pet scan and was told she had to reschedule her Pet Scan due to not receiving the diet instructions for the test on my chart. Rescheduled Pet Scan for 10/08. OV with Dr. Moon and Dr. Malloy need rescheduled and is requesting same day appointments due to the drive. Dr. Moon only has new patient appointments available when Dr. Malloy is available. Please advise Martha Carroll [facility] 09-30-2024 History of Present illness Narrative RADIOLOGY SERVICE PROGRESS NOTE DATE OF SERVICE: September 30, 2024 TIME OF SERVICE: 919 EVENT: EXAM/PROCEDURE NOT COMPLETED - Patient has contraindication: Other patient had coffee with sugar. ADDITIONAL EVENT DETAILS: N/A SIGNATURE: RT Mary(R) PATIENT NAME: Mckenzie Hayden DATE: September 30, 2024 TIME: 9:24 AM PAGER/CONTACT #: documented in this encounter [facility] 09-30-2024 Note HNO ID: [id number] Author: REX CORRIGAN RT(Alejandra) Service: Nuclear Medicine Author Type: Technologist Type: Progress Notes Filed: 09/30/2024 09:24 Note Text: RADIOLOGY SERVICE PROGRESS NOTE DATE OF SERVICE: September 30, 2024 TIME OF SERVICE: 919 EVENT: EXAM/PROCEDURE NOT COMPLETED - Patient has contraindication: Other patient had coffee with sugar. ADDITIONAL EVENT DETAILS: N/A SIGNATURE: RT Mary(R) PATIENT NAME: Mckenzie Hayden DATE: September 30, 2024 TIME: 9:24 AM PAGER/CONTACT #: [facility] 09-18-2024 Note HNO ID: [id number] Author: ALDA PABON MD Service: ? Author Type: Physician Type: Progress Notes Filed: 09/18/2024 11:56 Note Text: Chief Complaint Patient presents with: F/U 6 Month HPI Mckenzie Hayden is a 69 year old female who presents here today for 6 month follow up. Here today for her routine follow up. Busy picking up sticks and doing yard work. Cut back to 7-8 cigarettes a day, trying to quit. No bowel, Gi, or urinary issues. GERD: Sx controlled with Prilosec 20 mg daily. Thyroid: Taking Synthroid 150 mcg daily. Feels she's stable on this dosage and denies any missed dosages. HTN: Checks BP at home with readings ranging from 120-130/80's. A 1 noted irregular heartbeat on monitor with BP 102/78. Pt denies feeling anything at this time. No chest pains, dizziness, or SOB. Is on Verapamil 100 mg daily and Maxzide 75-50 mg daily. Follows with Cardio, Dr. Fine, has appt in October. 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 Pain: lower back; uses Ibuprofen 800 mg as needed. Has had issues with her legs ever since being put on the Lipitor. Headaches: occ; will use Ibuprofen 800 mg prn. Lipid: Taking CoQ 10 daily, watching diet kind of. Exercising on treadmill, fast walk 3-4 miles a day x 5 days per week. States she can't run anymore due to her legs. Doesn't really like fruits, but drinks OJ. Legs - Notes intermittent stabbing pain in leg and weakness in ankles. Has been seen by Neurology in the past for this. Tremor - Asking about starting medication for tremor in b/l hands, head. States if she gets anxious it becomes much worse. Has seen Neuro in the past but not for this issue. Has occasional head bobbing. SAMMY - Has a CPAP, but no longer using it. States she tried using it for two years but it was uncomfortable she gave up on it. Tracks sleep on her FitBit Torie. Following with Hem/Onc for B-Cell lymphoma. HM - Depression/Anxiety screening completed, negative. Past medical history, appointments, medications, allergies reviewed. Previous Medical History PAST MEDICAL HISTORY Diagnosis Date Arteriosclerosis Cutaneous skin tags 02/22/2013 Esophageal reflux Gastroesophageal reflux Essential hypertension, benign Iron deficiency anemia, unspecified Anemia, iron def. Mitral valve disorders(424.0) MVP Mitral valve disorders(424.0) 02/26/2007 Pain in limb 03/29/2006 PMH - PAST MEDICAL HISTORY OF heel spurs Unspecified hypothyroidism Viral warts, unspecified 02/22/2013 Previous Surgical History PAST SURGICAL HISTORY Procedure Laterality Date APPENDECTOMY 1970 DELIVERY ONLY 1982 , low cervical COLONOSCOPY FLX DX W/COLLJ SPEC WHEN PFRMD 2005 Colonoscopy LIG/TRNSXJ FLP TUBE ABDL/VAG APPR UNI/BI 1986 Tubal ligation NEUROPLASTY AND/TRANSPOS MEDIAN NRV CARPAL TUNNE 1979 Carpal tunnel decomp, bilateral PAST SURGICAL HISTORY OF 10/2003 tendon repair right hand PUNCH BIOPSY SKIN 07/29/2024 left shoulder TR TDN RESTORE INTRNSC FUNCJ RINGANDSM FNGR 2005 right hand at base of thymb Family History FAMILY HISTORY Problem Relation Age of Onset other (renal disease) Mother Heart Father Hypertension Father Heart Attack Sister Heart Brother Alzheimer's Disease Maternal Grandmother Heart Attack Maternal Grandfather Heart Paternal Grandfather Patient Allergies ALLERGIES Allergen Reactions Atorvastatin Myalgia Current Medications Current Outpatient Medications on File Prior to Visit Medication Sig triamterene-hydroCHLOROthiazide (MAXZIDE) 75-50 mg per tablet Take 1 tablet by mouth once daily. Verapamil HCl 100 mg 24 hr capsule Take 1 capsule by mouth once daily. omeprazole (PRILOSEC) 20 mg capsule Take 1 capsule by mouth once daily. levothyroxine (SYNTHROID) 150 mcg tablet Take 1 tablet by mouth once daily. Take on empty stomach. For thyroid fluticasone (FLONASE) 50 mcg/actuation nasal spray USE 2 SPRAYS IN EACH NOSTRIL ONCE DAILY (RINSE MOUTH AFTER USE) ibuprofen (MOTRIN) 800 mg tablet Take one(1) tablet every eight(8) hours as needed for pain. Cholecalciferol, Vitamin D3, (VITAMIN D-3) 50 mcg (2,000 unit) cap Take by mouth once daily. aspirin 81 mg chewable tablet Take 1 tablet by mouth once daily. Inositol 500 mg tab Take 1 tablet by mouth once daily. MILK THISTLE ORAL Take by mouth once daily. UBIDECARENONE (CO Q-10 ORAL) Take by mouth. multivitamin ORAL tablet Take 1 tablet by mouth once daily. Calcium-Cholecalciferol, D3, (CALCIUM 600 + D) 600-125 mg-unit ORAL Tab Take 1 tablet by mouth twice daily. No current facility-administered medications on file prior to visit. Social History Social History Tobacco Use Smoking status: Every Day Current packs/day: 1.00 Average packs/day: 1 pack/day for 53.3 years (53.3 ttl pk-yrs) Types: Cigarettes Start date: 1971 Smokeless tobacco: Never Tobacco comments: Cut way back, 7-8 cigs per day Vaping Use Vaping statu (more content not included)... [facility] 09-10-2024 Telephone encounter Note Patient's appointments have been moved to 11/03/24 as requested below Serena Monahan Pss [facility] 09-10-2024 Miscellaneous Notes Patient's appointments have been moved to 11/03/24 as requested below Serena Monahan Pss Please move follow up OV's with Dr. Moon and Dr. Malloy from 10/22/24 to 10/03/24. Please call patient with new date/times. Danni Abbasi RN documented in this encounter [facility] 09-10-2024 Telephone encounter Note Please move follow up OV's with Dr. Moon and Dr. Malloy from 10/22/24 to 10/03/24. Please call patient with new date/times. Danni Abbasi RN [facility] Work Phone: 09-10-2024 Note HNO ID: [id number] Author: DEMETRIUS MOON MD Service: ? 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 Discussed typical presentation, work up and treatment for cutaneous marginal B evelyn lymphoma. Reviewed CT chest in May 2024 no lymphadenopathy was seen. CBC normal, no evidence of lymphocytosis. 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 See me and Dr Malloy after staging PET for anticipated IFRT. No need for marrow biopsy given normal cbc. Written and verbal health teaching given to patient, patient verbalizes understanding and agrees with treatment plan. PAST MEDICAL HISTORY Diagnosis Date Arteriosclerosis Cutaneous skin tags 02/22/2013 Esophageal reflux Gastroesophageal reflux Essential hypertension, benign Iron deficiency anemia, unspecified Anemia, iron def. Mitral valve disorders(424.0) MVP Mitral valve disorders(424.0) 02/26/2007 Pain in limb 03/29/2006 PMH - PAST MEDICAL HISTORY OF heel spurs Unspecified hypothyroidism Viral warts, unspecified 02/22/2013 PAST SURGICAL HISTORY Procedure Laterality Date APPENDECTOMY 1970 DELIVERY ONLY 1982 , low cervical COLONOSCOPY FLX DX W/COLLJ SPEC WHEN PFRMD 2005 Colonoscopy LIG/TRNSXJ FLP TUBE ABDL/VAG APPR UNI/BI 1986 Tubal ligation NEUROPLASTY AND/TRANSPOS MEDIAN NRV CARPAL TUNNE 1979 Carpal tunnel decomp, bilateral PAST SURGICAL HISTORY OF 10/2003 tendon repair right hand PUNCH BIOPSY SKIN 07/29/2024 left shoulder TR TDN RESTORE INTRNSC FUNCJ RINGANDSM FNGR 2005 right hand at base of thymb FAMILY HISTORY Problem Relation Age of Onset other (renal disease) Mother Heart Father Hypertension Father Heart Attack Sister Heart Brother Alzheimer's Disease Maternal Grandmother Heart Attack Maternal Grandfather Heart Paternal Grandfather Social History Tobacco Use Smoking status: Every Day Current packs/day: 1.00 Average packs/day: 1 pack/day for 53.3 years (53.3 ttl pk-yrs) Types: Cigarettes Start date: 1971 Smokeless tobacco: Never Tobacco comments: Cut way back, 7-8 cigs per day Vaping Use Vaping status: Never Used Substance Use Topics Alcohol use: Yes Comment: Occasionally Drug use: No ALLERGIES: ALLERGIES Allergen Reactions Atorvastatin Myalgia CURRENT OUTPATIENT MEDICATIONS: triamterene-hydroCHLOROthiazide (MAXZIDE) 75-50 mg per tablet Take 1 tablet by mouth once daily. Verapamil HCl 100 mg 24 hr capsule Take 1 capsule by mouth once daily. omeprazole (PRILOSEC) 20 mg capsule Take 1 capsule by mouth once daily. levothyroxine (SYNTHROID) 150 mcg tablet Take 1 tablet by mouth once daily. Take on empty stomach. For thyroid fluticasone (FLONASE) 50 mcg/actuation nasal spray USE 2 SPRAYS IN EACH NOSTRIL ONCE DAILY (RINSE MOUTH AFTER USE) ibuprofen (MOTRIN) 800 mg tablet Take one(1) tablet every eight(8) hours as needed for pain. Cholecalciferol, Vitamin D3, (VITAMIN D-3) 50 mcg (2,000 unit) cap Take 1 capsule by mouth once daily. aspirin 81 mg chewable tablet Take 1 tablet by mouth once daily. Inositol 500 mg tab Take 1 tablet by mouth once daily. MILK THISTLE ORAL Take 1 tablet by mouth once daily. UBIDECARENONE (CO Q-10 ORAL) Take 1 tablet by mouth once daily. multivitamin ORAL tablet Take 1 tablet by mouth once daily. Calcium-Cholecalciferol, D3, (CALCIUM 600 + D) 600-125 mg-unit ORAL Tab Take 1 tablet by mouth twice daily. REVIEW OF SYSTEMS: GENERAL: No fever, night sweats, weight loss or malaise. All other reviewed and negative other than HPI. PHYSICAL EXAMINATION: VITAL SIGNS: BP 141/94 Pulse 66 Temp (Src) 97.4 (Temporal) Ht 5' 4.567 (1.64m) Wt 150 lb (68.0kg) SpO2 98% LMP 06/08/2008 BMI 25.30 kg/(m2). GENERAL APPEARANCE: Well appearing, in no acute distress, alert and oriented x3, well-hydrated, well nourished. LEFT SHOULDER: Biopsy site clean. I spent a total of 45 minutes on the date of the service which included preparing to see the patient, [id number] patient care, completing clinical documentation, obtaining and/or reviewing separately obtained history, counseling and educating the patient/family/caregiver, ordering medications, tests, or procedures, independently interpreting results (not separately reported), and communicating results to the patient/family/caregiver. 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 Discussed typical presentation, work up and treatment for cutaneous marginal B evelyn lymphoma. Reviewed CT chest in May 2024 no lymphadenopathy was seen. CBC normal, no evidence of lymphocytosis. 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 See me and Dr Malloy after staging PET for anticipated IFRT. No need for marrow biopsy given normal cbc. Written and verbal health teaching given to patient, patient verbalizes understanding and agrees with treatment plan. PAST MEDICAL HISTORY Diagnosis Date Arteriosclerosis Cutaneous skin tags 02/22/2013 Esophageal reflux Gastroesophageal reflux Essential hypertension, benign Iron deficiency anemia, unspecified Anemia, iron def. Mitral valve disorders(424.0) MVP Mitral valve disorders(424.0) 02/26/2007 Pain in limb 03/29/2006 PMH - PAST MEDICAL HISTORY OF heel spurs Unspecified hypothyroidism Viral warts, unspecified 02/22/2013 PAST SURGICAL HISTORY Procedure Laterality Date APPENDECTOMY 1970 DELIVERY ONLY 1982 , low cervical COLONOSCOPY FLX DX W/COLLJ SPEC WHEN PFRMD 2005 Colonoscopy LIG/TRNSXJ FLP TUBE ABDL/VAG APPR UNI/BI 1987 Tubal ligation NEUROPLASTY &/TRANSPOS MEDIAN NRV CARPAL TUNNE 1979 Carpal tunnel decomp, bilateral PAST SURGICAL HISTORY OF 10/2003 tendon repair right hand PUNCH BIOPSY SKIN 07/29/2024 left shoulder TR TDN RESTORE INTRNSC FUNCJ RING&SM FNGR 2005 right hand at base of thymb FAMILY HISTORY Problem Relation Age of Onset other (renal disease) Mother Heart Father Hypertension Father Heart Attack Sister Heart Brother Alzheimer's Disease Maternal Grandmother Heart Attack Maternal Grandfather Heart Paternal Grandfather Social History Tobacco Use Smoking status: Every Day Current packs/day: 1.00 Average packs/day: 1 pack/day for 53.3 years (53.3 ttl pk-yrs) Types: Cigarettes Start date: 1971 Smokeless tobacco: Never Tobacco comments: Cut way back, 7-8 cigs per day Vaping Use Vaping status: Never Used Substance Use Topics Alcohol use: Yes Comment: Occasionally Drug use: No ALLERGIES: ALLERGIES Allergen Reactions Atorvastatin Myalgia CURRENT OUTPATIENT MEDICATIONS: triamterene-hydroCHLOROthiazide (MAXZIDE) 75-50 mg per tablet Take 1 tablet by mouth once daily. Verapamil HCl 100 mg 24 hr capsule Take 1 capsule by mouth once daily. omeprazole (PRILOSEC) 20 mg capsule Take 1 capsule by mouth once daily. levothyroxine (SYNTHROID) 150 mcg tablet Take 1 tablet by mouth once daily. Take on empty stomach. For thyroid fluticasone (FLONASE) 50 mcg/actuation nasal spray USE 2 SPRAYS IN EACH NOSTRIL ONCE DAILY (RINSE MOUTH AFTER USE) ibuprofen (MOTRIN) 800 mg tablet Take one(1) tablet every eight(8) hours as needed for pain. Cholecalciferol, Vitamin D3, (VITAMIN D-3) 50 mcg (2,000 unit) cap Take 1 capsule by mouth once daily. aspirin 81 mg chewable tablet Take 1 tablet by mouth once daily. Inositol 500 mg tab Take 1 tablet by mouth once daily. MILK THISTLE ORAL Take 1 tablet by mouth once daily. UBIDECARENONE (CO Q-10 ORAL) Take 1 tablet by mouth once daily. multivitamin ORAL tablet Take 1 tablet by mouth once daily. Calcium-Cholecalciferol, D3, (CALCIUM 600 + D) 600-125 mg-unit ORAL Tab Take 1 tablet by mouth twice daily. REVIEW OF SYSTEMS: GENERAL: No fever, night sweats, weight loss or malaise. All other reviewed and negative other than HPI. PHYSICAL EXAMINATION: VITAL SIGNS: BP 141/94 Pulse 66 Temp (Src) 97.4 (Temporal) Ht 5' 4.567 (1.64m) Wt 150 lb (68.0kg) SpO2 98% LMP 06/08/2008 BMI 25.30 kg/(m^2). GENERAL APPEARANCE: Well appearing, in no acute distress, alert and oriented x3, well-hydrated, well nourished. LEFT SHOULDER: Biopsy site clean. I spent a total of 45 minutes on the date of the service which included preparing to see the patient, [id number] patient care, completing clinical documentation, obtaining and/or reviewing separately obtained history, counseling and educating the patient/family/caregiver, ordering medications, tests, or procedures, independently interpreting results (not separately reported), and communicating results to the patient/family/caregiver. Electronically Signed: Demetrius Moon MD September 10, 2024 9:10 AM documented in this encounter [facility] 06-16-2024 Instructions Kayleigh Dominguez APRN.FLEET OPERATIONS MANAGER - 06/16/2024 9:15 AM EST Lung nodule/s: all previously seen nodule/s have not changed in size or characteristic/resolved and there are no new nodules of concern. Please return in one year for the following 2 visits on the same day: Annual low-dose CT chest Lung cancer screening Provider visit. This recommendation is subject to change pending the final report from radiology. I will notify you of the final radiology report recommendations when available by Mocapayhart message, letter, or phone call. We will also notify your referring provider/PCP of the results and recommendations. If you didn t schedule this before you left the office or need to reschedule, you can call in to schedule it anytime: [facility] [phone] [facility] [phone] All other [facility] locations [phone] Feel free to reach out for any questions or concerns, Kayleigh Dominguez APRN.CNP Lung Cancer Screening [phone] documented in this encounter [facility] 06-16-2024 Note HNO ID: [id number] Author: KAYLEIGH DOMINGUEZ APRN.CNP Service: ? Author Type: Nurse Practitioner Type: Progress Notes Filed: 06/16/2024 10:11 Note Text: LUNG SCREENING ANNUAL VISIT PRIMARY CARE PHYSICIAN: Alda Pabon MD PULMONARY PROVIDER: None Results will be communicated via letter or electronic record if applicable. Visit Delivery: In Person Patient Visit Type: established Current or Ex-smoker? [Current Exam Type: annual LDCT Number of Pack Years: 53 Current smoker (=0) The patient's smoking history is similar to prior year shared decision visit. The reason for the discrepancy is NA Chief Complaint: Established patient in lung cancer screening program here for annual follow-up. Impression / Recommendations Mckenzie Hayden presents for annual lung cancer screening annual exam and nodule evaluation. Plan: Indeterminate pulmonary nodules: Previously identified nodules appear stable and no new nodules of concern were seen on the exam. Low dose CT Scan to be repeated in one year. Plan subject to change pending final radiology report and recommendations. Nature of the lung nodule(s) and the options for further evaluation discussed in detail with patient. Mckenzie Mathis Chelle expressed understanding and is in agreement with plan. 2. Encounter for screening for malignant neoplasm of respiratory organs I have determined that the patient is eligible for continued low dose CT screening based on age, absence of signs or symptoms of lung cancer, smoking history and total pack years. The patient was counseled on the importance of adherence to annual LDCT lung cancer screening, impact of comorbidities and ability or willingness to undergo diagnosis and treatment. The patient understands and feels comfortable with it: Yes. 3. Nicotine Dependence The patient was counseled on the importance of smoking cessation if current smoker and, if appropriate, offered additional tobacco cessation counseling services - Smoking Cessation Counseling. SMOKING CESSATION COUNSELING Smoking cessation methods including Behavior Modification were discussed with the patient and assistance offered. The medical conditions adversely affected by cigarette use include:COPD, Emphysema, and Lung Cancer. Counseled on benefits of quitting smoking, recommended cessation or reduction to prevent development and/or progression of emphysema. The patient is currently not ready to quit. I personally spent 3 minutes in counseling. The time spent in smoking cessation counseling is exclusive of any other counseling during this visit. 4. Emphysema: Mild-moderate structural emphysema noted on LDCT Lung Screening. Recommended smoking cessation. Can consider functional testing as needed. Patient seems to have good functional capacity at this time. She monitors her pulse ox with her fit bit. Usually 95% or greater. I spent a total of 30 minutes on the date of the service which included preparing to see the patient, [id number] patient care, completing clinical documentation, performing a medically appropriate examination, counseling and educating the patient/family/caregiver, ordering medications, tests, or procedures, communicating with other HCPs (not separately reported), independently interpreting results (not separately reported), communicating results to the patient/family/caregiver, and care coordination (not separately reported). Kayleigh Dominguez APRN.[facility] June 16, 2024 9:11 AM History of Present Illness: Mckenzie Hayden is a 69 year old female who is presenting today for annual lung cancer screening LDCT and nodule surveillance/management. Patient has multiple nodules found on previous lung cancer screening LDCT. Last LDCT was performed on 04/11/2023 and was LUNG RADS Category 2. Previous potentially significant incidental findings on imaging: None. Patient is a current smoker with a 53 pack year history. Patient is currently still smoking <1/2 PPD cigarettes daily. Patient will continue to be eligible for lung cancer screening until age 77. The patient does not have any symptoms or signs of lung cancer. Patient denies SOB with their daily activity. For exercise they treadmill 5 days a week, tolerates the activity well. No wheezing or dyspnea. Patient denies feeling of chest tightness/congestion in the chest. Patient does not have a new or concerning cough, and denies hemoptysis. Patient does not have a chronic daily cough. Denies regular or recent fevers/chills. Patient does not have any significant unintentional weight loss. Patient denies having any respiratory infections or COVID-19 in the past few months. Does not use any maintenance inhaler for COPD. Started this morning with sneezing and nasal congestion. A little coughing. No fever or bod (more content not included)... [facility] 06-16-2024 History of Present illness Narrative Images from the original note were not included. LUNG SCREENING ANNUAL VISIT PRIMARY CARE PHYSICIAN: Alda Pabno MD PULMONARY PROVIDER: None Results will be communicated via letter or electronic record if applicable. Visit Delivery: In Person Patient Visit Type: established Current or Ex-smoker? [Current Exam Type: annual LDCT Number of Pack Years: 53 Current smoker (=0) The patient's smoking history is similar to prior year shared decision visit. The reason for the discrepancy is NA Chief Complaint: Established patient in lung cancer screening program here for annual follow-up. Impression / Recommendations Mckenzie Hayden presents for annual lung cancer screening annual exam and nodule evaluation. Plan: Indeterminate pulmonary nodules: Previously identified nodules appear stable and no new nodules of concern were seen on the exam. Low dose CT Scan to be repeated in one year. Plan subject to change pending final radiology report and recommendations. Nature of the lung nodule(s) and the options for further evaluation discussed in detail with patient. Mckenzie Hayden expressed understanding and is in agreement with plan. 2. Encounter for screening for malignant neoplasm of respiratory organs I have determined that the patient is eligible for continued low dose CT screening based on age, absence of signs or symptoms of lung cancer, smoking history and total pack years. The patient was counseled on the importance of adherence to annual LDCT lung cancer screening, impact of comorbidities and ability or willingness to undergo diagnosis and treatment. The patient understands and feels comfortable with it: Yes. 3. Nicotine Dependence The patient was counseled on the importance of smoking cessation if current smoker and, if appropriate, offered additional tobacco cessation counseling services - Smoking Cessation Counseling. SMOKING CESSATION COUNSELING Smoking cessation methods including Behavior Modification were discussed with the patient and assistance offered. The medical conditions adversely affected by cigarette use include:COPD, Emphysema, and Lung Cancer. Counseled on benefits of quitting smoking, recommended cessation or reduction to prevent development and/or progression of emphysema. The patient is currently not ready to quit. I personally spent 3 minutes in counseling. The time spent in smoking cessation counseling is exclusive of any other counseling during this visit. 4. Emphysema: Mild-moderate structural emphysema noted on LDCT Lung Screening. Recommended smoking cessation. Can consider functional testing as needed. Patient seems to have good functional capacity at this time. She monitors her pulse ox with her fit bit. Usually 95% or greater. I spent a total of 30 minutes on the date of the service which included preparing to see the patient, [id number] patient care, completing clinical documentation, performing a medically appropriate examination, counseling and educating the patient/family/caregiver, ordering medications, tests, or procedures, communicating with other HCPs (not separately reported), independently interpreting results (not separately reported), communicating results to the patient/family/caregiver, and care coordination (not separately reported). Kayleigh Dominguez APRN.[facility] June 16, 2024 9:11 AM History of Present Illness: Mckenzie Hayden is a 69 year old female who is presenting today for annual lung cancer screening LDCT and nodule surveillance/management. Patient has multiple nodules found on previous lung cancer screening LDCT. Last LDCT was performed on 04/11/2023 and was LUNG RADS Category 2. Previous potentially significant incidental findings on imaging: None. Patient is a current smoker with a 53 pack year history. Patient is currently still smoking <1/2 PPD cigarettes daily. Patient will continue to be eligible for lung cancer screening until age 77. The patient does not have any symptoms or signs of lung cancer. Patient denies SOB with their daily activity. For exercise they treadmill 5 days a week, tolerates the activity well. No wheezing or dyspnea. Patient denies feeling of chest tightness/congestion in the chest. Patient does not have a new or concerning cough, and denies hemoptysis. Patient does not have a chronic daily cough. Denies regular or recent fevers/chills. Patient does not have any significant unintentional weight loss. Patient denies having any respiratory infections or COVID-19 in the past few months. Does not use any maintenance inhaler for COPD. Started this morning with sneezing and nasal congestion. A little coughing. No fever or body aches. Modified Medical [employer] [place] Dyspnea Scale (MMRC) I only get breathless with strenous exercise 0 Last 12 Encounter Wt Readings: Date: Wt: 06/16/2024 65.9 kg (145 lb 3.2 oz) 03/20/2024 65.5 kg (144 lb 6.4 oz) 11/19/2023 65.7 kg (144 lb 12.8 oz) 09/14/2023 65.5 kg (144 lb 6.4 oz) 03/27/2023 61.7 kg (136 lb) 03/13/2023 62 kg (136 lb 9.6 oz) 08/15/2022 61.6 kg (135 lb 12.8 oz) 02/15/2022 60.1 kg (132 lb 9.6 oz) 08/03/2021 64 kg (141 lb) 02/02/2021 64.3 kg (141 lb 12.8 oz) 12/30/2020 64 kg (141 lb) 07/28/2020 66 kg (145 lb 9.6 oz) Social History Tobacco Use: Types: Cigarettes Past Medical History: PAST MEDICAL HISTORY Diagnosis Date Cutaneous skin tags 02/22/2013 Esophageal reflux Gastroesophageal reflux Essential hypertension, benign Iron deficiency anemia, unspecified Anemia, iron def. Mitral valve disorders(424.0) MVP Mitral valve disorders(424.0) 02/26/2007 Pain in limb 03/29/2006 PMH - PAST MEDICAL HISTORY OF heel spurs Unspecified hypothyroidism Viral warts, unspecified 02/22/2013 Family Hx: FAMILY HISTORY Problem Relation Age of Onset other (renal disease) Mother Heart Father Hypertension Father Heart Sister Alzheimer's Disease Maternal Grandmother Heart Paternal Grandfather Surgical Hx: PAST SURGICAL HISTORY Procedure Laterality Date APPENDECTOMY 1970 DELIVERY ONLY 1982 , low cervical COLONOSCOPY FLX DX W/COLLJ SPEC WHEN PFRMD 2005 Colonoscopy LIG/TRNSXJ FLP TUBE ABDL/VAG APPR UNI/BI 1986 Tubal ligation NEUROPLASTY &/TRANSPOS MEDIAN NRV CARPAL TUNNE 1979 Carpal tunnel decomp, bilateral PAST SURGICAL HISTORY OF 10/2003 tendon repair right hand TR TDN RESTORE INTRNSC FUNCJ RING&SM FNGR 2004 right hand at base of thymb Allergies: ALLERGIES Allergen Reactions Atorvastatin Myalgia Review Of Systems: See HPI for ROS All of the remainder systems were reviewed and negative. PHYSICAL EXAMINATION: BP 130/92 Pulse 79 Wt 145 lb 3.2 oz (65.9kg) SpO2 98% LMP 06/08/2008 General appearance: well appearing, in no acute distress, and alert Skin: skin color, texture, turgor normal, no rashes or lesions Neck: Supple, no adenopathy; thyroid symmetric, normal size Respiratory: lungs clear to auscultation no wheezing or rhonchi Cardiovascular: Negative. RRR without murmur, gallop, or rubs. No ectopy Musculoskeletal: Extremities normal. No deformities, edema, or skin discoloration. Neuro: Oriented X 3 Data Review I have visually reviewed imaging and testing below CT imaging done today was reviewed and analyzed independently and compared to prior CT chest imaging by practitioner and awaiting radiology review. All previously noted lung nodules are stable or resolved. No new nodules noted. Imaging * * *Final Report* * * DATE OF EXAM: Apr 11 2023 1:43PM [facility] 0562 - CT LUNG SCREEN WO BANNER / PROCEDURE REASON: Tobacco use current * * * * Physician Interpretation * * * * EXAMINATION: CHEST CT WITHOUT CONTRAST (LOW-DOSE CT LUNG CANCER SCREENING PROTOCOL) CLINICAL HISTORY: Lung cancer LDCT screening ? absence of signs or symptoms of lung cancer. Nicotine dependence (cigarettes). Baseline (initial) Technique: Spiral CT acquisition of the chest from the thoracic inlet to the upper abdomen without contrast. MQ: [id number] Patient characteristics: * Kigw-ls-Wzsvv: 1955; Age at exam: 67 years * Gender: Female * Lung Disease: Asymptomatic (no signs or symptoms of lung disease) * Number of Pack Years: 52 * Current smoker (=0) or Number of Years since Quit: 0 * Ordering provider and NPI: KAYLEIGH DOMINGUEZ [id number] * Interpreting radiologist and NPI: Jenifer [id number] Exam acquisition parameters: * Exam Date: 04/11/2023 1:43 PM * Site: [facility] * * CT System Gas Station Attendant: Siemens * CT System Model: Sensation * Tube Current-Time (mA-sec): 21 * Peak Voltage (kV): 120V * Scan Time (sec): 11.39 * Scan Volume (z-length, cm): -30.40 * Pitch: 0.75 * Slice Thickness (mm): 1.5 * CT Dose-Length Product: 76 mGy*cm * CT Dose Index: 1.63mGy * CT Dose Reduction Method: Automated exposure control(AEC) and iterative recon COMPARISON: No prior RESULT: Are nodules present? Yes, 1-5 nodules Nodule 1: This Perifissural nodule is located in the Right Upper Lobe on slice number 174 with an average diameter of 5.4 mm (7.9 mm x 2.9 mm). Nodule 2: This Solid nodule is located in the Left Lower Lobe on slice number 210 with an average diameter of 3.9 mm (4.5 mm x 3.2 mm). May be focal mucus inspissation Nodule 3: This Perifissural nodule is located in the Left Upper Lobe on slice number 156 with an average diameter of 3.1 mm (4.2 mm x 2.0 mm). Nodule 4: This Solid nodule is located in the Left Upper Lobe on slice number 47 with an average diameter of 2.9 mm (3.7 mm x 2.0 mm). Nodule 5: This Solid nodule is located in the Left Upper Lobe on slice number 102 with an average diameter of 2.9 mm (3.7 mm x 2.0 mm). May be focal mucus inspissation Other findings: Biapical pleural-parenchymal thickening/scarring which is nodular in appearance. There is diffuse bronchial wall thickening with scattered foci of subsegmental bronchial mucus inspissation, most prominent within the right lower lobe (images 5:181, 192, 208), but also seen within the lingula (image 5:160) and left lower lobe (5:178). Atrophic thyroid gland. No enlarged thoracic lymph nodes. Common origin of the right brachiocephalic and left common carotid artery from the aortic arch, normal variant. 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 Mild tortuosity of descending thoracic aorta. The central pulmonary arteries are normal in caliber. Normal heart size. Mild atherosclerotic calcification of the thoracic and visualized upper abdominal aorta. Mild degenerative changes noted within the thoracic spine. No acute process in the imaged upper abdomen. Emphysema: None Coronary Artery Calcifications: Circumflex Mild to moderate; Left Anterior Descending Moderate; Right Coronary Mild Veneer Drier (topogram) images: Non-diagnostic. Last CT Chest - Impression Only CTA CHEST (GATED) W IVCON Exam End: 06/05/2023 9:59 AM (Final result) Impression: IMPRESSION: 1. 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 The remainder of the thoracic aorta is normal in course and caliber, with mild luminal calcification. No acute aortic pathology. ... Last XR Chest - Impression Only No resulted procedures found. Pulmonary Function Testing: No textual results found for the specified procedure(s). documented in this encounter [facility] 06-16-2024 History of Present illness Narrative Radiology Service Progress Note PATIENT NAME: Mckenzie Hayden DATE OF SERVICE: June 16, 2024 TIME: 12:59 PM PATIENT IDENTITY VERIFICATION COMPLETED USING TWO (2) IDENTIFIERS: Name and Date of confirmed by patient verbally. FALL SCREENING: Has the patient had 2 falls in the last year or 1 fall with injury or currently using an Ambulatory Assistive Device (Walker, Cane, Wheelchair, Crutches, etc.)? No PATIENT GENDER DATA: Assigned female at . status: : No status: NO. PATIENT RELEVANT IMPLANT DATA REVIEWED: Not Applicable PATIENT PRESENTS WITH AN IMPLANTABLE OR ATTACHED GRAIN WEIGHER: No RADIOLOGY DEPARTMENT: CT; Exam(s) Completed: Lung Screening PERIPHERAL IV DATA: Not applicable SIGNED BY: RT Deepa(Alejandra) June 16, 2024 12:59 PM documented in this encounter [facility] 06-16-2024 Note HNO ID: [id number] Author: HIWOT TOLENTINO RT(Alejandra) Service: ? Author Type: Grief Counsellor Type: Progress Notes Filed: 06/16/2024 12:59 Note Text: Radiology Service Progress Note PATIENT NAME: Mckenzie Hayden DATE OF SERVICE: June 16, 2024 TIME: 12:59 PM PATIENT IDENTITY VERIFICATION COMPLETED USING TWO (2) IDENTIFIERS: Name and Date of confirmed by patient verbally. FALL SCREENING: Has the patient had 2 falls in the last year or 1 fall with injury or currently using an Ambulatory Assistive Device (Walker, Cane, Wheelchair, Crutches, etc.)? No PATIENT GENDER DATA: Assigned female at . status: : No status: NO. PATIENT RELEVANT IMPLANT DATA REVIEWED: Not Applicable PATIENT PRESENTS WITH AN IMPLANTABLE OR ATTACHED GRAIN WEIGHER: No RADIOLOGY DEPARTMENT: CT; Exam(s) Completed: Lung Screening PERIPHERAL IV DATA: Not applicable SIGNED BY: RT Deepa(Alejandra) June 16, 2024 12:59 PM [facility] 03-20-2024 History of Present illness Narrative Chief Complaint Patient presents with: 6 Month Exam Immunizations: Flu vaccination HPI Mckenzie Hayden is a 68 year old female who presents here today for 6 month follow up. Declined Covid vaccine. Cut back to 7-8 cigarettes a day, trying to quit. No bowel, Gi, or urinary issues. Did IFOBT test last Feb. GERD: Sx controlled with Prilosec 20 mg daily. Lipid: Taking CoQ 10 daily, watching diet and exercising on treadmill. She is not on any statins currently, didn't tolerate Lipitor. Not sure why her cholesterol keeps creeping up but she doesn't really watch her diet. She is not big on fruits and vegetables. HTN: Checks BP at home with readings running 130/80. No chest pains, dizziness, or SOB. Is on Verapamil 100 mg daily and Maxzide 75-50 mg daily. Follows with Cardio, Dr. Fine. 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 Thyroid: Taking Synthroid 150 mcg daily. No missed dosages. Pain: lower back; uses Ibuprofen 800 mg as needed. Has had issues with her legs ever since being put on the Lipitor. Headaches: occ; will use Ibuprofen 800 mg prn. Referred to [facility] last visit for Atypical nevus, stated she doesn't want to follow up with [facility] again as the spot on her leg has come back that they removed. She is going to establish with David Guzmán. Past medical history, appointments, medications, allergies reviewed. Previous Medical History PAST MEDICAL HISTORY Diagnosis Date Cutaneous skin tags 02/22/2013 Esophageal reflux Gastroesophageal reflux Essential hypertension, benign Iron deficiency anemia, unspecified Anemia, iron def. Mitral valve disorders(424.0) MVP Mitral valve disorders(424.0) 02/26/2007 Pain in limb 03/29/2006 PMH - PAST MEDICAL HISTORY OF heel spurs Unspecified hypothyroidism Viral warts, unspecified 02/22/2013 Previous Surgical History PAST SURGICAL HISTORY Procedure Laterality Date APPENDECTOMY 1970 DELIVERY ONLY 1982 , low cervical COLONOSCOPY FLX DX W/COLLJ SPEC WHEN PFRMD 2005 Colonoscopy LIG/TRNSXJ FLP TUBE ABDL/VAG APPR UNI/BI 1986 Tubal ligation NEUROPLASTY &/TRANSPOS MEDIAN NRV CARPAL TUNNE 1979 Carpal tunnel decomp, bilateral PAST SURGICAL HISTORY OF 10/2003 tendon repair right hand TR TDN RESTORE INTRNSC FUNCJ RING&SM FNGR 2004 right hand at base of thymb Family History FAMILY HISTORY Problem Relation Age of Onset other (renal disease) Mother Heart Father Hypertension Father Heart Sister Alzheimer's Disease Maternal Grandmother Heart Paternal Grandfather Patient Allergies ALLERGIES Allergen Reactions Atorvastatin Myalgia Current Medications Current Outpatient Medications on File Prior to Visit Medication Sig triamterene-hydroCHLOROthiazide (MAXZIDE) 75-50 mg per tablet Take 1 tablet by mouth once daily. Verapamil HCl 100 mg 24 hr capsule Take 1 capsule by mouth once daily. omeprazole (PRILOSEC) 20 mg capsule Take 1 capsule by mouth once daily. levothyroxine (SYNTHROID) 150 mcg tablet Take 1 tablet by mouth once daily. Take on empty stomach. For thyroid fluticasone (FLONASE) 50 mcg/actuation nasal spray USE 2 SPRAYS IN EACH NOSTRIL ONCE DAILY (RINSE MOUTH AFTER USE) ibuprofen (MOTRIN) 800 mg tablet Take one(1) tablet every eight(8) hours as needed for pain. Cholecalciferol, Vitamin D3, (VITAMIN D-3) 50 mcg (2,000 unit) cap Take by mouth once daily. aspirin 81 mg chewable tablet Take 1 tablet by mouth once daily. Inositol 500 mg tab Take 1 tablet by mouth once daily. MILK THISTLE ORAL Take by mouth once daily. UBIDECARENONE (CO Q-10 ORAL) Take by mouth. multivitamin ORAL tablet Take 1 tablet by mouth once daily. Calcium-Cholecalciferol, D3, (CALCIUM 600 + D) 600-125 mg-unit ORAL Tab Take 1 tablet by mouth twice daily. No current facility-administered medications on file prior to visit. Social History Social History Tobacco Use Smoking status: Every Day Current packs/day: 1.00 Average packs/day: 1 pack/day for 52.0 years (52.0 ttl pk-yrs) Types: Cigarettes Smokeless tobacco: Never Tobacco comments: Cut way back, 7-8 cigs per day Vaping Use Vaping status: Never Used Substance Use Topics Alcohol use: Yes Comment: Occasionally Drug use: No EXAM: BP 120/78 Pulse 76 Resp 16 Wt 65.5 kg (144 lb 6.4 oz) LMP 06/08/2008 BMI 24.03 kg/m General Appearance: Well appearing, alert, in no acute distress, well-hydrated, well nourished.. Lungs: Lungs clear to auscultation. No wheezing, rhonchi, rales.. Heart: RRR without murmur, gallop, or rubs. No ectopy. Health Maintenance List BP Controlled (<130/80) Never done Advance Directive Discussion due on 05/28/2023 Influenza Vaccine(1) due on 01/27/2024 Colorectal Cancer Screening due on 03/26/2024 Covid-19 Vaccine( - season) due on 03/20/2025 Lung Cancer Screening due on 04/11/2024 Depression Screening due on 09/13/2024 Anxiety Screening due on 09/13/2024 Mammogram Screening due on 01/28/2025 LDL Cholesterol due on 03/15/2025 Annual PCP Team Chronic Disease Visit due on 03/20/2025 Diabetes Screening due on 03/15/2027 DTaP,Tdap,Td Vaccine(4 - Td or Tdap) due on 06/11/2028 Lipid Screening due on 03/15/2029 RSV Vaccine(1 - 1-dose 75+ series) due on 2030 Bone Density Screening Completed Shingrix Vaccine Completed Pneumococcal Vaccine: 65+ Completed Cervical Cancer Screening Discontinued Hepatitis C Screening Discontinued Data reviewed Appointment on 03/15/2024 Component Date Value Protein, Total 03/15/2024 7.3 Albumin 03/15/2024 4.6 Calcium, Total 03/15/2024 10.2 Bilirubin, Total 03/15/2024 0.4 Alkaline Phosphatase 03/15/2024 54 AST 03/15/2024 26 ALT 03/15/2024 21 Glucose 03/15/2024 84 BUN 03/15/2024 23 (H) Creatinine 03/15/2024 0.84 Sodium 03/15/2024 141 Potassium 03/15/2024 4.7 Chloride 03/15/2024 104 CO2 03/15/2024 26 Anion Gap 03/15/2024 11 Estimated Glomerular Antelmo* 03/15/2024 76 Cholesterol, Total 03/15/2024 240 (H) Triglyceride 03/15/2024 47 HDL Cholesterol 03/15/2024 107 Non HDL Cholesterol 03/15/2024 133 (H) Fasting Time 03/15/2024 12 VLDL Cholesterol 03/15/2024 9 TC:HDL Ratio 03/15/2024 2.24 LDL Cholesterol 03/15/2024 124 (H) LDL:HDL Ratio 03/15/2024 1.16 TSH 03/15/2024 0.503 ASSESSMENT/PLAN: 1. Essential hypertension, benign - ICD9: 401.1, ICD10: I10 (primary diagnosis) - Controlled - Continue current medications - Recommend home blood pressure monitoring, to bring results to next visit - Encouraged sodium restriction, DASH or Mediterranean diet - Recommend regular aerobic exercise - COMPLETE BLOOD COUNT AND DIFFERENTIAL 2. Gastroesophageal reflux disease, unspecified whether esophagitis present - ICD9: 530.81, ICD10: K21.9 - Continue current medications. 3. Hypothyroidism, unspecified type - ICD9: 244.9, ICD10: E03.9 - Instructed patient on importance of taking on an empty stomach either first thing in the morning or at bedtime. Continue current medications. - THYROID STIMULATING HORMONE 4. Hyperlipidemia, unspecified hyperlipidemia type - ICD9: 272.4, ICD10: E78.5 - Uncontrolled - Counseled on healthy diet and regular exercise - Discussed need for and benefit of weight loss. BMI 24.03 kg/(m^2) - at this time do not feel statin is needed - LIPID PANEL BASIC - COMPREHENSIVE METABOLIC PANEL - COMPLETE BLOOD COUNT AND DIFFERENTIAL 5. Spinal stenosis of lumbar region, unspecified whether neurogenic claudication present - ICD9: 724.02, ICD10: M48.061 Continue current medications. 6. Tobacco abuse - ICD9: 305.1, ICD10: Z72.0 - Cessation encouraged. - Physiologic and physical aspects of tobacco addiction as well as strategies for quitting were discussed. - Counseling was given focusing on the harmful effects of this addiction especially given the patient's medical condition(s) which will be worsened because of the chemicals in tobacco. - Counseling was given . 7. Screening for colon cancer - ICD9: V76.51, ICD10: Z12.11 Cologuard test ordered 8. Need for influenza vaccination - ICD9: V04.81, ICD10: Z23 Flu shot given in office Follow up in 6 months with fasting labs prior. I agree with the Chief Complaint, ROS, and Past Histories independently gathered by the clinical child support specialist and the remaining scribed note accurately describes my personal service to the patient. Medical Decision Making: Problems: Moderate: 2+ stable chronic illnesses Data: Unique test result(s) reviewed: 3+ Unique test(s) ordered: 3+ Risk: Moderate: Drug management Medical Decision Making Level: 4 - Moderate Alda Pabon MD The documentation for this note was completed by Oumou Demarco MA acting as scribe for Alda Pabon MD. March 20, 2024 11:08 AM. Oumou Demarco MA documented in this encounter [facility] 03-20-2024 Note HNO ID: [id number] Author: ALDA PABON MD Service: ? Author Type: Physician Type: Progress Notes Filed: 03/20/2024 14:10 Note Text: Chief Complaint Patient presents with: 6 Month Exam Immunizations: Flu vaccination HPI Mckenzie Hayden is a 68 year old female who presents here today for 6 month follow up. Declined Covid vaccine. Cut back to 7-8 cigarettes a day, trying to quit. No bowel, Gi, or urinary issues. Did IFOBT test last Feb. GERD: Sx controlled with Prilosec 20 mg daily. Lipid: Taking CoQ 10 daily, watching diet and exercising on treadmill. She is not on any statins currently, didn't tolerate Lipitor. Not sure why her cholesterol keeps creeping up but she doesn't really watch her diet. She is not big on fruits and vegetables. HTN: Checks BP at home with readings running 130/80. No chest pains, dizziness, or SOB. Is on Verapamil 100 mg daily and Maxzide 75-50 mg daily. Follows with Cardio, Dr. Fine. 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 Thyroid: Taking Synthroid 150 mcg daily. No missed dosages. Pain: lower back; uses Ibuprofen 800 mg as needed. Has had issues with her legs ever since being put on the Lipitor. Headaches: occ; will use Ibuprofen 800 mg prn. Referred to [facility] last visit for Atypical nevus, stated she doesn't want to follow up with [facility] again as the spot on her leg has come back that they removed. She is going to establish with [facility]. Past medical history, appointments, medications, allergies reviewed. Previous Medical History PAST MEDICAL HISTORY Diagnosis Date Cutaneous skin tags 02/22/2013 Esophageal reflux Gastroesophageal reflux Essential hypertension, benign Iron deficiency anemia, unspecified Anemia, iron def. Mitral valve disorders(424.0) MVP Mitral valve disorders(424.0) 02/26/2007 Pain in limb 03/29/2006 PMH - PAST MEDICAL HISTORY OF heel spurs Unspecified hypothyroidism Viral warts, unspecified 02/22/2013 Previous Surgical History PAST SURGICAL HISTORY Procedure Laterality Date APPENDECTOMY 1970 DELIVERY ONLY 1982 , low cervical COLONOSCOPY FLX DX W/COLLJ SPEC WHEN PFRMD 2005 Colonoscopy LIG/TRNSXJ FLP TUBE ABDL/VAG APPR UNI/BI 1986 Tubal ligation NEUROPLASTY AND/TRANSPOS MEDIAN NRV CARPAL TUNNE 1979 Carpal tunnel decomp, bilateral PAST SURGICAL HISTORY OF 10/2003 tendon repair right hand TR TDN RESTORE INTRNSC FUNCJ RINGANDSM FNGR 2004 right hand at base of thymb Family History FAMILY HISTORY Problem Relation Age of Onset other (renal disease) Mother Heart Father Hypertension Father Heart Sister Alzheimer's Disease Maternal Grandmother Heart Paternal Grandfather Patient Allergies ALLERGIES Allergen Reactions Atorvastatin Myalgia Current Medications Current Outpatient Medications on File Prior to Visit Medication Sig triamterene-hydroCHLOROthiazide (MAXZIDE) 75-50 mg per tablet Take 1 tablet by mouth once daily. Verapamil HCl 100 mg 24 hr capsule Take 1 capsule by mouth once daily. omeprazole (PRILOSEC) 20 mg capsule Take 1 capsule by mouth once daily. levothyroxine (SYNTHROID) 150 mcg tablet Take 1 tablet by mouth once daily. Take on empty stomach. For thyroid fluticasone (FLONASE) 50 mcg/actuation nasal spray USE 2 SPRAYS IN EACH NOSTRIL ONCE DAILY (RINSE MOUTH AFTER USE) ibuprofen (MOTRIN) 800 mg tablet Take one(1) tablet every eight(8) hours as needed for pain. Cholecalciferol, Vitamin D3, (VITAMIN D-3) 50 mcg (2,000 unit) cap Take by mouth once daily. aspirin 81 mg chewable tablet Take 1 tablet by mouth once daily. Inositol 500 mg tab Take 1 tablet by mouth once daily. MILK THISTLE ORAL Take by mouth once daily. UBIDECARENONE (CO Q-10 ORAL) Take by mouth. multivitamin ORAL tablet Take 1 tablet by mouth once daily. Calcium-Cholecalciferol, D3, (CALCIUM 600 + D) 600-125 mg-unit ORAL Tab Take 1 tablet by mouth twice daily. No current facility-administered medications on file prior to visit. Social History Social History Tobacco Use Smoking status: Every Day Current packs/day: 1.00 Average packs/day: 1 pack/day for 52.0 years (52.0 ttl pk-yrs) Types: Cigarettes Smokeless tobacco: Never Tobacco comments: Cut way back, 7-8 cigs per day Vaping Use Vaping status: Never Used Substance Use Topics Alcohol use: Yes Comment: Occasionally Drug use: No EXAM: BP 120/78 Pulse 76 Resp 16 Wt 65.5 kg (144 lb 6.4 oz) LMP 06/08/2008 BMI 24.03 kg/m? General Appearance: Well appearing, alert, in no acute distress, well-hydrated, well nourished.. Lungs: Lungs clear to auscultation. No wheezing, rhonchi, rales.. Heart: RRR without murmur, gallop, or rubs. No ectopy. Health Maintenance List BP Controlled (<130/80) Never done Advance Directive Discussion due on 05/28/2023 Influenza Vaccine(1) due on 01/27/2024 Colorectal Cancer Screening due on [facility]more [facility] not included[facility] 02-06-2024 Telephone encounter Note The following approved medication requests have been transmitted electronically. Requested Prescriptions Pending Prescriptions Disp Refills triamterene-hydroCHLOROthiazide (MAXZIDE) 75-50 mg per tablet 90 tablet 3 Sig: Take 1 tablet by mouth once daily. Verapamil HCl 100 mg 24 hr capsule 90 capsule 3 Sig: Take 1 capsule by mouth once daily. omeprazole (PRILOSEC) 20 mg capsule 90 capsule 3 Sig: Take 1 capsule by mouth once daily. levothyroxine (SYNTHROID) 150 mcg tablet 90 tablet 3 Sig: Take 1 tablet by mouth once daily. Take on empty stomach. For thyroid Jerrell Webster APRN.VANESSA [facility] 02-06-2024 Miscellaneous Notes The following approved medication requests have been transmitted electronically. Requested Prescriptions Pending Prescriptions Disp Refills triamterene-hydroCHLOROthiazide (MAXZIDE) 75-50 mg per tablet 90 tablet 3 Sig: Take 1 tablet by mouth once daily. Verapamil HCl 100 mg 24 hr capsule 90 capsule 3 Sig: Take 1 capsule by mouth once daily. omeprazole (PRILOSEC) 20 mg capsule 90 capsule 3 Sig: Take 1 capsule by mouth once daily. levothyroxine (SYNTHROID) 150 mcg tablet 90 tablet 3 Sig: Take 1 tablet by mouth once daily. Take on empty stomach. For thyroid Jerrell Webster APRN.VANESSA Prescription Refill Information The patient has been identified by name and date of : Yes Caregiver verified no other encounters exist for this prescription request: Yes Caregiver confirmed with patient/requestor that no other refills are due, in the near future, with this provider at this time: No The last office visit in the department: 11/30/23 Does the patient have a future office visit with this provider/department: Yes Requested Prescriptions Pending Prescriptions Disp Refills triamterene-hydroCHLOROthiazide (MAXZIDE) 75-50 mg per tablet 90 tablet 3 Sig: Take 1 tablet by mouth once daily. Verapamil HCl 100 mg 24 hr capsule 90 capsule 3 Sig: Take 1 capsule by mouth once daily. omeprazole (PRILOSEC) 20 mg capsule 90 capsule 3 Sig: Take 1 capsule by mouth once daily. levothyroxine (SYNTHROID) 150 mcg tablet 90 tablet 3 Sig: Take 1 tablet by mouth once daily. Take on empty stomach. For thyroid Oumou Demarco MA February 05, 2024 4:02 PM documented in this encounter [facility] 02-05-2024 Telephone encounter Note Prescription Refill Information The patient has been identified by name and date of : Yes Caregiver verified no other encounters exist for this prescription request: Yes Caregiver confirmed with patient/requestor that no other refills are due, in the near future, with this provider at this time: No The last office visit in the department: 11/30/23 Does the patient have a future office visit with this provider/department: Yes Requested Prescriptions Pending Prescriptions Disp Refills triamterene-hydroCHLOROthiazide (MAXZIDE) 75-50 mg per tablet 90 tablet 3 Sig: Take 1 tablet by mouth once daily. Verapamil HCl 100 mg 24 hr capsule 90 capsule 3 Sig: Take 1 capsule by mouth once daily. omeprazole (PRILOSEC) 20 mg capsule 90 capsule 3 Sig: Take 1 capsule by mouth once daily. levothyroxine (SYNTHROID) 150 mcg tablet 90 tablet 3 Sig: Take 1 tablet by mouth once daily. Take on empty stomach. For thyroid Oumou Demarco MA February 05, 2024 4:02 PM [facility] 01-30-2024 Note Formatting of this n ote might be different from the original. January 30, 2024 PID: [id number] Mckenzie Hayden [address] [place] [address] [place] [address] Dear Ms. Hayden, We are pleased to inform you that the results of your recent breast imaging exam on 01/29/2024 are normal. Breast tissue can be either dense or not dense. Dense tissue makes it harder to find breast cancer on a mammogram and also raises the risk of developing breast cancer. Your breast tissue is not dense. Talk to your healthcare provider about breast density, risks for breast cancer, and your individual situation. Early detection of cancer is very important. We also understand recommendations regarding breast cancer screening are controversial. Please discuss with your primary care provider which strategy is best for you and whether a mammogram is right for you. Your imaging studies and report will be kept on file at [facility] as part of your permanent medical record and are available for your continuing care. Thank you for allowing us to help in meeting your health care needs. Sincerely, Dr. Muhammad Interpreting Radiologist [facility] (Normal over 40) [facility] 01-30-2024 Miscellaneous Notes January 30, 2024 PID: [id number] Mckenzie Hayden [address] [place] [address] [place] [address] Dear Ms. Hayden, We are pleased to inform you that the results of your recent breast imaging exam on 01/29/2024 are normal. Breast tissue can be either dense or not dense. Dense tissue makes it harder to find breast cancer on a mammogram and also raises the risk of developing breast cancer. Your breast tissue is not dense. Talk to your healthcare provider about breast density, risks for breast cancer, and your individual situation. Early detection of cancer is very important. We also understand recommendations regarding breast cancer screening are controversial. Please discuss with your primary care provider which strategy is best for you and whether a mammogram is right for you. Your imaging studies and report will be kept on file at [facility] as part of your permanent medical record and are available for your continuing care. Thank you for allowing us to help in meeting your health care needs. Sincerely, Dr. Muhammad Interpreting Radiologist [facility] (Normal over 40) documented in this encounter [facility] 01-29-2024 History of Present illness Narrative Radiology Service Progress Note PATIENT NAME: Mckenzie Hayden DATE OF SERVICE: January 29, 2024 TIME: 11:30 AM PATIENT IDENTITY VERIFICATION COMPLETED USING TWO (2) IDENTIFIERS: Name and Date of confirmed by patient verbally. FALL SCREENING: Has the patient had 2 falls in the last year or 1 fall with injury or currently using an Ambulatory Assistive Device (Walker, Cane, Wheelchair, Crutches, etc.)? No PATIENT GENDER DATA: Female. status: : No status: NO. PATIENT RELEVANT IMPLANT DATA REVIEWED: Not Applicable PATIENT PRESENTS WITH AN IMPLANTABLE OR ATTACHED GRAIN WEIGHER: No RADIOLOGY DEPARTMENT: Mammography PERIPHERAL IV DATA: Not applicable SIGNED BY: Kush Crawley January 29, 2024 11:30 AM documented in this encounter [facility] 01-29-2024 Note HNO ID: [id number] Author: MARGIE LOPEZ Mammo Tech Service: ? Author Type: Technologist Type: Progress Notes Filed: 01/29/2024 11:30 Note Text: Radiology Service Progress Note PATIENT NAME: Mckenzie Hayden DATE OF SERVICE: January 29, 2024 TIME: 11:30 AM PATIENT IDENTITY VERIFICATION COMPLETED USING TWO (2) IDENTIFIERS: Name and Date of confirmed by patient verbally. FALL SCREENING: Has the patient had 2 falls in the last year or 1 fall with injury or currently using an Ambulatory Assistive Device (Walker, Cane, Wheelchair, Crutches, etc.)? No PATIENT GENDER DATA: Female. status: : No status: NO. PATIENT RELEVANT IMPLANT DATA REVIEWED: Not Applicable PATIENT PRESENTS WITH AN IMPLANTABLE OR ATTACHED GRAIN WEIGHER: No RADIOLOGY DEPARTMENT: Mammography PERIPHERAL IV DATA: Not applicable SIGNED BY: Kush Crawley January 29, 2024 11:30 AM [facility] 11-30-2023 History of Present illness Narrative Chief Complaint Patient presents with: Eye Problem HPI Mckenzie Hayden is a 68 year old female who presents here today for Above Complaints. Patient is here for eye problem. Location is left eye. Duration is approximately 1 day, started yesterday morning. Noticed after walking on the treadmill, redness of her left eye. She denies any blurry vision or double vision. Denies any eye pain. States that it feels different. Has been using dry eye solution. No history of eye surgery. She is on a daily 81 mg aspirin for CAD prevention. She has history of hypertension. Blood pressure at home has been consistently 130/80. Taking her medication as prescribed. Denies any trauma. Past medical history, appointments, medications, allergies reviewed. EXAM: BP 130/84 Pulse 64 Resp 18 LMP 06/08/2008 SpO2 98% General Appearance: Well appearing, alert, in no acute distress, well-hydrated, well nourished.. Head: Normocephalic, no masses, lesions, tenderness or abnormalities. Eyes: Left eye: Blood present in conjunctiva, spreading to lower area of the eye, all located on the lateral aspect. ASSESSMENT/PLAN: 1. Subconjunctival bleed, left - ICD9: 372.72, ICD10: H11.32 -Blood pressure is well-controlled. Warm compress and/or artificial tears for comfort. Stop aspirin for 1 week. Discussed that area will go through a healing process over the next few weeks including turning yellow/light green and then resolved. I discussed that if she were to get double vision, blurry vision, throbbing eye pain then she should call her eye doctor and if it is extreme then needs to go to the emergency room. She verbalized understanding. Jerrell Webster APRN.VANESSA This note was partly generated using [employer] voice recognition dictation and may contain some misspelled or inaccurate words missed on review. documented in this encounter [facility] 11-30-2023 Note HNO ID: [id number] Author: JERRELL WEBSTER APRN.CNP Service: ? Author Type: Nurse Practitioner Type: Progress Notes Filed: 11/30/2023 07:44 Note Text: Chief Complaint Patient presents with: Eye Problem HPI Mckenzie Hayden is a 68 year old female who presents here today for Above Complaints. Patient is here for eye problem. Location is left eye. Duration is approximately 1 day, started yesterday morning. Noticed after walking on the treadmill, redness of her left eye. She denies any blurry vision or double vision. Denies any eye pain. States that it feels different. Has been using dry eye solution. No history of eye surgery. She is on a daily 81 mg aspirin for CAD prevention. She has history of hypertension. Blood pressure at home has been consistently 130/80. Taking her medication as prescribed. Denies any trauma. Past medical history, appointments, medications, allergies reviewed. EXAM: BP 130/84 Pulse 64 Resp 18 LMP 06/08/2008 SpO2 98% General Appearance: Well appearing, alert, in no acute distress, well-hydrated, well nourished.. Head: Normocephalic, no masses, lesions, tenderness or abnormalities. Eyes: Left eye: Blood present in conjunctiva, spreading to lower area of the eye, all located on the lateral aspect. ASSESSMENT/PLAN: 1. Subconjunctival bleed, left - ICD9: 372.72, ICD10: H11.32 -Blood pressure is well-controlled. Warm compress and/or artificial tears for comfort. Stop aspirin for 1 week. Discussed that area will go through a healing process over the next few weeks including turning yellow/light green and then resolved. I discussed that if she were to get double vision, blurry vision, throbbing eye pain then she should call her eye doctor and if it is extreme then needs to go to the emergency room. She verbalized understanding. Jerrell Webster APRN.FLEET OPERATIONS MANAGER This note was partly generated using [employer] voice recognition dictation and may contain some misspelled or inaccurate words missed on review. [facility] 11-29-2023 Telephone encounter Note Reason for Call: Redness to Left eye, spreading from corner to bottom of eye Outcome: Advised to be seen within 3 days. Caller conferenced to [place] in appointment center for available appointment in office of PCP. Reason for Disposition Bleeding on white of the eye Answer Assessment - Initial Assessment Questions 1. LOCATION: Location: left eye from corner of eye to bottom of eye 2. REDNESS OF SCLERA: left eye 3. ONSET: 9:40AM 4. EYELIDS: NO 5. VISION: NO 6. ITCHING: NO 7. PAIN: 0/10 8. CONTACT LENS: NO 9. CAUSE: unknown 10. OTHER SYMPTOMS: none Protocols used: Eye - Red Without [id number] [facility] 11-29-2023 Miscellaneous Notes Reason for Call: Redness to Left eye, spreading from corner to bottom of eye Outcome: Advised to be seen within 3 days. Caller conferenced to [place] in appointment center for available appointment in office of PCP. Reason for Disposition Bleeding on white of the eye Answer Assessment - Initial Assessment Questions 1. LOCATION: Location: left eye from corner of eye to bottom of eye 2. REDNESS OF SCLERA: left eye 3. ONSET: 9:40AM 4. EYELIDS: NO 5. VISION: NO 6. ITCHING: NO 7. PAIN: 0/10 8. CONTACT LENS: NO 9. CAUSE: unknown 10. OTHER SYMPTOMS: none Protocols used: Eye - Red Without [id number] documented in this encounter [facility] 11-19-2023 Note HNO ID: [id number] Author: ARIEL FINE MD Service: ? Author Type: Physician Type: Progress Notes Filed: 11/19/2023 11:59 Note Text: Ariel Fine MD Interventional Cardiology [address] [place] [address] [id number] Chief Complaint Patient presents with: New Patient HISTORY OF PRESENT ILLNESS: Ms. Hayden is a 68 year old female seen in my office today for assessment management of abnormal CT scan patient had longstanding history of hypertensive heart disease she is on medical therapy well-controlled chronic tobacco abuse recently she had a CAT scan of the lungs to screen for any cancer she had multiple nodules which is being followed with in addition to her CT of the lungs ascending aorta was dilated maximum diameter is 4.4 at the level of the pulmonary arteries with coronary calcification patient denies any chest pain or shortness of breath no signs or symptoms of congestive heart failure she had prior history of mitral valve prolapse which was reviewed with no mitral regurgitation Cardiac Risk Factors age (male over 45, female over 55), hypertension, family history of CAD PAST MEDICAL HISTORY Diagnosis Date Cutaneous skin tags 02/22/2013 Esophageal reflux Gastroesophageal reflux Essential hypertension, benign Iron deficiency anemia, unspecified Anemia, iron def. Mitral valve disorders(424.0) MVP Mitral valve disorders(424.0) 02/26/2007 Pain in limb 03/29/2006 PMH - PAST MEDICAL HISTORY OF heel spurs Unspecified hypothyroidism Viral warts, unspecified 02/22/2013 PAST SURGICAL HISTORY Procedure Laterality Date APPENDECTOMY 1970 DELIVERY ONLY 1982 , low cervical COLONOSCOPY FLX DX W/COLLJ SPEC WHEN PFRMD 2005 Colonoscopy LIG/TRNSXJ FLP TUBE ABDL/VAG APPR UNI/BI 1987 Tubal ligation NEUROPLASTY AND/TRANSPOS MEDIAN NRV CARPAL TUNNE 1979 Carpal tunnel decomp, bilateral PAST SURGICAL HISTORY OF 10/2003 tendon repair right hand TR TDN RESTORE INTRNSC FUNCJ RINGANDSM FNGR 2004 right hand at base of thymb FAMILY HISTORY Problem Relation Age of Onset other (renal disease) Mother Heart Father Hypertension Father Heart Sister Alzheimer's Disease Maternal Grandmother Heart Paternal Grandfather Social History Tobacco Use Smoking status: Every Day Packs/day: 1.00 Years: 52.00 Additional pack years: 0.00 Total pack years: 52.00 Types: Cigarettes Smokeless tobacco: Never Tobacco comments: Cut way back, 7-8 cigs per day Vaping Use Vaping Use: Never used Substance Use Topics Alcohol use: Yes Comment: Occasionally Drug use: No ALLERGIES Allergen Reactions Atorvastatin Myalgia Medications: Current Outpatient Medications Medication Sig Dispense Refill triamterene-hydroCHLOROthiazide (MAXZIDE) 75-50 mg per tablet Take 1 tablet by mouth once daily. 90 tablet 3 Verapamil HCl 100 mg 24 hr capsule Take 1 capsule by mouth once daily. 90 capsule 3 omeprazole (PRILOSEC) 20 mg capsule Take 1 capsule by mouth once daily. 90 capsule 3 ibuprofen (MOTRIN) 800 mg tablet Take one(1) tablet every eight(8) hours as needed for pain. 270 tablet 1 levothyroxine (SYNTHROID) 150 mcg tablet Take 1 tablet by mouth once daily. Take on empty stomach. For thyroid 90 tablet 3 fluticasone (FLONASE) 50 mcg/actuation nasal spray USE 2 SPRAYS IN EACH NOSTRIL ONCE DAILY (RINSE MOUTH AFTER USE) 48 g 3 Cholecalciferol, Vitamin D3, (VITAMIN D-3) 50 mcg (2,000 unit) cap Take by mouth once daily. aspirin 81 mg chewable tablet Take 1 tablet by mouth once daily. Inositol 500 mg tab Take 1 tablet by mouth once daily. 0 MILK THISTLE ORAL Take by mouth once daily. UBIDECARENONE (CO Q-10 ORAL) Take by mouth. multivitamin ORAL tablet Take 1 tablet by mouth once daily. 0 Calcium-Cholecalciferol, D3, (CALCIUM 600 + D) 600-125 mg-unit ORAL Tab Take 1 tablet by mouth twice daily. 0 No current facility-administered medications for this visit. Review of Systems Constitutional: Negative for chills, diaphoresis, fever, malaise/fatigue and weight loss. HENT: Negative for congestion, ear discharge, ear pain, hearing loss, nosebleeds, sinus pain, sore throat and tinnitus. Eyes: Negative for blurred vision, double vision, photophobia, pain, discharge and redness. Respiratory: Negative for cough, hemoptysis, sputum production, shortness of breath, wheezing and stridor. Cardiovascular: Negative for chest pain, palpitations, orthopnea, claudication, leg swelling and PND. Gastrointestinal: Negative for abdominal pain, blood in stool, constipation, diarrhea, heartburn, melena, nausea and vomiting. Genitourinary: Negative for dysuria, flank pain, frequency, hematuria and urgency. Musculoskeletal: Negative for back pain, falls, joint pain, myalgias and neck pain. Skin: Negative for itching and rash. Neurological: Negative for dizziness, tingling, tremors, sensory change, speech change, focal weakness, se (more content not included)... [facility] 11-19-2023 History of Present illness Narrative Images from the original note were not included. Ariel Fine MD Interventional Cardiology [address] [place] [address] [phone] Chief Complaint Patient presents with: New Patient HISTORY OF PRESENT ILLNESS: Ms. Hayden is a 68 year old female seen in my office today for assessment management of abnormal CT scan patient had longstanding history of hypertensive heart disease she is on medical therapy well-controlled chronic tobacco abuse recently she had a CAT scan of the lungs to screen for any cancer she had multiple nodules which is being followed with in addition to her CT of the lungs ascending aorta was dilated maximum diameter is 4.4 at the level of the pulmonary arteries with coronary calcification patient denies any chest pain or shortness of breath no signs or symptoms of congestive heart failure she had prior history of mitral valve prolapse which was reviewed with no mitral regurgitation Cardiac Risk Factors age (male over 45, female over 55), hypertension, family history of CAD PAST MEDICAL HISTORY Diagnosis Date Cutaneous skin tags 02/22/2013 Esophageal reflux Gastroesophageal reflux Essential hypertension, benign Iron deficiency anemia, unspecified Anemia, iron def. Mitral valve disorders(424.0) MVP Mitral valve disorders(424.0) 02/26/2007 Pain in limb 03/29/2006 PMH - PAST MEDICAL HISTORY OF heel spurs Unspecified hypothyroidism Viral warts, unspecified 02/22/2013 PAST SURGICAL HISTORY Procedure Laterality Date APPENDECTOMY 1970 DELIVERY ONLY 1982 , low cervical COLONOSCOPY FLX DX W/COLLJ SPEC WHEN PFRMD 2005 Colonoscopy LIG/TRNSXJ FLP TUBE ABDL/VAG APPR UNI/BI 1986 Tubal ligation NEUROPLASTY &/TRANSPOS MEDIAN NRV CARPAL TUNNE 1979 Carpal tunnel decomp, bilateral PAST SURGICAL HISTORY OF 10/2003 tendon repair right hand TR TDN RESTORE INTRNSC FUNCJ RING&SM FNGR 2005 right hand at base of thymb FAMILY HISTORY Problem Relation Age of Onset other (renal disease) Mother Heart Father Hypertension Father Heart Sister Alzheimer's Disease Maternal Grandmother Heart Paternal Grandfather Social History Tobacco Use Smoking status: Every Day Packs/day: 1.00 Years: 52.00 Additional pack years: 0.00 Total pack years: 52.00 Types: Cigarettes Smokeless tobacco: Never Tobacco comments: Cut way back, 7-8 cigs per day Vaping Use Vaping Use: Never used Substance Use Topics Alcohol use: Yes Comment: Occasionally Drug use: No ALLERGIES Allergen Reactions Atorvastatin Myalgia Medications: Current Outpatient Medications Medication Sig Dispense Refill triamterene-hydroCHLOROthiazide (MAXZIDE) 75-50 mg per tablet Take 1 tablet by mouth once daily. 90 tablet 3 Verapamil HCl 100 mg 24 hr capsule Take 1 capsule by mouth once daily. 90 capsule 3 omeprazole (PRILOSEC) 20 mg capsule Take 1 capsule by mouth once daily. 90 capsule 3 ibuprofen (MOTRIN) 800 mg tablet Take one(1) tablet every eight(8) hours as needed for pain. 270 tablet 1 levothyroxine (SYNTHROID) 150 mcg tablet Take 1 tablet by mouth once daily. Take on empty stomach. For thyroid 90 tablet 3 fluticasone (FLONASE) 50 mcg/actuation nasal spray USE 2 SPRAYS IN EACH NOSTRIL ONCE DAILY (RINSE MOUTH AFTER USE) 48 g 3 Cholecalciferol, Vitamin D3, (VITAMIN D-3) 50 mcg (2,000 unit) cap Take by mouth once daily. aspirin 81 mg chewable tablet Take 1 tablet by mouth once daily. Inositol 500 mg tab Take 1 tablet by mouth once daily. 0 MILK THISTLE ORAL Take by mouth once daily. UBIDECARENONE (CO Q-10 ORAL) Take by mouth. multivitamin ORAL tablet Take 1 tablet by mouth once daily. 0 Calcium-Cholecalciferol, D3, (CALCIUM 600 + D) 600-125 mg-unit ORAL Tab Take 1 tablet by mouth twice daily. 0 No current facility-administered medications for this visit. Review of Systems Constitutional: Negative for chills, diaphoresis, fever, malaise/fatigue and weight loss. HENT: Negative for congestion, ear discharge, ear pain, hearing loss, nosebleeds, sinus pain, sore throat and tinnitus. Eyes: Negative for blurred vision, double vision, photophobia, pain, discharge and redness. Respiratory: Negative for cough, hemoptysis, sputum production, shortness of breath, wheezing and stridor. Cardiovascular: Negative for chest pain, palpitations, orthopnea, claudication, leg swelling and PND. Gastrointestinal: Negative for abdominal pain, blood in stool, constipation, diarrhea, heartburn, melena, nausea and vomiting. Genitourinary: Negative for dysuria, flank pain, frequency, hematuria and urgency. Musculoskeletal: Negative for back pain, falls, joint pain, myalgias and neck pain. Skin: Negative for itching and rash. Neurological: Negative for dizziness, tingling, tremors, sensory change, speech change, focal weakness, seizures, loss of consciousness, weakness and headaches. Endo/Heme/Allergies: Negative for environmental allergies and polydipsia. Does not bruise/bleed easily. Psychiatric/Behavioral: Negative for depression, hallucinations, memory loss, substance abuse and suicidal ideas. The patient is not nervous/anxious and does not have insomnia. Physical Examination: Vitals:BP 136/85 Pulse 77 Ht 5' 5 (1.65m) Wt 144 lb 12.8 oz (65.7kg) SpO2 98% LMP 06/08/2008 BMI 24.10 kg/(m^2). BP w/Orthostatic Vitals Date and Time Orthostatic BP Orthostatic Pulse BP Pulse BP Position BP Site BP Cuff Size 11/19/23 1036 -- -- 136/85 77 -- -- -- Last 2 Encounter Wt Readings: Date: Wt: 11/19/2023 65.7 kg (144 lb 12.8 oz) 09/14/2023 65.5 kg (144 lb 6.4 oz) Physical Exam Constitutional: General: She is not in acute distress. Appearance: She is not diaphoretic. HENT: Head: Normocephalic and atraumatic. Right Ear: External ear normal. Left Ear: External ear normal. Nose: Nose normal. Mouth/Throat: Pharynx: Oropharynx is clear. Eyes: General: Right eye: No discharge. Left eye: No discharge. Conjunctiva/sclera: Conjunctivae normal. Pupils: Pupils are equal, round, and reactive to light. Cardiovascular: Rate and Rhythm: Normal rate and regular rhythm. Heart sounds: Normal heart sounds, S1 normal and S2 normal. No murmur heard. No friction rub. No gallop. No S3 or S4 sounds. Pulmonary: Effort: Pulmonary effort is normal. No respiratory distress. Breath sounds: Normal breath sounds. No wheezing or rales. Chest: Chest wall: No tenderness. Abdominal: General: Abdomen is flat. Musculoskeletal: General: Normal range of motion. Cervical back: Normal range of motion and neck supple. Skin: General: Skin is warm and dry. Neurological: Mental Status: She is alert and oriented to person, place, and time. Psychiatric: Mood and Affect: Mood normal. Thought Content: Thought content normal. Pertinent Labs: CBC: Hemoglobin (g/dL) Date Value 07/19/2020 15.6 Hematocrit (%) Date Value 07/19/2020 46.5 WBC (k/uL) Date Value 07/19/2020 4.51 Platelet Count (k/uL) Date Value 07/19/2020 283 BMP: Glucose (mg/dL) Date Value 09/08/2023 92 07/19/2020 83 Potassium (mmol/L) Date Value 09/08/2023 4.4 07/19/2020 4.5 Sodium (mmol/L) Date Value 09/08/2023 143 07/19/2020 143 Chloride (mmol/L) Date Value 09/08/2023 105 07/19/2020 105 CO2 (mmol/L) Date Value 09/08/2023 27 07/19/2020 27 Creatinine (mg/dL) Date Value 09/08/2023 0.74 07/19/2020 1.06 BUN (mg/dL) Date Value 09/08/2023 17 07/19/2020 20 Anion Gap (mmol/L) Date Value 09/08/2023 11 07/19/2020 11 Calcium (mg/dL) Date Value 07/19/2020 9.9 Calcium, Total (mg/dL) Date Value 09/08/2023 10.2 INR: Lipid Profile: Cholesterol, Total Date Value Ref Range Status 09/08/2023 223 (H) <200 mg/dL Final Comment: <200 mg/dL, Desirable 200-239 mg/dL, Borderline high >239 mg/dL, High HDL Cholesterol Date Value Ref Range Status 09/08/2023 104 >39 mg/dL Final Comment: 40-59 mg/dL, Acceptable >59 mg/dL, High: Negative risk factor for coronary heart disease <40 mg/dL, Low: Positive risk factor for coronary heart disease LDL Cholesterol Date Value Ref Range Status 09/08/2023 108 (H) <100 mg/dL Final Comment: <100 mg/dL, Optimal 100-129 mg/dL, Near optimal/above optimal 130-159 mg/dL, Borderline high 160-189 mg/dL, High >189 mg/dL, Very high Secondary prevention optimal LDL Cholesterol levels are recommended to be < 70 mg/dL Triglyceride Date Value Ref Range Status 09/08/2023 54 <150 mg/dL Final Comment: <150 mg/dL, Normal 150-199 mg/dL, Borderline high 200-499 mg/dL, High >499 mg/dL, Very high Hemoglobin A1C: No results found for: HGBA1C TSH: No results found for: TSHREFL Prior Cardiac Testing ekg Assessment and Plan: 68 years old female patient with dilated ascending aorta history of mitral valve prolapse and hypertensive heart ASSESSMENT/PLAN: 1. Coronary artery calcification seen on CAT scan - ICD9: 414.00, ICD10: I25.10 (primary diagnosis) Patient is completely asymptomatic we will continue medical therapy risk factor modification 2. Aortic ectasia, thoracic (HCC) - ICD9: 447.71, ICD10: I77.810 Dilated ascending aorta maximum diameter is 4.4 in light of her personal history of mitral valve prolapse A2 scheduled for genetic testing or genetic component - CONSULT TO MEDICAL GENETICS - CARDIOVASCULAR 3. Essential hypertension, benign - ICD9: 401.1, ICD10: I10 - Controlled - Continue current medications - Recommend home blood pressure monitoring, to bring results to next visit - Encouraged sodium restriction, DASH or Mediterranean diet - Recommend regular aerobic exercise 4. Acute viral pericarditis - ICD9: 420.91, ICD10: I30.1 Past medical history with no recurrence Ariel Fine MD Follow up planning: One year Electronically signed by Ariel Fine MD on November 19, 2023, 11:56 AM The above note was partially created using a dictation recognition software. A reasonable attempt has been made to correct any errors. documented in this encounter [facility] 09-14-2023 Nurse Note Referral paperwork has been faxed to Iv[facility] Cruz at [phone]. Yashira Nuno MA documented in this encounter [facility] 09-14-2023 Instructions Yashira Nuno MA - 09/14/2023 11:17 AM EDT Referring to [facility]. They have offices in [facility] (other locations as well). We will fax referral paperwork to there office asking for them to contact you. If you don't hear from them, contact them to schedule. P#: [phone] documented in this encounter [facility] 09-14-2023 History of Present illness Narrative Chief Complaint Patient presents with: F/U 6 Month HPI Mckenzie Hayden is a 68 year old female who presents here today for 6 month follow up. Here today for her routine follow up. Getting ready for all the extra yard work with the nice weather. Smoker. Former 1 ppd, has cut back to 7-8 cigarettes. Trying to quit, notes it's hard. Not using anything to help her quit. Has tried the patches and gum before, not real helpful. Goal is to quit before seeing [facility]older in October. No bowel, Gi, or urinary issues. Uses Prilosec 20 mg daily. Thyroid: Taking Synthroid 150 mcg daily. No missed dosages. HTN: Checking BP at home with readings overall stable. BP ranging from 112-133/62-86. Highest reading of 145/100. Notes that she had 3 readings over the past few months of irregular heartbeat on her monitor at home. States this morning when exercising her watch picked up a spike in HR to 215, but she didn't feel her HR going that fast. Denies feeling anything abnormal when the BP monitor was picking it up either. No chest pains, dizziness or SOB. Is on Verapamil 100 mg daily and Maxzide 75-50 mg daily. Has appt with Dr. Fine in October. Pt had lung cancer screening done, showing a dilate aorta, which was kind of scary. Lipids - Currently on no medication at this time. Did not tolerate Atorvastatin. Takes CoQ10 daily. Exercises by getting on the treadmill at 3 mph for about 90 minutes (give or take). Doesn't go outside anymore due to [place]. Does try to watch her diet. Pain: Requesting ibuprofen 800 mg to be taken as needed. Has occasional headache or lower back pain that she uses occasionally. Derm - Has a mole on her left upper arm that she would like to have looked at. Popped up 6 months ago. Area gets itchy and painful at times. HM - Behavioral Health Screening completed (negative). Declines Covid vaccine. Will check with insurance regarding RSV vaccine. States when she checked it was covered, but she will revisit this. Denies having Adv Dir/Living Will. Past medical history, appointments, medications, allergies reviewed. Previous Medical History PAST MEDICAL HISTORY Diagnosis Date Cutaneous skin tags 02/22/2013 Esophageal reflux Gastroesophageal reflux Essential hypertension, benign Iron deficiency anemia, unspecified Anemia, iron def. Mitral valve disorders(424.0) MVP Mitral valve disorders(424.0) 02/26/2007 Pain in limb 03/29/2006 PMH - PAST MEDICAL HISTORY OF heel spurs Unspecified hypothyroidism Viral warts, unspecified 02/22/2013 Previous Surgical History PAST SURGICAL HISTORY Procedure Laterality Date APPENDECTOMY 1970 DELIVERY ONLY 1982 , low cervical COLONOSCOPY FLX DX W/COLLJ SPEC WHEN PFRMD 2005 Colonoscopy LIG/TRNSXJ FLP TUBE ABDL/VAG APPR UNI/BI 1986 Tubal ligation NEUROPLASTY &/TRANSPOS MEDIAN NRV CARPAL TUNNE 1979 Carpal tunnel decomp, bilateral PAST SURGICAL HISTORY OF 10/2003 tendon repair right hand TR TDN RESTORE INTRNSC FUNCJ RING&SM FNGR 2004 right hand at base of thymb Family History FAMILY HISTORY Problem Relation Age of Onset other (renal disease) Mother Heart Father Hypertension Father Heart Sister Alzheimer's Disease Maternal Grandmother Heart Paternal Grandfather Patient Allergies ALLERGIES Allergen Reactions Atorvastatin Myalgia Current Medications Current Outpatient Medications on File Prior to Visit Medication Sig triamterene-hydroCHLOROthiazide (MAXZIDE) 75-50 mg per tablet Take 1 tablet by mouth once daily. Verapamil HCl 100 mg 24 hr capsule Take 1 capsule by mouth once daily. omeprazole (PRILOSEC) 20 mg capsule Take 1 capsule by mouth once daily. ibuprofen (MOTRIN) 800 mg tablet Take one(1) tablet every eight(8) hours as needed for pain. levothyroxine (SYNTHROID) 150 mcg tablet Take 1 tablet by mouth once daily. Take on empty stomach. For thyroid fluticasone (FLONASE) 50 mcg/actuation nasal spray USE 2 SPRAYS IN EACH NOSTRIL ONCE DAILY (RINSE MOUTH AFTER USE) Cholecalciferol, Vitamin D3, (VITAMIN D-3) 50 mcg (2,000 unit) cap Take by mouth once daily. ibuprofen (MOTRIN) 600 mg tablet Take 1 tablet by mouth every 8 hours as needed for Pain. aspirin 81 mg chewable tablet Take 1 tablet by mouth once daily. Inositol 500 mg tab Take 1 tablet by mouth once daily. MILK THISTLE ORAL Take by mouth once daily. UBIDECARENONE (CO Q-10 ORAL) Take by mouth. multivitamin ORAL tablet Take 1 tablet by mouth once daily. Calcium-Cholecalciferol, D3, (CALCIUM 600 + D) 600-125 mg-unit ORAL Tab Take 1 tablet by mouth twice daily. No current facility-administered medications on file prior to visit. Social History Social History Tobacco Use Smoking status: Every Day Packs/day: 1.00 Years: 52.00 Additional pack years: 0.00 Total pack years: 52.00 Types: Cigarettes Smokeless tobacco: Never Vaping Use Vaping Use: Never used Substance Use Topics Alcohol use: Yes Comment: Occasionally Drug use: No EXAM: BP 118/80 (BP Site: Left Arm, BP Position: Sitting, BP Cuff Size: Regular Adult) Pulse 68 Resp 16 Wt 65.5 kg (144 lb 6.4 oz) LMP 06/08/2008 BMI 24.03 kg/m General Appearance: Well appearing, alert, in no acute distress, well-hydrated, well nourished.. Skin: rough, irregular nevus on left upper arm. Bruise noted as well unsure if related Neck: Supple, no adenopathy; thyroid symmetric, normal size, no bruits. Lungs: Lungs clear to auscultation. No wheezing, rhonchi, rales.. Heart: RRR without murmur, gallop, or rubs. No ectopy. Health Maintenance List BP Controlled (<130/80) Never done RSV Vaccine(1 - 1-dose 60+ series) Never done Covid-19 Vaccine(4 - season) due on 01/26/2023 Advance Directive Discussion due on 05/28/2023 Behavioral Health Screening Never done Mammogram Screening due on 01/24/2024 Annual PCP Team Chronic Disease Visit due on 03/13/2024 Colorectal Cancer Screening due on 03/26/2024 Lung Cancer Screening due on 04/11/2024 LDL Cholesterol due on 09/07/2024 Diabetes Screening due on 09/07/2026 DTaP,Tdap,Td Vaccine(4 - Td or Tdap) due on 06/11/2028 Lipid Screening due on 09/07/2028 Bone Density Screening Completed Influenza Vaccine Completed Shingrix Vaccine Completed Pneumococcal Vaccine: 65+ Completed Pap Testing Discontinued Hepatitis C Screening Discontinued Data reviewed Results Only on 09/08/2023 Component Date Value TSH 09/08/2023 0.365 Protein, Total 09/08/2023 6.8 Albumin 09/08/2023 4.3 Calcium, Total 09/08/2023 10.2 Bilirubin, Total 09/08/2023 0.5 Alkaline Phosphatase 09/08/2023 51 AST 09/08/2023 23 ALT 09/08/2023 17 Glucose 09/08/2023 92 BUN 09/08/2023 17 Creatinine 09/08/2023 0.74 Sodium 09/08/2023 143 Potassium 09/08/2023 4.4 Chloride 09/08/2023 105 CO2 09/08/2023 27 Anion Gap 09/08/2023 11 Estimated Glomerular Antelmo* 09/08/2023 88 Cholesterol, Total 09/08/2023 223 (H) Triglyceride 09/08/2023 54 HDL Cholesterol 09/08/2023 104 Non HDL Cholesterol 09/08/2023 119 Fasting Time 09/08/2023 12 VLDL Cholesterol 09/08/2023 11 TC:HDL Ratio 09/08/2023 2.14 LDL Cholesterol 09/08/2023 108 (H) LDL:HDL Ratio 09/08/2023 1.04 ASSESSMENT/PLAN: 1. Essential hypertension, benign - ICD9: 401.1, ICD10: I10 (primary diagnosis) - Controlled - Continue current medications - Recommend home blood pressure monitoring, to bring results to next visit - Encouraged sodium restriction, DASH or Mediterranean diet - Recommend regular aerobic exercise 2. Hyperlipidemia, unspecified hyperlipidemia type - ICD9: 272.4, ICD10: E78.5 - Controlled - Counseled on healthy diet and regular exercise 3. Hypothyroidism, unspecified type - ICD9: 244.9, ICD10: E03.9 - Instructed patient on importance of taking on an empty stomach either first thing in the morning or at bedtime. - check TSH in 6 months 4. Gastroesophageal reflux disease, unspecified whether esophagitis present - ICD9: 530.81, ICD10: K21.9 - Stable - Continue current medication regimen. 5. Chronic low back pain, unspecified back pain laterality, unspecified whether sciatica present - ICD9: 724.2, 338.29, ICD10: M54.50, G89.29 - Stable - Use medication prn 6. Atypical nevus - ICD9: 216.9, ICD10: D22.9 - Consult Dermatology - [facility] 7. Tobacco abuse - ICD9: 305.1, ICD10: Z72.0 - Cessation encouraged. - Physiologic and physical aspects of tobacco addiction as well as strategies for quitting were discussed. - Counseling was given focusing on the harmful effects of this addiction especially given the patient's medical condition(s) which will be worsened because of the chemicals in tobacco. 6 mo f/u with labs. I agree with the Chief Complaint, ROS, and Past Histories independently gathered by the clinical child support specialist and the remaining scribed note accurately describes my personal service to the patient. Medical Decision Making: Problems: Low: Acute, uncomplicated illness or injury Moderate: 2+ stable chronic illnesses Data: Unique test result(s) reviewed: 3+ Unique test(s) ordered: 3+ Risk: Moderate: Drug management Medical Decision Making Level: 4 - Moderate Alda Pabon MD The documentation for this note was completed by Yashira Nuno MA acting as scribe for Alda Pabon MD. September 14, 2023 11:04 AM. Yashira Nuno MA documented in this encounter [facility] 07-24-2023 Miscellaneous Notes Call placed to pt. Spoke with Antonina. Results and recommendations reviewed with pt per Dr Fine. Pt verbalized understanding. Pt has no questions at this time. Christopher Jacobsen LPN ----- Message from Ariel Fine MD sent at 07/24/2023 2:48 PM EST ----- Please inform patient Echo is normal documented in this encounter [facility] 2023 Miscellaneous Notes Spoke with patient and the following results were discussed: LDCT Lung Screen Results LungRADS category: 2S Incidentals: Moderate coronary artery calcifications, and moderate aortic ectasia. Pt denies any symptoms. Exercises on treadmill daily and tolerates activity. Pt reports BP is under good control and she will check it regularly. Report any elevations to PCP. Recommendations: Continue annual screening with LDCT in 12 months. Consult cardiology Patient verbalized understanding of the results and had no other questions or concerns at this time. Kayleigh Dominguez APRN.VANESSA 2023 10:45 AM documented in this encounter [facility] 04-23-2023 Miscellaneous Notes Attempted to call patient but line went . My Chart message sent. documented in this encounter [facility] 04-11-2023 History of Present illness Narrative Radiology Service Progress Note PATIENT NAME: Mckenzie Hayden DATE OF SERVICE: April 11, 2023 TIME: 2:47 PM PATIENT IDENTITY VERIFICATION COMPLETED USING TWO (2) IDENTIFIERS: Name and Date of confirmed by patient verbally. FALL SCREENING: Has the patient had 2 falls in the last year or 1 fall with injury or currently using an Ambulatory Assistive Device (Walker, Cane, Wheelchair, Crutches, etc.)? No PATIENT GENDER DATA: Female. status: : No status: NO. PATIENT RELEVANT IMPLANT DATA REVIEWED: Yes RADIOLOGY DEPARTMENT: CT; Exam(s) Completed: Chest PERIPHERAL IV DATA: Not applicable SIGNED BY: RT Deepa(R) April 11, 2023 2:47 PM documented in this encounter [facility] 03-27-2023 Kayleigh Delcid APRN.[facility] - 03/27/2023 11:49 AM EDT SMOKING CESSATION EDUCATION Why do I need to know about the health risks of cigarette smoking? Cigarette smoking is the most preventable cause of illness and . Cigarettes are filled with nicotine, which acts like a poison in your body. What are the health risks of cigarette smoking? You may have breathing problems that make it difficult for you to do daily activities or play sports. You have a higher risk of bone fractures because smoking can cause osteoporosis (brittle bones). If you fall asleep with a lit cigarette, you can start a fire. Cigarette smoking can also cause the following health problems: Cancer: Heart and blood vessel disease: The nicotine in tobacco causes an increase in your heart rate and blood pressure. Nicotine also causes your blood vessels to narrow. This can lead to blood clots in your heart or brain and cause a heart attack or stroke. Cigarette smoke has carbon monoxide in it. This can decrease the amount of oxygen flowing to your heart and other organs. Lung disease: The chemicals in cigarette smoke can damage your lungs. This causes a buildup of dirt and waste products in your lungs. Many people who smoke have a long-term cough as a result. Cigarette smoking may also cause long-term lung infections or diseases, such as asthma, emphysema, or chronic bronchitis. You are also at higher risk for respiratory illnesses, such as colds or pneumonia. Gastrointestinal disease: Cigarette smoking increases the amount of acid in your stomach. This can cause an ulcer or gastric reflux. Women and smoking: You have a higher risk of heart and blood vessel disease if you smoke and take control pills. The risk is more serious is you are 35 years or older. Why should I quit smoking? Your health will improve and your risks for many diseases will decrease. Your breath, clothes, and hair will no longer smell like smoke. Tobacco will no longer stain your teeth. Tobacco smoke is dangerous to others. If you quit, you will decrease the risks to those around you, such as your children or family members. Where can I go for support and more information? There are many ways to quit smoking. Some may work better for you than others. Your caregiver can help you find the best plan to quit. Smokefree.gov Web Address: www.smokefree.gov Phone: [place] [employer] Web Address: www.lung.org [address] [place] [address]. [place], [place] Phone: Phone: [facility] Smoking Cessation Program CT Lung Screen Results The CT scan that you will have done will show if you have any nodules (small spots) in your lungs that are suspicious for cancer. Around 90% of the patients who have this scan done are found to have at least one nodule. Most nodules are benign (not cancer) and of no harm to you at all. A specialist will make a scientific evaluation about whether or not a nodule is worrisome based on its size and shape. The radiologist who will read your scan will put it into one of four categories: LUNG-RADS Category Description Overall Probability of Malignancy Recommended Follow-Up 1 Negative No nodules and definitely benign (non-cancerous nodules) Essentially 0. 1 Year - Follow-up Low dose CT 2 Benign Appearance or Behavior Nodules with a very low likelihood of becoming cancer due to size or lack of growth Less than 1% 1 Year - Follow-up Low dose CT 3 Probably Benign Probably benign finding, short term follow-up recommended 1 to 2% 6 Months - Follow-up CT 4 A,B,or X Suspicious Findings for which additional diagnostic testing and/or biopsy is recommended Will be calculated based on nodule characteristics. Dependent on what is seen on the exam. [address], PET, Biopsy At times, we may see something outside of the lungs on the scan that could be a health concern. Below are some of the most common findings: S Clinically Significant or Potentially Clinically Significant Findings (non lung cancer) Referral or additional imaging/labs depending on result. Approximately 10% of people receive this result. Coronary Artery Calcifications (Moderate or Severe) - Referral to cardiology or PCP for further work-up and recommendations. Thyroid Nodule - TSH level and Thyroid Ultrasound dependent on size, referral to endocrinology. Adrenal Nodule - Blood work and referral to endocrinology. Others Lung Cancer Screening hotline: [phone] Lung Cancer Screening [phone] Billing Questions: or [email or web address] [email or web address] Lung Cancer Screening Team: Deena Forbes CNP; Tiffanie Oneal PA-C; Hiwot Calle CNP; Shelby Roe CNP, Francesca Guzmán PA-C, Rosa Fraire PA-C, Kayleigh Dominguez, FLEET OPERATIONS MANAGER : [phone] documented in this encounter [facility] 03-27-2023 History of Present illness Narrative Images from the original note were not included. LUNG SCREENING VISIT PRIMARY CARE PHYSICIAN: Alda Pabon MD PULMONARY PROVIDER: none Results will be communicated via letter or electronic record if applicable. Visit Delivery: In Person Patient Visit Type: New to Screening Current or Ex-smoker? [Current Exam Type: baseline LDCT Number of Pack Years: 52 Current smoker (=0) REQUESTER: The referring provider advised the patient to have screening. HISTORY OF PRESENT ILLNESS: Mckenzie Hayden is a 67 year old Active smoker who presents for lung screening. Respiratory symptoms include: SOB: No Chest tightness: No Coughing: Yes: With mucus Clear Hemoptysis: No Wheezing: No Fever/Chills: No Recent Respiratory Infection: No Unintentional weight loss: No Last 6 Encounter Wt Readings: Date: Wt: 03/27/2023 61.7 kg (136 lb) 03/13/2023 62 kg (136 lb 9.6 oz) 08/15/2022 61.6 kg (135 lb 12.8 oz) 02/15/2022 60.1 kg (132 lb 9.6 oz) 08/03/2021 64 kg (141 lb) 02/02/2021 64.3 kg (141 lb 12.8 oz) ECOG PERFORMANCE STATUS: 0- Fully active, able to carry on all pre-disease performance w/o restriction. Modified Medical Research [place] Dyspnea Scale (MMRC) I only get breathless with strenous exercise 0 PAST MEDICAL HISTORY Diagnosis Date Cutaneous skin tags 02/22/2013 Esophageal reflux Gastroesophageal reflux Essential hypertension, benign Iron deficiency anemia, unspecified Anemia, iron def. Mitral valve disorders(424.0) MVP Mitral valve disorders(424.0) 02/26/2007 Pain in limb 03/29/2006 PMH - PAST MEDICAL HISTORY OF heel spurs Unspecified hypothyroidism Viral warts, unspecified 02/22/2013 PAST SURGICAL HISTORY Procedure Laterality Date APPENDECTOMY 1970 DELIVERY ONLY 1982 , low cervical COLONOSCOPY FLX DX W/COLLJ SPEC WHEN PFRMD 2005 Colonoscopy LIG/TRNSXJ FLP TUBE ABDL/VAG APPR UNI/BI 1986 Tubal ligation NEUROPLASTY &/TRANSPOS MEDIAN NRV CARPAL TUNNE 1979 Carpal tunnel decomp, bilateral PAST SURGICAL HISTORY OF 10/2003 tendon repair right hand TR TDN RESTORE INTRNSC FUNCJ RING&SM FNGR 2004 right hand at base of thymb FAMILY HISTORY Problem Relation Age of Onset other (renal disease) Mother Heart Father Hypertension Father Heart Sister Alzheimer's Disease Maternal Grandmother Heart Paternal Grandfather aspirin 81 mg chewable tablet Take 1 tablet by mouth once daily. MILK THISTLE ORAL Take by mouth once daily. triamterene-hydroCHLOROthiazide (MAXZIDE) 75-50 mg per tablet Take 1 tablet by mouth once daily. Verapamil HCl 100 mg 24 hr capsule Take 1 capsule by mouth once daily. omeprazole (PRILOSEC) 20 mg capsule Take 1 capsule by mouth once daily. ibuprofen (MOTRIN) 800 mg tablet Take one(1) tablet every eight(8) hours as needed for pain. levothyroxine (SYNTHROID) 150 mcg tablet Take 1 tablet by mouth once daily. Take on empty stomach. For thyroid fluticasone (FLONASE) 50 mcg/actuation nasal spray USE 2 SPRAYS IN EACH NOSTRIL ONCE DAILY (RINSE MOUTH AFTER USE) Cholecalciferol, Vitamin D3, (VITAMIN D-3) 50 mcg (2,000 unit) cap Take by mouth once daily. ibuprofen (MOTRIN) 600 mg tablet Take 1 tablet by mouth every 8 hours as needed for Pain. Inositol 500 mg tab Take 1 tablet by mouth once daily. UBIDECARENONE (CO Q-10 ORAL) Take by mouth. multivitamin ORAL tablet Take 1 tablet by mouth once daily. Calcium-Cholecalciferol, D3, (CALCIUM 600 + D) 600-125 mg-unit ORAL Tab Take 1 tablet by mouth twice daily. ALLERGIES Allergen Reactions Atorvastatin Myalgia The medications and allergies were reviewed and reconciled for this patient and deemed current. Lung Cancer Risk Factors: 1.Tobacco Use: Start Age 16, Quit Age: N/A, Average packs per day 1, Pack Years 52, currently smoking about a pack a day 2. Passive Smoke Exposure: Yes, as a Child and as an Adult 3. Personal hx of malignancy: No, Type of Cancer: 4. 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 Race: White 6. Education: High School Graduate 7. BMI:Body mass index is 22.63 kg/m . Patient-entered Height: 5'5 Patient-entered Weight: 132 pounds 8. COPD: No 9. Pneumonia in the past 5 years: No 10. Is there a history of lung cancer in a first degree relative? No 11. Is there a history of lung cancer in a non-first degree relative? No 12. Is there a history of any other cancer in a first degree relative? No Health Maintenance Immunization History Administered Date(s) Administered COVID-19 original vaccine, full dose, monovalent (MODERNA) 08/12/2020 09/09/2020 04/19/2021 influenza (HD-IIV3) vaccine, age 65+ yr, high dose, PF (FLUZONE HIGH-DOSE) 02/05/2022 influenza (HD-IIV4) vaccine, age 65+ yr, high dose, quadrivalent, PF (FLUZONE HIGH-DOSE) 02/02/2021 03/13/2023 influenza (IIV3) vaccine, age 3+ yr, trivalent (AFLURIA, FLULAVAL, FLUVIRIN, FLUZONE) 02/23/2014 03/29/2015 influenza (IIV4) vaccine, age 6 mo - 64 yr, quadrivalent (AFLURIA, FLULAVAL, FLUZONE) 03/27/2017 02/28/2018 03/12/2019 02/12/2020 influenza (IIV4) vaccine, age 6 mo - 64 yr, quadrivalent, PF (AFLURIA, FLUARIX, FLULAVAL, FLUZONE) 03/25/2016 influenza (aIIV4) vaccine, age 65+ yr, quadrivalent, PF (FLUAD QUAD) 02/05/2022 influenza vaccine, unspecified formulation 03/27/2008 03/12/2009 03/07/2011 pneumococcal (PCV20) vaccine, 20 valent (PREVNAR 20) 08/15/2022 pneumococcal (PPV23) vaccine, 23 valent (PNEUMOVAX 23) 08/03/2021 tetanus diphtheria pertussis (Tdap) vaccine, age 7+ yr (ADACEL, BOOSTRIX) 03/27/2008 01/26/2015 06/11/2018 zoster (RZV) vaccine, recombinant (SHINGRIX) 02/12/2020 05/06/2020 Colonoscopy: 03/29/2022 Mammogram: 01/24/2023 DATA REVIEW I have directly visualized the testing documented: none Prior Imaging: Last CT/CTA Chest/Lungs No resulted procedures found. Last CT Chest - Impression Only No resulted procedures found. Last XR Chest - Impression Only No resulted procedures found. Pulmonary Function Testing: No textual results found for the specified procedure(s). PHYSICAL EXAM: BP 134/82 Pulse 66 Resp 14 Wt 61.7 kg (136 lb) LMP 06/08/2008 SpO2 97% BMI 22.63 kg/m Deferred ASSESSMENT and RECOMMENDATIONS: 1. Screening for lung cancer: Six year risk for lung cancer: 7.03% [email or web address] https://youtu.be/[email or web address] I have determined that the patient is eligible for a low dose CT based on age, absence of signs or symptoms of lung cancer, and total pack years: Yes. The patient and I engaged in shared decision making, including the use of one or more decision aids, to include benefits, harms, follow-up diagnostic testing, over-diagnosis, false positive rate, and total radiation exposure. The patient understands and feels comfortable with it: Yes. The patient was counseled on the importance of adherence to annual LDCT lung cancer screening, impact of comorbidities and ability or willingness to undergo diagnosis and treatment. The patient understands and feels comfortable with it:Yes. 2. Nicotine dependence: The patient was counseled on the importance of smoking cessation if current smoker and, if appropriate, offered additional tobacco cessation counseling services - Smoking Cessation Counseling. SMOKING CESSATION COUNSELING Smoking cessation methods including Nicotine Replacement Therapies and Behavior Modification were discussed with the patient and assistance offered. Discussed methods for readiness for cessation: cigarette mood inventory, breaking habits/behavioral triggers, etc. Pt keeps satish tray in another room. The medical conditions adversely affected by cigarette use include:COPD, Emphysema, and Lung Cancer. The patient is currently not ready to quit. I personally spent 3 minutes in counseling. The time spent in smoking cessation counseling is exclusive of any other counseling during this visit. Kayleigh Dominguez APRN.CNP NPI #: March 27, 2023 11:32 AM documented in this encounter [facility] 03-13-2023 History of Present illness Narrative Chief Complaint Patient presents with: F/U 6 Month HPI Mckenzie Hayden is a 67 year old female who presents here today for Chronic Medical Conditions. follow up for hypothyroidism, HTN.. HTN: Patient is compliant with meds Yes Monitors bp at home: Yes. Brings records. Systolic ranging from 110s to 120s. Normal diastolic. Denies side effects: Yes. Chest pain: No. Dyspnea: No. Edema: No. Palpitations: No. Syncope: No. Headache: No. Dizziness: No. HYPOTHYROID: Patient is compliant with medications: Yes Patient has changes in energy: No Patient has changes in hair or skin: No Patient has temperature intolerance: No Patient has weight changes: No Reviewed TSH with her. Requesting ibuprofen 800 mg to be taken as needed. Has occasional headache or lower back pain that she uses occasionally. Due for lung cancer screening, current smoker. Past medical history, appointments, medications, allergies reviewed. EXAM: BP 134/82 Pulse 68 Resp 16 Wt 62 kg (136 lb 9.6 oz) LMP 06/08/2008 SpO2 97% BMI 22.73 kg/m General Appearance: Well appearing, alert, in no acute distress, well-hydrated, well nourished.. Neck: Supple, no adenopathy; thyroid symmetric, normal size, no bruits. Lungs: Lungs clear to auscultation. No wheezing, rhonchi, rales.. Heart: RRR without murmur, gallop, or rubs. No ectopy. Component Latest Ref Rng & Units 02/19/2023 TSH 0.270 - 4.200 mIU/L 0.624 ASSESSMENT/PLAN: 1. Essential hypertension, benign - ICD9: 401.1, ICD10: I10 (primary diagnosis) - Controlled - Continue current medications - Recommend home blood pressure monitoring, to bring results to next visit - Encouraged sodium restriction, DASH or Mediterranean diet - Recommend regular aerobic exercise - COMP METABOLIC PANEL - TRIAMTERENE 75 MG-HYDROCHLOROTHIAZIDE 50 MG TABLET - VERAPAMIL ER (PM) 100 MG CAPSULE 24HR PELLET CT,EXT.RELEASE 2. Hyperlipidemia, unspecified hyperlipidemia type - ICD9: 272.4, ICD10: E78.5 - Control undetermined, due for labs, statin intolerant. - Counseled on healthy diet and regular exercise - COMP METABOLIC PANEL - LIPID PANEL BASIC 3. Hypothyroidism, unspecified type - ICD9: 244.9, ICD10: E03.9 - Instructed patient on importance of taking on an empty stomach either first thing in the morning or at bedtime. - continue current dose of Synthroid 0.150 mg - TSH BLD - COMP METABOLIC PANEL 4. Gastroesophageal reflux disease, unspecified whether esophagitis present - ICD9: 530.81, ICD10: K21.9 - Stable, continue use - OMEPRAZOLE 20 MG CAPSULE,DELAYED RELEASE 5. Chronic low back pain, unspecified back pain laterality, unspecified whether sciatica present - ICD9: 724.2, 338.29, ICD10: M54.50, G89.29 - Chronic, intermittent use. Continue as needed - IBUPROFEN 800 MG TABLET 6. Encounter for immunization - ICD9: V03.89, ICD10: Z23 - INFLUENZA VACCINE, PRSV FREE, AGE 65+ YR, HIGH DOSE, QUADRIVALENT (FLUZONE HIGH-DOSE) 7. Screening for colon cancer - ICD9: V76.51, ICD10: Z12.11 - FECAL OCCULT BLOOD TEST 8. Encounter for screening for lung cancer - ICD9: V76.0, ICD10: Z12.2 - CONSULT LUNG CANCER SCREENING CLINIC Jerrell Webster APRN.CNP RTO in 6 months, sooner if needed. This note was partly generated using [employer] voice recognition dictation and may contain some misspelled or inaccurate words missed on review. documented in this encounter [facility] 01-24-2023 Miscellaneous Notes January 25, 2023 PID: [id number] Mckenzie Hayden [address] [place] [address] [place] [address] Dear Ms. Hayden, We are pleased to inform you that the results of your recent breast imaging exam on 01/23/2023 are normal. Early detection of cancer is very important. We also understand recommendations regarding breast cancer screening are controversial. Please discuss with your primary care provider which strategy is best for you and whether a mammogram is right for you. Your imaging studies and report will be kept on file at [facility] as part of your permanent medical record and are available for your continuing care. Thank you for allowing us to help in meeting your health care needs. Sincerely, Dr. Oconnor Interpreting Radiologist [facility] (Normal over 40) documented in this encounter [facility] 12-22-2022 Miscellaneous Notes Order filed. Jerrell Webster APRN.CNP Patient calling for order for mammogram. Pended. Oma Schmidt RN documented in this encounter [facility] 08-18-2022 Miscellaneous Notes Patient calls and appointment rescheduled. Cathy Polo RN Message left for pt to call back. Need to reschedule appt on 02/20/23 as provider is out that day. Oumou Demarco Ma documented in this encounter [facility] 08-15-2022 History of Present illness Narrative Chief Complaint Patient presents with: 6 Month Exam HPI Mckenzie Hayden is a 67 year old female who presents here today for a 6 month follow up. Pt here today for her routine follow up visit. Has been doing some spring cleaning around the house. Smoking: Still smoking about 1 ppd, slightly less maybe 3/4 ppd. GERD : Stable on current regimen of Prilosec 20 mg daily. Thyroid: Doing well on current regimen of Synthroid 175 mcg once daily. Denies any missed dosages. Has not noticed any sx. HTN: Can check BP at home been checking for the last 6 weeks with BP running 130/85. Denies any chest pain, sob or dizziness. On current regimen of Maxzide 75-50 mg daily and Verapamil 100 mg daily. Lipids: On no current medication, but keeps controlled with diet and lifestyle. Runs, about 4-5 miles daily. Runs mainly on treadmill. At times her legs get real tired and sore, this is a chronic issue. Does not eat vegetables every day. SAMMY: States she no longer uses the AutoPAP at 5-20 cm of water. Does have some issues tolerating the pressure but does the best she can, doesn't like wearing it. DME supplies from [employer]. Hopes that Medicare will cover [employer] eventually. She hs not been using her AutoPAP lately, she states she has too many hot flashes she is not able to keep it on. Her Fit bit tracks her sleep, gets about 7-8 hours of sleep. Has reported previous R shoulder pain at last OV. Has had hip pain issues as well but states this resolved. Extensive leg work up done. Leg pain never improves. She is not doing much running, mostly just using treadmill. The legs are weaker. She only gets up to about 3.3 speed on the treadmill. No issues with stairs, no falls Bug bite that she has had for almost a year that still itches. She states there is no spot, redness, or bump to the area any longer but the skin just still itches. Has been using OTC hydrocortisone cream on it. Past medical history, appointments, medications, allergies reviewed. Previous Medical History PAST MEDICAL HISTORY Diagnosis Date Cutaneous skin tags 02/22/2013 Esophageal reflux Gastroesophageal reflux Essential hypertension, benign Iron deficiency anemia, unspecified Anemia, iron def. Mitral valve disorders(424.0) MVP Mitral valve disorders(424.0) 02/26/2007 Pain in limb 03/29/2006 PMH - PAST MEDICAL HISTORY OF heel spurs Unspecified hypothyroidism Viral warts, unspecified 02/22/2013 Previous Surgical History PAST SURGICAL HISTORY Procedure Laterality Date APPENDECTOMY 1970 DELIVERY ONLY 1982 , low cervical COLONOSCOPY FLX DX W/COLLJ SPEC WHEN PFRMD 2005 Colonoscopy LIG/TRNSXJ FLP TUBE ABDL/VAG APPR UNI/BI 1986 Tubal ligation NEUROPLASTY &/TRANSPOS MEDIAN NRV CARPAL TUNNE 1979 Carpal tunnel decomp, bilateral PAST SURGICAL HISTORY OF 10/2003 tendon repair right hand TR TDN RESTORE INTRNSC FUNCJ RING&SM FNGR 2004 right hand at base of thymb Family History FAMILY HISTORY Problem Relation Age of Onset other (renal disease) Mother Heart Father Hypertension Father Heart Sister Alzheimer's Disease Maternal Grandmother Heart Paternal Grandfather Patient Allergies ALLERGIES Allergen Reactions Atorvastatin Myalgia Current Medications Current Outpatient Medications on File Prior to Visit Medication Sig levothyroxine (SYNTHROID) 175 mcg tablet Take 1 tablet by mouth once daily. Take on empty stomach. For Thyroid. omeprazole (PRILOSEC) 20 mg capsule Take 1 capsule by mouth once daily. Verapamil HCl 100 mg 24 hr capsule Take 1 capsule by mouth once daily. triamterene-hydroCHLOROthiazide (MAXZIDE) 75-50 mg per tablet Take 1 tablet by mouth once daily. fluticasone (FLONASE) 50 mcg/actuation nasal spray USE 2 SPRAYS IN EACH NOSTRIL ONCE DAILY (RINSE MOUTH AFTER USE) Cholecalciferol, Vitamin D3, (VITAMIN D-3) 50 mcg (2,000 unit) cap Take by mouth once daily. CPAP Initiate Auto PAP @ 5-20 cm of water with humidification. Mask (per patient preference) optional chin strap (if indicated) , filters, tubing, humidifier and lifetime supplies. ibuprofen (MOTRIN) 600 mg tablet Take 1 tablet by mouth every 8 hours as needed for Pain. aspirin 81 mg chewable tablet Take 1 tablet by mouth once daily. Inositol 500 mg tab Take 1 tablet by mouth once daily. MILK THISTLE ORAL Take by mouth once daily. UBIDECARENONE (CO Q-10 ORAL) Take by mouth. multivitamin ORAL tablet Take 1 tablet by mouth once daily. Calcium-Cholecalciferol, D3, (CALCIUM 600 + D) 600-125 mg-unit ORAL Tab Take 1 tablet by mouth twice daily. No current facility-administered medications on file prior to visit. Social History Social History Tobacco Use Smoking status: Every Day Packs/day: 1.00 Years: 30.00 Pack years: 30.00 Types: Cigarettes Smokeless tobacco: Never Vaping Use Vaping Use: Never used Substance Use Topics Alcohol use: Yes Comment: Occasionally Drug use: No EXAM: BP 128/74 Pulse 88 Resp 16 Wt 61.6 kg (135 lb 12.8 oz) LMP 06/08/2008 BMI 22.60 kg/m General Appearance: Well appearing, alert, in no acute distress, well-hydrated, well nourished.. Neck: Supple, no adenopathy; thyroid symmetric, normal size, no bruits. Lungs: Lungs clear to auscultation. No wheezing, rhonchi, rales.. Heart: RRR without murmur, gallop, or rubs. No ectopy. Health Maintenance List HEPATITIS C SCREENING Never done BP CONTROLLED (<130/80) Never done LUNG CANCER SCREENING Never done COVID-19 VACCINE(4 - Booster for Moderna series) due on 06/14/2021 ADVANCE DIRECTIVE DISCUSSION due on 05/28/2022 DEPRESSION ASSESSMENT Never done PNEUMOCOCCAL: 65+(2 - PCV) due on 08/03/2022 MAMMOGRAM due on 01/17/2023 ANNUAL PCP TEAM CHRONIC DISEASE VISIT due on 02/15/2023 COLORECTAL CANCER SCREENING due on 03/28/2023 DIABETES SCREEN due on 07/28/2024 LIPID SCREEN due on 07/28/2026 DTAP,TDAP,TD(3 - Td or Tdap) due on 06/11/2028 BONE DENSITY Completed INFLUENZA Completed SHINGRIX VACCINE Completed Data reviewed Appointment on 08/10/2022 Component Date Value Cholesterol, Total 08/10/2022 220 (A) Triglyceride 08/10/2022 52 HDL Cholesterol 08/10/2022 92 Non HDL Cholesterol 08/10/2022 128 Fasting Time 08/10/2022 12 VLDL Cholesterol 08/10/2022 10 TC:HDL Ratio 08/10/2022 2.39 LDL Cholesterol 08/10/2022 118 (A) LDL:HDL Ratio 08/10/2022 1.28 Protein, Total 08/10/2022 7.0 Albumin 08/10/2022 4.4 Calcium, Total 08/10/2022 10.0 Bilirubin, Total 08/10/2022 0.4 Alkaline Phosphatase 08/10/2022 52 AST 08/10/2022 27 ALT 08/10/2022 19 Glucose 08/10/2022 81 BUN 08/10/2022 20 Creatinine 08/10/2022 0.76 Sodium 08/10/2022 143 Potassium 08/10/2022 4.3 Chloride 08/10/2022 107 (A) CO2 08/10/2022 27 Anion Gap 08/10/2022 9 Estimated Glomerular Antelmo* 08/10/2022 86 TSH 08/10/2022 0.140 (A) ASSESSMENT/PLAN: 1. Essential hypertension, benign - ICD9: 401.1, ICD10: I10 (primary diagnosis) - good control - Continue current medication(s) - Recommended regular aerobic exercise. - Recommend home blood pressure monitoring, to bring results in on next visit - Goal of BP <130/80 2. Need for vaccination - ICD9: V05.9, ICD10: Z23 Prevnar 20 given in office today 3. Hyperlipidemia, unspecified hyperlipidemia type - ICD9: 272.4, ICD10: E78.5 - good control - Encouraged following a low fat, low cholesterol diet. - Discussed the benefits of regular aerobic exercise and weight loss. 4. Tobacco abuse - ICD9: 305.1, ICD10: Z72.0 - Cessation encouraged. - Physiologic and physical aspects of tobacco addiction as well as strategies for quitting were discussed. - Counseling was given focusing on the harmful effects of this addiction especially given the patient's medical condition(s) which will be worsened because of the chemicals in tobacco. - Counseling was given 3-4 minutes. 5. SAMMY (obstructive sleep apnea) - ICD9: 327.23, ICD10: G47.33 Not using AutoPAP any longer 6. Gastroesophageal reflux disease, unspecified whether esophagitis present - ICD9: 530.81, ICD10: K21.9 Stable Continue current medications. 7. Hypothyroidism, unspecified type - ICD9: 244.9, ICD10: E03.9 - Instructed patient on importance of taking on an empty stomach either first thing in the morning or at bedtime. - Decrease Synthroid dose to 0.150 mg Recheck lab in 6 months Follow up in 6 months with thyroid labs prior. I agree with the Chief Complaint, ROS, and Past Histories independently gathered by the clinical child support specialist and the remaining scribed note accurately describes my personal service to the patient. Medical Decision Making: Problems: Moderate: 2+ stable chronic illnesses Data: Unique test result(s) reviewed: 3+ Unique test(s) ordered: 1 Risk: Moderate: Drug management Medical Decision Making Level: 4 - Moderate Alda Pabon MD The documentation for this note was completed by Oumou Demarco Ma acting as scribe for Alda Pabon MD. August 15, 2022 11:47 AM. Oumou Demarco Ma documented in this encounter [facility] 02-15-2022 History of Present illness Narrative Radiology Service Progress Note PATIENT NAME: Mckenzie Hayden DATE OF SERVICE: February 15, 2022 TIME: 3:25 PM PATIENT IDENTITY VERIFICATION COMPLETED USING TWO (2) IDENTIFIERS: Name and Date of confirmed by patient verbally. FALL SCREENING: Has the patient had 2 falls in the last year or 1 fall with injury or currently using an Ambulatory Assistive Device (Walker, Cane, Wheelchair, Crutches, etc.)? No PATIENT GENDER DATA: Female. status: : No status: NO. PATIENT RELEVANT IMPLANT DATA REVIEWED: Not Applicable RADIOLOGY DEPARTMENT: Ultrasound PERIPHERAL IV DATA: Not applicable SIGNED BY: RT Judith(R) February 15, 2022 3:25 PM documented in this encounter [facility] 02-15-2022 History of Present illness Narrative Chief Complaint Patient presents with: 6 Month Exam HPI Mckenzie Hayden is a 66 year old female who presents here today for 6 month follow up. Pt here today for a 6 month follow up. Smoking: Still smoking about 1 ppd, slightly less maybe 3/4 ppd. GERD : Stable on current regimen of Prilosec 20 mg daily. Thyroid: Doing well on current regimen of Synthroid 175 mcg once daily. Denies any missed dosages. HTN: Is able to check BP at home, has note lately. Denies any chest pain, sob or dizziness. On current regimen of Maxzide 75-50 mg daily and Verapamil 100 mg daily. Lipids: Controls with diet and exercise, on no current medications. Runs, about 4-5 miles daily. Runs mainly on treadmill. At times her legs get real tired and sore. SAMMY: Uses AutoPAP at 5-20 cm of water. Does have some issues tolerating the pressure but does the best she can, doesn't like wearing it. DME supplies from [facility]. Hopes that Medicare will cover [employer] eventually. She hs not been using her AutoPAP lately, she states she has too many hot flashes she is not able to keep it on. Her Fit bit tracks her sleep, gets about 7-8 hours of sleep. Hip: This has improved, only flares up occ if she turns the wrong way or over does it. Has not worsened. Shoulder: right; pain constant x 2 months, rated pain 7/10, sharp, numbness, tingling in arm and down into hand. No injury other than it started after shoveling mulch. Has used heat and ice with no relief. Has tried stretches. No OTC pain relievers used. She feels some lumps to the upper arm and feels some popping and snapping with she moves her arms. She admits the pain might have improved a little. Extensive leg work up done. Leg pain never improves. She is not doing much running, mostly just using treadmill. The legs are weaker. She only gets up to about 3.3 speed on the treadmill. No issues with stairs, no falls. Past medical history, appointments, medications, allergies reviewed. Previous Medical History PAST MEDICAL HISTORY Diagnosis Date Cutaneous skin tags 02/22/2013 Esophageal reflux Gastroesophageal reflux Essential hypertension, benign Iron deficiency anemia, unspecified Anemia, iron def. Mitral valve disorders(424.0) MVP Mitral valve disorders(424.0) 02/26/2007 Pain in limb 03/29/2006 PMH - PAST MEDICAL HISTORY OF heel spurs Unspecified hypothyroidism Viral warts, unspecified 02/22/2013 Previous Surgical History PAST SURGICAL HISTORY Procedure Laterality Date APPENDECTOMY 1969 DELIVERY ONLY 1982 , low cervical COLONOSCOPY FLX DX W/COLLJ SPEC WHEN PFRMD 2005 Colonoscopy LIG/TRNSXJ FLP TUBE ABDL/VAG APPR UNI/BI 1986 Tubal ligation NEUROPLASTY &/TRANSPOS MEDIAN NRV CARPAL TUNNE 1979 Carpal tunnel decomp, bilateral PAST SURGICAL HISTORY OF 10/2003 tendon repair right hand TR TDN RESTORE INTRNSC FUNCJ RING&SM FNGR 2004 right hand at base of thymb Family History FAMILY HISTORY Problem Relation Age of Onset other (renal disease) Mother Heart Father Hypertension Father Heart Sister Alzheimer's Disease Maternal Grandmother Heart Paternal Grandfather Patient Allergies ALLERGIES Allergen Reactions Atorvastatin Myalgia Current Medications Current Outpatient Medications on File Prior to Visit Medication Sig fluticasone (FLONASE) 50 mcg/actuation nasal spray USE 2 SPRAYS IN EACH NOSTRIL ONCE DAILY (RINSE MOUTH AFTER USE) levothyroxine (SYNTHROID) 175 mcg tablet Take 1 tablet by mouth once daily. Take on empty stomach. For Thyroid. omeprazole (PRILOSEC) 20 mg capsule Take 1 capsule by mouth once daily. Verapamil HCl 100 mg 24 hr capsule Take 1 capsule by mouth once daily. triamterene-hydroCHLOROthiazide (MAXZIDE) 75-50 mg per tablet Take 1 tablet by mouth once daily. Cholecalciferol, Vitamin D3, (VITAMIN D-3) 50 mcg (2,000 unit) cap Take by mouth once daily. CPAP Initiate Auto PAP @ 5-20 cm of water with humidification. Mask (per patient preference) optional chin strap (if indicated) , filters, tubing, humidifier and lifetime supplies. ibuprofen (MOTRIN) 600 mg tablet Take 1 tablet by mouth every 8 hours as needed for Pain. aspirin 81 mg chewable tablet Take 1 tablet by mouth once daily. Inositol 500 mg tab Take 1 tablet by mouth once daily. MILK THISTLE ORAL Take by mouth once daily. UBIDECARENONE (CO Q-10 ORAL) Take by mouth. multivitamin ORAL tablet Take 1 tablet by mouth once daily. Calcium-Cholecalciferol, D3, (CALCIUM 600 + D) 600-125 mg-unit ORAL Tab Take 1 tablet by mouth twice daily. No current facility-administered medications on file prior to visit. Social History Social History Tobacco Use Smoking status: Every Day Packs/day: 1.00 Years: 30.00 Pack years: 30.00 Types: Cigarettes Smokeless tobacco: Never Vaping Use Vaping Use: Never used Substance Use Topics Alcohol use: Yes Comment: Occasionally Drug use: No EXAM: BP 130/78 Pulse 72 Resp 16 Wt 60.1 kg (132 lb 9.6 oz) LMP 06/08/2008 BMI 22.07 kg/m General Appearance: Well appearing, alert, in no acute distress, well-hydrated, well nourished.. Lungs: Lungs clear to auscultation. No wheezing, rhonchi, rales.. Heart: RRR without murmur, gallop, or rubs. No ectopy. Extremities: right shoulder; pain with rotation and abduction, small nodules under the skin of upper arm, pain with resisted rotation Health Maintenance List HEPATITIS C SCREENING Never done BP CONTROLLED (<130/80) Never done LUNG CANCER SCREENING Never done COVID-19 VACCINE(4 - Booster for Moderna series) due on 08/17/2021 COLORECTAL CANCER SCREENING due on 02/08/2022 ANNUAL PCP TEAM CHRONIC DISEASE VISIT due on 08/03/2022 DEPRESSION SCREENING due on 08/03/2022 PNEUMOCOCCAL: 65+(2 - PCV) due on 08/03/2022 MAMMOGRAM due on 01/17/2023 DIABETES SCREEN due on 07/28/2024 LIPID SCREEN due on 07/28/2026 DTAP,TDAP,TD(3 - Td or Tdap) due on 06/11/2028 BONE DENSITY Completed INFLUENZA Completed ADVANCE DIRECTIVE DISCUSSION Completed SHINGRIX VACCINE Completed Data reviewed None ASSESSMENT/PLAN: 1. Essential hypertension, benign - ICD9: 401.1, ICD10: I10 (primary diagnosis) - good control - Continue current medication(s) - Recommended regular aerobic exercise. - Recommend home blood pressure monitoring, to bring results in on next visit - Goal of BP <130/80 - VERAPAMIL ER (PM) 100 MG CAPSULE 24HR PELLET CT,EXT.RELEASE - TRIAMTERENE 75 MG-HYDROCHLOROTHIAZIDE 50 MG TABLET 2. Hypothyroidism, unspecified type - ICD9: 244.9, ICD10: E03.9 - Instructed patient on importance of taking on an empty stomach either first thing in the morning or at bedtime. Continue current medications. - LEVOTHYROXINE 175 MCG TABLET 3. Screening for colon cancer - ICD9: V76.51, ICD10: Z12.11 - FECAL OCCULT BLOOD TEST 4. Hyperlipidemia, unspecified hyperlipidemia type - ICD9: 272.4, ICD10: E78.5 - good control - Encouraged following a low fat, low cholesterol diet. - Discussed the benefits of regular aerobic exercise and weight loss. 5. Tobacco abuse - ICD9: 305.1, ICD10: Z72.0 - Cessation encouraged. - Physiologic and physical aspects of tobacco addiction as well as strategies for quitting were discussed. - Counseling was given focusing on the harmful effects of this addiction especially given the patient's medical condition(s) which will be worsened because of the chemicals in tobacco. - Counseling was given 3-4 minutes. 6. SAMMY (obstructive sleep apnea) - ICD9: 327.23, ICD10: G47.33 7. Gastroesophageal reflux disease, unspecified whether esophagitis present - ICD9: 530.81, ICD10: K21.9 Controlled - OMEPRAZOLE 20 MG CAPSULE,DELAYED RELEASE 8. Acute pain of right shoulder - ICD9: 719.41, ICD10: M25.511 Recommend using Ibuprofen 600 mg TID for a few weeks Consult Physical Therapy if no improvement with the Ibuprofen XR Shoulder today - notify of result Follow up in 6 months with fasting labs prior. I agree with the Chief Complaint, ROS, and Past Histories independently gathered by the clinical child support specialist and the remaining scribed note accurately describes my personal service to the patient. Medical Decision Making: Problems: Low: Acute, uncomplicated illness or injury Moderate: 2+ stable chronic illnesses Data: Unique test(s) ordered: 3+ Risk: Moderate: Drug management Medical Decision Making Level: 4 - Moderate Alda Nydia Garciabrock, MD The documentation for this note was completed by Oumou Demarco Ma acting as scribe for Alda Pabon MD. February 15, 2022 12:47 PM. Oumou Demarco Ma documented in this encounter [facility] 01-17-2022 Miscellaneous Notes January 17, 2022 PID: [id number] Mckenzie Hayden [address] [place] [address] [place] [address] Dear Ms. Hayden, Your recent breast imaging exam on 01/17/2022 showed a possible finding that requires additional imaging studies for a complete evaluation. Most such findings are probably benign (not cancer). If you have a healthcare provider who ordered/prescribed your screening mammogram: Please call [phone] or [phone]: [phone] to schedule an appointment for your additional imaging (if you have not already done so). If you DO NOT have a healthcare provider (ie you did not have an order/prescription for your screening mammogram): Please call to schedule an appointment for your additional imaging (if you have not already done so). You must have an order/prescription from your physician when calling to schedule your appointment. If your order/prescription is not electronic, you must bring the hard copy with you on the day of your exam to avoid delays. Your imaging studies and reports are kept on file at [facility] as part of your permanent medical record, and are available for your continuing care. Thank you for allowing us to help in meeting your health care needs. Sincerely, Dr. Grande Interpreting Radiologist [facility] (Additional imaging) documented in this encounter [facility] Evaluation note Diagnosis Abnormal mammogram- Primary Abnormal mammogram, unspecified [facility] Diagnosis Essential hypertension, benign- Primary Hypothyroidism, unspecified type Screening for colon cancer Special screening for malignant neoplasms, colon Hyperlipidemia, unspecified hyperlipidemia type Tobacco abuse Tobacco use disorder SAMMY (obstructive sleep apnea) Obstructive sleep apnea (adult) (pediatric) Gastroesophageal reflux disease, unspecified whether esophagitis present Acute pain of right shoulder documented in this encounter [facility] note* Diagnosis Abnormal mammogram Abnormal mammogram, unspecified documented in this encounter [facility] note* Diagnosis Abnormal mammogram Abnormal mammogram, unspecified documented in this encounter [facility] note* Diagnosis Essential hypertension, benign- Primary Need for vaccination Need for prophylactic vaccination and inoculation against unspecified single disease Hyperlipidemia, unspecified hyperlipidemia type Tobacco abuse Tobacco use disorder SAMMY (obstructive sleep apnea) Obstructive sleep apnea (adult) (pediatric) Gastroesophageal reflux disease, unspecified whether esophagitis present Hypothyroidism, unspecified type documented in this encounter [facility] noteNo assessment information availableWBlanchard [facility] Work Phone: Evaluation note* Diagnosis Encounter for screening mammogram for breast cancer- Primary documented in this encounter [facility] note* Diagnosis Essential hypertension, benign- Primary Hyperlipidemia, unspecified hyperlipidemia type Hypothyroidism, unspecified type Gastroesophageal reflux disease, unspecified whether esophagitis present Chronic low back pain, unspecified back pain laterality, unspecified whether sciatica present Encounter for immunization Need for other specified prophylactic vaccination against single bacterial disease Screening for colon cancer Special screening for malignant neoplasms, colon Encounter for screening for lung cancer documented in this encounter [facility] note* Diagnosis Encounter for screening for lung cancer- Primary Tobacco use current documented in this encounter [facility] note* Diagnosis Tobacco use current documented in this encounter [facility] note* Diagnosis Tobacco use current- Primary documented in this encounter [facility] note* Diagnosis Tobacco use current- Primary documented in this encounter [facility] note* Diagnosis Coronary artery calcification seen on CAT scan- Primary Coronary atherosclerosis of unspecified type of vessel, chinik or graft Aortic ectasia, thoracic (HCC) Thoracic aortic ectasia documented in this encounter [facility] note* Diagnosis Essential hypertension, benign- Primary Hyperlipidemia, unspecified hyperlipidemia type Hypothyroidism, unspecified type Gastroesophageal reflux disease, unspecified whether esophagitis present Chronic low back pain, unspecified back pain laterality, unspecified whether sciatica present Atypical nevus Benign neoplasm of skin, site unspecified Tobacco abuse Tobacco use disorder Aortic ectasia, thoracic (HCC) Thoracic aortic ectasia documented in this encounter [facility] note* Diagnosis Coronary artery calcification seen on CAT scan- Primary Coronary atherosclerosis of unspecified type of vessel, chinik or graft Aortic ectasia, thoracic (HCC) Thoracic aortic ectasia Essential hypertension, benign Acute viral pericarditis Acute idiopathic pericarditis [facility] Diagnosis Subconjunctival bleed, left- Primary [facility] Diagnosis Essential hypertension, benign Gastroesophageal reflux disease, unspecified whether esophagitis present Hypothyroidism, unspecified type [facility] Diagnosis Essential hypertension, benign- Primary Gastroesophageal reflux disease, unspecified whether esophagitis present Hypothyroidism, unspecified type Hyperlipidemia, unspecified hyperlipidemia type Spinal stenosis of lumbar region, unspecified whether neurogenic claudication present Tobacco abuse Tobacco use disorder Screening for colon cancer Special screening for malignant neoplasms, colon Need for influenza vaccination Need for prophylactic vaccination and inoculation against influenza Need for vaccination Need for prophylactic vaccination and inoculation against unspecified single disease [facility] Diagnosis Encounter for screening for lung cancer- Primary Tobacco use current [facility] Diagnosis Multiple lung nodules- Primary Other nonspecific abnormal finding of lung field Encounter for screening for lung cancer Tobacco use current [facility] Diagnosis Encounter for screening for lung cancer Tobacco use current [facility] Diagnosis Cutaneous B-cell lymphoma (HCC)- Primary Other malignant lymphomas, unspecified site, extranodal and solid organ sites [facility] Diagnosis Cutaneous B-cell lymphoma (HCC) Other malignant lymphomas, unspecified site, extranodal and solid organ sites [facility] Diagnosis Tremor Abnormal involuntary movements [facility] Diagnosis Cutaneous B-cell lymphoma (HCC)- Primary Other malignant lymphomas, unspecified site, extranodal and solid organ sites [facility] Diagnosis Cutaneous B-cell lymphoma (HCC) Other malignant lymphomas, unspecified site, extranodal and solid organ sites [facility] Discharge instructions Additional Instructions Please follow-up with your dentist to discuss need for panoramic x-ray and possible incision and drainage of your dental infection. If you develop difficulty breathing or swallowing or swelling underneath the chin please return to the ER for repeat evaluation.[facility] Work Phone: Reason for referral (narrative)* Diagnostic Procedure Only (Routine) - Pending Review Specialty Diagnoses / Procedures Referred By Trinidad t Referred To Contact [facility] Diagnoses Abnormal mammogram Procedures US BREAST LTD LT US BREAST UNI REAL TIME WITH IMAGE LIMITED Cari Andujar APRN.CNP [address] [place] [address] [facility] [address] [place] [address] Referral ID Status Reason Start Date Expiration Date Visits Requested Visits Authorized [id number] Pending Review Auto-Generat ed Referral 01/17/2022 02/16/2023 1 1 * Diagnostic Procedure Only (Routine) - Pending Review Specialty Diagnoses / Procedures Referred By Trinidad t Referred To Contact [facility] Diagnoses Abnormal mammogram Procedures US BREAST LTD RT US BREAST UNI REAL TIME WITH IMAGE LIMITED Cari Andujar APRN.FLEET OPERATIONS MANAGER [address] [place] [address] [facility] [address] [place] [address] Referral ID Status Reason Start Date Expiration Date Visits Requested Visits Authorized [id number] Pending Review Auto-Generat ed Referral 01/17/2022 02/16/2023 1 1 * Diagnostic Procedure Only (Routine) - Pending Review Specialty Diagnoses / Procedures Referred By Trinidad t Referred To Contact [facility] Diagnoses Abnormal mammogram Procedures ENRIQUE DIAGNOSTIC BILAT DIAGNOSTIC MAMMOGRAPHY COMPUTER-AIDED DETCJ BI Cari Andujar APRN.FLEET OPERATIONS MANAGER [address] [place] [address] [facility] [address] [place] [address] Referral ID Status Reason Start Date Expiration Date Visits Requested Visits Authorized [id number] Pending Review Auto-Generat ed Referral 01/17/2022 02/16/[address] [facility] for referral (narrative)* Diagnostic Procedure Only (Routine) - Closed Specialty Diagnoses / Procedures Referred By Contac t Referred To Contact XR IMAGING Diagnoses Acute pain of right shoulder Procedures XR SHOULDER GENERAL 3V OR MORE AP/TRUE AP/OTHER RIGHT RADEX SHOULDER COMPLETE MINIMUM 2 VIEWS Alda Pabon MD [address] [place] [address] Xr Imaging Referral ID Status Reason Start Date Expiration Date V isits Requested Visits Authorized [id number] Closed Auto-Generate d Referral 02/15/2022 03/17/[address] [facility] for referral (narrative)* Diagnostic Procedure Only (Routine) - Closed Specialty Diagnoses / Procedures Referred By Contac t Referred To Contact BR IMAGING Diagnoses Abnormal mammogram Procedures US BREAST LTD LT US BREAST UNI REAL TIME WITH IMAGE LIMITED Cari Andujar APRN.FLEET OPERATIONS MANAGER [address] [place] [address] Br Imaging [address] [place] [address] Referral ID Status Reason Start Date Expiration Date V isits Requested Visits Authorized [id number] Closed Auto-Generate d Referral 01/17/2022 02/16/2023 1 1 * Diagnostic Procedure Only (Routine) - Closed Specialty Diagnoses / Procedures Referred By Contac t Referred To Contact BR IMAGING Diagnoses Abnormal mammogram Procedures US BREAST LTD RT US BREAST UNI REAL TIME WITH IMAGE LIMITED Cari Andujar APRN.FLEET OPERATIONS MANAGER [address] [place] [place] [address] Br Imaging [address] [place] [address] Referral ID Status Reason Start Date Expiration Date V isits Requested Visits Authorized [id number] Closed Auto-Generate d Referral 01/17/2022 02/16/[address] [facility] for referral (narrative)* Diagnostic Procedure Only (Routine) - Authorized Specialty Diagnoses / Procedures Referred By Contac t Referred To Contact BR IMAGING Diagnoses Encounter for screening mammogram for breast cancer Procedures ENRIQUE SCREENING SCREENING MAMMOGRAPHY BI 2-VIEW BREAST INC CAD Jerrell Webster, GLASSWARE SELECTOR.FLEET OPERATIONS MANAGER [address] [place] [address] Br Imaging [address] [place] [address] Referral ID Status Reason Start Date Expiration Date Visits Requested Visits Authorized [id number] Authorized Auto-Generat ed Referral 12/22/2022 01/20/[address] [facility] for visit Narrative* Diagnostic Procedure Only (Routine) - Closed Specialty Diagnoses / Procedures Referred By Contemilie t Referred To Contact BR IMAGING Diagnoses Abnormal mammogram Procedures ENRIQUE DIAGNOSTIC BILAT DIAGNOSTIC MAMMOGRAPHY COMPUTER-AIDED DETCJ Cari Aragon, HECTOR.FLEET OPERATIONS MANAGER [address] [place] [address] Br Imaging [address] [place] [address] Referral ID Status Reason Start Date Expiration Date V isits Requested Visits Authorized [id number] Closed Auto-Generate d Referral 01/17/2022 02/16/[address] [facility] for visit Narrative* Diagnostic Procedure Only (Routine) - Closed Specialty Diagnoses / Procedures Referred By Contac t Referred To Contact BR IMAGING Diagnoses Visit for screening mammogram Procedures ENRIQUE SCREENING SCREENING MAMMOGRAPHY BI 2-VIEW BREAST INC CAD Alda Pabon MD [address] [place] [address] Br Imaging [address] [place] [address] Referral ID Status Reason Start Date Expiration Date V isits Requested Visits Authorized [id number] Closed Auto-Generate d Referral 11/16/2023 12/14/[address] [facility] for visit Narrative* Diagnostic Procedure Only (Routine) - Authorized Specialty Diagnoses / Procedures Referred By Trinidad t Referred To Contact MOLECULAR & FUNCTIONAL IMAGING Diagnoses Cutaneous B-cell lymphoma (HCC) Procedures NM PET/CT WHOLE BODY INITIAL PET IMAGING FOR CT ATTENUATION WHOLE BODY Demetrius Moon MD [address] [place] [address] Phone: tel: Molecular Imaging [address] [id number] Phone: tel: Referral ID Status Reason Start Date Expiration Date Visits Requested Visits Authorized [id number] Authorized Auto-Generat ed Referral 09/10/2024 10/10/2025 1 1 [facility] Chief Complaint and Reason for Visit Chief Complaint Dental Advance Directives No Advanced Directives Records Found Advance Directive Response Recorded Date/ Time Living Will No October 21, 2022 2 :15am Power of Helicopter Crew Chief No October 21, 2022 2:15am Summary Purpose Family History No Family History Records FoundNo Family History Records FoundNo Family History Records FoundNo Family History Records Found Reason for Referral Specialty Diagnoses / Procedures Referred By Trinidad t Referred To Contact CT IMAGING Diagnoses Tobacco use current Procedures CT LUNG SCREEN WO IVCON COMPUTED TOMOGRAPHY THORAX LW DOSE LNG CA SCR C- Kayleigh Dominguez, GLASSWARE SELECTOR.FLEET OPERATIONS MANAGER [address] [place] [address] Ct Imaging [facility]95 Referral ID Status Reason Start Date Expiration Date Visits Requested Visits Authorized [id number] Authorized Auto-Generat ed Referral 3 04/25/2024 1 1 Referral ID Status Reason Start Date Expiration Date Visits Requested Visits Authorized [id number] Pending Review Auto-Generat ed Referral 3 05/22/2024 1 1 Specialty Diagnoses / Procedures Referred By Trinidad t Referred To Contact Cardiology Diagnoses Coronary artery calcification seen on CAT scan Aortic ectasia, thoracic (HCC) Procedures CONSULT TO CARDIOLOGY OFFICE/OUTPATIENT [facility] 60-74 MINUTES Kayleigh Dominguez, GLASSWARE SELECTOR.FLEET OPERATIONS MANAGER [address] [place] [address] Referral ID Status Reason Start Date Expiration Date Visits Requested Visits Authorized [id number] Authorized PCP Requested Referral 3 04/23/2024 1 1 Specialty Diagnoses / Procedures Referred By Contac t Referred To Contact Dermatology Diagnoses Atypical nevus Procedures CONSULT TO DERMATOLOGY Alda Pabon MD [address] [place] [address] Referral ID Status Reason Start Date Expiration Date Visits Requested Visits Authorized [id number] Ref Not Required PCP Requested Referral 09/14/2023 09/13/2024 1 1 Specialty Diagnoses / Procedures Referred By Contac t Referred To Contact Diagnoses Aortic ectasia, thoracic (HCC) Procedures CONSULT TO MEDICAL GENETICS - CARDIOVASCULAR OFFICE/OUTPATIENT [facility] 60 MINUTES MEDICAL GENETICS COUNSELING EACH 30 MINUTES Ariel Fine MD [address], [address] [place] [address] [facility] [place] [address] [place] [address] Referral ID Status Reason Start Date Expiration Date Visits Requested Visits Authorized [id number] Pending Review PCP Requested Referral Auto-Generate d Referral 11/19/2023 11/18/2024 1 1 Specialty Diagnoses / Procedures Referred By Contac t Referred To Contact [facility] Diagnoses Screening for ischemic heart disease Procedures ECG COMPLETE ECG ROUTINE ECG W/LEAST 12 LDS W/I&R Ariel Fine MD [address], [address] [place] [address] [facility] [place] [address] [place] [address] Referral ID Status Reason Start Date Expiration Date Visits Requested Visits Authorized [id number] Pending Review Auto-Generat ed Referral 11/13/2023 11/12/2024 1 1 Specialty Diagnoses / Procedures Referred By Contac t Referred To Contact CT IMAGING Diagnoses Encounter for screening for lung cancer Tobacco use current Procedures CT LUNG SCREEN WO IVCON COMPUTED TOMOGRAPHY THORAX LW DOSE LNG CA Kayleigh Tavera APRN.FLEET OPERATIONS MANAGER [address] [place] [address] Ct Imaging [facility]95 Referral ID Status Reason Start Date Expiration Date Visits Requested Visits Authorized [id number] Authorized Auto-Generat ed Referral 06/06/202407/0607/06/2025 1 1 Referral ID Status Reason Start Date Expiration Date Visits Requested Visits Authorized [id number] Authorized Auto-Generat ed Referral 06/16/2024 07/16/2025 1 1 Referral ID Status Reason Start Date Expiration Date V isits Requested Visits Authorized [id number] Closed Auto-Generate d Referral 06/06/2024 07/06/2025 1 1 Additional Source Comments Source Comments (unrecognize d section and content) In the event this informatio n is protected by the Federal Confidentiality of Alcohol and Drug Abuse Patient Records regulations: The Federal rules restrict any use of the information to criminally investigate or prosecute any alcohol or drug abuse patient.[facility] the event this information is protected by the Federal Confidentiality of Alcohol and Drug Abuse Patient Records regulations: The Federal rules restrict any use of the information to criminally investigate or prosecute any alcohol or drug abuse patient.[facility] the event this information is protected by the Federal Confidentiality of Alcohol and Drug Abuse Patient Records regulations: The Federal rules restrict any use of the information to criminally investigate or prosecute any alcohol or drug abuse patient.[facility] the event this information is protected by the Federal Confidentiality of Alcohol and Drug Abuse Patient Records regulations: The Federal rules restrict any use of the information to criminally investigate or prosecute any alcohol or drug abuse patient.[facility] the event this information is protected by the Federal Confidentiality of Alcohol and Drug Abuse Patient Records regulations: The Federal rules restrict any use of the information to criminally investigate or prosecute any alcohol or drug abuse patient.[facility] the event this information is protected by the Federal Confidentiality of Alcohol and Drug Abuse Patient Records regulations: The Federal rules restrict any use of the information to criminally investigate or prosecute any alcohol or drug abuse patient.[facility] the event this information is protected by the Federal Confidentiality of Alcohol and Drug Abuse Patient Records regulations: The Federal rules restrict any use of the information to criminally investigate or prosecute any alcohol or drug abuse patient.[facility] the event this information is protected by the Federal Confidentiality of Alcohol and Drug Abuse Patient Records regulations: The Federal rules restrict any use of the information to criminally investigate or prosecute any alcohol or drug abuse patient.[facility] the event this information is protected by the Federal Confidentiality of Alcohol and Drug Abuse Patient Records regulations: The Federal rules restrict any use of the information to criminally investigate or prosecute any alcohol or drug abuse patient.[facility] the event this information is protected by the Federal Confidentiality of Alcohol and Drug Abuse Patient Records regulations: The Federal rules restrict any use of the information to criminally investigate or prosecute any alcohol or drug abuse patient.[facility] the event this information is protected by the Federal Confidentiality of Alcohol and Drug Abuse Patient Records regulations: The Federal rules restrict any use of the information to criminally investigate or prosecute any alcohol or drug abuse patient.[facility] the event this information is protected by the Federal Confidentiality of Alcohol and Drug Abuse Patient Records regulations: The Federal rules restrict any use of the information to criminally investigate or prosecute any alcohol or drug abuse patient.[facility] the event this information is protected by the Federal Confidentiality of Alcohol and Drug Abuse Patient Records regulations: The Federal rules restrict any use of the information to criminally investigate or prosecute any alcohol or drug abuse patient.[facility] the event this information is protected by the Federal Confidentiality of Alcohol and Drug Abuse Patient Records regulations: The Federal rules restrict any use of the information to criminally investigate or prosecute any alcohol or drug abuse patient.[facility] the event this information is protected by the Federal Confidentiality of Alcohol and Drug Abuse Patient Records regulations: The Federal rules restrict any use of the information to criminally investigate or prosecute any alcohol or drug abuse patient.[facility] the event this information is protected by the Federal Confidentiality of Alcohol and Drug Abuse Patient Records regulations: The Federal rules restrict any use of the information to criminally investigate or prosecute any alcohol or drug abuse patient.[facility] the event this information is protected by the Federal Confidentiality of Alcohol and Drug Abuse Patient Records regulations: The Federal rules restrict any use of the information to criminally investigate or prosecute any alcohol or drug abuse patient.[facility] the event this information is protected by the Federal Confidentiality of Alcohol and Drug Abuse Patient Records regulations: The Federal rules restrict any use of the information to criminally investigate or prosecute any alcohol or drug abuse patient.[facility] the event this information is protected by the Federal Confidentiality of Alcohol and Drug Abuse Patient Records regulations: The Federal rules restrict any use of the information to criminally investigate or prosecute any alcohol or drug abuse patient.[facility] the event this information is protected by the Federal Confidentiality of Alcohol and Drug Abuse Patient Records regulations: The Federal rules restrict any use of the information to criminally investigate or prosecute any alcohol or drug abuse patient.[facility] the event this information is protected by the Federal Confidentiality of Alcohol and Drug Abuse Patient Records regulations: The Federal rules restrict any use of the information to criminally investigate or prosecute any alcohol or drug abuse patient.[facility] the event this information is protected by the Federal Confidentiality of Alcohol and Drug Abuse Patient Records regulations: The Federal rules restrict any use of the information to criminally investigate or prosecute any alcohol or drug abuse patient.[facility] the event this information is protected by the Federal Confidentiality of Alcohol and Drug Abuse Patient Records regulations: The Federal rules restrict any use of the information to criminally investigate or prosecute any alcohol or drug abuse patient.[facility] the event this information is protected by the Federal Confidentiality of Alcohol and Drug Abuse Patient Records regulations: The Federal rules restrict any use of the information to criminally investigate or prosecute any alcohol or drug abuse patient.[facility] the event this information is protected by the Federal Confidentiality of Alcohol and Drug Abuse Patient Records regulations: The Federal rules restrict any use of the information to criminally investigate or prosecute any alcohol or drug abuse patient.[facility] the event this information is protected by the Federal Confidentiality of Alcohol and Drug Abuse Patient Records regulations: The Federal rules restrict any use of the information to criminally investigate or prosecute any alcohol or drug abuse patient.[facility] the event this information is protected by the Federal Confidentiality of Alcohol and Drug Abuse Patient Records regulations: The Federal rules restrict any use of the information to criminally investigate or prosecute any alcohol or drug abuse patient.[facility] the event this information is protected by the Federal Confidentiality of Alcohol and Drug Abuse Patient Records regulations: The Federal rules restrict any use of the information to criminally investigate or prosecute any alcohol or drug abuse patient.[facility] the event this information is protected by the Federal Confidentiality of Alcohol and Drug Abuse Patient Records regulations: The Federal rules restrict any use of the information to criminally investigate or prosecute any alcohol or drug abuse patient.[facility] the event this information is protected by the Federal Confidentiality of Alcohol and Drug Abuse Patient Records regulations: The Federal rules restrict any use of the information to criminally investigate or prosecute any alcohol or drug abuse patient.[facility] the event this information is protected by the Federal Confidentiality of Alcohol and Drug Abuse Patient Records regulations: The Federal rules restrict any use of the information to criminally investigate or prosecute any alcohol or drug abuse patient.[facility] the event this information is protected by the Federal Confidentiality of Alcohol and Drug Abuse Patient Records regulations: The Federal rules restrict any use of the information to criminally investigate or prosecute any alcohol or drug abuse patient.[facility] the event this information is protected by the Federal Confidentiality of Alcohol and Drug Abuse Patient Records regulations: The Federal rules restrict any use of the information to criminally investigate or prosecute any alcohol or drug abuse patient.[facility] the event this information is protected by the Federal Confidentiality of Alcohol and Drug Abuse Patient Records regulations: The Federal rules restrict any use of the information to criminally investigate or prosecute any alcohol or drug abuse patient.[facility] the event this information is protected by the Federal Confidentiality of Alcohol and Drug Abuse Patient Records regulations: The Federal rules restrict any use of the information to criminally investigate or prosecute any alcohol or drug abuse patient.[facility] the event this information is protected by the Federal Confidentiality of Alcohol and Drug Abuse Patient Records regulations: The Federal rules restrict any use of the information to criminally investigate or prosecute any alcohol or drug abuse patient.[facility] the event this information is protected by the Federal Confidentiality of Alcohol and Drug Abuse Patient Records regulations: The Federal rules restrict any use of the information to criminally investigate or prosecute any alcohol or drug abuse patient.[facility] the event this information is protected by the Federal Confidentiality of Alcohol and Drug Abuse Patient Records regulations: The Federal rules restrict any use of the information to criminally investigate or prosecute any alcohol or drug abuse patient.[facility] the event this information is protected by the Federal Confidentiality of Alcohol and Drug Abuse Patient Records regulations: The Federal rules restrict any use of the information to criminally investigate or prosecute any alcohol or drug abuse patient.[facility] Reason for Visit (unrecogniz ed section and content) Reason Comments Orders Reason Comments 6 Month Exam Reason Comments Radiology US Specialty Diagnoses / Procedures Referred By Contac t Referred To Contact BR IMAGING Diagnoses Abnormal mammogram Procedures US BREAST LTD LT US BREAST UNI REAL TIME WITH IMAGE LIMITED Cari Andujar, GLASSWARE SELECTOR.FLEET OPERATIONS MANAGER [address] [place] [address] Br Imaging [address] [place] [address] Referral ID Status Reason Start Date Expiration Date V isits Requested Visits Authorized [id number] Closed Auto-Generate d Referral 01/17/2022 02/16/2023 1 1 Reason Comments 6 Month Exam Reason Comments reschedule appt 02/20/23 Reason Comments Mammogram order Reason Comments F/U 6 Month Reason Comments New Patient LCS Reason Comments Radiology CT Specialty Diagnoses / Procedures Referred By Contac t Referred To Contact CT IMAGING Diagnoses Tobacco use current Procedures CT LUNG SCREEN WO IVCON COMPUTED TOMOGRAPHY THORAX LW DOSE LNG CA SCR Reena- Kayleigh Dominguez, GLASSWARE SELECTOR.FLEET OPERATIONS MANAGER [address] [place] [address] [place] [address] Referral ID Status Reason Start Date Expiration Date V isits Requested Visits Authorized [id number] Closed Auto-Generate d Referral 03/27/2023 04/25/2024 1 1 Reason Comments Results Reason Comments Orders Reason Comments Results Reason Comments F/U 6 Month Reason Comments New Patient Specialty Diagnoses / Procedures Referred By Contac t Referred To Contact Cardiology Diagnoses Coronary artery calcification seen on CAT scan Aortic ectasia, thoracic (HCC) Procedures CONSULT TO CARDIOLOGY OFFICE/OUTPATIENT NEW HIGH MDM 60-74 MINUTES Kayleigh Dominguez, GLASSWARE SELECTOR.FLEET OPERATIONS MANAGER [address] [id number] Referral ID Status Reason Start Date Expiration Date V isits Requested Visits Authorized [id number] Closed PCP Requested Referral 2023 04/23/2024 1 1 Reason Comments Eye Complaint Reason Comments Eye Problem Reason Onset Date Comments Refill Request 02/05/2024 Reason Onset Date Comments 6 Month Exam Immunizations 03/20/2024 Flu vaccination Reason Comments Established Patient LCS Reason Comments Radiology CT Specialty Diagnoses / Procedures Referred By Contac t Referred To Contact CT IMAGING Diagnoses Encounter for screening for lung cancer Tobacco use current Procedures CT LUNG SCREEN WO IVCON COMPUTED TOMOGRAPHY THORAX LW DOSE LNG CA SCR C- Kayleigh Dominguez, GLASSWARE SELECTOR.FLEET OPERATIONS MANAGER [phone] Imaging [place] [address] Referral ID Status Reason Start Date Expiration Date V isits Requested Visits Authorized [id number] Closed Auto-Generate d Referral 06/06/2024 07/06/2025 1 1 Reason Comments Future Appointment Reason Comments Patient Update Reason Comments Radiology NM Specialty Diagnoses / Procedures Referred By Contac t Referred To Contact MOLECULAR & FUNCTIONAL IMAGING Diagnoses Cutaneous B-cell lymphoma (HCC) Procedures NM PET/CT WHOLE BODY INITIAL PET IMAGING FOR CT ATTENUATION WHOLE BODY Demetrius Moon MD [address] [place] [address] Phone: tel: Molecular Imaging [address] [place] [address] Phone: tel: Referral ID Status Reason Start Date Expiration Date Visits Requested Visits Authorized [id number] Authorized Auto-Generat ed Referral 09/10/2024 10/10/2025 1 1 Reason Comments Med Change Request Reason Comments Established Patient Reason Comments Electronic Communication Reason Comments Consult Specialty Diagnoses / Procedures Referred By Contac t Referred To Contact Radiation Oncology Diagnoses Cutaneous B-cell lymphoma (HCC) Procedures RAD/ONC CONSULT OFFICE/OUTPATIENT NEW HIGH MDM 60 MINUTES Demetrius Moon MD [address] [place] [address] Phone: tel: Referral ID Status Reason Start Date Expiration Date V isits Requested Visits Authorized [id number] Closed PCP Requested Referral 09/10/2024 09/10/2025 1 1 Care Teams (unrecognized sec tion and content) Staff Air Tactical Officer Relationship Specialty Start Date End Date Alda Pabon MD [address] [place] [address] PCP - General Family Practice 09/03/14 Staff Air Tactical Officer Relationship Specialty Start Date End Date Alda Pabon MD [address] [place] [address] PCP - General Family Practice 09/03/14 Staff Air Tactical Officer Relationship Specialty Start Date End Date Alda Pabon MD [address] [place] [address] PCP - General Family Medicine 09/03/14 Staff Air Tactical Officer Relationship Specialty Start Date End Date Alda Pabon MD [address] [place] [address] PCP - General Family Medicine 09/03/14 Staff Air Tactical Officer Relationship Specialty Start Date End Date Alda Pabon MD [address] [place] [address] PCP - General Family Medicine 09/03/14 Staff Air Tactical Officer Relationship Specialty Start Date End Date Alda Pabon MD [address] [place] [address] PCP - General Family Medicine 09/03/14 Staff Air Tactical Officer Relationship Specialty Start Date End Date Alda Pabon MD [address] [place] [address] PCP - General Family Medicine 09/03/14 Team Status: Active Member Role Status Dates Dr. Alda Pabon MD Family Provider Active Dr. Alda Pabon MD Primary Care Provider Active Team Status: Inactive Member Role Status Dates Dr. Alda Pabon MD Primary Care Provider Active Dr. Jimmy Foster DO Emergency Provider Active Staff Air Tactical Officer Relationship Specialty Start Date End Date Alda Pabon MD [address] [place] [address] PCP - General Family Medicine 09/03/14 Staff Air Tactical Officer Relationship Specialty Start Date End Date Alda Pabon MD [address] [place] [address] PCP - General Family Medicine 09/03/14 Staff Air Tactical Officer Relationship Specialty Start Date End Date Alda Pabon MD [address] [place] [address] PCP - General Family Medicine 09/03/14 Staff Air Tactical Officer Relationship Specialty Start Date End Date Alda Pabon MD [address] [place] [address] PCP - General Family Medicine 09/03/14 Staff Air Tactical Officer Relationship Specialty Start Date End Date Alda Pabon MD [address] [place] [address] PCP - General Family Medicine 09/03/14 Staff Air Tactical Officer Relationship Specialty Start Date End Date Alda Pabon MD [address] [place] [address] PCP - General Family Medicine 09/03/14 Staff Air Tactical Officer Relationship Specialty Start Date End Date Alda Pabon MD [address] [place] [address] PCP - General Family Medicine 09/03/14 Staff Air Tactical Officer Relationship Specialty Start Date End Date Alda Pabon MD [address] [place] [address] PCP - General Family Medicine 09/03/14 Staff Air Tactical Officer Relationship Specialty Start Date End Date Alda Pabon MD [address] [place] [address] PCP - General Family Medicine 09/03/14 Staff Air Tactical Officer Relationship Specialty Start Date End Date Alda Pabon MD [address] [place] [address] PCP - General Family Medicine 09/03/14 Staff Air Tactical Officer Relationship Specialty Start Date End Date Alda Pabon MD [address] [place] [address] PCP - General Family Medicine 09/03/14 Staff Air Tactical Officer Relationship Specialty Start Date End Date Alda Pabon MD [address] [place] [address] PCP - General Family Medicine 09/03/14 Staff Air Tactical Officer Relationship Specialty Start Date End Date Alda Pabon MD [address] [place] [address] PCP - General Family Medicine 09/03/14 Staff Air Tactical Officer Relationship Specialty Start Date End Date Alda Pabon MD [address] [place] [address] PCP - General Family Medicine 09/03/14 Staff Air Tactical Officer Relationship Specialty Start Date End Date Alda Pabon MD [address] [place] [address] PCP - General Family Medicine 09/03/14 Staff Air Tactical Officer Relationship Specialty Start Date End Date Alda Pabon MD [address] [place] [address] PCP - General Family Medicine 09/03/14 Debi Magana APRN.FLEET OPERATIONS MANAGER [address] [place] [address] In Flight Crew Member Family Medicine 05/04/24 Jerrell Webster APRN.FLEET OPERATIONS MANAGER [address] [place] [address] In Flight Crew Member Family Medicine 05/13/24 Staff Air Tactical Officer Relationship Specialty Start Date End Date Alda Pabon MD [address] [place] [address] PCP - General Family Medicine 09/03/14 Debi Magana APRN.FLEET OPERATIONS MANAGER [address] [place] [address] In Flight Crew Member Family Medicine 05/04/24 Jerrell Webster GLASSWARE SELECTOR.FLEET OPERATIONS MANAGER [address] [place] [address] In Flight Crew Member Family Medicine 05/13/24 Staff Air Tactical Officer Relationship Specialty Start Date End Date Alda Pabon MD [address] [place] [address] PCP - General Family Medicine 09/03/14 Debi Magana APRN.FLEET OPERATIONS MANAGER [address] [place] [address] In Flight Crew Member Family Medicine 05/04/24 Jerrell Webster APRN.FLEET OPERATIONS MANAGER [address] [place] [address] In Flight Crew Member Family Medicine 05/13/24 Staff Air Tactical Officer Relationship Specialty Start Date End Date Alda Pabon MD [address] [place] [address] PCP - General Family Medicine 09/03/14 Debi Magana APRN.FLEET OPERATIONS MANAGER [address] [place] [address] In Flight Crew Member Family Medicine 05/04/24 Jerrell Webster GLASSWARE SELECTOR.FLEET OPERATIONS MANAGER [address] [place] [address] In Flight Crew Member Family Medicine 05/13/24 Tiffany Medellin, BUSINESS OPERATIONS DIRECTOR [address] [facility] [address] Nurse Practitioner 09/10/24 Staff Air Tactical Officer Relationship Specialty Start Date End Date Alda Pabon MD [address] [place] [address] PCP - General Family Medicine 09/03/14 Debi Magana GLASSWARE SELECTOR.FLEET OPERATIONS MANAGER [address] [place] [address] In Flight Crew Member Family Medicine 05/04/24 Jerrell Webster GLASSWARE SELECTOR.FLEET OPERATIONS MANAGER [address] [place] [address] In Flight Crew Member Family Medicine 05/13/24 Tiffany Medellin, ALEXA [address] [facility] [place] [address] Nurse Practitioner 09/10/24 Staff Air Tactical Officer Relationship Specialty Start Date End Date Alda Pabon MD [address] [place] [address] PCP - General Family Medicine 09/03/14 Debi Magaan APRN.FLEET OPERATIONS MANAGER [address] [place] [address] In Flight Crew Member Family Medicine 05/04/24 Jerrell Webster APRN.FLEET OPERATIONS MANAGER [address] [place] [address] In Flight Crew Member Family Medicine 05/13/24 Tiffany Medellin, ALEXA [address] [place] [address] Nurse Practitioner 09/10/24 Roxana Malloy MD [address] [place] [address] Radiation Oncology 09/17/24 Staff Air Tactical Officer Relationship Specialty Start Date End Date Alda Pabon MD [address] [place] [address] PCP - General Family Medicine 09/03/14 Debi Magana APRN.FLEET OPERATIONS MANAGER [address] [place] [address] In Flight Crew Member Family Medicine 05/04/24 Jerrell Webster GLASSWARE SELECTOR.FLEET OPERATIONS MANAGER [address] [place] [address] In Flight Crew Member Family Medicine 05/13/24 Tiffany Medellin, ALEXA [address] [place] [address] Nurse Practitioner 09/10/24 Roxana Malloy MD [address] [place] [address] Radiation Oncology 09/17/24 Staff Air Tactical Officer Relationship Specialty Start Date End Date Alda Pabon MD [address] [place] [address] PCP - General Family Medicine 09/03/14 Debi Magana APRN.FLEET OPERATIONS MANAGER [address] [place] [address] In Flight Crew Member Family Medicine 05/04/24 Jerrell Webster APRN.FLEET OPERATIONS MANAGER [address] [place] [address] In Flight Crew Member Family Medicine 05/13/24 Tiffany Medellin, ALEXA [address] [place] [address] Nurse Practitioner 09/10/24 Roxana Malloy MD [address] [place] [address] Radiation Oncology 09/17/24 Staff Air Tactical Officer Relationship Specialty Start Date End Date Alda Pabon MD [address] [place] [address] PCP - General Family Medicine 09/03/14 Debi Magana APRN.FLEET OPERATIONS MANAGER [address] [place] [address] In Flight Crew Member Family Medicine 05/04/24 Jerrell Webster APRN.FLEET OPERATIONS MANAGER [address] [place] [address] In Flight Crew Member Family [facility] 05/13/24 Tiffany Medellin, ALEXA [address] [place] [address] Nurse Practitioner 09/10/24 Roxana Malloy MD [address] [place] [address] Radiation Oncology 09/17/24 Staff Air Tactical Officer Relationship Specialty Start Date End Date Alda Pabon MD [address] [place] [address] PCP - General Family Medicine 09/03/14 Debi Magana APRN.FLEET OPERATIONS MANAGER [address] [place] [address] In Flight Crew Member Family Medicine 05/04/24 Jerrell Webster GLASSWARE SELECTOR.FLEET OPERATIONS MANAGER [address] [place] [address] [facility]24 Tiffany Medellin, ALEXA [address] [place] [address] Nurse Practitioner 09/10/24 Roxana Malloy MD [address] [place] [address] Radiation Oncology 09/17/24 Staff Air Tactical Officer Relationship Specialty Start Date End Date Alda Pabon MD [address] [place] [address] PCP - General Family Medicine 09/03/14 Jerrell Webster APRN.FLEET OPERATIONS MANAGER [address] [place] [address] In Flight Crew Member Family [facility] 05/13/24 Tiffany Medellin NP [address] [place] [address] Nurse Practitioner 09/10/24 Roxana Malloy MD [address] [place] [address] Radiation Oncology 09/17/24 Staff Air Tactical Officer Relationship Specialty Start Date End Date Alda Pabon MD [address] [place] [address] PCP - General Family Medicine 09/03/14 Jerrell Webster APRN.FLEET OPERATIONS MANAGER [address] [place] [address] In Flight Crew Member Family [facility] 05/13/24 Tiffany Medellin NP [address] [place] [address] Nurse Practitioner 09/10/24 Roxana Malloy MD [address] [place] [address] Radiation Oncology 09/17/24 Staff Air Tactical Officer Relationship Specialty Start Date End Date Alda Pabon MD [address] [place] [address] PCP - General Family Medicine 09/03/14 Jerrell Webster APRN.FLEET OPERATIONS MANAGER [address] [place] [address] In Flight Crew Member Family Medicine 05/13/24 Tiffany Medellin NP [address] [place], [place] [address] Nurse Practitioner 09/10/24 Roxana Malloy MD [address] [place], [place] [address] Radiation Oncology 09/17/24 Goals (unrecognized section and content) Goals may be documented in a n alternate section INFORMATION SOURCE (unrecogn ized section and content) DATE CREATED AUTHOR 11/03/2022 [facility] DATE CREATED AUTHOR AUTHOR'S ORGANIZ ATION 10/03/2024 [facility] DATE CREATED AUTHOR AUTHOR'S ORGANIZ ATION 10/09/2024 [facility] DATE CREATED AUTHOR AUTHOR'S ORGANIZ ATION 10/29/2024 [facility] FOR RECORDS PERTAINING TO PATIENTS WHO ARE OR HAVE BEEN ENROLLED IN A CHEMICAL DEPENDENCY/SUBSTANCEABUSE PROGRAM, SOME INFORMATION MAY BE OMITTED. This clinical summary was aggregated from multiple sources. Caution should be exercised in using it in the provision of clinical care. This summary normalizes information from multiple sources, and as a consequence, information in this document may materially change the coding, format and clinical context of patient data. In addition, data may be omitted in some cases. CLINICAL DECISIONS SHOULD BE BASED ON THE PRIMARY CLINICAL RECORDS. [employer] provides no warranty or guarantee of the accuracy or completeness of information in this document.
[2024-10-30 04:15] LABS: Troponin T High Sens 2 HR < 6 ng/L (<=14)
--- NOTE | 2024-10-30 04:26 | EX.ED.DYSGE1 ---
HPI History of Present Illness Chief Complaint: Chest Pain Informant: patient and spouse/S.O. Narrative Narrative: Patient is a 69-year-old female with past medical history of hypertension hyperlipidemia previous pericarditis and gastritis. She states that she was at rest roughly 2 hours ago when she developed lower midsternal chest discomfort that was sharp in nature. She states that there has been no radiation of the pain and she denies any diaphoresis or shortness of breath. She states has been no recent sick symptoms she denies any recent trauma. states that she has been under a great deal of stress recently and wonders if it could be stress related. The patient does admit to having a known thoracic aortic aneurysm of roughly 4 cm but reports the glass scan showed it was stable in size. She denies any history of bleeding disorder or blood thinner use. She states that she tried [id number] medications without symptom improvement and secondary to the persistent pain comes in for evaluation [facility] Medical History (Updated 10/30/24 @ 05:[address] Jimmy Foster, DO) Pure hypercholesterolemia Essential hypertension Acute pericarditis Hypothyroid Chest pain Home Medications ?Medication ?Instructions ?Recorded ?Last Taken ?Type levothyroxine 137 mcg tablet 137 mcg PO DAILY 12/17/17 12/16/17 06:00 History lisinopril 5 mg tablet 5 mg PO DAILY hypertension 12/17/17 12/16/17 07:00 History omeprazole 20 mg capsule,delayed 20 mg PO DAILY GERD 12/17/17 12/16/17 07:00 History release triamterene 75 1 tab PO DAILY hypertension 12/17/17 12/16/17 07:00 History mg-hydrochlorothiazide 50 mg tablet verapamil 100 mg capsule 24hr 100 mg PO DAILY heart 12/17/17 12/16/17 18:[address],ext.release aspirin 81 mg tablet,delayed 81 mg PO DAILY@0800 #30 tabs 12/18/17 Unknown Rx release calcium 600 mg (as carbonate)-vit 1 tab PO QDAY 12/28/17 Unknown History D3 10 mcg (400 unit) chewable tablet (Calcium 600 with Vitamin D3) coenzyme [id number] E 100 mg-100 1 cap PO QDAY 12/28/17 Unknown History unit capsule fluticasone propionate 50 2 spray intranasal QDAY 12/28/17 Unknown History mcg/actuation nasal spray,suspension (Allergy Relief (fluticasone)) inositol 500 mg tablet 500 mg PO QDAY 12/28/17 Unknown History milk thistle 150 mg capsule 150 mg PO DAILY 07/12/18 Unknown History clindamycin HCl 300 mg capsule 300 mg PO 4X/DAY 10 days #40 10/21/22 Unknown Rx (Cleocin HCl) CAPSULES oxycodone-acetaminophen 5 mg-325 1 tab PO Q6H PRN pain 3 days #12 10/21/22 Unknown Rx mg tablet (Percocet) tabs oxycodone-acetaminophen 5 mg-325 1 tab PO Q6H PRN pain 3 days #12 10/30/24 Unknown Rx mg tablet (Percocet) tabs Allergy/AdvReac Type Severity Reaction Status Date / Time atorvastatin (From Lipitor) AdvReac Severe Myalgias, Verified 10/29/24 22:36 balance problems, fatigue Surgical History History of left heart catheterization (12/17/17) History of hand surgery History of section Hx of appendectomy Social History (Updated 11/03/19 @ 16:10 by Yanet GONGORA, PA) Smoking Status: Current every day smoker tobacco type: cigarettes alcohol intake: current details: couple beers a day substance use type: does not use ROS ROS ED Constitutional Constitutional ED: Denies chills or fever(s) Eyes Eyes: Denies blurry vision or change in vision ENT ENT ED: Denies sore throat Cardiovascular Cardiovascular: Reports chest pain; Denies palpitations or racing heartbeat Respiratory/Chest Respiratory/Chest: Denies cough or dyspnea Gastrointestinal Gastrointestinal: Reports abdominal pain and nausea; Denies diarrhea or vomiting Genitourinary Genitourinary ED: Denies dysuria Musculoskeletal Musculoskeletal: Denies back pain Integumentary Denies rash Neurologic Neurologic: Denies headache(s), paresthesias or weakness Hematologic/Lymphatic Hematologic/Lymphatic: Denies easy bleeding or easy bruising EXAM Physical Exam Const Vital Signs: 10/29/24 22:36 10/29/24 22:43 10/29/24 23:07 Temperature 97 F L Temperature Source Temporal Pulse Rate 122 H 78 Respiratory Rate 30 H 20 H Blood Pressure 173/122 H 146/94 H Blood Pressure Mean 139 111 Pulse Ox 100 94 Oxygen Delivery Method Room Air Room Air Oxygen Flow Rate (L/min) 10/29/24 23:15 10/29/24 23:30 10/30/24 00:00 Temperature Temperature Source Pulse Rate 77 77 74 Respiratory Rate 20 H 19 H 16 Blood Pressure 140/99 H 136/119 H 126/77 H Blood Pressure Mean 112 126 92 Pulse Ox 98 96 96 Oxygen Delivery Method Room Air Oxygen Flow Rate (L/min) 10/30/24 00:30 10/30/24 01:00 10/30/24 01:30 Temperature Temperature Source Pulse Rate 75 78 70 Respiratory Rate 21 H 14 16 Blood Pressure 125/82 H 126/81 H 120/78 Blood Pressure Mean 96 96 92 Pulse Ox 94 98 98 Oxygen Delivery Method Nasal Cannula Oxygen Flow Rate (L/min) 3 10/30/24 02:00 10/30/24 02:30 10/30/24 03:00 Temperature Temperature Source Pulse Rate 70 70 69 Respiratory Rate 12 18 11 L Blood Pressure 108/78 109/74 104/70 Blood Pressure Mean 88 85 81 Pulse Ox 98 98 96 Oxygen Delivery Method Nasal Cannula Nasal Cannula Oxygen Flow Rate (L/min) 3 2 10/30/24 03:30 10/30/24 04:00 10/30/24 04:30 Temperature 98.5 F Temperature Source Oral Pulse Rate 68 69 66 Respiratory Rate 17 17 18 Blood Pressure 106/71 114/78 128/78 H Blood Pressure Mean 82 90 94 Pulse Ox 98 98 100 Oxygen Delivery Method Room Air Room Air Room Air Oxygen Flow Rate (L/min) 10/30/24 04:30 Temperature 98.5 F Temperature Source Pulse Rate 66 Respiratory Rate 18 Blood Pressure 128/78 H Blood Pressure Mean 94 Pulse Ox 100 Oxygen Delivery Method Oxygen Flow Rate (L/min) Positive well nourished and well developed General Appearance ED: well developed; Negative for pallor HEENT HEENT Narrative: Normocephalic atraumatic Eyes PERRL and EOMs intact bilaterally General Eye ED: Negative for scleral icterus Neck supple and no JVD Neck Narrative: No nuchal rigidity or meningeal signs Chest Wall Chest Narrative: No bony deformity or subcutaneous emphysema noted There is mild reproducible anterior/midsternal chest pain discomfort with palpation. No overlying soft tissue changes to suggest trauma or infection Resp Resp Narrative: Patient is tachypneic and breath sounds are diminished throughout However they were overall clear to auscultation Cardio regular rhythm Rate: tachycardic and other Other Details: Tachycardic rate with regular rhythm Radial and carotid pulses are equal and symmetric No carotid bruit noted GI non-distended and no masses GI Narrative: Abdomen is soft and nondistended with normal active bowel sounds. There is mild pain with palpation in the midepigastric region without voluntary guarding or rigidity. No pulsatile mass or fluid wave. Auscultation: normoactive bowel sounds Palpation: soft Extremity normal to inspection Extremity Narrative: No asymmetric edema no pitting edema negative Homans' sign bilaterally Neuro oriented x3, CN's II-XII intact bilaterally and no sensory deficits noted Sensorium / Orientation: alert Motor Exam: strength 5/5 throughout Psych mental status grossly normal Skin no rashes or lesions noted and no wounds General Skin Exam: Negative for jaundice or pallor MDM MDM MDM Narrative Medical decision making narrative: Patient arrived to the ER hypertensive tachypneic and tachycardic. However she reports severe pain and I feel the vital sign derangements are related secondary to this. She reports lower midsternal/upper abdominal discomfort. There is concern this could be ACS versus cardiac dysrhythmia versus pericarditis versus pericardial effusion. Patient has a known thoracic aortic aneurysm so there is concern for dissection. With the location of the pain she also could have gastritis versus a ruptured peptic ulcer versus pancreatitis. Secondary to his basic labs were obtained with EKG as well as CTA of the chest abdomen and pelvis. EKG is sinus rhythm without ischemic findings or findings for pericarditis. Initial troponin is 7 and the delta is less than 6 [address] route of the cardiac algorithm. CTA of the chest abdomen pelvis does not reveal any signs of dissection or PE or lung pathology such as pneumonia or pneumothorax. Lipase is normal going against pancreatitis and the CT scan does not show any signs of intestinal perforation. After providing the patient with Protonix as well as Dilaudid she had resolution of her pain and vitals stabilized. Therefore this time as she does not have PE or dissection her cardiac markers are normal there are no signs of pericarditis on EKG and symptoms have improved I do not feel there is need for further evaluation in the ER and she is otherwise safe for discharge. History & Record Review Discussion w/independent historian: Patient and Significant other Lab Data Attestation: I reviewed the patient's lab results. Labs: Laboratory Results - last 24 hr 10/29/24 10/29/24 10/29/24 00:10 23:00 23:00 WBC Cancelled Corrected WBC Cancelled RBC Cancelled Hgb Cancelled Hct Cancelled MCV Cancelled MCH Cancelled MCHC Cancelled RDW Std Deviation Cancelled RDW Coeff of Maurizio Cancelled Plt Count Cancelled MPV Cancelled Immature Gran % (Auto) Cancelled Neut % (Auto) Cancelled Lymph % (Auto) Cancelled [place] % (Auto) Cancelled Eos % (Auto) Cancelled Baso % (Auto) Cancelled Absolute Neuts (auto) Cancelled Absolute Lymphs (auto) Cancelled Total Counted Cancelled Neutrophils % (Manual) Cancelled Band Neutrophils % Cancelled Lymphocytes % (Manual) Cancelled Monocytes % (Manual) Cancelled Eosinophils % (Manual) Cancelled Basophils % (Manual) Cancelled Metamyelocytes % Cancelled Myelocytes % Cancelled Promyelocytes % Cancelled Blast Cells % Cancelled Plasma Cell % (Manual) Cancelled Other Cells % Cancelled Nucleated RBC % Cancelled Nucleated RBCs/100 WBC Cancelled Differential Comment Cancelled Diff Path Review Cancelled Hypersegmented Neuts Cancelled Atypical Lymphocytes Cancelled Reactive Lymphocytes Cancelled Smudge Cells Cancelled Toxic Granulation Cancelled Toxic Vacuolation Cancelled Dohle Bodies Cancelled Oneyda Rods Cancelled Platelet Estimate Cancelled Plt Morphology Comment Cancelled RBC Morphology Cancelled Cancelled Polychromasia Cancelled Hypochromasia Cancelled Basophilic Stippling Cancelled Anisocytosis Cancelled Microcytosis Cancelled Macrocytosis Cancelled Spherocytes Cancelled Sickle Cells Cancelled Target Cells Cancelled Tear Drop Cells Cancelled Ovalocytes Cancelled Stomatocytes Cancelled [place] Bodies Cancelled [place] Cells Cancelled Bite Cells Cancelled Crenated Cell Cancelled Acanthocytes (Spur) Cancelled Rouleaux Cancelled Schistocytes Cancelled PT INR APTT Sodium Cancelled Potassium Cancelled Chloride Cancelled Carbon Dioxide Cancelled Anion Gap Cancelled BUN Cancelled Creatinine Cancelled Estim Creat Clear Calc Cancelled Est GFR (MDRD) Non-Af Cancelled BUN/Creatinine Ratio Cancelled Glucose Cancelled Calcium Cancelled Magnesium 1.4 L Total Bilirubin < 0.15 Direct Bilirubin < 0.08 AST 32 ALT 13 Alkaline Phosphatase 40 Troponin T High Sens Cancelled Troponin T Hi Sens 2 Hr Total Protein 5.6 L Albumin 3.5 Globulin 2.1 L Lipase 51 10/29/24 10/30/24 10/30/24 23:50 00:10 02:11 WBC 9.1 Corrected WBC RBC 3.73 L Hgb 12.2 Hct 36.0 L MCV 96.5 MCH 32.7 H MCHC 33.9 RDW Std Deviation 43.9 RDW Coeff of Maurizio 12.4 Plt Count 201 MPV 8.5 Immature Gran % (Auto) 0.400 Neut % (Auto) 76.7 H Lymph % (Auto) 14.3 L [place] % (Auto) 7.0 Eos % (Auto) 1.1 Baso % (Auto) 0.5 Absolute Neuts (auto) 7.0 Absolute Lymphs (auto) 1.30 Total Counted Neutrophils % (Manual) Band Neutrophils % Lymphocytes % (Manual) Monocytes % (Manual) Eosinophils % (Manual) Basophils % (Manual) Metamyelocytes % Myelocytes % Promyelocytes % Blast Cells % Plasma Cell % (Manual) Other Cells % Nucleated RBC % 0 Nucleated RBCs/100 WBC Differential Comment Diff Path Review Hypersegmented Neuts Atypical Lymphocytes Reactive Lymphocytes Smudge Cells Toxic Granulation Toxic Vacuolation Dohle Bodies Oneyda Rods Platelet Estimate Plt Morphology Comment RBC Morphology Polychromasia Hypochromasia Basophilic Stippling Anisocytosis Microcytosis Macrocytosis Spherocytes Sickle Cells Target Cells Tear Drop Cells Ovalocytes Stomatocytes [place] Bodies [place] Cells Bite Cells Crenated Cell Acanthocytes (Spur) Rouleaux Schistocytes PT 11.9 INR 0.9 APTT 25.0 Sodium 139 Potassium 4.4 Chloride 107 Carbon Dioxide 20.9 L Anion Gap 12 BUN 16 Creatinine 1.15 Estim Creat Clear Calc 41.55 L Est GFR (MDRD) Non-Af 52 L BUN/Creatinine Ratio 13.7 Glucose 90 Calcium 8.0 Magnesium Total Bilirubin Direct Bilirubin AST ALT Alkaline Phosphatase Troponin T High Sens 7 Troponin T Hi Sens 2 Hr < 6 Total Protein Albumin Globulin Lipase Radiography Diagnostic Testing: Clinical Impression(s) from Imaging Studies Chest X-Ray 10/29/24 23:11 IMPRESSION: No acute cardiopulmonary abnormalities. Reading Location: [place] [id number] Chest/Abdomen/Pelvis CTA 10/29/24 23:34 IMPRESSION: 1. No evidence of aortic dissection. 2. Ascending thoracic aorta measures 4.1 cm in diameter, similar to the exam in 2018. 3. Trace mucous plugging in the distal airways of the right lower lobe. 4. Prominent duodenal diverticulum, unchanged. Reading Location: [facility] Chest x-ray as interpreted by the emergency medicine physician reveals no acute infiltrate pneumothorax or pleural effusion Discharge Plan Triage Chief Complaint: Chest Pain ED Provider: Jimmy Foster Dx/Rx/DC Orders Clinical Impression: Nonspecific chest pain, Essential hypertension, Hyperlipidemia, Gastritis Instructions: ED Chest Pain, Uncertain Cause, ED Gastritis (Adult) Prescriptions: New oxycodone-acetaminophen [Percocet] 5-325 mg tablet 1 tab PO Q6H PRN (Reason: pain) 3 Days Qty: 12 0RF No Action coenzyme [id number] 100-100 mg-unit capsule 1 cap PO QDAY calcium carbonate-vitamin D3 [Calcium 600 with Vitamin D3] 600 mg(1,500mg) -400 unit tablet,chewable 1 tab PO QDAY fluticasone propionate [Allergy Relief (fluticasone)] 50 mcg/actuation spray,suspension 2 spray INTRANASAL QDAY inositol 500 mg tablet 500 mg PO QDAY milk thistle 150 mg capsule 150 mg PO DAILY levothyroxine 137 MCG tablet 137 mcg PO DAILY Patient Comments: omeprazole 20 MG capsule,delayed release(DR/EC) 20 mg PO DAILY Patient Comments: verapamil 100 MG capsule, [address] 100 mg PO DAILY lisinopril 5 MG tablet 5 mg PO DAILY Patient Comments: triamterene-hydrochlorothiazid 75 MG-5 tablet 1 tab PO DAILY Patient Comments: aspirin 81 MG tablet 81 mg PO DAILY@0800 Qty: 30 0RF clindamycin HCl [Cleocin HCl] 300 mg capsule 300 mg PO 4X/DAY 10 Days Qty: 40 0RF oxycodone-acetaminophen [Percocet] 5-325 mg tablet 1 tab PO Q6H PRN (Reason: pain) 3 Days Qty: 12 0RF Primary Care Provider: Roberto Pabon Referrals: Roberto Pabon MD [Primary Care Provider] - Activity Restrictions/Additional Instructions: Your workup today did not show any sign of dissection/tear to your aneurysm or signs of active heart damage. Follow-up with your dock operator for further evaluation to discuss potential outpatient stress testing. Also follow-up with your family doctor to discuss GI referral for potential EGD as worsening gastritis as a potential cause of your symptoms. Return to the ER should you have any further concerns Print Language: Arabic Disposition Disposition: Home, Self Care Discharge Date/Time: 10/30/24 04:48
[2024-10-30] MEDS: Mag Hydrox/Al Hydrox/Simeth 30 ML UDC PO (04:35)
[2024-10-30] MEDS: Lidocaine 2% Viscous15 ML UDC 15 ML PO (04:35)
== END 2024-10-30 04:48 | disposition home or self-care (01) ==
PROVIDERS: Emergency Provider Emergency Medicine; PCP Family Medicine; Visit Provider Emergency Medicine
DX: R07.9 Chest pain, unspecified (principal); I10 Essential (primary) hypertension; E78.5 Hyperlipidemia, unspecified; K29.70 Gastritis, unspecified, without bleeding; F17.210 Nicotine dependence, cigarettes, uncomplicated
CPT/HCPCS: 71045; 71275; 74174; 80048; 80076; 83690; 83735; 84484; 85025; 85610; 85730; 93005; 96365; 96375; 96376; 99284; Q9967; A4216; J2405

== ENCOUNTER 2024-11-06 12:03 | Inpatient (IN) | payer MEDICARE, OTHER, SELFPAY ==
[2024-11-06] VITALS (11 sets, daily range): BP systolic 114–144; BP diastolic 79–96; PULSE 68–79; RESP 14–18; TEMP 36.6–36.8; O2SAT 96–100; BMI 24.8; BMI 23.9
--- NOTE | 2024-11-06 12:38 | RAD_ITS ---
PROCEDURE: CHEST PA AND LATERAL 11/06/2024 REASON FOR EXAM: CHEST PAIN TECHNIQUE: Frontal and lateral views of the chest. COMPARISON: October 29, 2024 FINDINGS: Heart size and mediastinal configuration are within normal limits. There is no focal infiltrate or consolidation. There is no pneumothorax or effusion. Aortic calcifications are noted. There is no visible acute bony abnormality. RAD/Chest PA and Lateral IMPRESSION: No acute process is identified in the chest. Reading Location: [facility]
--- NOTE | 2024-11-06 12:40 | ED.VIS.CHEST ---
HPI <FRANSISCA Mehta - Last Filed: 11/06/24 16:02> History of Present Illness Chief Complaint: Chest Pain Narrative Narrative: Patient presenting today due to concerns for left-sided chest pain/pressure that started around 2 AM and woke her up out of her sleep. She reports that the pain is constant. The pain radiates to the left shoulder and across to her right shoulder. Her pain is worse when she takes a deep breath or bends over to pick something up. She reports a history of tobacco use, she currently smokes about 7 cigarettes a day. She has never been diagnosed with COPD. She denies cough, wheezing, fevers, and chills. She has a PMH of HTN, HLD, aortic aneurysm, and previous pericarditis. PE Risk Factors: Negative for Recent Travel/Surgery, Recent Immobilization, Prior DVT or PE or Cancer PFSH <FRANSISCA Mehta - Last Filed: 11/06/24 16:02> [facility] Medical History Pure hypercholesterolemia Essential hypertension Acute pericarditis Hypothyroid Chest pain Home Medications ?Medication ?Instructions ?Recorded ?Last Taken ?Type omeprazole 20 mg capsule,delayed 40 mg PO DAILY GERD 12/17/17 12/16/17 07:00 History release triamterene 75 1 tab PO DAILY hypertension 12/17/17 12/16/17 07:00 History mg-hydrochlorothiazide 50 mg tablet verapamil 100 mg capsule 24hr 100 mg PO DAILY heart 12/17/17 12/16/17 18:[address],ext.release aspirin 81 mg tablet,delayed 81 mg PO DAILY@0800 #30 tabs 12/18/17 Unknown Rx release calcium 600 mg (as carbonate)-vit 1 tab PO QDAY 12/28/17 Unknown History D3 10 mcg (400 unit) chewable tablet (Calcium 600 with Vitamin D3) coenzyme [id number] 100 mg-100 1 cap PO QDAY 12/28/17 Unknown History unit capsule fluticasone propionate 50 2 spray intranasal QDAY 12/28/17 Unknown History mcg/actuation nasal spray,suspension (Allergy Relief (fluticasone)) inositol 500 mg tablet 500 mg PO QDAY 12/28/17 Unknown History milk thistle 150 mg capsule 150 mg PO DAILY 07/12/18 Unknown History oxycodone-acetaminophen 5 mg-325 1 tab PO Q6H PRN pain 3 days #12 10/30/24 Unknown Rx mg tablet (Percocet) tabs cholecalciferol (vitamin D3) 50 2,000 unit PO DAILY 11/06/24 Unknown History mcg (2,000 unit) capsule levothyroxine 150 mcg tablet 150 mcg PO DAILY 11/06/24 Unknown History (Synthroid) multivitamin (Daily Multi-Vitamin 1 tab PO DAILY 11/06/24 Unknown History tablet) propranolol 60 mg capsule,24 60 mg PO DAILY 11/06/24 Unknown History hr,extended release Allergy/AdvReac Type Severity Reaction Status Date / Time atorvastatin (From Lipitor) AdvReac Severe Myalgias, Verified 11/06/24 12:08 balance problems, fatigue Surgical History History of left heart catheterization (12/17/17) History of hand surgery History of section Hx of appendectomy Social History Smoking Status: Current every day smoker tobacco type: cigarettes alcohol intake: current details: couple beers a day substance use type: does not use ROS <FRANSISCA Mehta - Last Filed: 11/06/24 16:02> ROS ED Constitutional Constitutional ED: Denies chills or fever(s) Cardiovascular Cardiovascular: Reports chest pain; Denies palpitations Respiratory/Chest Respiratory/Chest: Reports dyspnea; Denies cough or wheezing Gastrointestinal Gastrointestinal: Denies abdominal pain, nausea or vomiting Genitourinary Genitourinary ED: Denies dysuria, hematuria or urinary urgency Musculoskeletal Musculoskeletal: Denies myalgias Integumentary Denies rash Neurologic Neurologic: Denies weakness EXAM <FRANSISCA Mehta - Last Filed: 11/06/24 16:02> Physical Exam Const Vital Signs: 11/06/24 12:04 11/06/24 12:15 11/06/24 13:00 Temperature 97.8 F Temperature Source Oral Pulse Rate 69 71 Respiratory Rate 17 16 Respiratory Effort Normal Non-Labored Respiratory Pattern Normal Blood Pressure 144/86 H 130/96 H Blood Pressure Mean 105 106 Pulse Ox 100 100 Oxygen Delivery Method Room Air 11/06/24 13:51 11/06/24 14:00 11/06/24 14:00 Temperature Temperature Source Pulse Rate 70 73 69 Respiratory Rate 17 Respiratory Effort Respiratory Pattern Blood Pressure 129/96 H 117/81 H 117/81 H Blood Pressure Mean 90 Pulse Ox 97 Oxygen Delivery Method 11/06/24 15:00 Temperature Temperature Source Pulse Rate 71 Respiratory Rate 18 Respiratory Effort Respiratory Pattern Blood Pressure 114/83 H Blood Pressure Mean 93 Pulse Ox 97 Oxygen Delivery Method Room Air Positive well nourished, well developed and no apparent distress General Appearance ED: well developed HEENT Reports normocephalic and head/scalp atraumatic Mouth ED: Yes moist mucous membranes normal Eyes PERRL and EOMs intact bilaterally Neck full ROM and supple Chest Wall inspection of chest normal Chest Narrative: Right and left parasternal tenderness to palpation, no overlying rashes or lesions. Resp normal respiratory effort and clear to auscultation bilaterally Cardio regular rate and regular rhythm GI soft to palpation, non-tender, non-distended and no masses Back/Spine normal ROM and normal to inspection Extremity normal to inspection and full ROM Neuro oriented x3, CN's II-XII intact bilaterally, moves all extremities, no focal motor deficits and no sensory deficits noted Sensorium / Orientation: awake and alert Psych mental status grossly normal and thought process normal Skin no rashes or lesions noted and no wounds <Dr. Britt Beltran DO - Last Filed: 11/06/24 15:59> Physical Exam Const Vital Signs: 11/06/24 12:04 11/06/24 12:15 11/06/24 13:00 Temperature 97.8 F Temperature Source Oral Pulse Rate 69 71 Respiratory Rate 17 16 Respiratory Effort Normal Non-Labored Respiratory Pattern Normal Blood Pressure 144/86 H 130/96 H Blood Pressure Mean 105 106 Pulse Ox 100 100 Oxygen Delivery Method Room Air 11/06/24 13:51 11/06/24 14:00 11/06/24 14:00 Temperature Temperature Source Pulse Rate 70 73 69 Respiratory Rate 17 Respiratory Effort Respiratory Pattern Blood Pressure 129/96 H 117/81 H 117/81 H Blood Pressure Mean 90 Pulse Ox 97 Oxygen Delivery Method 11/06/24 15:00 Temperature Temperature Source Pulse Rate 71 Respiratory Rate 18 Respiratory Effort Respiratory Pattern Blood Pressure 114/83 H Blood Pressure Mean 93 Pulse Ox 97 Oxygen Delivery Method Room Air <FRANSISCA Mehta - Last Filed: 11/06/24 16:02> Heart Score Risk Factors: >/= 3 Risk Factors or History of CAD Score: 6 <Dr. Britt Beltran DO - Last Filed: 11/06/24 15:59> Heart Score History: Highly Suspicious ECG: Normal Age: >/= 65 years Risk Factors: 1 or 2 Risk Factors Troponin: </= Normal Limit Score: 5 MDM <FRANSISCA Mehta - Last Filed: 11/06/24 16:02> [facility] Narrative Medical decision making narrative: Patient presenting today with left-sided chest pain that woke her up around 2 AM and the pain radiates to her left shoulder and across to her right shoulder. She has similar episode on 10/30 and was seen here in the ED she. She had a CTA of her chest, abdomen, and pelvis that showed a known aortic aneurysm that has not changed in size. No PE. She went to her PCPs office today, they referred her here for evaluation. Cardiac workup will be obtained. Her CBC, BMP, and delta troponin are unremarkable. She did have some relief of her pain with nitro. Given she does have an elevated heart score, the attending did speak with Dr. Moscoso, he recommends admission for a stress test. I will speak with the hospitalist. She will be admitted in stable condition for stress test. I have personally performed a face to face assessment of the patient and have reviewed the ANN MARIE Note. I performed a substantive portion of the visit including all aspects of the following. My garcia findings include: History is [patient presents to the emergency department complaint of chest pain that woke her up around 2 AM. Patient states the pain was across her chest and radiated from her left shoulder all the way over to her right shoulder. She describes some shortness of breath associated with it and some nausea. She had a similar episode on October 30 and was seen in the emergency department for that and had significant workup that was unremarkable. Patient's last heart cath was in 2018. She has no heart history and no stents. She denies recent travel or surgery. She had a CTA of her chest during her last visit that was unremarkable. She was seen at her primary care physician's office today and had an EKG that was thought to look ischemic and was referred to the emergency department. Currently rates her pain a 6 out of 10.] Exam is [HEENT-PERRLA, EOMI. Cranial nerves II through XII grossly intact. TMs clear. Mucous membranes moist. No adenopathy. Cardiovascular-regular rate and rhythm without murmur or ectopy. No significant tenderness on exam of her chest wall. Lungs-clear to auscultation, chest wall stable without crepitus or subcu emphysema Abdomen-normoactive bowel sounds, soft, nontender, no rebound or rigidity, no peritoneal signs. Extremities-intact ?4, normal range of motion, normal pulses, atraumatic] Medical Decison Making [ ] Other additions or changes: [None] Lab Data Attestation: I reviewed the patient's lab results. Labs: Laboratory Results - last 24 hr 11/06/24 11/06/24 12:52 14:55 WBC 8.2 RBC 4.49 Hgb 14.8 Hct 42.0 MCV 93.5 MCH 33.0 H MCHC 35.2 RDW Std Deviation 40.5 RDW Coeff of Maurizio 11.8 Plt Count 291 MPV 8.3 Immature Gran % (Auto) 0.500 Neut % (Auto) 63.8 Lymph % (Auto) 19.5 Warrick % (Auto) 13.5 H Eos % (Auto) 2.0 Baso % (Auto) 0.7 Absolute Neuts (auto) 5.2 Absolute Lymphs (auto) 1.60 Nucleated RBC % 0 ESR 10 Sodium 137 Potassium 3.5 Chloride 99 Carbon Dioxide 25.1 Anion Gap 13 BUN 12 Creatinine 0.83 Estim Creat Clear Calc 57.56 Est GFR (MDRD) Non-Af 76 BUN/Creatinine Ratio 13.9 Glucose 95 Calcium 9.6 Troponin T High Sens 8 D Troponin T Hi Sens 2 Hr 10 Radiography X-Ray: Read by ED Physician Diagnostic Testing: Clinical Impression(s) from Imaging Studies Chest X-Ray 11/06/24 12:38 IMPRESSION: No acute process is identified in the chest. Reading [facility] Initial [facility]KG: Comments: 67 bpm, normal sinus rhythm, no ST elevation, interpreted by attending ED physician <Dr. Britt Beltran, DO - Last Filed: 11/06/24 15:59> [facility] MDM Narrative Medical decision making narrative: Patient presenting today with left-sided chest pain that woke her up around 2 AM and the pain radiates to her left shoulder and across to her right shoulder. She has similar episode on 10/30 and was seen here in the ED she. She had a CT of her chest, abdomen, and pelvis that showed a known aortic aneurysm that has not changed in size. No PE. She went to her PCPs office today, they referred her here for evaluation. Cardiac workup will be obtained. I have personally performed a face to face assessment of the patient and have reviewed the ANN MARIE Note. I performed a substantive portion of the visit including all aspects of the following. My garcia findings include: History is [patient presents to the emergency department complaint of chest pain that woke her up around 2 AM. Patient states the pain was across her chest and radiated from her left shoulder all the way over to her right shoulder. She describes some shortness of breath associated with it and some nausea. She had a similar episode on October 30 and was seen in the emergency department for that and had significant workup that was unremarkable. Patient's last heart cath was in 2018. She has no heart history and no stents. She denies recent travel or surgery. She had a CTA of her chest during her last visit that was unremarkable. She was seen at her primary care physician's office today and had an EKG that was thought to look ischemic and was referred to the emergency department. Currently rates her pain a 6 out of 10.] Exam is [HEENT-PERRLA, EOMI. Cranial nerves II through XII grossly intact. TMs clear. Mucous membranes moist. No adenopathy. Cardiovascular-regular rate and rhythm without murmur or ectopy. No significant tenderness on exam of her chest wall. Lungs-clear to auscultation, chest wall stable without crepitus or subcu emphysema Abdomen-normoactive bowel sounds, soft, nontender, no rebound or rigidity, no peritoneal signs. Extremities-intact ?4, normal range of motion, normal pulses, atraumatic] Medical Decison Making [patient presents with chest pain with recent prior visit for same. Initial workup on October 30 was negative involving troponins and CTA of chest abdomen pelvis that was unremarkable. Patient woke up middle the night with pain across her chest and shoulders with some nausea and shortness of breath. Normal heart cath in 2018. No stress test or heart cath since that time. While in department she received nitroglycerin which seemed to help ease her pain. CBC with differential obtained showed a white count of 8.2 with hemoglobin 14.8 and platelet count 291. Chemistries unremarkable. Troponin was normal at 8. Discussed case with Dr. Moscoso who is on for cardiology. He recommended admission for stress testing. Discussed with hospitalist who will evaluate patient for admission. Patient heart score is a 5.] Other additions or changes: [None] Lab Data Attestation: I reviewed the patient's lab results. Labs: Laboratory Results - last 24 hr 11/06/24 11/06/24 12:52 14:55 WBC 8.2 RBC 4.49 Hgb 14.8 Hct 42.0 MCV 93.5 MCH 33.0 H MCHC 35.2 RDW Std Deviation 40.5 RDW Coeff of Maurizio 11.8 Plt Count 291 MPV 8.3 Immature Gran % (Auto) 0.500 Neut % (Auto) 63.8 Lymph % (Auto) 19.5 Warrick % (Auto) 13.5 H Eos % (Auto) 2.0 Baso % (Auto) 0.7 Absolute Neuts (auto) 5.2 Absolute Lymphs (auto) 1.60 Nucleated RBC % 0 ESR 10 Sodium 137 Potassium 3.5 Chloride 99 Carbon Dioxide 25.1 Anion Gap 13 BUN 12 Creatinine 0.83 Estim Creat Clear Calc 57.56 Est GFR (MDRD) Non-Af 76 BUN/Creatinine Ratio 13.9 Glucose 95 Calcium 9.6 Troponin T High Sens 8 D Troponin T Hi Sens 2 Hr 10 Radiography Diagnostic Testing: Clinical Impression(s) from Imaging Studies Chest X-Ray 11/06/24 12:38 IMPRESSION: No acute process is identified in the chest. Reading [facility] 1 view chest x-ray obtained interpreted by myself as no evidence of infiltrate or pneumothorax or acute disease process. Radiology in agreement. Discharge Plan Triage Chief Complaint: Chest Pain ED Midlevel Provider: Alivia Alves ED Provider: Britt Beltran Dx/Rx/DC Orders Clinical Impression: Chest pain, Hyperlipidemia, Essential hypertension, Tobacco abuse Prescriptions: No Action coenzyme [id number] E 100-100 mg-unit capsule 1 cap PO QDAY calcium carbonate-vitamin D3 [Calcium 600 with Vitamin D3] 600 mg(1,500mg) -400 unit tablet,chewable 1 tab PO QDAY fluticasone propionate [Allergy Relief (fluticasone)] 50 mcg/actuation spray,suspension 2 spray INTRANASAL QDAY inositol 500 mg tablet 500 mg PO QDAY milk thistle 150 mg capsule 150 mg PO DAILY omeprazole 20 MG capsule,delayed release(DR/EC) 40 mg PO DAILY Patient Comments: verapamil 100 MG capsule, [address] 100 mg PO DAILY triamterene-hydrochlorothiazid 75 MG-5 tablet 1 tab PO DAILY Patient Comments: aspirin 81 MG tablet 81 mg PO DAILY@0800 Qty: 30 0RF oxycodone-acetaminophen [Percocet] 5-325 mg tablet 1 tab PO Q6H PRN (Reason: pain) 3 Days Qty: 12 0RF propranolol 60 mg capsule,extended release 24 hr 60 mg PO DAILY levothyroxine [Synthroid] 150 mcg tablet 150 mcg PO DAILY cholecalciferol (vitamin D3) 50 mcg (2,000 unit) capsule 2,000 unit PO DAILY multivitamin [Daily Multi-Vitamin] Tablet 1 tab PO DAILY Primary Care Provider: Roberto Pabon Referrals: Roberto Pabon MD [Primary Care Provider] - Print Language: Algerian Disposition Disposition: Acute Care Hospital [facility]
[2024-11-06 13:07] LABS: Absolute Neutrophil Count 5.2 X10^3/uL (2.0-7.7); Basophil# 0.06 X10^3/uL; Basophil% 0.7 % (0-1); Eosinophil# 0.16 X10^3/uL; Erythrocyte Sedimentation Rate 10 mm/hr (0-30); Hemoglobin 14.8 g/dL (12.0-15.0); Lymphocyte % 19.5 % (19-41); Mean Corp Hgb Conc 35.2 g/dL (32-36); Mean Corpuscular Volume 93.5 fL (81-99); Mean Platelet Vol. 8.3 fl (6.2-12.0); Monocyte# 1.11 X10^3/uL; Monocyte% 13.5 % (0-10); NRBC Flagged by Analyzer 0 % (0-5); Neutrophil # 5.23 X10^3/uL (2.7-7.7); Neutrophil % 63.8 % (47-70); Platelet Count 291 K/mm3 (150-450); RBC Distribution Width CV 11.8 % (11.6-14.6); RBC Distribution Width SD 40.5 fl (35.1-43.9); Red Blood Count 4.49 M/mm3 (4.2-5.4); White Blood Count 8.2 K/mm3 (4.4-11.0)
[2024-11-06 13:26] LABS: Anion Gap 13 (5-15); BUN 12 mg/dL (4-19); BUN/Creat Ratio 13.9 RATIO (10-20); Calcium,Total 9.6 mg/dL (7.6-11.0); Carbon Dioxide 25.1 mmol/L (21.0-32.0); Chloride 99 mmol/L (98-108); Creatinine, Serum 0.83 mg/dL (0.70-1.20); EST Glomerular Filtration Rate 76 (>60); Estimated Creatinine Clearance 57.56 ml/min (50-250); Glucose 95 mg/dL (70-99); Potassium 3.5 mmol/L (3.3-5.1); Sodium Level 137 mmol/L (133-145); Troponin T High Sensitivity 8 ng/L (<=14)
[2024-11-06] MEDS: Nitroglycerin SL (ED/IMG/CATH) 0.4 MG TABLET SL ×2 (13:51→14:00)
[2024-11-06 15:45] LABS: Troponin T High Sens 2 HR 10 ng/L (<=14)
--- NOTE | 2024-11-06 15:47 | HP.PCM.HOS_ITS ---
HPI - General General Date of Admission: 11/06/24 Date of Service: 11/06/24 Chief Complaint: Chest pain HPI Narrative RIGO TEMPLE, is a 69 F who presented to [facility] ED on 11/06/24 with chest pain. Patient was seen in the ED last week for a similar concern. Workup was negative at that time and she was discharged home. Today she noted chest pain that woke her up from sleep at 2 AM. It felt like a pressure that radiated to her shoulders and her back. In the ED she was hemodynamically stable on room air. EKG with normal sinus rhythm and no ischemic changes. Initial troponin negative, repeat troponin pending. Chest x- ray normal. Case was discussed with Dr. Moscoso who recommended admission for stress testing. Hospitalist was then contacted for admission. I saw the patient at bedside in the ED, present. Patient was sitting back comfortably in bed, conversing normally, no acute distress. She noted that the chest pain has moderately improved since arrival to the ED. Notes that she is not sure what is causing this pain but that it needs to be figured out before she can go home. does note that they unfortunately had to put one of their dogs down last Sunday. Patient is accustomed to exercising very regularly and since then has not exercised much and has been under significant stress. Patient otherwise denies any fevers or chills or other infectious symptoms recently. No other acute concerns at this time. [facility] Medical History Pure hypercholesterolemia Essential hypertension Acute pericarditis Hypothyroid Chest pain Home Medications ?Medication ?Instructions ?Recorded ?Last Taken ?Type omeprazole 20 mg capsule,delayed 40 mg PO DAILY GERD 0 12/17/17 12/16/17 07:00 History release triamterene 75 1 tab PO DAILY hypertension 12/17/17 12/16/17 07:00 History mg-hydrochlorothiazide 50 mg tablet verapamil 100 mg capsule 24hr 100 mg PO DAILY heart 12/16/17 18:[address],ext.release aspirin 81 mg tablet,delayed 81 mg PO DAILY@0800 #30 t abs 12/18/17 Unknown Rx release calcium 600 mg (as carbonate)-vit 1 tab PO QDAY Unknown History D3 10 mcg (400 unit) chewable tablet (Calcium 600 with Vitamin D3) coenzyme [id number] E 100 mg-100 1 cap PO QDAY Unknown History unit capsule fluticasone propionate 50 2 spray intranasal QDAY 08/12 Unknown History mcg/actuation nasal spray,suspension (Allergy Relief (fluticasone)) inositol 500 mg tablet 500 mg PO QDAY 12/28/17 Unkn own History milk thistle 150 mg capsule 150 mg PO DAILY 07/12/18 U nknown History oxycodone-acetaminophen 5 mg-325 1 tab PO Q6H PRN pain 3 days #12 10/30/24 Unknown Rx mg tablet (Percocet) tabs cholecalciferol (vitamin D3) 50 2,000 unit PO DAILY Unknown History mcg (2,000 unit) capsule levothyroxine 150 mcg tablet 150 mcg PO DAILY 11/06/24 Unknown History (Synthroid) multivitamin (Daily Multi-Vitamin 1 tab PO DAILY 11/06 Unknown History tablet) propranolol 60 mg capsule,24 60 mg PO DAILY 11/06/24 U nknown History hr,extended release Allergy/AdvReac Type Severity Reaction Status Date / Time atorvastatin (From Lipitor) AdvReac Severe Myalgias, Verified 11/06/24 12:08 balance problems, fatigue Surgical History History of left heart catheterization (12/17/17) History of hand surgery History of section Hx of appendectomy Social History Smoking Status: Current every day smoker tobacco type: cigarettes alcohol intake: current details: couple beers a day substance use type: does not use ROS Constitutional Constitutional: Denies chills, fatigue, fever(s) or weakness Eyes Eyes: Denies change in vision Cardiovascular Cardiovascular: Reports chest pain; Denies dyspnea on exertion, edema, lightheadedness or palpitations Respiratory/Chest Respiratory/Chest: Denies cough or shortness of breath at rest Gastrointestinal Gastrointestinal: Denies abdominal pain Musculoskeletal Musculoskeletal: Denies arthralgias or myalgias Vital Signs Vital Signs Vital Signs: 11/06/24 12:04 11/06/24 12:15 11/06/24 13:00 Temperature 97.8 F Temperature Source Oral Pulse Rate 69 71 Respiratory Rate 17 16 Respiratory Effort Normal Non-Labored Respiratory Pattern Normal Blood Pressure 144/86 H 130/96 H Blood Pressure Mean 105 106 Pulse Ox 100 100 Oxygen Delivery Method Room Air 11/06/24 13:51 11/06/24 14:00 11/06/24 14:00 Temperature Temperature Source Pulse Rate 70 73 69 Respiratory Rate 17 Respiratory Effort Respiratory Pattern Blood Pressure 129/96 H 117/81 H 117/81 H Blood Pressure Mean 90 Pulse Ox 97 Oxygen Delivery Method 11/06/24 15:00 Temperature Temperature Source Pulse Rate 71 Respiratory Rate 18 Respiratory Effort Respiratory Pattern Blood Pressure 114/83 H Blood Pressure Mean 93 Pulse Ox 97 Oxygen Delivery Method Room Air Weight Weight: 67.7 kg Body Mass Index (BMI) 24.8 Physical Exam Const alert, oriented x3, no apparent distress, average body habitus, healthy appearing and well nourished General Appearance: cooperative, comfortable, well kempt and well developed HEENT normocephalic, head/scalp atraumatic, hearing grossly normal bilaterally, nasal mucous membranes and turbinates normal and moist oral mucous membranes Eyes PERRL, EOMs intact bilaterally and conjunctivae normal Neck full ROM Chest inspection of chest normal Resp normal respiratory effort, normal air movement, no use of accessory muscles and clear to auscultation bilaterally Cardio regular rate, regular rhythm, no murmurs and peripheral pulses 2+ throughout GI normal to inspection, nondistended, normoactive bowel sounds, soft to palpation, non-tender and non-distended Back/Spine normal ROM Extremity normal to inspection, full ROM and no pedal edema Skin no rashes or lesions noted Psych mental status grossly normal Results Lab / Micro Data 11/06/24 12:52 11/06/24 12:52 Labs: Laboratory Results - last 24 hr 11/06/24 12:52: WBC 8.2, RBC 4.49, Hgb 14.8, Hct 42.0, MCV 93.5, MCH 33.0 H, MCHC 35.2, RDW Std Deviation 40.5, RDW Coeff of Maurizio 11.8, Plt Count 291, MPV 8.3, Immature Gran % (Auto) 0.500, Neut % (Auto) 63.8, Lymph % (Auto) 19.5, Gage % (Auto) 13.5 H, Eos % (Auto) 2.0, Baso % (Auto) 0.7, Absolute Neuts (auto) 5.2, Absolute Lymphs (auto) 1.60, Nucleated RBC % 0, ESR 10, Sodium 137, Potassium 3.5, Chloride 99, Carbon Dioxide 25.1, Anion Gap 13, BUN 12, Creatinine 0.83, Estim Creat Clear Calc 57.56, Est GFR (MDRD) Non-Af 76, BUN/Creatinine Ratio 13.9, Glucose 95, Calcium 9.6, Troponin T High Sens 8 D 11/06/24 14:55: Troponin T Hi Sens 2 Hr 10 Imaging Radiology Impression Chest X-Ray 11/06/24 12:38 IMPRESSION: No acute process is identified in the chest. Reading Location: [facility] Assessment & Plan Assessment/Plan (1) Chest pain: PLAN: Plan Patient is a 69-year-old female who presented to [facility] ED on 11/06/2024 with chest pain. 1. Chest pain, ACS rule out ? Admit under observation status to PCU. Presented with chest pain at rest that appeared to get somewhat better in the ED with nitro. EKG with normal sinus rhythm and no ischemic changes. Initial troponin negative, repeat pending. Chest x-ray negative. Echocardiogram and stress testing ordered for further evaluation. 2. Hypertension, hyperlipidemia, history of pericarditis ? Has followed with outpatient cardiology in the past. Normotensive on admission. Will hold home propranolol, triamterene?hydrochlorothiazide and verapamil for now. Is reportedly intolerant of statins. Okay to continue home baby aspirin. 3. GERD ? Continue home PPI. 4. Tobacco abuse ? Smokes about half pack per day currently. Denied need for nicotine replacement therapy on admission. 5. Hypothyroidism ? TSH ordered. Continue home Synthroid. DVT prophylaxis: Lovenox CODE STATUS: Full code, verified Expected disposition: Home, 1 to 2 days Total clinical time spent by myself addressing the patient's medical issues, reviewing all the data, and collaborating with patient's care team: 55 minutes. Charges/Coding Visit Charges Inpatient E&M: 78134 Init Hosp L2
--- NOTE | 2024-11-06 15:51 | ECHOCS_ITS ---
Reason For Study Reason For Study: Chest Pain Procedure This was a 2D Doppler, Color Flow transthoracic echocardiogram. Contrast injection was performed. Exam performed portable in patient room. Left Ventricle Normal left ventricle. Normal LV wall thickness. Left ventricular systolic function is normal. The LV ejection fraction is 60 %. Right Ventricle Normal right ventricle. Normal systolic function. Atria Normal left atrium. Normal right atrium. Mitral Valve The mitral valve is structurally normal. No prolapse or stenosis seen. There is no stenosis. Trivial mitral valve insufficiency. Tricuspid Valve Trivial tricuspid valve insufficiency. Aortic Valve There is no aortic stenosis. No aortic valve insufficiency. Pulmonic Valve Trivial pulmonic valve insufficiency. Great Vessels The aortic root is mildly dilated at 3.9 cm. Pericardium/Pleural No pericardial effusion. Medication Diluted definity 1ml given slow IV push to enhance endocardial definition. MMode/2D Measurements & Calculations LVIDd: 3.7 cm IVSd: 1.1 cm Ao root diam: 3.9 cm LVIDs: 2.5 cm LVPWd: 0.99 cm FS: 32.9 % LAV(MOD-bp): 23.1 ml LVAd ap4: 26.0 cm2 SV(MOD-sp4): 49.9 ml LAV(MOD-bp) Indexed: 13.2 ml/m2 LVLd ap4: 7.8 cm SI(MOD-sp4): 28.5 ml/m2 LAV(MOD-sp2): 21.8 ml EDV(MOD-sp4): 71.7 ml LAV(MOD-sp4): 20.6 ml EDV(sp4-el): 73.5 ml LVAs ap4: 12.0 cm2 LVLs ap4: 5.9 cm ESV(MOD-sp4): 21.8 ml ESV(sp4-el): 20.7 ml EF(MOD-sp4): 69.6 % EF(sp4-el): 71.9 % SV(sp4-el): 52.8 ml LA A4 area: 10.4 cm2 LA dimension(2D): 2.7 cm RA A4 area: 5.8 cm2 Time Measurements MV dec time: 0.29 sec Doppler Measurements & Calculations MV E max segundo: 56.5 cm/sec Lat Peak E' Segundo: 7.5 cm/sec Med Peak E' Segundo: 7.8 cm/sec MV A max segundo: 69.3 cm/sec E/E' lat: 7.5 E/E' med: 7.2 MV E/A: 0.81 MV dec slope: 196.5 cm/sec2 Ao V2 max: 107.7 cm/sec LV V1 max: 88.8 cm/sec Ao max P.7 mmHg LV V1 max P.2 mmHg Ao V2 mean: 77.1 cm/sec LV V1 mean P.8 mmHg Ao mean P.7 mmHg LV V1 mean: 63.5 cm/sec Ao V2 VTI: 21.6 cm LV V1 VTI: 18.4 cm AV (velocity ratio): 0.85 TR max segundo: 220.9 cm/sec TR max P.5 mmHg ECHO/Echo Complete W/ Contrast Interpretation Summary Trivial mitral valve insufficiency. The aortic root is mildly dilated at 3.9 cm Normal left ventricle. The LV ejection fraction is 60 %. Ordering Physician: Davi Becerril Referring Physician: Roberto Pabon Performed By: Tiffany Menezes RDCS, RVT
[2024-11-06 21:16] LABS: Troponin T High Sensitivity 13 ng/L (<=14)
[2024-11-07] VITALS (23 sets, daily range): BP systolic 100–136; BP diastolic 72–110; PULSE 65–156; RESP 14–18; TEMP 36.4–37.1; O2SAT 94–100
[2024-11-07] MEDS: Nitroglycerin SL (ED/IMG/CATH) 0.4 MG TABLET SL (00:05)
--- NOTE | 2024-11-07 00:18 | PCM.HOSP.N ---
Hospitalist Note Called for narrow complex tachycardia with heart rate of 149. Appears to be irregularly irregular and consistent with atrial fibrillation. Will give a dose of metoprolol IV push x 1 dose as she does have ST depressions in the anterior, inferior, and lateral leads most notably in V3 3 through V6. Repeat EKG after heart rate slows to see if ST depression resolves. Patient is having chest pain at this time. If does not improve with metoprolol will place on Cardizem drip. Did have an echocardiogram back in 2018 that showed normal EF. Echocardiogram was ordered. Add on TSH and magnesium level for tomorrow morning. Discontinue stress test for now. Start heparin drip. Will consider nitro drip if pain is persistent despite rate control. Consult cardiology. Patient spontaneously converted. Will continue IV metoprolol for now. Continue anticoagulation. Given her ST depressions with tachycardia we will leave cardiology consultation as I am concerned that she may have cardiovascular disease with significant blockage due to her ST depression with her tachycardia. The order did not carryover did I hit the stop button in the emergency department when I put orders in
[2024-11-07] MEDS: Metoprolol Tartrate 5 MG/5 ML Vial IV ×3 (00:27→13:25)
[2024-11-07] MEDS: Heparin Injection (Vial) 5,000 UNIT/ML VIAL 4000 UNIT IV (01:03)
[2024-11-07] MEDS: HEPARIN/D5w 25,000 UNITS 25,000 UNITS/250 ML IV.SOLN. 8 UNITS CONT INF (01:03)
[2024-11-07] MEDS: Levothyroxine 150 MCG Tablet PO (05:14)
[2024-11-07 06:56] LABS: Hematocrit 39.1 % (37-47); Hemoglobin 13.9 g/dL (12.0-15.0); Mean Corp Hgb Conc 35.5 g/dL (32-36); Mean Corpuscular Hgb 32.3 pg (27.0-32.0); Mean Corpuscular Volume 90.9 fL (81-99); Mean Platelet Vol. 8.4 fl (6.2-12.0); Platelet Count 271 K/mm3 (150-450); RBC Distribution Width CV 11.7 % (11.6-14.6); RBC Distribution Width SD 39.2 fl (35.1-43.9); White Blood Count 6.5 K/mm3 (4.4-11.0)
[2024-11-07 07:24] LABS: Anion Gap 13 (5-15); BUN 11 mg/dL (4-19); BUN/Creat Ratio 14.5 RATIO (10-20); Calcium,Total 9.4 mg/dL (7.6-11.0); Carbon Dioxide 22.7 mmol/L (21.0-32.0); Chloride 101 mmol/L (98-108); Creatinine, Serum 0.73 mg/dL (0.70-1.20); EST Glomerular Filtration Rate 89 (>60); Estimated Creatinine Clearance 59.72 ml/min (50-250); Glucose 110 mg/dL (70-99); Magnesium 1.5 mg/dL (1.5-2.2); Sodium Level 137 mmol/L (133-145)
[2024-11-07 07:56] LABS: Partial Thromboplast Time 65.2 Seconds (24.1-36.2)
[2024-11-07] MEDS: Aspirin E.C. 81 MG Tablet PO (07:56)
[2024-11-07] MEDS: Potassium Chloride Oral Tablet 20 MEQ 60 MEQ PO (07:57)
--- NOTE | 2024-11-07 08:44 | CASEMGMT ---
Tertiary Insurance review for hospitals In-network with?MEDICARE insurance if transfer is recommended is as follows: [facility], [facility], [place], [facility], [facility], [facility], , [place], [facility], [facility], and [place]. Casi Calloway, Discharge Planning Asst.
[2024-11-07] MEDS: Fluticasone 0.05% 1 SPRAY NASAL.SRY 2 SPRAY NASAL (10:47)
[2024-11-07] MEDS: Pantoprazole Sodium 40 MG Tablet PO (10:48)
[2024-11-07] MEDS: Calcium Carb/Vitamin D 1 TABLET Tablet PO (10:48)
[2024-11-07] MEDS: Multivitamins,Therapeutic Tablet 1 TABLET PO (10:49)
--- NOTE | 2024-11-07 12:23 | PCM.CONS.C ---
Assessment & Plan Assessment/Plan (1) Tobacco abuse: (2) Chest pain: (3) Hyperlipidemia: (4) Essential hypertension: (5) Afib: PLAN: Plan 1. Chest pain, somewhat typical with EKG changes. Will proceed with a left heart cath pending findings further recommendations will follow. Also obtain echocardiogram to rule out any structural abnormalities 2. Atrial fibrillation this appears to be a new diagnosis given her age and risk factors she would likely benefit from long-term anticoagulation for stroke prevention. Heparin drip is on currently on, will perez check Eliquis and Xarelto. And start metoprolol 12.5 mg p.o. twice daily and uptitrate as able to tolerate 3. Hyperlipidemia: Check LDL, check A1c. 4. Hypertension: Well-controlled at this time. HPI Consult Data Date of Consult: 11/07/24 HPI Narrative Reason for Consultation: Chest pain problem HPI Narrative: RIGO TEMPLE, is a 69 F who presents presented to the ER with episodes of chest pain. Reports that she has had prior episodes like this which would last couple minutes and go away. Also reports that has had times when she checked her blood pressure and her heart rate was reported as irregular.. She was recently seen in the ER for similar symptoms at which time nothing was found. This time around she presents with similar symptoms that woke her up from sleep radiating to her back and shoulders. On arrival she was found to have a normal workup including normal initial troponins. However when she went to [facility] with RVR at the time she had to ST depressions on her EKG. She has self converted back into normal sinus. At this time reports no chest pain. She denies fever, denies chills, denies orthopnea, denies dyspnea. Otherwise no other complaints at this time. [facility] Medical History Pure hypercholesterolemia Essential hypertension Acute pericarditis Hypothyroid Chest pain Home Medications ?Medication ?Instructions ?Recorded ?Last Taken ?Type omeprazole 20 mg capsule,delayed 40 mg PO DAILY GERD 12/17/17 12/16/17 07:00 History release triamterene 75 1 tab PO DAILY hypertension 12/17/17 12/16/17 07:00 History mg-hydrochlorothiazide 50 mg tablet verapamil 100 mg capsule 24hr 100 mg PO DAILY heart 12/17/17 12/16/17 18:[address],ext.release aspirin 81 mg tablet,delayed 81 mg PO DAILY@0800 #30 tabs 12/18/17 Unknown Rx release calcium 600 mg (as carbonate)-vit 1 tab PO QDAY 12/28/17 Unknown History D3 10 mcg (400 unit) chewable tablet (Calcium 600 with Vitamin D3) coenzyme [id number] E 100 mg-100 1 cap PO QDAY 12/28/17 Unknown History unit capsule fluticasone propionate 50 2 spray intranasal QDAY 12/28/17 Unknown History mcg/actuation nasal spray,suspension (Allergy Relief (fluticasone)) inositol 500 mg tablet 500 mg PO QDAY 12/28/17 Unknown History milk thistle 150 mg capsule 150 mg PO DAILY 07/12/18 Unknown History oxycodone-acetaminophen 5 mg-325 1 tab PO Q6H PRN pain 3 days #12 10/30/24 Unknown Rx mg tablet (Percocet) tabs cholecalciferol (vitamin D3) 50 2,000 unit PO DAILY 11/06/24 Unknown History mcg (2,000 unit) capsule levothyroxine 150 mcg tablet 150 mcg PO DAILY 11/06/24 Unknown History (Synthroid) multivitamin (Daily Multi-Vitamin 1 tab PO DAILY 11/06/24 Unknown History tablet) propranolol 60 mg capsule,24 60 mg PO DAILY 11/06/24 Unknown History hr,extended release Allergy/AdvReac Type Severity Reaction Status Date / Time atorvastatin (From Lipitor) AdvReac Severe Myalgias, Verified 11/06/24 12:08 balance problems, fatigue Surgical History History of left heart catheterization (12/17/17) History of hand surgery History of section Hx of appendectomy Social History Smoking Status: Current every day smoker tobacco type: cigarettes alcohol intake: current details: couple beers a day substance use type: does not use ROS ROS Narrative As in HPI Physical Exam Narrative General?alert oriented HEENT- normal extraocular movements Neck supple no JVD Cardiovascular- normal S1-S2, no murmurs Pulmonary- clear to auscultation bilaterally Abdomen- soft to palpation, normal sounds Extremities- no edema Musculoskeletal- no tenderness no swelling Neurological -alert oriented Psych -normal affect Risk Stratification Risk Stratification Applicable: Yes Age >/= 65: Yes >/= 3 CAD Risk Factors (HTN, HLD, DM, family hx of CAD, or current smoker): Yes (htnm hld, nicotine) Aspirin Use in the Past 7 Days: No Severe Angina (>/= episodes in 24 hours): Yes EKG ST Changes >/= 0.5mm: Yes Positive Cardiac Marker: No (,) AMANDA Risk Stratification Score: 4 AMANDA % Risk: 20% Risk Objective Data Vital Signs: Vital Signs Temp Pulse Resp BP Pulse Ox O2 Del Method 97.8 F 68 14 124/85 H 96 Room Air 11/07/24 10:21 11/07/24 11:06 11/07/24 11:06 11/07/24 11:06 11/07/24 11:06 11/07/24 11:06 Oxygen Delivery Method Room Air Weight: 143 lb 15.39 oz Body Mass Index (BMI) 23.9 Intake & Output: Intake and Output for Last 24 Hours 11/05/24 11/06/24 11/07/24 23:59 23:59 23:59 Intake Total 0 / 0 Balance 0 / 0 Lab / Micro Data 11/07/24 06:35 11/07/24 06:35 Labs: Laboratory Results - last 24 hr 11/06/24 12:52: WBC 8.2, RBC 4.49, Hgb 14.8, Hct 42.0, MCV 93.5, MCH 33.0 H, MCHC 35.2, RDW Std Deviation 40.5, RDW Coeff of Maurizio 11.8, Plt Count 291, MPV 8.3, Immature Gran % (Auto) 0.500, Neut % (Auto) 63.8, Lymph % (Auto) 19.5, [place] % (Auto) 13.5 H, Eos % (Auto) 2.0, Baso % (Auto) 0.7, Absolute Neuts (auto) 5.2, Absolute Lymphs (auto) 1.60, Nucleated RBC % 0, ESR 10, Sodium 137, Potassium 3.5, Chloride 99, Carbon Dioxide 25.1, Anion Gap 13, BUN 12, Creatinine 0.83, Estim Creat Clear Calc 57.56, Est GFR (MDRD) Non-Af 76, BUN/Creatinine Ratio 13.9, Glucose 95, Calcium 9.6, Troponin T High Sens 8 D 11/06/24 14:55: Troponin T Hi Sens 2 Hr 10, TSH 2.420 11/06/24 20:35: Troponin T High Sens 13 D 11/07/24 02:11: APTT Cancelled 11/07/24 06:35: WBC 6.5, RBC 4.30, Hgb 13.9, Hct 39.1, MCV 90.9, MCH 32.3 H, MCHC 35.5, RDW Std Deviation 39.2, RDW Coeff of Maurizio 11.7, Plt Count 271, MPV 8.4, APTT 65.2 H, Sodium 137, Potassium 3.0 L, Chloride 101, Carbon Dioxide 22.7, Anion Gap 13, BUN 11, Creatinine 0.73, Estim Creat Clear Calc 59.72, Est GFR (MDRD) Non-Af 89, BUN/Creatinine Ratio 14.5, Glucose 110 H, Calcium 9.4, Magnesium 1.5, TSH 4.700 H Cardiology Labs/Tests 11/06/24 12:52: WBC 8.2, RBC 4.49, Hgb 14.8, Hct 42.0, MCV 93.5, MCH 33.0 H, MCHC 35.2, Plt Count 291, MPV 8.3, Immature Gran % (Auto) 0.500, Neut % (Auto) 63.8, Lymph % (Auto) 19.5, [place] % (Auto) 13.5 H, Eos % (Auto) 2.0, Baso % (Auto) 0.7, Absolute Neuts (auto) 5.2, Nucleated RBC % 0, Sodium 137, Potassium 3.5, Chloride 99, Carbon Dioxide 25.1, Anion Gap 13, BUN 12, Creatinine 0.83, Est GFR (MDRD) Non-Af 76, BUN/Creatinine Ratio 13.9, Glucose 95, Calcium 9.6 11/07/24 02:11: APTT Cancelled 11/07/24 06:35: WBC 6.5, RBC 4.30, Hgb 13.9, Hct 39.1, MCV 90.9, MCH 32.3 H, MCHC 35.5, Plt Count 271, MPV 8.4, APTT 65.2 H, Sodium 137, Potassium 3.0 L, Chloride 101, Carbon Dioxide 22.7, Anion Gap 13, BUN 11, Creatinine 0.73, Est GFR (MDRD) Non-Af 89, BUN/Creatinine Ratio 14.5, Glucose 110 H, Calcium 9.4, Magnesium 1.5 Rhythm: EKG: ECHO: Stress Test: Cardiac Cath: PCI: CT Surgery: Holter monitor: EPS: PPM: CXR: Chest CT Scan: Radiography Diagnostic Testing: Radiology Impression Chest X-Ray 11/06/24 12:38 IMPRESSION: No acute process is identified in the chest. [facility]
--- NOTE | 2024-11-07 12:30 | CASEMGMT ---
RN?CM?[employer]AV[employer]MOD[employer] RATER?CM?to room to meet with patient for initial transition planning/care coordination?assessment.?RN?CM?introduced self and role at [facility].? Pt voices understanding and consents to?assessment?at this time.? Pt resting in bed in no distress at this time.? Pt is A/O at this time and answers all questions appropriately.?? Care providers, pharmacy, and demographics verified/updated at this time. Strata: 1 PCP: Dr Pabon-pt has an appt November 11. Appt added to pt's dc plan. Specialists: Dr Fine-polishing wheel setter- pt has an appt November 17. Preferred [facility]acy: [facility] Insurance: [place] MACIEL Prescription Benefit:?yes LNOK: Adam Living Arrangements: Lives w/ in one-story home w/one step to enter. Independent w/ADL's and IADL's, manages her own medications and appts, and does landscaping @ her home. Transportation:?Pt states drives self and states no transportation concerns at this time.? DME: ?Pt has a pulse ox. Pt states no need for further DME at this time.? HHC/SNF: No hx of either. No needs identified. Pt wishes to return home and states has no concerns with going home at time of discharge.? CM?to follow for any discharge planning/needs.? Pt voices no further concerns/needs at this time.? Advised pt to ask for?CM?if any further questions/concerns/needs arise.? Voices understanding. PLAN:??Home Cris BSN?RN?CM
[2024-11-07 13:18] LABS: Hemoglobin A1c 5.4 % (<=5.6)
[2024-11-07] MEDS: 0.9% Saline Lock 10 ML Syringe IV (13:30)
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
[2024-11-07] MEDS: APIXABAN 5 MG TABLET PO ×2 (14:29→22:19)
[2024-11-07] MEDS: Cholecalciferol (VIT D3) 25 MCG TABLET (1,000 UNITS) 50 MCG PO (14:29)
[2024-11-07 14:39] LABS: Partial Thromboplast Time 81.3 Seconds (24.1-36.2)
[2024-11-07] MEDS: Magnesium Sulfate 4gm/100mL 4 GM/100 ML IV.SOLN. IV (14:39)
--- NOTE | 2024-11-07 15:15 | CHAPLAIN ---
Type of Pastoral Visit _x__ Initial Visit ___ Follow-up Visit ___ On-call Visit ___ General Patient Visit ___ Spiritual Assessment ___ Family Conference ___ Bereavement ___ Rapid Response ___ Code Blue ___ Other (describe below) Pastoral Care Referral From _x__ Patient ___ Family ___ Nurse ___ Physician ___ Gun Fitter ___ Health Psychologist ___ Other (describe below) Sacrament/Intervention _x__ Active listening ___ Anointing ___ Lutheran ___ Bereavement ___ Communion _x__ Ondina exploration ___ ___ Life review _x__ Prayer ___ Reconciliation ___ Sacrament of Sick ___ Supportive presence ___ Wedding ___ Other (describe below) Pastoral Comments patient is hopeful that things are better now as she states that she is much improved since yesterday; pt states that she is happy about what they did nt find but holds on to some hope of better days ahead; pt is a member of a local sabianist that is praying for her; gave her a prayer also today
[2024-11-07 15:21] LABS: Cholesterol 199 mg/dL (<=200); High Density Lipoprotein 62 mg/dL; Low Density Lipoprotein Calc. 120 mg/dL; Triglycerides 85 mg/dL; Very Low Density Lipoprotein 17 mg/dL (5-40)
--- NOTE | 2024-11-07 15:21 | PCM.PN.HOSP ---
Reason for Visit Reason for Visit: Diagnoses Hyperlipidemia, unspecified (11/07/24) Essential (primary) hypertension (11/07/24) Unspecified atrial fibrillation (11/07/24) Chest pain, unspecified (11/07/24) Tobacco use (11/07/24) Subjective Subjective Saw patient at bedside this morning, present. Overnight patient had an episode of A-fib with RVR and had ST depressions noted in V3 through 6 with this. She was given 1 dose of IV Lopressor with some improvement, and then she spontaneously converted back to normal sinus rhythm about an hour later. She was also placed on heparin drip at that time. Cardiology was consulted and patient had left heart cath on this morning. I saw the patient shortly after the cath. Notably she was found to have clean coronaries on cath. She noted that cardiology wanted to monitor her today and have her echo completed, and the patient remained stable and she tentatively could go home tomorrow. Patient was sitting back comfortably in bed and felt much better this morning than overnight. Denies chest pain or shortness of breath. No other acute concerns currently. Objective Data Objective Data Vital Signs: Vital Signs Temp Pulse Resp BP Pulse Ox O2 Del Method 97.7 F L 73 16 107/72 95 Room Air 11/07/24 13:05 11/07/24 13:31 11/07/24 13:31 11/07/24 13:31 11/07/24 13:31 11/07/24 14:48 Oxygen Delivery Method Room Air Weight: 65.3 kg Body Mass Index (BMI) 23.9 Intake & Output: Intake and Output for Last 24 Hours 11/05/24 11/06/24 11/07/24 23:59 23:59 23:59 Intake Total 0 / 0 250 / 250 Balance 0 / 0 250 / 250 Lab / Micro Data 11/07/24 06:35 11/07/24 06:35 Labs: Laboratory Results - last 24 hr 11/06/24 14:55: Troponin T Hi Sens 2 Hr 10, TSH 2.420 11/06/24 20:35: Troponin T High Sens 13 D 11/07/24 02:11: APTT Cancelled 11/07/24 06:35: WBC 6.5, RBC 4.30, Hgb 13.9, Hct 39.1, MCV 90.9, MCH 32.3 H, MCHC 35.5, RDW Std Deviation 39.2, RDW Coeff of Maurizio 11.7, Plt Count 271, MPV 8.4, APTT 65.2 H, Sodium 137, Potassium 3.0 L, Chloride 101, Carbon Dioxide 22.7, Anion Gap 13, BUN 11, Creatinine 0.73, Estim Creat Clear Calc 59.72, Est GFR (MDRD) Non-Af 89, BUN/Creatinine Ratio 14.5, Glucose 110 H, Calcium 9.4, Magnesium 1.5, TSH 4.700 H 11/07/24 12:55: Hemoglobin A1c 5.4, Triglycerides 85, Cholesterol 199, LDL Cholesterol, Calc 120, VLDL Cholesterol 17, HDL Cholesterol 62, Cholesterol/HDL Ratio 3.20 11/07/24 14:10: APTT 81.3 H Radiography Diagnostic Testing: Radiology Impression Echocardiogram 11/06/24 15:51 Interpretation Summary Trivial mitral valve insufficiency. The aortic root is mildly dilated at 3.9 cm Normal left ventricle. The LV ejection fraction is 60 %. Ordering Physician: Davi Becerril Referring Physician: Roberto Pabon Performed By: Tiffany Menezes, BECKI, RVT Physical Exam Const alert, oriented x3 and no apparent distress Constitutional Narrative: Upper middle-aged female, mildly anxious appearing but otherwise sitting back comfortably in bed, conversing normally, in no acute distress. General Appearance: cooperative and comfortable HEENT normocephalic, head/scalp atraumatic, hearing grossly normal bilaterally, nasal mucous membranes and turbinates normal and moist oral mucous membranes Eyes PERRL, EOMs intact bilaterally and conjunctivae normal Neck full ROM Chest inspection of chest normal Resp normal respiratory effort, normal air movement, no use of accessory muscles and clear to auscultation bilaterally Cardio regular rate, regular rhythm, no murmurs and peripheral pulses 2+ throughout GI normal to inspection, nondistended, normoactive bowel sounds, soft to palpation, non-tender and non-distended Back/Spine normal ROM Extremity normal to inspection, full ROM and no pedal edema Skin no rashes or lesions noted Psych mental status grossly normal Assessment & Plan Assessment/Plan (1) Chest pain: (2) Paroxysmal atrial fibrillation with RVR: PLAN: Plan Patient is a 69-year-old female who presented to [facility] ED on 11/06/2024 with chest pain. 1. Chest pain, ACS rule out; new onset A-fib with RVR ? Cardiology following. Presented with chest pain at rest that appeared to get somewhat better in the ED with nitro. EKG with normal sinus rhythm and no ischemic changes. Troponin negative x 2. Chest x-ray negative. Initial plan was for stress test but patient went into A-fib with RVR overnight on admission and EKG showed ST depressions in V3 through V6. Had left heart cath on 11/07 that showed nonobstructive CAD. Echo showed EF 60%, no other concerning findings. Patient did spontaneously convert back to normal sinus rhythm. However per cardiology, would benefit from long-term anticoagulation for stroke prevention. Was on heparin drip prior to cath, will transition to Eliquis this evening. Will also start Lopressor 12.5 mg twice daily and uptitrate as tolerated. Continue cardiac monitoring. If patient remains stable overnight, will tentatively plan for discharge home tomorrow. 2. Hypertension, hyperlipidemia, history of pericarditis ? Has followed with outpatient cardiology in the past. Normotensive on admission. Initiated on Lopressor as noted above, will hold propranolol. Will continue to hold triamterene?hydrochlorothiazide and verapamil for now. Is reportedly intolerant of statins. Starting anticoagulation as above, will discontinue baby aspirin. 3. GERD ? Continue home PPI. 4. Tobacco abuse ? Smokes about half pack per day currently. Denied need for nicotine replacement therapy on admission. 5. Hypothyroidism ? TSH ordered. Continue home Synthroid. DVT prophylaxis: Lovenox CODE STATUS: Full code, verified Expected disposition: Home, 1 to 2 days *Notably patient was admitted under observation status. However given her diagnosis of new onset A-fib with RVR and need for further monitoring per cardiology, will transition her to inpatient status. Total clinical time spent by myself addressing the patient's medical issues, reviewing all the data, and collaborating with patient's care team: 35 minutes. Charges/Coding Visit Charges Inpatient E&M: 93944 Subs Hosp L2
[2024-11-07] MEDS: Acetaminophen 325 MG Tablet 650 MG PO (22:19)
[2024-11-08 02:53] VITALS: BP 106/80; PULSE 62; RESP 16; TEMP 37; O2SAT 97
[2024-11-08 03:29] VITALS: PULSE 63
[2024-11-08 05:45] LABS: Hematocrit 37.6 % (37-47); Hemoglobin 13.6 g/dL (12.0-15.0); Mean Corp Hgb Conc 36.2 g/dL (32-36); Mean Corpuscular Hgb 33.2 pg (27.0-32.0); Mean Corpuscular Volume 91.7 fL (81-99); Mean Platelet Vol. 8.4 fl (6.2-12.0); Platelet Count 282 K/mm3 (150-450); RBC Distribution Width CV 11.8 % (11.6-14.6); RBC Distribution Width SD 39.4 fl (35.1-43.9); White Blood Count 5.4 K/mm3 (4.4-11.0)
[2024-11-08] MEDS: Levothyroxine 150 MCG Tablet PO (05:46)
[2024-11-08 06:09] LABS: Anion Gap 11 (5-15); BUN 15 mg/dL (4-19); BUN/Creat Ratio 20.4 RATIO (10-20); Calcium,Total 9.2 mg/dL (7.6-11.0); Carbon Dioxide 21.8 mmol/L (21.0-32.0); Chloride 103 mmol/L (98-108); Creatinine, Serum 0.72 mg/dL (0.70-1.20); EST Glomerular Filtration Rate 91 (>60); Estimated Creatinine Clearance 59.72 ml/min (50-250); Glucose 96 mg/dL (70-99); Potassium 3.5 mmol/L (3.3-5.1); Sodium Level 136 mmol/L (133-145)
--- NOTE | 2024-11-08 10:08 | PCM.DC.SUM ---
Providers Date of Admission: 11/06/24 Date of Discharge: 11/08/24 Primary Care Physician: Dr. Roberto Pabon MD Consultations 11/07/24 00:24 Consult: Cardiology Routine Consulting Provider: Donato Moscoso Reason for Consult: Afib/EKG c/w ischemia EMERGENT Consult: No MD Notified: Yes Date Notified: 11/07/24 Time Notified: 06:00 Method of Notification: Verbal Reason For Visit: CHEST PAIN Diagnosis Discharge Diagnosis (1) Chest pain: Status: Acute Code(s): R07.9 - Chest pain, unspecified (2) Paroxysmal atrial fibrillation with RVR: Status: Acute Code(s): I48.0 - Paroxysmal atrial fibrillation Medications at Discharge Home Medications omeprazole 20 mg capsule,delayed release 40 mg PO DAILY GERD 12/17/17 calcium 600 mg (as carbonate)-vit D3 10 mcg (400 unit) chewable tablet (Calcium 600 with Vitamin D3) 1 tab PO QDAY supplement 12/28/17 coenzyme [id number] E 100 mg-100 unit capsule 1 cap PO QDAY supplement 12/28/17 fluticasone propionate 50 mcg/actuation nasal spray,suspension (Allergy Relief (fluticasone)) 2 spray intranasal QDAY allergies 12/28/17 inositol 500 mg tablet 500 mg PO QDAY 12/28/17 milk thistle 150 mg capsule 150 mg PO DAILY supplement 07/12/18 cholecalciferol (vitamin D3) 50 mcg (2,000 unit) capsule 2,000 unit PO DAILY vitamin 11/06/24 levothyroxine 150 mcg tablet (Synthroid) 150 mcg PO DAILY thyroid 11/06/24 multivitamin (Daily Multi-Vitamin tablet) 1 tab PO DAILY vitamin 11/06/24 apixaban 5 mg tablet (Eliquis) 5 mg PO BID 30 days #60 tabs 11/08/24 metoprolol tartrate 25 mg tablet 25 mg PO BID 30 days #60 tabs 11/08/24 Hospital Course Operations None Procedures Cardiac catheterization, EKG, Transthoracic echo and - (Chest x-ray) Summary of Care Provided Minutes Spent on Discharge: 35 Hospital Course: Patient is a 69-year-old female who presented to [facility] ED on 11/06/2024 with chest pain. Hospital course as noted below. Patient discharged home in stable condition on 11/08. 1. Chest pain, ACS rule out; new onset A-fib with RVR ? Cardiology followed. Presented with chest pain at rest that appeared to get somewhat better in the ED with nitro. EKG with normal sinus rhythm and no ischemic changes. Troponin negative x 2. Chest x-ray negative. Initial plan was for stress test but patient went into A-fib with RVR overnight on admission and EKG showed ST depressions in V3 through V6. Had left heart cath on 11/07 that showed nonobstructive CAD. Echo showed EF 60%, no other concerning findings. Patient did spontaneously convert back to normal sinus rhythm. However per cardiology, would benefit from long-term anticoagulation for stroke prevention. Was on heparin drip prior to cath, transitioned to Eliquis. Initiated on Lopressor as well. Patient remained stable with no further episodes of A-fib. Will discharge on p.o. Lopressor 25 mg twice daily and Eliquis 5 mg twice daily. 30-day cardiac event monitor sent on discharge. 2. Hypertension, hyperlipidemia, history of pericarditis ? Has followed with outpatient cardiology in the past. Normotensive to mildly hypotensive during hospitalization. Initiated on low-dose Lopressor as noted above and BP remained stable. However as she was running borderline low, will only discharge on p.o. Lopressor 25 mg twice daily. Hold home propranolol, transferred?hydrochlorothiazide and verapamil on discharge. Intolerant of statins, can consider alternative therapy for hyperlipidemia in outpatient setting. Also discharged on anticoagulation as above so aspirin can be discontinued. 3. GERD ? Continue home PPI. 4. Tobacco abuse ? Smokes about half pack per day currently. Denied need for nicotine replacement therapy on admission. 5. Hypothyroidism ? TSH normal. Continue home Synthroid. Total clinical time spent by myself addressing the patient's medical issues, reviewing all the data, and collaborating with patient's care team: 35 minutes. Physical Exam Const alert, oriented x3 and no apparent distress Constitutional Narrative: Upper middle-aged female, mildly anxious appearing but otherwise sitting back comfortably in bed, conversing normally, in no acute distress. Stable. General Appearance: cooperative and comfortable HEENT normocephalic, head/scalp atraumatic, hearing grossly normal bilaterally, nasal mucous membranes and turbinates normal and moist oral mucous membranes Eyes PERRL, EOMs intact bilaterally and conjunctivae normal Neck full ROM Chest inspection of chest normal Resp normal respiratory effort, normal air movement, no use of accessory muscles and clear to auscultation bilaterally Cardio regular rate, regular rhythm, no murmurs and peripheral pulses 2+ throughout GI normal to inspection, nondistended, normoactive bowel sounds, soft to palpation, non-tender and non-distended Back/Spine normal ROM Extremity normal to inspection, full ROM and no pedal edema Skin no rashes or lesions noted Psych mental status grossly normal Weight / BMI Weight Weight: 65.3 kg Body Mass Index (BMI) 23.9 ABG / Lab / Microbiology Data 11/08/24 05:08 11/08/24 05:08 Laboratory: Laboratory Results - last 24 hr 11/07/24 12:55: Hemoglobin A1c 5.4, Triglycerides 85, Cholesterol 199, LDL Cholesterol, Calc 120, VLDL Cholesterol 17, HDL Cholesterol 62, Cholesterol/HDL Ratio 3.20 11/07/24 14:10: APTT 81.3 H 11/08/24 05:08: WBC 5.4, RBC 4.10 L, Hgb 13.6, Hct 37.6, MCV 91.7, MCH 33.2 H, MCHC 36.2 H, RDW Std Deviation 39.4, RDW Coeff of Maurizio 11.8, Plt Count 282, MPV 8.4, ESR 34 H, Sodium 136, Potassium 3.5, Chloride 103, Carbon Dioxide 21.8, Anion Gap 11, BUN 15, Creatinine 0.72, Estim Creat Clear Calc 59.72, Est GFR (MDRD) Non-Af 91, BUN/Creatinine Ratio 20.4 H, Glucose 96, Calcium 9.2, C-React Prot Ext Range 62.80 H Radiography Diagnostic Testing: Radiology Impression Echocardiogram 11/06/24 15:51 Interpretation Summary Trivial mitral valve insufficiency. The aortic root is mildly dilated at 3.9 cm Normal left ventricle. The LV ejection fraction is 60 %. Ordering Physician: Davi Becerril Referring Physician: Roberto Pabon Performed By: Tiffany Menezes, RDCS, RVT D/C Instructions DC O2, CPAP, BIPAP Needs Home O2 Discharge instructions: No Meaningful Use Info Meaningful Use Meaningful Use Diagnoses (Choose all that apply): None applicable Ischemic Stroke Statin Dosing Therapy Reference: STATIN DOSE THERAPY REFERENCE: * Patients > 75 years receive moderate or high dose statin therapy. * Patients 75 years or YOUNGER should receive HIGH intensity statin dose unless contraindicated. You will be required to document reason for non-treatment if statin daily dose does not meet guidelines. HIGH DOSE STATIN THERAPY DAILY Atorvastatin > than or = to 40 mg Rosuvastatin > than or = to 20 mg Amlodipine + Atorvastatin > than or = to 2.5/40 mg Ezetimibe + Simvastatin 10/80 mg Simvastatin 80mg Discharge Plan Admission Admit Date/Time: 11/07/24 14:01 Primary Reason for Your Visit: Chest pain Attending Provider: Davi Becerril Primary Care Provider: Roberto Pabon Consulting Providers: Donato Moscoso Instructions Additional Instructions / Restrictions: Start taking Eliquis twice daily and Lopressor twice daily as below for your episode of atrial fibrillation. Your blood pressure was borderline low while in the hospital so please stop taking your other home blood pressure medications. A 30-day heart monitor will be sent to you through the mail; please wear as instructed on the package. Please call the [facility]ology office to schedule a follow-up appointment with them in the next few weeks. Discharge Orders/Prescriptions Prescriptions: New metoprolol tartrate 25 mg Tablet 25 mg PO BID 30 Days Qty: 60 2RF Eliquis 5 mg Tablet 5 mg PO BID 30 Days Qty: 60 2RF Continued coenzyme [id number] E 100-100 mg-unit capsule 1 cap PO QDAY Calcium 600 with Vitamin D3 600 mg(1,500mg) -400 unit tablet,chewable 1 tab PO QDAY fluticasone propionate [Allergy Relief (fluticasone)] 50 mcg/actuation spray,suspension 2 spray INTRANASAL QDAY inositol 500 mg tablet 500 mg PO QDAY milk thistle 150 mg capsule 150 mg PO DAILY omeprazole 20 MG capsule,delayed release(DR/EC) 40 mg PO DAILY Patient Comments: levothyroxine [Synthroid] 150 mcg tablet 150 mcg PO DAILY cholecalciferol (vitamin D3) 50 mcg (2,000 unit) capsule 2,000 unit PO DAILY multivitamin [Daily Multi-Vitamin] Tablet 1 tab PO DAILY Discontinued verapamil 100 MG capsule, [address] 100 mg PO DAILY triamterene-hydrochlorothiazid 75 MG-5 tablet 1 tab PO DAILY Patient Comments: aspirin 81 MG tablet 81 mg PO DAILY@0800 Qty: 30 0RF oxycodone-acetaminophen [Percocet] 5-325 mg tablet 1 tab PO Q6H PRN (Reason: pain) 3 Days Qty: 12 0RF propranolol 60 mg capsule,extended release 24 hr 60 mg PO DAILY Other Ambulatory Orders: 30 Day Event Recorder Preventi (Urgent) Timeframe: 1 Month Facility: [facility] - Location: Cardiovascular Services Ordered By: Dr. Davi Becerril Referrals / Follow Up: Roberto Pabon MD [Primary Care Provider] - 11/11/24 (As previously scheduled by pt. ) Donato Moscoso MD [Med Staff - Active Staff] - Disposition Disposition (needs filled in before D/C Order can be placed): Home, Self Care Charges/Coding Visit Charges Inpatient E&M: 85771 Disch Hosp >30min
--- NOTE | 2024-11-08 10:18 | PN.CARD_ITS ---
Subjective Subjective No complaints today Objective Data Vital Signs: Vital Signs Temp Pulse Resp BP Pulse Ox O2 Del Method 98.6 F 63 16 106/80 97 Room Air 11/08/24 02:53 11/08/24 03:29 11/08/24 02:53 11/08/24 02:53 11/08/24 02:53 11/08/24 02:53 Oxygen Delivery Method Room Air Weight: 143 lb 15.39 oz Body Mass Index (BMI) 23.9 Intake & Output: Intake and Output for Last 24 Hours 11/06/24 11/07/24 11/08/24 23:59 23:59 23:59 Intake Total 0 / 0 350 / 350 Balance 0 / 0 350 / 350 Lab / Micro Data 11/08/24 05:08 11/08/24 05:08 Labs: Laboratory Results - last 24 hr 11/07/24 12:55: Hemoglobin A1c 5.4, Triglycerides 85, Cholesterol 199, LDL Cholesterol, Calc 120, VLDL Cholesterol 17, HDL Cholesterol 62, Cholesterol/HDL Ratio 3.20 11/07/24 14:10: APTT 81.3 H 11/08/24 05:08: WBC 5.4, RBC 4.10 L, Hgb 13.6, Hct 37.6, MCV 91.7, MCH 33.2 H, M CHC 36.2 H, RDW Std Deviation 39.4, RDW Coeff of Maurizio 11.8, Plt Count 282, MPV 8.4, Sodium 136, Potassium 3.5, Chloride 103, Carbon Dioxide 21.8, Anion Gap 11, BUN 15, Creatinine 0.72, Estim Creat Clear Calc 59.72, Est GFR (MDRD) Non-Af 91, BUN/Creatinine Ratio 20.4 H, Glucose 96, Calcium 9.2 Cardiology Labs/Tests 11/07/24 12:55: Hemoglobin A1c 5.4, Triglycerides 85, Cholesterol 199, VLDL Cholesterol 17, HDL Cholesterol 62, Cholesterol/HDL Ratio 3.20 11/07/24 14:10: APTT 81.3 H 11/08/24 05:08: WBC 5.4, RBC 4.10 L, Hgb 13.6, Hct 37.6, MCV 91.7, MCH 33.2 H, M CHC 36.2 H, Plt Count 282, MPV 8.4, Sodium 136, Potassium 3.5, Chloride 103, Carbon Dioxide 21.8, Anion Gap 11, BUN 15, Creatinine 0.72, Est GFR (MDRD) Non- Af 91, BUN/Creatinine Ratio 20.4 H, Glucose 96, Calcium 9.2 Rhythm: EKG: ECHO: Stress Test: Cardiac Cath: PCI: CT Surgery: Holter monitor: EPS: PPM: CXR: Chest CT Scan: Radiography Diagnostic Testing: Radiology Impression Echocardiogram 11/06/24 15:51 Interpretation Summary Trivial mitral valve insufficiency. The aortic root is mildly dilated at 3.9 cm Normal left ventricle. The LV ejection fraction is 60 %. Ordering Physician: Davi Becerril Referring Physician: Roberto Pabon Performed By: Tiffany Menezes RDCS, RVT Physical Exam Narrative General?alert oriented HEENT- normal extraocular movements Neck supple no JVD Cardiovascular- normal S1-S2, no murmurs Pulmonary- clear to auscultation bilaterally Abdomen- soft to palpation, normal sounds Extremities- no edema Musculoskeletal- no tenderness no swelling Neurological -alert oriented to person place and time Psych -normal affect Assessment & Plan Assessment/Plan (1) Tobacco abuse: (2) Chest pain: (3) Hyperlipidemia: (4) Essential hypertension: (5) Afib: PLAN: Plan 1.? Unstable angina: Left heart cath showed no significant coronary artery disease. Medical management chest pain is likely demand from A-fib with RVR 2. Atrial fibrillation this appears to be a new diagnosis ;given her NCT0ED2- VASc 2 score (age and gender ) she would benefit from long-term anticoagulation for stroke prevention. Continue metoprolol p.o. plan for 30-day event monitor as an outpatient to determine A-fib burden. Charges/Coding Visit Charges Inpatient E&M: 09015 Subs Hosp L3
[2024-11-08] MEDS: Acetaminophen 325 MG Tablet 650 MG PO (10:25)
[2024-11-08] MEDS: Aspirin E.C. 81 MG Tablet PO (10:25)
[2024-11-08] MEDS: Calcium Carb/Vitamin D 1 TABLET Tablet PO (10:25)
[2024-11-08 10:26] VITALS: BP 119/76; PULSE 72
[2024-11-08] MEDS: Metoprolol Tartrate 25 MG Tablet 12.5 MG PO (10:26)
[2024-11-08] MEDS: Multivitamins,Therapeutic Tablet 1 TABLET PO (10:26)
[2024-11-08] MEDS: APIXABAN 5 MG TABLET PO (10:27)
[2024-11-08] MEDS: Fluticasone 0.05% 1 SPRAY NASAL.SRY 2 SPRAY NASAL (10:27)
[2024-11-08] MEDS: Cholecalciferol (VIT D3) 25 MCG TABLET (1,000 UNITS) 50 MCG PO (10:28)
[2024-11-08] MEDS: Pantoprazole Sodium 40 MG Tablet PO (10:28)
[2024-11-08 10:39] VITALS: BP 119/76; PULSE 72; RESP 18; TEMP 35.9; O2SAT 100
[2024-11-08 11:05] LABS: Erythrocyte Sedimentation Rate 34 mm/hr (0-30)
[2024-11-08 12:01] VITALS: BP 119/78; PULSE 76; RESP 18; TEMP 36.6; O2SAT 100
--- NOTE | 2025-01-05 09:45 | CL.D_ITS ---
Patient Name: RIGO TEMPLE Study Date: 11/07/2024 Performing: Kenyon Ovalle MD Ht: 65 inches 165.1 cm : 1955 Wt: 144.2 lbs 65.3 kg Age: 69 Gender: female BSA: 1.72 PROCEDURE(S) PERFORMED [id number])[facility] CLINICAL PROFILE AND INDICATIONS Indications: New Onset Angina <= 2 months Heart Failure: None CONCLUSIONS Nonobstructive coronary artery disease RECOMMENDATIONS Medical management DESCRIPTION OF PROCEDURE The patient arrived to the procedure lab. The risks and benefits of the procedure as well as a full description of our services here and current unavailability of surgical backup were fully explained to the patient and/or their significant other prior to the catheterization. The Timeout was completed, verifying the correct patient and procedure. The patient's procedural site was prepped and draped in the usual fashion. Local anesthetic was given subcutaneously to right radial region with Lidocaine 2%. Using a modified Seldinger technique, arterial access was obtained via the right radial artery, a 6Fr sheath was inserted. Left Coronary Artery selective angiography was performed in multiple views using a 5 Fr. 4.0 Dalzell catheter. Right Coronary Artery selective angiography was then performed in multiple views using a 5 Fr. 4.0 Dalzell catheter. LV to AO pullback pressures were then recorded.The arterial sheath was pulled and a TR Band was applied for hemostasis 11 ml of air CORONARY ANGIOGRAPHY DOMINANCE: Right Dominant LEFT HEART ASSESSMENT LVEDP: 14 mmHg LEFT MAIN: Absent LEFT ANTERIOR DESCENDING ARTERY: This is a large vessel with no significant coronary artery disease. DIAGONAL 1: Ostial - This vessel has 20% ostial stenosis, otherwise this vessel does not have any significant coronary artery disease CIRCUMFLEX ARTERY: This is a large vessel with no significant coronary artery disease OM 1: - This is a medium sized vessel with no significant coronary artery disease OM 2: - This is a medium sized vessel with no significant coronary artery disease RIGHT CORONARY ARTERY: This is a large sized vessel with no significant coronary artery disease RT PLV: This is a medium sized vessel with no significant coronary artery disease RT PDA: - This is a medium sized vessel with no significant coronary artery disease VALVE FINDINGS: No significant gradient across the aortic valve COMPLICATIONS No Complications PROCEDURE MEDICATIONS Fentanyl 25 mcg IV Versed 0.5 mg IV Oxygen: 2 L/min via nasal cannula Heparin given IA 11/07/2024 09:25:43 SUMMARY OF HEMODYNAMIC DATA Time AIR REST ECG 09:14:02 AO 98/63 (79) SA 09:38:40 AO 103/74 (89) 09:40:15 LV 129/-9, 11 09:45:23 LV 133/-10, 10 09:45:33 LVp 126/-9, 11 09:46:04 AOp 124/76 (96) 09:46:11 Signed By Kenyon Ovalle MD On 11/07/2024 10:46:27 Kenyon Ovalle MD
== END 2024-11-08 13:04 | disposition home or self-care (01) | DRG 287 ==
LOC: ED 16:09 → PCU 18:35
PROVIDERS: Internal Medicine; Physician Assistant; Admitting Provider Hospitalist; Emergency Provider Emergency Medicine; PCP Family Medicine; Visit Provider Hospitalist
DX: I48.0 Paroxysmal atrial fibrillation (principal); E03.9 Hypothyroidism, unspecified; I10 Essential (primary) hypertension; E78.00 Pure hypercholesterolemia, unspecified; K21.9 Gastro-esophageal reflux disease without esophagitis; F17.210 Nicotine dependence, cigarettes, uncomplicated; I25.10 Atherosclerotic heart disease of native coronary artery without angina pectoris; Z79.82 Long term (current) use of aspirin; Z79.01 Long term (current) use of anticoagulants; Z79.891 Long term (current) use of opiate analgesic; Z79.890 Hormone replacement therapy; Z79.899 Other long term (current) drug therapy
CPT/HCPCS: 36415; 71046; 80048; 80061; 83036; 83735; 84443; 84484; 85025; 85027; 85652; 85730; 86140; 93005; 93306; 93454; 94668; 99152; 99153; 99285; 99406; Q9957; Q9967; A4216; C1769; C1894; C8929

== ENCOUNTER 2025-01-28 13:07 | Emergency (ER) | payer MEDICARE, OTHER, SELFPAY ==
[2025-01-28 13:07] VITALS: BP 139/115; PULSE 17; RESP 78; TEMP 36.6; O2SAT 98; BMI 24.1
--- NOTE | 2025-01-28 13:20 | EKG12_ITS ---
Test Reason : CP Blood Pressure : */* mmHG Vent. Rate : 72 BPM Atrial Rate : 72 BPM P-R Int : 186 ms QRS Dur : 76 ms QT Int : 348 ms P-R-T Axes : 34 29 41 degrees QTcB Int : 381 ms Normal sinus rhythm Nonspecific ST and T wave abnormality Abnormal ECG Confirmed by DANIEL MONTILLA, KAROLYN ([id number]), features editor BRENDA LONDONO ([id number]) on 01/30/2025 9:36:33 AM Referred By: Confirmed By: KAROLYN SANCHEZ MD
--- NOTE | 2025-01-28 13:39 | RAD_ITS ---
PROCEDURE: CHEST PA AND LATERAL 01/28/2025 REASON FOR EXAM: CHEST PAIN TECHNIQUE: Procedure Code: RADCXR Modality: DX Procedure: CHEST PA AND LATERAL COMPARISON: 11/06/24 FINDINGS: No focal consolidation. No pleural effusion or pneumothorax. Cardiac silhouette is within normal limits. No acute fractures. RAD/Chest PA and Lateral IMPRESSION: No focal consolidations. Reading Location: [facility]
--- NOTE | 2025-01-28 13:40 | EDS_ITS ---
HPI History of Present Illness Chief Complaint: Chest Pain Narrative Narrative: Patient is a 69-year-old female presenting to the emergency department for palpitations and chest tightness. Patient has a past medical history of CAD, paroxysmal A-fib with RVR, tobacco abuse, hypertension, hypercholesterolemia, hypothyroidism and pericarditis. Patient states that starting in October she started having episodes of palpitations, lightheadedness and chest tightness. States that a Holter monitor was ordered and it showed episodes of paroxysmal A- fib. Patient sees Dr. Moscoso, jet engine mechanic. He placed her on Eliquis and metoprolol. She states that last night she had an episode of palpitations and chest tightness that lasted about 4 hours. She then had another episode this morning that lasted about 35 minutes. She reports being compliant with her medications. Denies any chest pain or shortness of breath at time of evaluation. She states she only has a chest tightness with the palpitations. Denies any diaphoresis, nausea, vomiting. [facility] Medical History Lymphoma Tobacco abuse Hyperlipidemia Pure hypercholesterolemia Essential hypertension Acute pericarditis Hypothyroid Chest pain Home Medications ?Medication ?Instructions ?Recorded ?Last Taken ?Type omeprazole 20 mg capsule,delayed 40 mg PO DAILY GERD 0 12/17/17 12/16/17 07:00 History release calcium 600 mg (as carbonate)-vit 1 tab PO QDAY supple ment 12/28/17 Unknown History D3 10 mcg (400 unit) chewable tablet (Calcium 600 with Vitamin D3) coenzyme [id number] E 100 mg-100 1 cap PO QDAY supple ment 12/28/17 Unknown History unit capsule fluticasone propionate 50 2 spray intranasal QDAY jose antonio rgies 12/28/17 Unknown History mcg/actuation nasal spray,suspension (Allergy Relief (fluticasone)) inositol 500 mg tablet 500 mg PO QDAY 12/28/17 Unkn own History milk thistle 150 mg capsule 150 mg PO DAILY supplement 07/12/18 Unknown History cholecalciferol (vitamin D3) 50 2,000 unit PO DAILY vi tamin 11/06/24 Unknown History mcg (2,000 unit) capsule levothyroxine 150 mcg tablet 150 mcg PO DAILY thyroid 11/06/24 Unknown History (Synthroid) multivitamin (Daily Multi-Vitamin 1 tab PO DAILY vitam in 11/06/24 Unknown History tablet) apixaban 5 mg tablet (Eliquis) 5 mg PO BID 30 days #60 tabs 11/08/24 Unknown Rx metoprolol tartrate 25 mg tablet 25 mg PO BID 30 days #60 tabs 11/08/24 Unknown Rx verapamil 100 mg capsule 24hr 100 mg PO DAILY 01/28/[address],ext.release Allergy/AdvReac Type Severity Reaction Status Date / Time atorvastatin (From Lipitor) AdvReac Severe Myalgias, Verified 01/28/25 13:10 balance problems, fatigue Surgical History History of left heart catheterization History of hand surgery History of section Hx of appendectomy Social History Smoking Status: Current every day smoker tobacco type: cigarettes alcohol intake: former details: couple beers a day substance use type: does not use ROS ROS ED ROS Narrative See HPI EXAM Physical Exam Narrative Exam Narrative: Vital signs: Reviewed General: Alert and oriented x 3. No acute distress HEENT: Head is normocephalic and atraumatic, sinuses nontender, pupils equal round and reactive. Nares are patent. Oropharynx and throat exams normal. Neck: Supple without lymphadenopathy nontender Cardiovascular: Regular rate and rhythm, no murmurs. No rubs or gallops. Normal S1 and S2 Respiratory: Clear to auscultation bilaterally. No wheezes, rales, rhonchi Abdominal: Soft and nontender. Normal bowel sounds. No guarding or rebound. Nonsurgical abdomen Extremities: No edema. No tenderness. No bruising. Normal range of motion. Normal sensation. Skin: No rash or redness. Neurological: Cranial nerves II through XII are grossly intact. Normal strength and sensation. Normal cerebellar function The rest of the physical exam is unremarkable Const Vital Signs: 01/28/25 13:07 01/28/25 13:18 01/28/25 14:09 Temperature 97.8 F Temperature Source Oral Pulse Rate 17 L Respiratory Rate 78 H Respiratory Effort Normal Non-Labored Respiratory Pattern Normal Blood Pressure 139/115 H 121/92 H Blood Pressure Mean 123 101 Pulse Ox 98 01/28/25 15:03 01/28/25 15:10 Temperature 97.7 F L Temperature Source Pulse Rate 74 72 Respiratory Rate 16 16 Respiratory Effort Respiratory Pattern Blood Pressure 141/95 H 141/95 H Blood Pressure Mean 110 110 Pulse Ox 97 96 MDM MDM MDM Narrative Medical decision making narrative: Patient is a 69-year-old female presenting emergency department for episodes of chest tightness and palpitations. Patient was seen and examined. Vitals are stable. Patient resting bed comfortably no acute distress. EKG shows normal sinus rhythm with nonspecific ST and T wave abnormalities. No dysrhythmia. Labs, chest x-ray and troponin were obtained. I will speak to Dr. Moscoso after workup is complete. CBC with no leukocytosis and a normal hemoglobin. BMP with no significant abnormalities. Magnesium of 2.7. TSH within normal limits. Troponin of 10. Patient has been having the symptoms on and off for the past few weeks. With a negative initial troponin I do not think this is ACS in nature and would expect an elevation with her having symptoms for multiple weeks. No tachycardia on evaluation, no hypoxia, no shortness of breath, no risk factors for PE or DVT. Do not suspect this is the cause of her intermittent palpitations. Did speak with Dr. Moscoso about the patient. He had no medication changes recommendations at this time given negative workup and no episodes of a fib while here. I updated the patient and her on the negative workup and recommended that she follow-up with her jet engine mechanic as soon as possible and return to the ED with any new or worsening symptoms. Patient discharged from the Emergency Department. I do not feel that the patient's evaluation reveals any acute reason for admission at this time. I instructed them to either follow-up with their primary care physician or promptly return to the Emergency Department for reevaluation should symptoms worsen or new symptoms develop. I explained what symptoms would indicate the need to return to the emergency department. Shared decision making was used. The patient voiced understanding of the treatment plan and is agreeable with it. Clinical impression Heart palpitations intermittent chest tightness History & Record Review Discussion w/independent historian: Patient and Significant other Lab Data Attestation: I reviewed the patient's lab results. Labs: Laboratory Results - last 24 hr 01/28/25 13:16 WBC 6.9 RBC 4.48 Hgb 14.1 Hct 42.5 MCV 94.9 MCH 31.5 MCHC 33.2 RDW Std Deviation 40.8 RDW Coeff of Maurizio 11.8 Plt Count 270 MPV 10.6 Immature Gran % (Auto) 0.400 Neut % (Auto) 62.8 Lymph % (Auto) 27.1 [place] % (Auto) 7.4 Eos % (Auto) 1.6 Baso % (Auto) 0.7 Absolute Neuts (auto) 4.3 Absolute Lymphs (auto) 1.87 Nucleated RBC % 0 Sodium 140 Potassium 4.3 Chloride 105 Carbon Dioxide 20.9 L Anion Gap 14 BUN 16 Creatinine 0.95 Estim Creat Clear Calc 50.29 Est GFR (MDRD) Non-Af 65 BUN/Creatinine Ratio 16.8 Glucose 118 H Calcium 9.3 Magnesium 2.7 H Troponin T High Sens 10 D TSH 1.650 Radiography Diagnostic Testing: Clinical Impression(s) from Imaging Studies Chest X-Ray 01/28/25 13:39 IMPRESSION: No focal consolidations. Reading Location: [facility] Discharge Plan Triage Chief Complaint: Chest Pain ED Provider: Lata Guaman Dx/Rx/DC Orders Clinical Impression: Chest tightness, Heart palpitations Instructions: ED Chest Pain, Uncertain Cause, ED Heart Palpitations Prescriptions: No Action coenzyme [id number] E 100-100 mg-unit capsule 1 cap PO QDAY Calcium 600 with Vitamin D3 600 mg(1,500mg) -400 unit tablet,chewable 1 tab PO QDAY fluticasone propionate [Allergy Relief (fluticasone)] 50 mcg/actuation spray,suspension 2 spray INTRANASAL QDAY inositol 500 mg tablet 500 mg PO QDAY milk thistle 150 mg capsule 150 mg PO DAILY omeprazole 20 MG capsule,delayed release(DR/EC) 40 mg PO DAILY Patient Comments: levothyroxine [Synthroid] 150 mcg tablet 150 mcg PO DAILY cholecalciferol (vitamin D3) 50 mcg (2,000 unit) capsule 2,000 unit PO DAILY multivitamin [Daily Multi-Vitamin] Tablet 1 tab PO DAILY metoprolol tartrate 25 mg Tablet 25 mg PO BID 30 Days Qty: 60 2RF Eliquis 5 mg Tablet 5 mg PO BID 30 Days Qty: 60 2RF verapamil 100 mg capsule, [address] 100 mg PO DAILY Primary Care Provider: Roberto Pabon Referrals: Roberto Pabon MD [Primary Care Provider] - Donato Moscoso MD [Med Staff - Active Staff] - 3-5 Days Activity Restrictions/Additional Instructions: Your evaluation in the Emergency Department did not reveal any acute reason for admission. However, I want to emphasize that you may be early in the course of a disease process or illness even if it is not present. For this reason you should follow-up within 24 hours for reevaluation with either your primary care physician or if necessary back here in the Emergency Department. You should return to the Emergency Department immediately if your symptoms worsen or new symptoms develop. Print Language: [place] Disposition Disposition: Home, Self Care Discharge Date/Time: 01/28/25 15:33
[2025-01-28 13:50] LABS: Hematocrit 42.5 % (37-47); Hemoglobin 14.1 g/dL (12.0-15.0); Immature Granulocytes Count 0.030 X10^3/uL (0.0-0.0); Mean Corp Hgb Conc 33.2 g/dL (32-36); Mean Corpuscular Volume 94.9 fL (81-99); Mean Platelet Vol. 10.6 fl (6.2-12.0); NRBC Flagged by Analyzer 0 % (0-5); Platelet Count 270 K/mm3 (150-450); RBC Distribution Width CV 11.8 % (11.6-14.6); RBC Distribution Width SD 40.8 fl (35.1-43.9); Red Blood Count 4.48 M/mm3 (4.2-5.4); White Blood Count 6.9 K/mm3 (4.4-11.0)
[2025-01-28 14:09] VITALS: BP 121/92
[2025-01-28 14:16] LABS: Magnesium 2.7 mg/dL (1.5-2.2); Troponin T High Sensitivity 10 ng/L (<=14)
[2025-01-28 14:17] LABS: Anion Gap 14 (5-15); BUN 16 mg/dL (4-19); BUN/Creat Ratio 16.8 RATIO (10-20); Calcium,Total 9.3 mg/dL (7.6-11.0); Carbon Dioxide 20.9 mmol/L (21.0-32.0); Chloride 105 mmol/L (98-108); Estimated Creatinine Clearance 50.29 ml/min (50-250); Glucose 118 mg/dL (70-99); Potassium 4.3 mmol/L (3.3-5.1)
[2025-01-28 15:03] VITALS: BP 141/95; PULSE 74; RESP 16; O2SAT 97
[2025-01-28 15:10] VITALS: BP 141/95; PULSE 72; RESP 16; TEMP 36.5; O2SAT 96
== END 2025-01-28 15:33 | disposition home or self-care (01) ==
PROVIDERS: Emergency Provider Student in an Organized Health Care Education/Training Program; PCP Family Medicine; Visit Provider Student in an Organized Health Care Education/Training Program
DX: R07.89 Other chest pain (principal); I48.0 Paroxysmal atrial fibrillation; I10 Essential (primary) hypertension; F17.210 Nicotine dependence, cigarettes, uncomplicated; Z79.01 Long term (current) use of anticoagulants; Z79.899 Other long term (current) drug therapy
CPT/HCPCS: 71046; 80048; 83735; 84443; 84484; 85025; 93005; 99284; A4216